=== PATIENT | female | born 1950 | race Caucasian/White ===

== ENCOUNTER 2024-02-20 16:33 | Emergency (ER) | payer MEDICARE, SELFPAY ==
[2024-02-20 16:36] VITALS: BP 164/84; PULSE 98; RESP 18; TEMP 36.6; O2SAT 97; BMI 23.4
--- NOTE | 2024-02-20 16:38 | ED_ITS ---
<Statement entered by Velma Rutledge DO - 02/20/24 17:11> I was consulted by the RORY, and we discussed the complexity of the problems being addressed. I approved the treatment and management plan for this patient's care in the emergency department, thus performing a substantive portion of the medical decision making. I independently interpreted x-ray prior to radiology read and noted no foreign body retained at the site of marker that was placed. Velma Rutledge DO Discharge Plan Disposition Patient Disposition: Home, Self-Care Condition: Good Prescriptions Prescriptions: New amoxicillin-pot clavulanate 875-125 mg tablet 1 tab PO BID Qty: 20 0RF Referrals Follow up/Referrals: Jenny Lomeli PA [Primary Care Provider] - See instructions Activity Restrictions/Add. Instructions Additional Instructions/Restrictions: You will need to return to the infusion center for your series of rabies shots. Follow the order sheet given to you on discharge. I have sent a prescription into your pharmacy. Please take till it is gone. Follow-up with your PCP for no improvement or worsening signs or symptoms including fever pain drainage etc. Clinical Impressions Clinical Impression: Cat bite Qualifiers: Encounter type: initial encounter Qualified Code(s): W55.01XA - Bitten by cat, initial encounter Instructions Patient Instructions: DI for Cat Bite Print Language Print Language: Mauritanian Discharge ED Provider: Velma Rutledge General Adult HPI General Chief complaint: Skin/Abscess/Foreign Body Stated complaint: cat bite Rt leg Time Seen by Provider: 02/20/24 16:38 History of Present Illness HPI narrative: Patient presents for evaluation of a cat bite. Patient was bitten by an outdoor cat of her neighbors in the right lower extremity. She does not know if the cat is vaccinated or not. She denies any numbness tingling pain or drainage currently. Related Data Previous Rx's ?Medication ?Instructions ?Recorded amoxicillin 875 mg-potassium 1 tab PO BID #20 tabs 02/20/24 clavulanate 125 mg tablet Allergies Allergy/AdvReac Type Severity Reaction Status Date / Time No Known Allergies Allergy Verified 02/20/24 16:46 [facility] Disclaimer: The information contained in this section may have been updated after the patient was seen, as this information can be updated by other users. Social History (Updated 02/20/24 @ 16:55 by BOOM Read) Smoking Status: Never smoker alcohol intake: never current occupational status: retired Travel in the last 8 weeks: None ROS Obtained: Yes Systems reviewed as appropriate & no additional complaints except as documented Physical Exam General General appearance: alert and in no apparent distress Respiratory Respiratory exam: Present normal lung sounds bilaterally Cardiovascular Cardiovascular exam: Present regular rate Neurological Exam Neurological exam: Present alert and oriented X3 Medical Decision Making Medical Records Screening: Per USPSTF and CDC recommendations, given the prevalence of disease in our region, it is our hospital?s policy to screen for HIV and viral Hepatitis for all patients aged 18 and over and those with ongoing risk factors. Cruz Inquiry Pt receiving controlled substance: No Vital Signs: 02/20/24 16:36 Temperature 97.8 F Temperature Source Oral Pulse Rate [Right] 98 H Respiratory Rate 18 Blood Pressure [Right Arm] 164/84 H Blood Pressure Mean [Right Arm] 110 02 Sat by Pulse Oximetry 97 Orders (Tests/Meds): ED MEDICATIONS Discontinued Medications Generic Name Dose Route Start Last Admin Trade Name Freq PRN Reason Stop Dose Admin Amoxicillin/Clavulanate Potassium 1 each 02/20/24 16:43 02/20/24 17:06 Amoxicillin/Clavulanate Potassium 875/125mg Tablet PO 02/20/24 16:44 1 each ONCE ONE Administration Rabies Immune Globulin 1,088.62 unit 02/20/24 16:48 02/20/24 17:00 Rabies Immune Globulin/Pf 300 Unit/Ml Vial IM 02/20/24 16:49 1,088.62 unit ONCE ONE Administration Rabies Vaccine 2.5 unit 02/20/24 16:44 02/20/24 17:02 Rabies Vaccine (Pcec)/Pf 2.5 Unit Vial IM 02/20/24 16:45 2.5 unit .ONCE ONE Administration ORDERS Category Date Time Status Tibia/fibula XR right 2 views [XR tibia fibula RT 2V] Exams 02/20/24 16:49 Taken Stat XR tibia fibula RT 2V Stat Exams 02/20/24 16:59 Taken HIV (1&2) Antibody Rapid Stat Lab 02/20/24 16:47 Ordered Hep C Ab with Reflex to RNA Stat Lab 02/20/24 16:47 Ordered Medical Decision Narrative: In summary patient is a 73-year-old female who presents to the emergency department for evaluation of cat bite. Patient is hemodynamically stable upon arrival, afebrile. Physical exam is remarkable for 2 puncture wounds in the anterior right gordillo lateral to the tibia. There is no induration streaking abscess currently. She is neurovascular intact distally. Differential diagnosis includes simple cat bite versus possible retained foreign body (i.e. cat tooth) etc. Initial workup will be conducted with plain film x-ray. Initial interventions include Augmentin rabies Ig infiltrated at the cat bite by myself and rabies vaccine intramuscularly. Initial workup reviewed by me and my informal interpretation shows no bony foreign body noted at the site of the bite. Given this patient is appropriate for discharge with both the rabies Ig first dose given as well as the rabies vaccine given in the emergency department with follow-up sheet for the serial doses given to the patient on discharge. Critical Care Critical Care Time Critical Care Time: No
--- NOTE | 2024-02-20 16:49 | XR_ITS ---
PROCEDURE INFORMATION: Exam: XR Right Tibia and Fibula Exam date and time: 02/20/2024 4:47 PM Age: 73 years old Clinical indication: Injury or trauma; Other: Cat bite; Puncture; Lower leg; Right; Foreign body involvement not specified; Additional info: Cat bite lateral leg, eval for foreign body TECHNIQUE: Imaging protocol: Radiologic exam of the right tibia and fibula. Views: 2 views. COMPARISON: No relevant prior studies available. FINDINGS: Bones/joints: Normal. No acute fracture identified. Soft tissues: Normal. IMPRESSION: No acute findings.
--- NOTE | 2024-02-20 16:59 | XR_ITS ---
PROCEDURE INFORMATION: Exam: XR Right Tibia and Fibula Exam date and time: 02/20/2024 4:59 PM Age: 73 years old Clinical indication: Injury or trauma; Other: Cat bite; Puncture; Lower leg; Right; Foreign body involvement not specified; Injury details: Marker placed next to wound to check for foreign body; Additional info: Cat bite 02/18 TECHNIQUE: Imaging protocol: Radiologic exam of the right tibia and fibula. Views: 2 views. COMPARISON: CR XR TIBIA FIBULA RT 2V 02/20/2024 4:47 PM FINDINGS: Bones/joints: Normal. No acute fracture identified. No radiopaque foreign body visible in the area of the cat bite as marked by skin marker located adjacent to the anterior aspect of the proximal to mid tibia.. Soft tissues: Normal. IMPRESSION: No acute findings.
[2024-02-20] MEDS: RABIES IMMUNE GLOBULIN/PF 300 UNIT/ML VIAL 1088.62 UNIT IM (17:00)
[2024-02-20] MEDS: RABIES VACCINE (PCEC)/PF 2.5 UNIT VIAL IM (17:02)
[2024-02-20] MEDS: AMOXICILLIN/CLAVULANATE POTASSIUM 875/125MG TABLET 1 EACH PO (17:06)
[2024-02-20 17:19] VITALS: BP 124/83; PULSE 99; RESP 18; TEMP 36.7; O2SAT 97
== END 2024-02-20 17:40 | disposition home or self-care (01) ==
LOC: ER 17:07
PROVIDERS: Emergency Provider Emergency Medicine; PCP Physician Assistant
DX: S81.831A Puncture wound without foreign body, right lower leg, initial encounter (principal); M79.661 Pain in right lower leg; Z23 Encounter for immunization; W55.01XA Bitten by cat, initial encounter; Y93.89 Activity, other specified; Y92.007 Garden or yard of unspecified non-institutional (private) residence as the place of occurrence of the external cause; Z20.3 Contact with and (suspected) exposure to rabies
CPT/HCPCS: 73590; 90375; 90471; 90675; 96372; 99283

== ENCOUNTER 2024-02-23 17:27 | Outpatient (CLI) | payer MEDICARE, SELFPAY ==
--- OUTSIDE RECORDS SUMMARY | 2024-02-23 17:32 | XMS_ITS | Encounter Summary ---
[facility] Address [address] [place] [address] Care Team Providers Care Assistance Specialist Name Role Phone Kortney Woods MD Primary Care Provi kenny Reason for Visit * Reason Onset Date Comments CS-Meds Re-Fill 04/10/2019 Encounter Details Date Type Department Care Team (Late st Contact Info) Description 04/10/2019 Telephone [facility] [address] [place] [address] Kortney Woods MD [address] [place] [address] CS-Meds Re-Fill Social History Tobacco Use Types Packs/Day Years Used Date Smoking Tobacco: Never Smokeless Tobacco: Never Alcohol Use Standard Drinks/Week Comments No 0 (1 standard drink = 0.6 oz pur e alcohol) PHQ-2 Answer Date Recorded PHQ-2 Score 7 02/08/2018 Comments No Sex and Gender Information Value Date Recorded Sex Assigned at Not on file Legal Sex Female 12:26 PM EDT Gender Identity Not on file Sexual Orientation Not on file documented as of this encounter Miscellaneous Notes * Telephone Encounter - Sebastian Dela Cruz RegSched Rep - 04/10/2019 4:10 PM EST Patient would like a re-fill for the zolpidem (AMBIEN) 10 MG tablet [employer] Mail Delivery, confirmed Patient Call Back [phone] documented in this encounter Plan of Treatment Upcoming Encounters Date Type Department Care Team (Late st Contact Info) Description 01/19/2025 3:00 PM EDT Office Visit [facility] [address] [place] [phone] Jenny Lomeli PA [address] [place] [address] documented as of this encounter Visit Diagnoses Diagnosis 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
--- OUTSIDE RECORDS SUMMARY | 2024-02-23 17:32 | XMS_ITS | Encounter Summary ---
[facility] [address] [place] [address] Care Team Providers Care Flight Dynamicist Name Role Phone Jenny Lomeli Primary Care Provider [phone] Encounter Details Date Type Department Care Team (Latest Contact Info) Description 01/15/2024 Travel Social History Tobacco Use Types Packs/Day Years Used Date Smoking Tobacco: Never Smokeless Tobacco: Never Alcohol Use Standard Drinks/Week Comments No 0 (1 standard drink = 0.6 oz pur e alcohol) PHQ-2 Answer Date Recorded Retired PHQ-9: Brief Depression Severity Measure Score 11 10/16/2022 Abuse Screen Answer Date Recorded Unsafe at Home or Work/School Not on file Feels Threatened by Someone? Not on file 01/2023 Does Anyone Keep You from Co ntacting Others or Doint Things Outside the Home? Not on file 01/09/2023 Physical Sign of Abuse Present Not on file 1 Housing Stability Answer Date Recorded Current Living Arrangements Not on file 12/30 Potentially Unsafe Housing Conditions Not on iva e 01/09/2023 Family and Community Support Answer Franco e Recorded Help with Day-to-Day Activities Not on file 01/09/2023 Lonely or Isolated Not on file 01/09/2023 Employment Answer Date Recorded Do you want help finding or keeping work or a luis armando b? Not on file 01/09/2023 Disabilities Answer Date Recorded Concentrating, Remembering, or Making Decisions Difficulty Not on file 01/09/2023 Doing Errands Independently Difficulty Not on fi le 01/09/2023 Education Answer Date Recorded Help with school or training? Not on file Preferred Language Not on file 01/09/2023 PHQ-2 Answer Date Recorded Patient Health Questionnaire-2 Score 1 01/15/2024 Comments No Sex and Gender Information Value Date Recorded Sex Assigned at Not on file Legal Sex Female 12:26 PM EDT Gender Identity Not on file Sexual Orientation Not on file documented as of this encounter Plan of Treatment Upcoming Encounters Date Type Department Care Team (Late st Contact Info) Description 01/19/2025 3:00 PM EDT Office Visit [facility] [address] [place] [phone] Jenny Lomeli PA [address] [place] [address] documented as of this encounter Visit Diagnoses Not on filedocumented in this encounter Additional Health Concerns Infection Onset Date Last Indicated Resolved Time Norovirus 10/23/2022 10/23/2022 Assessment Noted Time PHQ-2 Depression Total Score: 1 10/14/19 24 3:41 PM EDT documented as of this encounter Care Teams Flight Dynamicist Relationship Specialty Start Date End Date Jenny Lomeli PA [address] [place] [address] PCP - General Physician Residential Coordinator 10/11/23 documented as of this encounter
--- OUTSIDE RECORDS SUMMARY | 2024-02-23 17:32 | XMS_ITS | Encounter Summary ---
[facility] Address [address] [place] [address] Care Team Providers Care Rubber Goods Inspector Name Role Phone Kortney Woods MD Primary Care Provi kenny Reason for Visit * Reason Onset Date Comments ORDER FOR BLOOD WORK 12/23/2019 Encounter Details Date Type Department Care Team (Late st Contact Info) Description 12/23/2019 Telephone [facility] [address] [place] [phone] Kortney Woods MD [address] [place] [address] ORDER FOR BLOOD WORK Social History Tobacco Use Types Packs/Day Years [...] encounter Miscellaneous Notes * Telephone Encounter - Kortney Woods MD - 12/24/2019 7:49 AM EDT She's not coming for a physical. It was leg shaking. So I need to see her and then order labs andshe can get them while she is here. * Telephone Encounter - Deanna Beavers RegSched Rep - 12/23/2019 4:12 PM EDT Caller: WilfredDorita Relationship: Self Best call back number: [phone] What orders are you requesting (i.e. lab or imaging): BLOOD WORK In what timeframe would the patient need to come in: BEFORE HER APPOINTMENT ON 12/29/2019 Where will you receive your lab/imaging services: [facility] Additional notes: NA documented in this encounter Plan of Treatment Upcoming Encounters Date Type Department Care Team (Late st Contact Info) Description 01/19/2025 3:00 PM EDT Office Visit [facility] [address] [place] [address] Jenny Lomeli PA [address] [place] [address] documented as of this encounter Visit Diagnoses Not on filedocumented in this encounter Care Teams Rubber Goods Inspector Relationship Specialty Start Date End Date Kortney Woods MD [address] [place] [address] PCP - General Internal Medicine 09/04/18 10/15/22 documented as of this encounter
--- OUTSIDE RECORDS SUMMARY | 2024-02-23 17:32 | XMS_ITS | Encounter Summary ---
[facility] Address [address] [place] [address] Care Team Providers Care Cigarette Roller Name Role Phone Jenny Lomeli Primary Care Provider [phone] Reason for Referral * Consultation (Routine) - Authorized Specialty Diagnoses / Procedures Referred By Contac t Referred To Contact Orthopedic Surgery Diagnoses Chronic left shoulder pain Jenny Lomeli PA [address] [place] [address] Phone: tel: fax: [place] [address] [place] [address] Phone: tel: fax: Referral ID Status Reason Start Date Expiration Date Visits Requested Visits Authorized [id number] Authorized Specialty Services Required 01/14/2025 1 1 Scheduling Instructions Wants to see a different ortho office. Not [place]. Wants to stay in [place] Reason for Visit * Reason Comments Medicare Wellness-subsequent Med refills .Wants another ortho/? Does not care for Dr. Duke. Encounter Details Date Type Department Care Team (Latest Contact Info) Description 01/15/2024 3:00 PM EDT Office Visit [facility] [address] [facility] [place] [phone] Jenny Lomeli PA [address] [place] [address] Medicare annual wellness visit, subsequent (Primary Dx); Hyperlipidemia, unspecified hyperlipidemia type; Arthritis; Chronic left shoulder pain; Vitamin D insufficiency; Elevated glucose; Low serum vitamin B12; Need for influenza vaccination Social History Tobacco Use Types Packs/Day Years [...] on file documented as of this encounter Last Filed Vital Signs Vital Sign Reading Time Taken Comments Blood Pressure 120/78 01/15/2024 3:08 PM EDT Pulse 105 01/15/2024 3:08 PM EDT Temperature 37 ??C (98.6 ??F) 01/15/2024 3:08 PM EDT Respiratory Rate - - Oxygen Saturation 98% 01/15/2024 3:08 PM EDT Inhaled Oxygen Concentration - - Weight 54.9 kg (121 lb) 01/15/2024 3:08 PM EDT Height 154.9 cm (5' 1 ) 01/15/2024 3:08 PM EDT Body Mass Index 22.86 01/15/2024 3:08 PM EDT documented in this encounter Progress Notes * Jenny Lomeli PA - 01/15/2024 3:00 PM EDT Images from the original note were not included. Subjective The ABCs of the Annual Wellness Visit Medicare Wellness Visit Dorita Hardin is a 73 y.o. patient who presents for a Medicare Wellness Visit. The following portions of the patient's history were reviewed and updated as appropriate: allergies, current medications, past family history, past medical history, past social history, past surgical history, and problem list. Compared to one year ago, the patient's physical health is better. Compared to one year ago, the patient's mental health is better. Recent Hospitalizations: She was not admitted to the hospital during the last year. Current Medical Providers: Patient Care Team: Jenny Lomeli PA as PCP - General (Physician Senior Project Engineer) Outpatient Medications Prior to Visit Medication Sig Dispense Refill atorvastatin (LIPITOR) 20 MG tablet Take 1 tablet by mouth Every Night. 90 tablet 3 coiuwggf-xiohudfnr-sodmtvvpaljvu (MAXITROL) 3.5-22569-5.1 ophthalmic suspension INSTILL 1 DROP INTOBOTH EYES 3 TIMES A DAY diclofenac (VOLTAREN) 50 MG EC tablet Take 1 tablet by mouth Daily As Needed (arthritis pain). 90 tablet 0 amoxicillin-clavulanate (AUGMENTIN) 875-125 MG per tablet Take 1 tablet by mouth 2 (Two) Times a Day. 14 tablet 0 No facility-administered medications prior to visit. No opioid medication identified on active medication list. I have reviewed chart for other potential high risk medication/s and harmful drug interactions in the elderly. Aspirin is not on active medication list. Aspirin use is not indicated based on review of current medical condition/s. Risk of harm outweighs potential benefits. . Patient Active Problem List Diagnosis Primary insomnia Arthritis Anxiety PTSD (post-traumatic stress disorder) Advance Care Planning Advance Directive is on file. ACP discussion was held with the patient duringthis visit. Patient has an advance directive in EMR which is still valid. Objective Vitals: 01/15/24 1508 BP: 120/78 Pulse: 105 Temp: 98.6 ??F (37 ??C) SpO2: 98% Weight: 54.9 kg (121 lb) Height: 154.9 cm (61 ) PainSc: 5 PainLoc: Shoulder Estimated body mass index is 22.86 kg/m?? as calculated from the following: Height as of this encounter: 154.9 cm (61 ). Weight as of this encounter: 54.9 kg (121 lb). BMI is within normal parameters. No other follow-up for BMI required. Does the patient have evidence of cognitive impairment? No Health Risk Assessment Smoking Status: Social History Tobacco Use Smoking Status Never Smokeless Tobacco Never Alcohol Consumption: Social History Substance and Sexual Activity Alcohol Use No Fall Risk Screen STEADI Fall Risk Assessment was completed, and patient is at LOW risk for falls.Assessment completed on:01/15/2024 Depression Screenin01/15/2024 3:14 PM PHQ-2/PHQ-9 Depression Screening Little interest or pleasure in doing things Not at all Feeling down, depressed, or hopeless Several days How difficult have these problems made it for you to do your work, take care of things at home, or get along with other people? Somewhat difficult Health Habits and Functional and Cognitive Screenin01/15/2024 3:11 PM Functional & Cognitive Status Do you have difficulty preparing food and eating? No Do you have difficulty bathing yourself, getting dressed or grooming yourself? No Do you have difficulty using the toilet? No Do you have difficulty moving around from place to place? No Do you have trouble with steps or getting out of a bed or a chair? No Current Diet Well Balanced Diet Dental Exam Not up to date Eye Exam Up to date Exercise (times per week) 7 times per week Current Exercises Include Walking;Yard Work Exercise Comment still working Do you need help using the phone? No Are you deaf or do you have serious difficulty hearing? No Do you need help to go to places out of walking distance? No Do you need help shopping? No Do you need help preparing meals? No Do you need help with housework? No Do you need help with laundry? No Do you need help taking your medications? No Do you need help managing money? No Do you ever drive or ride in a car without wearing a seat belt? No Have you felt unusual stress, anger or loneliness in the last month? Yes Who do you live with? Child If you need help, do you have trouble finding someone available to you? No Have you been bothered in the last four weeks by sexual problems? No Do you have difficulty concentrating, remembering or making decisions? Yes Age-appropriate Screening Schedule: Refer to the list below for future screening recommendations based on patient's age, sex and/or medical conditions. Orders for these recommended tests are listed in the plan section. The patient has been provided with a written plan. Health Maintenance List Health Maintenance Topic Date Due ZOSTER VACCINE (1 of 2) Never done DXA SCAN 07/13/2022 INFLUENZA VACCINE 10/31/2023 COVID-19 Vaccine (2022-24 season) 2024 (Originally 12/01/2023) LIPID PANEL 03/15/2024 ANNUAL WELLNESS VISIT 01/14/2025 MAMMOGRAM 03/21/2025 COLORECTAL CANCER SCREENING 11/26/2028 TDAP/TD VACCINES (2 - Td or Tdap) 03/15/2033 HEPATITIS C SCREENING Completed Pneumococcal Vaccine 65+ Completed [facility] Preventative Services Quick Reference Risk Factors Identified During Encounter Depression/Dysphoria: resistant to medication or therapy at this time The above risks/problems have been discussed with the patient. Pertinent information has been shared with the patient in the After Visit Summary. An After Visit Summary and PPPS were made available to the patient. Follow Up: Next Medicare Wellness visit to be scheduled in 1 year. Assessment & Plan Medicare annual wellness visit, subsequent Hyperlipidemia, unspecified hyperlipidemia type Lipid abnormalities are stable Plan: Continue same medication/s without change. Discussed medication dosage, use, side effects, and goals of treatment in detail. Counseled patient on lifestyle modifications to help control hyperlipidemia. Patient Treatment Goals: LDL goal is less than 70 Followup in 6 months. Arthritis Chronic left shoulder pain Vitamin D insufficiency Elevated glucose Low serum vitamin B12 Orders Placed This Encounter Procedures Ambulatory Referral to Orthopedic Surgery New Medications Ordered This Visit Medications diclofenac (VOLTAREN) 50 MG EC tablet Sig: Take 1 tablet by mouth Daily As Needed (arthritis pain). Dispense: 90 tablet Refill: 3 Place on file Diagnoses and all orders for this visit: 1. Medicare annual wellness visit, subsequent (Primary) - CBC w AUTO Differential - Comprehensive metabolic panel - Lipid Panel - Vitamin D 25 hydroxy - Hemoglobin A1c - Vitamin B12 - Folate 2. Hyperlipidemia, unspecified hyperlipidemia type - CBC w AUTO Differential - Comprehensive metabolic panel - Lipid Panel 3. Arthritis - diclofenac (VOLTAREN) 50 MG EC tablet; Take 1 tablet by mouth Daily As Needed (arthritis pain). Dispense: 90 tablet; Refill: 3 4. Chronic left shoulder pain - diclofenac (VOLTAREN) 50 MG EC tablet; Take 1 tablet by mouth Daily As Needed (arthritis pain). Dispense: 90 tablet; Refill: 3 - Ambulatory Referral to Orthopedic Surgery 5. Vitamin D insufficiency - Vitamin D 25 hydroxy 6. Elevated glucose - Hemoglobin A1c 7. Low serum vitamin B12 - Vitamin B12 - Folate 8. Need for influenza vaccination - Fluzone High-Dose 65+yrs Follow Up: No follow-ups on file. documented in this encounter Plan of Treatment Upcoming Encounters Date Type Department Care Team (Late st Contact Info) Description 01/19/2025 3:00 PM EDT Office Visit [facility] [address] [facility] [place] [address] Jenny Lomeli PA [address] [place] [address] Scheduled Referrals Name Type Priority Associated Diagnoses Order Schedule Ambulatory Referral to Orthopedic Surgery Outpatient Referral Routine Chronic left shoulder pain Ordered: 01/15/2024 documented as of this encounter Procedures Procedure Name Priority Date/Time Associated Diagnosis Comments VITAMIN D,25-HYDROXY Routine 01/15/2024 4:17 PM EDT Medicare annual wellness visit, subsequent Vitamin D insufficiency CBC AND DIFFERENTIAL Routine 01/15/2024 4:17 PM EDT Medicare annual wellness visit, subsequent Hyperlipidemia, unspecified hyperlipidemia type HEMOGLOBIN A1C Routine 01/15/2024 4:17 PM EDT Medicare annual wellness visit, subsequent Elevated glucose FOLATE Routine 01/15/2024 4:17 PM EDT Medicare annual wellness visit, subsequent Low serum vitamin B12 VITAMIN B12 Routine 01/15/2024 4:17 PM EDT Medicare annual wellness visit, subsequent Low serum vitamin B12 LIPID PANEL Routine 01/15/2024 4:17 PM EDT Medicare annual wellness visit, subsequent Hyperlipidemia, unspecified hyperlipidemia type COMPREHENSIVE METABOLIC PANEL Routine 01/15/2024 4:17 PM EDT Medicare annual wellness visit, subsequent Hyperlipidemia, unspecified hyperlipidemia type documented in this encounter Results * Folate (01/15/2024 4:17 PM EDT) Folate 9.4 >3.0 ng/mL [facility] Comment: A serum folate concentration of less than 3.1 ng/mL is considered to represent clinical deficiency. Blood 01/15/2024 4:17 PM EDT 01/15/2024 Narrative [facility] (AMBULATORY) - 01/16/2024 8:21 AM EDT Performed at: ??01 - [facility] [address] ??[id number] Stock Taker: Hawk Mireles PhD, Phone: ??[phone] Patient Fasting: ??Y Jenny NUR LAB BLOOD ORDERABLES Final Res ult [facility] (AMBULATORY) [address] [place] [address], [facility] [address] [place] [address], [place] [phone] * Vitamin B12 (01/15/2024 4:17 PM EDT) Vitamin B-12 407 232 - 1,245 pg/mL [facility] Blood 01/15/2024 4:17 PM EDT 01/15/2024 Narrative [facility] (AMBULATORY) - 01/16/2024 8:21 AM EDT Performed at: ??01 - [facility] ??[id number] Stock Taker: Hawk Mireles PhD, Phone: ??[phone] Patient Fasting: ??Y Jenny NUR LAB BLOOD ORDERABLES Final Res ult Performing Organization Address City/[facility]/ZIP Co de Phone Number [facility] [address] [place] [address], [place] [phone] [facility] [address] [place] [address], [place] [phone] * (ABNORMAL) Hemoglobin A1c (01/15/2024 4:17 PM EDT) Pathologist [facility] Hemoglobin A1C 5.8(H) 4.8 - 5.6 % [facility] Comment: ? Prediabetes: 5.7 - 6.4 ? Diabetes: >6.4 ? Glycemic control for adults with diabetes: <7.0 Blood 01/15/2024 4:17 PM EDT 01/15/2024 [facility] (AMBUL[facility]) - 01/16/2024 8:21 AM EDT Performed at: ??01 - [facility] ??[id number] Stock Taker: Hawk Mireles PhD, Phone: ??[phone] Patient Fasting: ??Y Jenny NUR LAB BLOOD ORDERABLES Final Res ult Performing Organization Address [facility] Co de Phone Number [facility] [address] [place] [address], [place] [phone] [facility] [address] [place] [address], [place] [phone] * (ABNORMAL) Vitamin D 25 hydroxy (01/15/2024 4:17 PM EDT) 25 Hydroxy, Vitamin D 28.5(L) 30.0 - 100.0 ng/mL [facility] Comment: Vitamin D deficiency has been defined by the [place] [employer] and an Endocrine Society practice guideline as a level of serum 25-OH vitamin D less than 20 ng/mL (1,2). The Endocrine Society went on to further define vitamin D insufficiency as a level between 21 and 29 ng/mL (2). 1. IOM ([place] of [employer]). 2010. Dietary reference ?? intakes for calcium and D. [place]: The ?? National Cardiac Guard Press. 2. Raghu MF, Jamin [place], Drew COLEMAN, et al. ?? Evaluation, treatment, and prevention of vitamin D ?? deficiency: an Endocrine Society clinical practice ?? guideline. JCEM. 2010; 96(7):1911-30. Blood 01/15/2024 4:17 PM EDT 01/15/2024 Narrative [facility] - 01/16/2024 8:21 AM EDT Performed at: ??01 - [address] ??[id number] Stock Taker: Hawk Mireles PhD, Phone: ??[phone] Patient Fasting: ??Y Jenny NUR LAB BLOOD ORDERABLES Final Res ult [facility] [address] [place] [address], [facility] [address] [place] [address], * (ABNORMAL) Lipid Panel (01/15/2024 4:17 PM EDT) Total Cholesterol 172 100 - 199 mg/dL [facility] Triglycerides 89 0 - 149 mg/dL [facility] HDL Cholesterol 53 >39 mg/dL [facility] VLDL Cholesterol Naga 16 5 - 40 mg/dL [facility] LDL Chol Calc ([facility]) 103(H) 0 - 99 mg/dL [facility] Blood 01/15/2024 4:17 PM EDT 01/15/2024 Narrative [facility] (AM[facility]) - 01/16/2024 8:21 AM EDT Performed at: ??01 - [facility] [address] [place], [place] ??[id number] Stock Taker: Hawk Mireles PhD, Phone: ??[phone] Patient Fasting: ??Y us Jenny NUR LAB BLOOD ORDERABLES Final Res ult [facility] (AMBULATORY) [address] [place] [address], [facility] [address] [place] [address], * (ABNORMAL) Comprehensive metabolic panel (01/15/2024 4:17 PM EDT) Glucose 104(H) 70 - 99 mg/dL [facility] BUN 21 8 - 27 mg/dL [facility] Creatinine 1.03(H) 0.57 - 1.00 mg/dL [facility] EGFR Result 57(L) >59 mL/min/1.7 3 [facility] BUN/Creatinine Ratio 20 12 - 28 [facility] Sodium 141 134 - 144 mmol/L [facility] Potassium 4.1 3.5 - 5.2 mmol/L [facility] Chloride 105 96 - 106 mmol/L [facility] Total CO2 23 20 - 29 mmol/L [facility] Calcium 9.7 8.7 - 10.3 mg/dL [facility] Total Protein 7.0 6.0 - 8.5 g/dL [facility] Albumin 4.4 3.8 - 4.8 g/dL [facility] Globulin 2.6 1.5 - 4.5 g/dL [facility] Total Bilirubin 0.3 0.0 - 1.2 mg/dL [facility] Alkaline Phosphatase 69 44 - 121 IU/L [facility] AST (SGOT) 23 0 - 40 IU/L [facility] ALT (SGPT) 17 0 - 32 IU/L [facility] Blood 01/15/2024 4:17 PM EDT 01/15/2024 Narrative [facility] (AMB[facility]) - 01/16/2024 8:21 AM EDT Performed at: ??01 - [facility] [address] [place], [place] ??[id number] Stock Taker: Hawk Mireles PhD, Phone: ??[phone] Patient Fasting: ??Y Jenny NUR LAB BLOOD ORDERABLES Final Res ult [facility] (AMBULATORY) [address] [place] [address], [facility] [address] [place] [address], * CBC w AUTO Differential (01/15/2024 4:17 PM EDT) WBC 5.4 3.4 - 10.8 x10E3/uL [facility] RBC 4.41 3.77 - 5.28 x10E6/uL [facility] Hemoglobin 14.0 11.1 - 15.9 g/dL [facility] Hematocrit 42.9 34.0 - 46.6 % [facility] MCV 97 79 - 97 fL [facility] MCH 31.7 26.6 - 33.0 pg [facility] MCHC 32.6 31.5 - 35.7 g/dL [facility] RDW 12.5 11.7 - 15.4 % [facility] Platelets 211 150 - 450 x10E3/uL [facility] Neutrophil Rel % 43 Not Estab. % [facility] Lymphocyte Rel % 48 Not Estab. % [facility] Monocyte Rel % 6 Not Estab. % [facility] Eosinophil Rel % 2 Not Estab. % [facility] Basophil Rel % 1 Not Estab. % [facility] Neutrophils Absolute 2.3 1.4 - 7.0 x10E3/uL [facility] Lymphocytes Absolute 2.7 0.7 - 3.1 x10E3/uL [facility] Monocytes Absolute 0.3 0.1 - 0.9 x10E3/uL [facility] Eosinophils Absolute 0.1 0.0 - 0.4 x10E3/uL [facility] Basophils Absolute 0.0 0.0 - 0.2 x10E3/uL [facility] Immature Granulocyte Rel % 0 Not Estab. % [facility] Immature Grans Absolute 0.0 0.0 - 0.1 x10E3/uL [facility] Blood 01/15/2024 4:17 PM EDT 01/15/2024 Narrative [facility] (AMBULATORY) - 01/16/2024 8:21 AM EDT Performed at: ??01 - [facility] [address] [place], [place] ??[id number] Stock Taker: Hawk Mireles PhD, Phone: ??[phone] Patient Fasting: ??Y Jenny NUR LAB BLOOD ORDERABLES Final Res ult [facility] (AMBUL[facility]) [address] [place] [address], [facility] [address] [place] [address], documented in this encounter Visit Diagnoses Diagnosis Medicare annual wellness visit, subsequent- Primary Hyperlipidemia, unspecified hyperlipidemia type Arthritis Unspecified arthropathy, site unspecified Chronic left shoulder pain Pain in joint, shoulder region Vitamin D insufficiency Elevated glucose Other abnormal glucose Low serum vitamin B12 Need for influenza vaccination Need for prophylactic vaccination and inoculation against influenza documented in this encounter Additional Health Concerns Infection Onset Date Last Indicated Resolved Time Norovirus 10/23/2022 10/23/2022 Assessment Noted Time PHQ-2 Depression Total Score: 1 10/14/19 24 3:41 PM EDT documented as of this encounter Care Teams Cigarette Roller Relationship Specialty Start Date End Date Jenny L[place] [address] PCP - General Physician Senior Project Engineer 10/11/23 documented as of this encounter
--- OUTSIDE RECORDS SUMMARY | 2024-02-23 17:32 | XMS_ITS | Encounter Summary ---
[facility] Address [address] [place] [id number] Care Team Providers Care Buckshot Swage Operator Name Role Phone Velma Phillips APRN Primary Care Provider [phone] Reason for Visit * Reason Onset Date Comments Stool order 10/16/2022 Encounter Details Date Type Department Care Team (Late st Contact Info) Description 10/16/2022 Telephone [facility] [address] [place] [address] Velam Phillips APRN [address] [place] [phone] Stool order Social History Tobacco Use Types Packs/Day Years Used Date Smoking Tobacco: Never Smokeless Tobacco: Never Alcohol Use Standard Drinks/Week Comments No 0 (1 standard drink = 0.6 oz pur e alcohol) PHQ-2 Answer Date Recorded Retired PHQ-9: Brief Depression Severity Measure Score 11 10/16/2022 PHQ-2 Answer Date Recorded Retired PHQ-9: Brief Depression Severity Measure Score 11 10/16/2022 Comments No Sex and Gender Information Value Date Recorded Sex Assigned at Not on file Legal Sex Female 12:26 PM EDT Gender Identity Not on file Sexual Orientation Not on file documented as of this encounter Miscellaneous Notes * Telephone Encounter - Marlene Mast MA - 10/19/2022 12:28 PM EDT Placed order however, it's flagging that an ABN MUST BE SIGNED BEFORE LAB WILL PROCESS. ABN placed up front. Left detailed vm informing pt. * Telephone Encounter - Keily Jimenez MA - 10/18/2022 5:27 PM EDT LVM 10/18 * Telephone Encounter - Velma Phillips APRN - 10/16/2022 4:59 PM EDT LVM for patient to call back. If she decides to proceed with the stool culture, I would like a gastrointestinal panel, PCR. I did not order yet as patient has not agreed to the cost of the test. * Telephone Encounter - Velma Phillips APRN - 10/16/2022 3:28 PM EDT Please call patient and let her know that the stool sample test is over $300 and it is not allowingme to order it for her diagnosis. If she would like, we can start with blood work and then make a plan from there. We can consider referring her to a specialist to see if they are able to get the test. She also has the option to sign a waiver stating that she understands the test will not be covered on her insurance. documented in this encounter Plan of Treatment Upcoming Encounters Date Type Department Care Team (Late st Contact Info) Description 01/19/2025 3:00 PM EDT Office Visit [facility] [address] [address] Jenny Lomeli PA [address] [address] documented as of this encounter Visit Diagnoses Not on filedocumented in this encounter Additional Health Concerns Assessment Noted Time PHQ-2 Depression Total Score: 3 10/17/19 23 1:57 PM EDT documented as of this encounter Care Teams Buckshot Swage Operator Relationship Specialty Start Date End Date Velma Phillips APRN PCP - General Family Medicine 10/16/22 10/10/23 documented as of this encounter
--- OUTSIDE RECORDS SUMMARY | 2024-02-23 17:32 | XMS_ITS | Encounter Summary ---
Author Organization [facility] Address [address] [place] [address] Care Team Providers Care Joint Cleaning Machine Operator Name Role Phone Kortney Woods MD Primary Care Provi kenny Reason for Visit * Reason Onset Date Comments Med Refill 07/31/2019 Encounter Details Date Type Department Care Team (Late st Contact Info) Description 07/31/2019 Refill [facility] [address] [place] [phone] Kortney Woods MD [address] [place] [address] Diarrhea, unspecified type Social History Tobacco Use Types Packs/Day Years [...] encounter Miscellaneous Notes * Telephone Encounter - Chapis Luna RegSched Rep - 07/31/2019 1:30 PM EDT Requesting a refill on loperamide (IMODIUM) 2 MG capsule Pharmacy confirmed- [facility] [address] [facility] documented in this encounter Plan of Treatment Upcoming Encounters Date Type Department Care Team (Late st Contact Info) Description 01/19/2025 3:00 PM EDT Office Visit [facility] [address] [place] [address] Jenny Lomeli PA [address] [place], [place] [phone] documented as of this encounter Visit Diagnoses Diagnosis Diarrhea, unspecified type documented in this encounter Care Teams Joint Cleaning Machine Operator Relationship Specialty Start Date End Date Kortney Woods MD [address] [address] PCP - General Internal Medicine 09/04/18 10/15/22 documented as of this encounter
--- OUTSIDE RECORDS SUMMARY | 2024-02-23 17:32 | XMS_ITS | Encounter Summary ---
[facility] [address] [place] [id number] Care Team Providers Care Engine Lathe Tender Name Role Phone Jenny Lomeli Primary Care Provider [phone] Reason for Referral * Diagnostic Imaging (Routine) - Closed Specialty Diagnoses / Procedures Referred By Contac t Referred To Contact Radiology Diagnoses Mass of skin of left shoulder Procedures US Nonvascular Extremity Limited Jenny Lomeli PA [address] [place] [address] Phone: tel: fax: [facility] [place] [address] [place] [address] Phone: tel: Referral ID Status Reason Start Date Expiration Date Visits Re quested Visits Authorized [id number] Closed 10/14/2023 10/13/2024 1 1 Reason for Visit * Diagnostic Imaging (Routine) - Closed Specialty Diagnoses / Procedures Referred By Contac t Referred To Contact Radiology Diagnoses Mass of skin of left shoulder Procedures US Nonvascular Extremity Limited Jenny Lomeli PA [address] [place] [address] Phone: tel: fax: [facility] [address] [place] [address] Phone: tel: Referral ID Status Reason Start Date Expiration Date Visits Re quested Visits Authorized [id number] Closed 10/14/2023 10/13/2024 1 1 Encounter Details Date Type Department Care Team (Latest Contact Info) Description 10/24/2023 3:50 PM EDT - 10/24/2023 11:59 PM EDT Hospital Encounter [facility] [address] [place] [address] Jenny Lomeli PA [address] [place] [address] Mass of skin of left shoulder Discharge Disposition: Home or Self Care Social History Tobacco Use Types Packs/Day Years [...] on file 01/09/2023 PHQ-2 Answer Date Recorded Retired PHQ-9: Brief Depression Severity Measure Score 1 10/14/2023 Comments No Sex and Gender Information Value Date Recorded Sex Assigned at Not on file Legal Sex Female 12:26 PM EDT Gender Identity Not on file Sexual Orientation Not on file documented as of this encounter Medications at Time of Discharge atorvastatin (LIPITOR) 20 MG tabletIndications:Hy perlipidemia, unspecified hyperlipidemia type Take 1 tablet by mouth Every Night. 90 tablet 3 10/14/2023 pxfeyjbu-uucpqyqpo-m examethasone (MAXITROL) 3.5-32586-9.1 ophthalmic suspension INSTILL 1 DROP INTO BOTH EYES 3 TIMES A DAY 07/11/2023 amoxicillin-clavulan ate (AUGMENTIN) 875-125 MG per tabletIndications:Ca t bite, initial encounter Take 1 tablet by mouth 2 (Two) Times a Day. 14 tablet 10/14/2023 diclofenac (VOLTAREN) 50 MG EC tabletIndications:Ar thritis Take 1 tablet by mouth Daily As Needed (arthritis pain). 90 tablet 10/14/2023 4 documented as of this encounter Plan of Treatment Upcoming Encounters Date Type Department Care Team (Late st Contact Info) Description 01/19/2025 3:00 PM EDT Office Visit [facility] [address] [place] [address] Jenny Lomeli PA [address] [place] [address] documented as of this encounter Procedures Procedure Name Priority Date/Time Associated Diagnosis Comments US NONVASCULAR EXTREMITY LIMITED Routine 10/24/2023 4:06 PM EDT Mass of skin of left shoulder documented in this encounter Results * US Nonvascular Extremity Limited (10/24/2023 4:06 PM EDT) Anatomical Region Laterality Modality Upper Extremities, Lower Extremities Ultrasound 10/28/2023 11:0 0 AM EDT Impressions 10/28/2023 11:09 AM EDT Impression: Area indicated by the patient in the left upper arm corresponds to a 1.0 x 0.6 x 1.1 cm lesion with appearance favoring epidermal inclusion cyst. No aggressive features. Depending on patient's symptoms, however, and particularly if there is clinical evidence of progression, development of redness/inflammation, etc., consider further evaluation and possible excision. Electronically Signed: Shiva Alvarez MD 10/28/2023 11:09 AM EDT Workstation ID: [id number] Narrative 10/28/2023 11:09 AM EDT US NONVASCULAR EXTREMITY LIMITED Date of Exam: 10/24/2023 3:54 PM EDT Indication: left shoulder mass. Comparison: No comparisons available. Technique: Grayscale and color Doppler ultrasound evaluation of the left upper arm was performed. ??Real time scanning was performed with image documentation of the area of interest. Findings: Patient history indicates left upper arm mass for couple of years, nonpainful. The area indicated patient in the left upper arm corresponds to a sharply- defined, 1.0 x 0.6 x 1.1 cm predominantly hypoechoic lesion with no visible cyst wall. Lesion appears to consist of a rim of anechoic fluid, with extensive internal debris, and focal denser debris with acoustic shadowing that may represent a calcification. There is slight bulging of the overlying fascia but no invasive features. No definite internal color Doppler flow or significant marginal color Doppler flow is visible and the lesion is not significantly compressible. Soft tissues elsewhere around this area appear unremarkable with no other evidence of cyst mass or edema. Procedure Note Shiva Avlarez MD - 10/28/2023 US NONVASCULAR EXTREMITY LIMITED Date of Exam: 10/24/2023 3:54 PM EDT Indication: left shoulder mass. Comparison: No comparisons available. Technique: Grayscale and color Doppler ultrasound evaluation of the leftupper arm was performed. Real time scanning was performed with imagedocumentation of the area of interest. Findings: Patient history indicates left upper arm mass for couple of years,nonpainful. The area indicated patient in the left upper arm corresponds to asharply- defined, 1.0 x 0.6 x 1.1 cm predominantly hypoechoic lesion withno visible cyst wall. Lesion appears to consist of a rim of anechoicfluid, with extensive internal debris, and focal denser debris with acoustic shadowing that may represent acalcification. There is slight bulging of the overlying fascia but noinvasive features. No definite internal color Doppler flow or significantmarginal color Doppler flow is visible and the lesion is not significantly compressible. Soft tissues elsewhere around this area appear unremarkable with no otherevidence of cyst mass or edema. IMPRESSION: Impression: Area indicated by the patient in the left upper arm corresponds to a 1.0 x0.6 x 1.1 cm lesion with appearance favoring epidermal inclusion cyst. Noaggressive features. Depending on patient's symptoms, however, andparticularly if there is clinical evidence of progression, development of redness/inflammation, etc.,consider further evaluation and possible excision. Electronically Signed: Shvia Alvarez MD 10/28/2023 11:09 AM EDT Workstation ID: [id number] us Jenny NUR [facility] [place] ORDERABLES Final Result documented in this encounter Visit Diagnoses Diagnosis Mass of skin of left shoulder documented in this encounter Additional Health Concerns Infection Onset Date Last Indicated Resolved Time Norovirus 10/23/2022 10/23/2022 Assessment Noted Time PHQ-2 Depression Total Score: 1 10/14/19 24 3:41 PM EDT documented as of this encounter Care Teams Engine Lathe Tender Relationship Specialty Start Date End Date [facility] [place] [address] PCP - General Physician Coach Builder 10/11/23 documented as of this encounter
--- OUTSIDE RECORDS SUMMARY | 2024-02-23 17:32 | XMS_ITS | Encounter Summary ---
Author Organization [facility] Address [address] [place] [address] Care Team Providers Care Lab Intern Name Role Phone Kortney Woods MD Primary Care Provi kenny Encounter Details Date Type Department Care Team (Late st Contact Info) Description 11/13/2019 Telephone [facility] [address] [place] [address] Washington Helms LPN Social History Tobacco Use Types Packs/Day Years [...] encounter Miscellaneous Notes * Telephone Encounter - Washington Helms LPN - 11/13/2019 2:18 PM EDT Erroneous encounter documented in this encounter Plan of Treatment Upcoming Encounters Date Type Department Care Team (Late st Contact Info) Description 01/19/2025 3:00 PM EDT Office Visit [facility] [address] [place] [address] Jenny Lomeli PA [address] [place] [address] documented as of this encounter Visit Diagnoses Not on filedocumented in this encounter Care Teams Lab Intern Relationship Specialty Start Date End Date Kortney Woods MD [address] [place] [address] PCP - General Internal Medicine 09/04/18 10/15/22 documented as of this encounter
--- OUTSIDE RECORDS SUMMARY | 2024-02-23 17:32 | XMS_ITS | Clinical Summary ---
[facility] Address [address] [place] [address] Care Team Providers Care Account Service Associate Name Role Phone Jenny Lomeli Primary Care Provider [phone] Allergies Active Allergy Reactions Criticality Noted Date Comments Ranitidine 05/04/2014 Medications neomycin-polymyxin- dexamethasone (MAXITROL) [id number] ophthalmic suspension INSTILL 1 DROP INTO BOTH EYES 3 TIMES A DAY 4 Active atorvastatin (LIPITOR) 20 MG tabletIndications:H yperlipidemia, unspecified hyperlipidemia type Take 1 tablet by mouth Every Night. 90 tablet 3 4 Active diclofenac (VOLTAREN) 50 MG EC tabletIndications:A rthritis,Chronic left shoulder pain Take 1 tablet by mouth Daily As Needed (arthritis pain). 90 tablet 3 4 Active Active Problems Problem Noted Date Diagnosed Date Anxiety 10/24/2022 PTSD (post-traumatic stress disorder) 10/24/2022 Primary insomnia 05/01/2017 Arthritis 05/01/2017 Encounters Date Type Department Care Team Description 01/15/2024 3:00 PM EDT Office Visit [facility] [address] [facility] [place] [address] Jenny Lomeli PA Medicare annual wellness visit, subsequent (Primary Dx); Hyperlipidemia, unspecified hyperlipidemia type; Arthritis; Chronic left shoulder pain; Vitamin D insufficiency; Elevated glucose; Low serum vitamin B12; Need for influenza vaccination 01/15/2024 Travel from Last 3 Months Immunizations Name Administration Dates Next Due FLUAD TRI 65YR+ 01/12/2019 Fluad Quad 65+ 01/22/2021,12/29/2019 Fluzone High-Dose 65+YRS 01/15/2024,01/12/2019 Fluzone High-Dose 65+yrs 01/31/2023 Pneumococcal Conjugate 20-Valent (PCV20) 023 Pneumococcal Polysaccharide (PPSV23) 01/22/2021, 02/06/2018 Pneumococcal, Unspecified 01/31/2022 Tdap 03/15/2023 Family History Medical History Relation Name Comments Arthritis Mother Stroke Mother Breast cancer Neg Hx Ovarian cancer Neg Hx Relation Name Status Comments Mother Social History Tobacco Use Types Packs/Day Years Used Date Smoking Tobacco: Never Smokeless Tobacco: Never Tobacco Cessation:Counseling Given: Not Answered Alcohol Use Standard Drinks/Week Comments No 0 [...] on file Sexual Orientation Not on file Last Filed Vital Signs Vital Sign Reading Time Taken Comments Blood Pressure 120/78 01/15/2024 3:08 PM EDT Pulse 105 01/15/2024 3:08 PM EDT Temperature 37 ??C (98.6 ??F) 01/15/2024 3:08 PM EDT Respiratory Rate 18 03/15/2023 2:25 PM EST Oxygen Saturation 98% 01/15/2024 3:08 PM EDT Inhaled Oxygen Concentration - - Weight 54.9 kg (121 lb) 01/15/2024 3:08 PM EDT Height 154.9 cm (5' 1 ) 01/15/2024 3:08 PM EDT Body Mass Index 22.86 01/15/2024 3:08 PM EDT Plan of Treatment Upcoming Encounters Date Type Department Care Team (Late st Contact Info) Description 01/19/2025 3:00 PM EDT Office Visit [facility] [address] [place] [address] Jenny Lomeli PA [address] [place] [address] Health Maintenance Due Date Last Done Comments COLOGUARD 1950 COLON CANCER SCREENING [address] COLONOGRAPHY 1950 FECAL OCCULT BLOOD TEST 1950 FIT Testing (1 year) 1950 ZOSTER VACCINE (1 of 2) 2000 DXA SCAN 07/13/2022 07/13/2020, 03/13/2018 COVID-19 Vaccine ( season) 2024 Postponed from 12/01/2023 (Product Unavailable) ANNUAL WELLNESS VISIT 01/14/2025 01/15/2024 , 01/15/2024, 05/16/2022, Additional history exists LIPID PANEL 01/14/2025 01/15/2024, 03/01, 01/31/2023, Additional history exists MAMMOGRAM 03/21/2025 03/21/2023, 02/0 10/2020, 04/20/2019, Additional history exists COLONOSCOPY 11/26/2028 11/26/2018 COLORECTAL CANCER SCREENING 11/26/2028 TDAP/TD VACCINES (2 - Td or Tdap) 03/15/2033 03/15/2023 HEPATITIS C SCREENING Completed 02/06/2018 Pneumococcal Vaccine 65+ Completed 023, 01/31/2022, 01/22/2021, Additional history exists INFLUENZA VACCINE Completed 01/15/2024, , 01/22/2021, Additional history exists Procedures Procedure Name Priority Date/Time Associated Diagnosis Comments SCANNED - IMAGING 02/20/2024 CBC AND DIFFERENTIAL Routine 01/15/2024 4:17 PM EDT Medicare annual wellness visit, subsequent Hyperlipidemia, unspecified hyperlipidemia type FOLATE Routine 01/15/2024 4:17 PM EDT Medicare annual wellness visit, subsequent Low serum vitamin B12 VITAMIN B12 Routine 01/15/2024 4:17 PM EDT Medicare annual wellness visit, subsequent Low serum vitamin B12 HEMOGLOBIN A1C Routine 01/15/2024 4:17 PM EDT Medicare annual wellness visit, subsequent Elevated glucose VITAMIN D,25-HYDROXY Routine 01/15/2024 4:17 PM EDT Medicare annual wellness visit, subsequent Vitamin D insufficiency LIPID PANEL Routine 01/15/2024 4:17 PM EDT Medicare annual wellness visit, subsequent Hyperlipidemia, unspecified hyperlipidemia type COMPREHENSIVE METABOLIC PANEL Routine 01/15/2024 4:17 PM EDT Medicare annual wellness visit, subsequent Hyperlipidemia, unspecified hyperlipidemia type MAMMO SCREENING DIGITAL TOMOSYNTHESIS BILATERAL W CAD Routine 03/21/2023 2:29 PM EST Screening mammogram for breast cancer DEXA BONE DENSITY AXIAL Routine 03/13/2018 1:36 PM EST Menopause HEPATITIS C ANTIBODY Routine 02/06/2018 12:00 AM EST Annual physical exam from Last 3 Months or Most Recently Relevant to Health Maintenance Results * IMAGING SCANNED (02/20/2024) Anatomical Region Laterality Modality Radiographic Melody ging us Jenny NUR IMG DIAGNOSTIC IMAGING ORDERAB LES Final Result * (ABNORMAL) Vitamin D 25 hydroxy (01/15/2024 4:17 PM EDT) 25 Hydroxy, Vitamin D 28.5(L) 30.0 - 100.0 ng/mL [facility] Comment: Vitamin D deficiency has been defined by the [place] of Medicine and an Endocrine Society practice guideline as a level of serum 25-OH vitamin D less than 20 ng/mL (1,2). The Endocrine Society went on to further define vitamin D insufficiency as a level between 21 and 29 ng/mL (2). 1. IOM ([place] of Medicine). 2010. Dietary reference ?? intakes for calcium and D. [place]: The ?? National AcademSprayCool Press. 2. Raghu MF, Jamin NC, Drew COLEMAN, et al. ?? Evaluation, treatment, and prevention of vitamin D ?? deficiency: an Endocrine Society clinical practice ?? guideline. JCEM. 2011 Sep; 96(7):1911-30. Blood 01/15/2024 4:17 PM EDT 01/15/[address] [facility] (AMBULATORY) - 01/16/2024 8:21 AM EDT Performed at: ??01 - [facility] [address] ??[id number] [place] Skinner: Hawk Mireles PhD, Phone: ??[phone] Patient Fasting: ??Y us Jenny NUR LAB BLOOD ORDERABLES Final Res ult [facility] (AMBULATORY) [address] [place] [address], [place] [phone] [facility] [address] [place] [address], * CBC w AUTO Differential (01/15/2024 4:17 [...] 01/15/2024 4:17 PM EDT 01/15/2024 Narrative [facility] ([facility]) - 01/16/2024 8:21 AM EDT Performed at: ??01 - [facility] [address] ??[id number] [place]inner: Hawk Mireles PhD, Phone: ??[phone] Patient Fasting: ??Y Jenny NUR LAB BLOOD ORDERABLES Final Res ult Performing Organization Address City/[facility]/ZIP Co de Phone Number [facility] (AMBULATORY) [address] [place] [address], [facility] [address] [place] [address], * (ABNORMAL) Hemoglobin A1c (01/15/2024 4:17 PM EDT) Hemoglobin A1C 5.8(H) 4.8 - 5.6 % [facility] Comment: ? Prediabetes: 5.7 - 6.4 ? Diabetes: >6.4 ? Glycemic control for adults with diabetes: <7.0 Blood 01/15/2024 4:17 PM EDT 01/15/[address] [facility] (AMBULATORY) - 01/16/2024 8:21 AM EDT Performed at: ??01 - [facility] [address] ??[id number] [place]inner: Hawk Mireles PhD, Phone: ??[phone] Patient Fasting: ??Y Jenny NUR LAB BLOOD ORDERABLES Final Res ult Performing Organization Address [facility] Co de Phone Number [facility] [address] [place] [address], [facility] [address] [place] [address], * Folate (01/15/2024 4:17 PM EDT) Folate 9.4 >3.0 ng/mL [facility] Comment: A serum folate concentration of less than 3.1 ng/mL is considered to represent clinical deficiency. Blood 01/15/2024 4:17 PM EDT 01/15/[address] [facility] (AMBULATORY) - 01/16/2024 8:21 AM EDT Performed at: ??01 - [facility] [place] [address] [place], [place] ??[id number] [place]inner: Hawk Mireles PhD, Phone: ??[phone] Patient Fasting: ??Y Jenny NUR LAB BLOOD ORDERABLES Final Res ult Performing Organization Address [facility]/ZIP Co de Phone Number [facility] [address] [place] [address], [facility] [address] [place] [address], * Vitamin B12 (01/15/2024 4:17 PM EDT) Pathologist [facility] Vitamin B-12 407 232 - 1,245 pg/mL [facility] Blood 01/15/2024 4:17 PM EDT 01/15/2024 Narrative [facility] - 01/16/2024 8:21 AM EDT Performed at: ??01 - [facility] [place] [address] [place] [address] ??[id number] Sl[place] Skinner: Hawk Mireles PhD, Phone: ??[phone] Patient Fasting: ??Y Jenny NUR LAB BLOOD ORDERABLES Final Res ult Performing Organization Address [facility] Co de Phone Number [facility] (AMBULATORY) [address] [place] [address], [place] [phone] [facility] [address] [place] [address], [place] [phone] * (ABNORMAL) Lipid Panel (01/15/2024 4:17 PM EDT) Total Cholesterol 172 100 - 199 mg/dL [facility] Triglycerides 89 0 - 149 mg/dL [facility] HDL Cholesterol 53 >39 mg/dL [facility] VLDL Cholesterol Naga 16 5 - 40 mg/dL [facility] LDL Chol Calc (NIH) 103(H) 0 - 99 mg/dL [facility] Blood 01/15/2024 4:17 PM EDT 01/15/[address] [facility] (AMBULATORY) - 01/16/2024 8:21 AM EDT Performed at: ??01 - [facility] [address] [place], [place] ??[id number] [place]inner: Hawk Mireles PhD, Phone: ??[phone] Patient Fasting: ??Y us Jenny NUR LAB BLOOD ORDERABLES Final Res ult [facility] ([facility]) [address] [place] [address], [facility] [address] [place] [address], * (ABNORMAL) Comprehensive metabolic panel (01/15/2024 4:17 [...] Blood 01/15/2024 4:17 PM EDT 01/15/2024 Narrative [facility] - 01/16/2024 8:21 AM EDT Performed at: ??01 - [facility] [address] [place], [place] ??[id number] Slunk Skinner: Hawk Mireles PhD, Phone: ??[phone] Patient Fasting: ??Y Jenny NUR LAB BLOOD ORDERABLES Final Res ult [facility] (AMBULATORY) [address] [place] [address], [facility] [address] [place] [address], * Mammo Screening Digital Tomosynthesis Bilateral With CAD (03/21/2023 2:29 PM EST) Anatomical Region Laterality Modality Breast N/A Mammography 04/02/2023 12:0 7 PM EST Impressions 04/02/2023 12:09 PM EST No suspicious abnormality identified. OVERALL ASSESSMENT: ACR BI-RADS CATEGORY: 1, NEGATIVE: ??Recommend continued routine annual screening mammogram. The standard false-negative rate of mammography is between 10% and 25%. Complex patterns or increased breast density will markedly elevate the false-negative rate of mammography. ?? A letter, in lay terminology, with the results of this exam will be mailed to the patient. ?? This report was finalized on 04/02/2023 12:09 PM by Pat Rangel MD. Narrative 04/02/2023 12:09 PM EST BILATERAL DIGITAL SCREENING MAMMOGRAM WITH TOMOSYNTHESIS CLINICAL INDICATION: Screening mammogram. TECHNIQUE: Bilateral low dose full field digital breast tomosynthesis imaging was performed. CAD was utilized. COMPARISON: Prior studies dating back to 09/29/2014 FINDINGS: There are scattered fibroglandular densities. RIGHT BREAST: No suspicious masses, calcifications, or areas of distortion are seen. LEFT BREAST: No suspicious masses, calcifications, or areas of distortion are seen. Velma Phillips GRANULATOR TENDER IMG MAMMOGRAPHY ORDERABLES F inal Result * DEXA Bone Density Axial (03/13/2018 1:36 PM EST) Anatomical Region Laterality Modality Wrist, Hip, L-spine N/A Other 03/13/2018 2:59 PM EST Impressions 03/13/2018 4:11 PM EST Osteopenia of the left femoral neck. The ten year fracture risk assessment is calculated at 8.3% for major systemic osteoporotic fracture and 0.9% for a hip fracture. Less than 3% risk in the [place] for hip fracture and less than 20% risk of any systemic osteoporotic fracture is considered less than the threshold for where pharmacological therapy is recommended by the National Osteoporosis Foundation. All the treatment decisions require clinical judgment and consideration of individual patient factors, including patient preferences, co-morbidities, previous drug use, risk factors not captured in the FRAX model (frailty, falls, vitamin D deficiency, increased bone turnover, interval significant decline in bone density) and possible under or over estimation of fracture risk by FRAX. Approaches to reduce osteoporosis related fracture risk include optimizing calcium and vitamin D status, appropriate weight bearing exercises and fall-prevention measurements. The National Osteoporosis Foundation recommends (http://www.nof.org/hcp/practice/jshqvnqv-fso-ysxbpnue-guidelines/clinic ans-guide) that FDA-approved medical therapies be considered in postmenopausal women and men aged equal or greater than 50 years with : a) hip or vertebral (clinical or morphometric) fracture; b) T-score of -2.5 or less at the spine or hip; c) Ten-year fracture probability by FRAX of greater than 3% for hip fracture of greater than 20% for major osteoporotic fracture. ?? Secondary causes of bone loss should be evaluated if clinically indicated since the etiology of low BMD cannot be determined by BMD measurement alone. FOLLOWUP: Consider repeating the study in 2-3 years to reassess the patient's status or sooner if there is some new clinical indication. INTERVAL CHANGE: ?? There were no previous studies for comparison. ?? At this facility, the least significant change in the BMD at the left hip with 95% confidence is 0.818770 gm/cm2 at the hip and 0.065905 g/cm2 at the lumbar spine. This report was finalized on 03/13/2018 4:[address] Leida Wilkinson MD. Narrative 03/13/2018 4:11 PM EST DUAL-ENERGY X-RAY ABSORPTIOMETRY (DXA) INDICATION: ??Postmenopausal, screening for osteoporosis, hysterectomy COMPARISON: There are no previous studies for comparison PROCEDURE: A DXA scan was performed using a Hologic densitometer. The lumbar spine L1-L4 was evaluated as well as bilateral total hip. The T-score compares the patient's bone mineral density with the peak bone mass of young normal patients. ??According to criteria established by the World Health Organization, patients with T-scores ??between 1.0 and 2.5 standard deviations BELOW the mean are osteopenic (low bone mass). ??Patients with T-scores EQUAL TO OR GREATER than 2.5 standard deviations below the mean are osteoporotic. The Z-score compares the patient bone mineral density with age and sex matched peers. ??According to the International Society for Clinical Densitometry's 2007 consensus conference: ??In women prior to menopause and men less than age 50, Z-scores, not T-scores are preferred. ??A Z-score of -2.0 or lower is defined as below the expected range for age and a Z-score above -2.0 is within the expected range for age. The WHO diagnostic criteria may be applied in women in the menopausal transition. ??Osteoporosis cannot be diagnosed in men under age 50 on the basis of BMD alone. TECHNICAL QUALITY: ??The study is of good technical quality. RESULTS: Lumbar Spine: ??The BMD measured in the L1-L4 region is 0.972 g/cm2. ??The average T-score is -0.7. ??The Z-score is 1.3. Total Hip: ??The BMD measured at the left total proximal femur is 0.952 g/cm2. ??The T-score is 0.1. ??The Z-score is 1.5. Femoral Neck: ??The BMD measured at the left femoral neck is 0.696 g/cm2. The T-score is -1.4. ??The Z-score is 0.3. Total Hip: ??The BMD measured at the right total proximal femur is 1.002 g/cm2. ??The T-score is 0.5. ??The Z-score is 1.9. Femoral neck: The BMD measured at the right femoral neck is 0.763 g/cm2. The T score is -0.8. The Z score is -0.9. Procedure Note Deb Richard PA - 03/13/2018 DUAL-ENERGY X-RAY ABSORPTIOMETRY (DXA) INDICATION: Postmenopausal, screening for osteoporosis, hysterectomy COMPARISON: There are no previous studies for comparison PROCEDURE: A DXA scan was performed using a Hologic densitometer. The lumbar spine L1-L4 was evaluated as well as bilateral total hip. The T-score compares the patient's bone mineral density with the peak bone mass of young normal patients. According to criteria established by the World Health Organization, patients with T-scores between 1.0 and 2.5 standard deviations BELOW the mean are osteopenic (low bone mass). Patients with T-scores EQUAL TO OR GREATER than 2.5 standard deviations below the mean are osteoporotic. The Z-score compares the patient bone mineral density with age and sex matched peers. According to the International Society for Clinical Densitometry's 2007 consensus conference: In women prior to menopause and men less than age 50, Z-scores, not T-scores are preferred. A Z-score of -2.0 or lower is defined as below the expected range for age and a Z-score above -2.0 is within the expected range for age. The WHO diagnostic criteria may be applied in women in the menopausal transition. Osteoporosis cannot be diagnosed in men under age 50 on the basis of BMD alone. TECHNICAL QUALITY: The study is of good technical quality. RESULTS: Lumbar Spine: The BMD measured in the L1-L4 region is 0.972 g/cm2. The average T-score is -0.7. The Z-score is 1.3. Total Hip: The BMD measured at the left total proximal femur is 0.952 g/cm2. The T-score is 0.1. The Z-score is 1.5. Femoral Neck: The BMD measured at the left femoral neck is 0.696 g/cm2. The T-score is -1.4. The Z-score is 0.3. Total Hip: The BMD measured at the right total proximal femur is 1.002 g/cm2. The T-score is 0.5. The Z-score is 1.9. Femoral neck: The BMD measured at the right femoral neck is 0.763 g/cm2. The T score is -0.8. The Z score is -0.9. IMPRESSION: Osteopenia of the left femoral neck. The ten year fracture risk assessment is calculated at 8.3% for major systemic osteoporotic fracture and 0.9% for a hip fracture. Less than 3% risk in the [place] for hip fracture and less than 20% risk of any systemic osteoporotic fracture is considered less than the threshold for where pharmacological therapy is recommended by the National Osteoporosis Foundation. All the treatment decisions require clinical judgment and consideration of individual patient factors, including patient preferences, co-morbidities, previous drug use, risk factors not captured in the FRAX model (frailty, falls, vitamin D deficiency, increased bone turnover, interval significant decline in bone density) and possible under or over estimation of fracture risk by FRAX. Approaches to reduce osteoporosis related fracture risk include optimizing calcium and vitamin D status, appropriate weight bearing exercises and fall-prevention measurements. The National Osteoporosis Foundation recommends (http://www.nof.org/hcp/practice/vlwijujv-ypq-kzwswtwk-guidelines/clinic ans-guide) that FDA-approved medical therapies be considered in postmenopausal women and men aged equal or greater than 50 years with : a) hip or vertebral (clinical or morphometric) fracture; b) T-score of -2.5 or less at the spine or hip; c) Ten-year fracture probability by FRAX of greater than 3% for hip fracture of greater than 20% for major osteoporotic fracture. Secondary causes of bone loss should be evaluated if clinically indicated since the etiology of low BMD cannot be determined by BMD measurement alone. FOLLOWUP: Consider repeating the study in 2-3 years to reassess the patient's status or sooner if there is some new clinical indication. INTERVAL CHANGE: There were no previous studies for comparison. At this facility, the least significant change in the BMD at the left hip with 95% confidence is 0.663150 gm/cm2 at the hip and 0.215489 g/cm2 at the lumbar spine. This report was finalized on 03/13/2018 4:[address] Leida Wilkinson MD. us Sariah Benson MD IMG DXA ORDERABLES Final R esult * Hepatitis C Antibody (02/06/2018 12:00 AM EST) Hep C Virus Ab <0.1 0.0 - 0.9 s/co ratio [facility] Comment: ?Negative: ? < 0.8 ? Indeterminate: 0.8 - 0.9 ?Positive: ? > 0.9 The CDC recommends that a positive HCV antibody result be followed up with a HCV Nucleic Acid Amplification test ([id number]). Blood 02/06/2018 02/07/2018 Comment:BLOOD Narrative [facility] (AMBULATORY) - 02/07/2018 10:16 AM EST Performed at: ??01 - [facility] ??[id number] [place]inner: Hawk Mireles PhD, Phone: ??[phone] us Sariah Benson MD LAB BLOOD ORDERABLES Final Result [facility] (AMBULATORY) [address] [place] [address], [facility] [address] [place] [address], from Last 3 Months or Most Recently Relevant to Health Maintenance Additional Health Concerns Infection Onset Date Last Indicated Norovirus 10/23/2022 10/23/2022 [place] [address] [employer] MED[employer]ARE [employer]AGE Advance Directives Documents on File Type Date Recorded Patient Cad Application Support Specialist Expl anation LIVING WILL - SCAN 03/18/2018 1:35 PM MAUREEN ING WILL 03/13/2018 Care Teams Account Service Associate Relationship Specialty Start Date End Date Jenny Lomeli PA [address] [place] [address] PCP - General Physician [place] Guide 10/11/23
--- OUTSIDE RECORDS SUMMARY | 2024-02-23 17:32 | XMS_ITS | Encounter Summary ---
Author Organization [facility] Address [address] [place] [address] Care Team Providers Care Child Psychometrist Name Role Phone Kortney Woods MD Primary Care Provi kenny Reason for Visit * Reason Comments Diarrhea Encounter Details Date Type Department Care Team (Late st Contact Info) Description 07/24/2019 2:00 PM EDT Office Visit [facility] [address] [place] [address] Kortney Woods MD [address] [place] [address] Diarrhea, unspecified type (Primary Dx) Social History Tobacco Use Types Packs/Day Years [...] on file documented as of this encounter Progress Notes * Kortney Woods MD - 07/24/2019 2:00 PM EDT Subjective Dorita Hardin is a 68 y.o. female seen via telephone visit for diarrhea. She says she hashad it off and on for a week. She denies any nausea, vomiting. She is just having diarrhea. Stool is watery, brown, easy to pass. She has not been around anybody ill as she lives alone. She has not had any recent antibiotic use. She went to the [facility] yesterday and was given Imodium 2 mg but she has not really seen much improvement with diet. She denies any constitutional symptoms. I have reviewed the following portions of the patient's history and confirmed they are accurate: current medications, past medical history, past social history and problem list I have personally completed the patient's review of systems. Review of Systems: General: negative HEENT: Negative GI: See HPI Objective There were no vitals taken for this visit. Physical Exam Assessment/Plan Dorita was seen today for diarrhea. Diagnoses and all orders for this visit: Diarrhea, unspecified type - loperamide (IMODIUM) 2 MG capsule; Take 2 capsules by mouth 4 (Four) Times a Day As Needed for Diarrhea for up to 7 days. You have chosen to receive care through a telephone visit. Do you consent to use a telephone visit for your medical care today? Yes This visit has been rescheduled as a phone visit to comply with patient safety concerns in accordance with CDC recommendations. Total time of discussion was 8 minutes. Sophai Noriega MA Please note that portions of this note were completed with a voice recognition program. Efforts were made to edit the dictations, but occasionally words are mistranscribed. documented in this encounter Plan of Treatment Upcoming Encounters Date Type Department Care Team (Late st Contact Info) Description 01/19/2025 3:00 PM EDT Office Visit [facility] [address] [place] [address] Jenny Lomeli PA [address] [place] [address] documented as of this encounter Visit Diagnoses Diagnosis Diarrhea, unspecified type- Primary documented in this encounter Care Teams Child Psychometrist Relationship Specialty Start Date End Date Kortney Woods MD [address] [place] [address] PCP - General Internal Medicine 09/04/18 10/15/22 documented as of this encounter
--- OUTSIDE RECORDS SUMMARY | 2024-02-23 17:32 | XMS_ITS | Encounter Summary ---
[facility] Organization [facility] Address [address] [place] [address] Care Team Providers Care Wash Oil Pump Operator Helper Name Role Phone Jenny Lomeli Primary Care Provider [phone] Reason for Referral * Diagnostic Imaging (Routine) - Closed Specialty Diagnoses / Procedures Referred By Contac t Referred To Contact Radiology Diagnoses Mass of skin of left shoulder Procedures US Nonvascular Extremity Limited Jenny Lomeli PA [address] [facility] [place] [address] Phone: tel: fax: [facility] [address] [place] [address] Phone: tel: Referral ID Status Reason Start Date Expiration Date Visits Re quested Visits Authorized [id number] Closed 10/14/2023 10/13/2024 1 1 Reason for Visit * Reason Comments Establish Care Re -establish care , off boarding from [place]/ recent animal bite, a few times from stray cat. Last bite was last week and then about 2 weeks ago. Will she need rabies shot? Right wrist, right leg. Left breast pain, over 1 month. Ankle pain, from arthritis and joint pain worse in the morning.Cyct on left shoulder getting bigger Encounter Details Date Type Department Care Team (Latest Contact Info) Description 10/14/2023 3:45 PM EDT Office Visit [facility] [address] [place] [address] Jenny Lomeli PA [address] [place] [address] Cat bite, initial encounter (Primary Dx); Hyperlipidemia, unspecified hyperlipidemia type; Arthritis; Mass of skin of left shoulder Social History Tobacco Use Types Packs/Day Years [...] Sign Reading Time Taken Comments Blood Pressure 124/80 10/14/2023 3:42 PM EDT Pulse 78 10/14/2023 3:42 PM EDT Temperature 37 ??C (98.6 ??F) 10/14/2023 3:42 PM EDT Respiratory Rate - - Oxygen Saturation 96% 10/14/2023 3:42 PM EDT Inhaled Oxygen Concentration - - Weight 54.9 kg (121 lb) 10/14/2023 3:42 PM EDT Height 154.9 cm (5' 1 ) 10/14/2023 3:42 PM EDT Body Mass Index 22.86 10/14/2023 3:42 PM EDT documented in this encounter Progress Notes * Jenny Lomeli PA - 10/14/2023 3:45 PM EDT Subjective Dorita Hardin is a 73 y.o. female. History of Present Illness Feeds stray cat in neighborhood Bite on right arm about 2 weeks ago and bite on R leg about one week ago Cat usually acts normally but had a couple episodes of being aggressive when cat bit her Cleaned wounds immediately after bites. Healing okay Normal mammogram in March 2023 Left breast pain about 2-4 weeks ago Occurs randomly No masses palpated. No skin changes, inflammation, or swelling Does not drink much caffeine Has hypercholesterolemia Has not taken atorvastatin in several months Bilateral ankle pain from arthritis Notes she used to use punching bag a lot when younger No hx of ankle surgery Area of swelling of left shoulder, purple in color. Has noticed for years Massaging would get mass down in the past. No longer working Referred to vascular but did not keep due to it going sown No redness The following portions of the patient's history were reviewed and updated as appropriate: allergies, current medications, past family history, past medical history, past social history, past surgicalhistory, and problem list. Review of Systems As noted per HPI Objective Blood pressure 124/80, pulse 78, temperature 98.6 ??F (37 ??C), height 154.9 cm (61 ), weight 54.9 kg (121 lb), SpO2 96%. Physical Exam Vitals reviewed. Constitutional: Appearance: Normal appearance. Cardiovascular: Rate and Rhythm: Normal rate and regular rhythm. Pulmonary: Effort: Pulmonary effort is normal. Breath sounds: Normal breath sounds. Chest: Breasts: Right: Normal. Left: Normal. Skin: General: Skin is warm and dry. Comments: Small area or swelling along left anterior shoulder. Purple in color Neurological: Mental Status: She is alert and oriented to person, place, and time. Assessment & Plan Diagnoses and all orders for this visit: 1. Cat bite, initial encounter (Primary) - amoxicillin-clavulanate (AUGMENTIN) 875-125 MG per tablet; Take 1 tablet by mouth 2 (Two) Times aDay. Dispense: 14 tablet; Refill: 0 2. Hyperlipidemia, unspecified hyperlipidemia type - atorvastatin (LIPITOR) 20 MG tablet; Take 1 tablet by mouth Every Night. Dispense: 90 tablet; Refill: 3 3. Arthritis - diclofenac (VOLTAREN) 50 MG EC tablet; Take 1 tablet by mouth Daily As Needed (arthritis pain). Dispense: 90 tablet; Refill: 0 4. Mass of skin of left shoulder - US Nonvascular Extremity Limited; Future Cover with augmentin for cat bite. Patient asks about rabies vaccination. [facility] offers Diclofenac for arthritic pain. Has worked well for her in the past US of left upper shoulder for additional evaluation of swelling Refill on cholesterol medication Patient will monitor breast pain and call back if not improving to proceed with diagnostic mammogram documented in this encounter Plan of Treatment Upcoming Encounters Date Type Department Care Team (Late st Contact Info) Description 01/19/2025 3:00 PM EDT Office Visit [facility] [address] [place] [address] Jenny Lomeli PA [address] [place] [address] documented as of this encounter Results * US Nonvascular Extremity [...] MD 10/28/2023 11:09 AM EDT Workstation ID: [id number] [facility] 10/28/2023 11:09 AM EDT US NONVASCULAR EXTREMITY [...] cyst mass or edema. Procedure Note Shiva Alvarez MD - 10/28/2023 US NONVASCULAR EXTREMITY LIMITED [...] MD 10/28/2023 11:09 AM EDT Workstation ID: [id number] us Jenny [facility] [place] ORDERABLES Final Result documented in this encounter Visit Diagnoses Diagnosis Cat bite, initial encounter- Primary Hyperlipidemia, unspecified hyperlipidemia type Arthritis Unspecified arthropathy, site unspecified Mass of skin of left shoulder Mass of skin of left shoulder documented in this encounter Additional Health Concerns Infection Onset Date Last Indicated Resolved Time Norovirus 10/23/2022 10/23/2022 Assessment Noted Time PHQ-2 Depression Total Score: 1 10/14/19 24 3:41 PM EDT documented as of this encounter Care Teams Wash Oil Pump Operator Helper Relationship Specialty Start Date End Date Jenny Lomeli PA [address] [place] [address] [place] [address] PCP - General Physician Automotive Center Manager 10/11/23 documented as of this encounter
--- OUTSIDE RECORDS SUMMARY | 2024-02-23 17:32 | XMS_ITS | Encounter Summary ---
[facility] Address [address] [id number] Care Team Providers Care Trace Clerk Name Role Phone Velma Phillips APRN Primary Care Provider [phone] Reason for Visit * Reason Onset Date Comments RETURNING A CALL TO OFFICE 10/25/2022 Encounter Details Date Type Department Care Team (Late st Contact Info) Description 10/25/2022 Telephone [facility] [address] [place] [address] Velma Phillips APRN [facility] [place], [place] [id number] RETURNING A CALL TO OFFICE Social History Tobacco Use Types Packs/Day Years [...] encounter Miscellaneous Notes * Telephone Encounter - Suyapa Castillo MA - 10/25/2022 4:56 PM EDT Pt informed of lab results * Telephone Encounter - Waylon Funk RegSched Rep - 10/25/2022 10:56 AM EDT Hub staff attempted to follow warm transfer process and was unsuccessful Caller: Dorita Hardin Relationship to patient: Self Best call back number: [phone] Patient is needing: RETURNING A CALL TO THE OFFICE documented in this encounter Plan of Treatment Upcoming Encounters Date Type Department Care Team (Late st Contact Info) Description 01/19/2025 3:00 PM EDT Office Visit [facility] [address] [place] [phone] Jenny Lomeli PA [address] [place] [address] documented as of this encounter Visit Diagnoses Not on filedocumented in this encounter Additional Health Concerns Infection Onset Date Last Indicated Resolved Time Norovirus 10/23/2022 10/23/2022 Assessment Noted Time PHQ-2 Depression Total Score: 3 10/17/19 23 1:57 PM EDT documented as of this encounter Care Teams Trace Clerk Relationship Specialty Start Date End Date Velma Phillips APRN PCP - General Family Medicine 10/16/22 10/10/23 documented as of this encounter
--- OUTSIDE RECORDS SUMMARY | 2024-02-23 17:32 | XMS_ITS | Encounter Summary ---
[facility] Address [address] [place] [address] Care Team Providers Care Client Services Specialist Name Role Phone Velma Phillips APRN Primary Care Provider [phone] Reason for Referral * Diagnostic Imaging (Routine) - Closed Specialty Diagnoses / Procedures Referred By Camila kirkland Referred To Contact Radiology Diagnoses Screening mammogram for breast cancer Procedures Mammo Screening Digital Tomosynthesis Bilateral With CAD Velma Phillips APRN Phone: tel: fax: [facility] [address] [place] [address] Phone: tel: Referral ID Status Reason Start Date Expiration Date Visits Re quested Visits Authorized [id number] Closed 01/31/2023 01/31/2024 1 1 * Consultation (Routine) - Closed Specialty Diagnoses / Procedures Referred By Contkarlee t Referred To Contact Orthopedic Surgery Diagnoses Chronic left shoulder pain Velma Phillips APRN Phone: tel: fax: Chuck Thakur MD [facility] [address] [place] [address] Phone: tel: fax: Referral ID Status Reason Start Date Expiration Date V isits Requested Visits Authorized [id number] Closed Specialty Services Required 01/31/2023 01/31/2024 1 1 Reason for Visit * Reason Comments Follow-up 4 month f/u, Labs fo r cholesterol, pt is not fasting. May need Mri of lt shoulder pain x 1 year. Encounter Details Date Type Department Care Team (Late st Contact Info) Description 01/31/2023 10:45 AM EDT Office Visit [facility] [address] [place] [address] Velma Phillips APRN [address] [place] [address] Hyperlipidemia, unspecified hyperlipidemia type (Primary Dx); Encounter for monitoring statin therapy; Chronic left shoulder pain; Screening mammogram for breast cancer; Need for influenza vaccination; Anxiety Social History Tobacco Use Types Packs/Day Years [...] Sign Reading Time Taken Comments Blood Pressure 116/72 01/31/2023 10:51 AM EDT Pulse 99 01/31/2023 10:51 AM EDT Temperature 36.9 ??C (98.4 ??F) 01/31/2023 10:51 AM E DT Respiratory Rate 18 01/31/2023 10:51 AM EDT Oxygen Saturation 97% 01/31/2023 10:51 AM EDT Inhaled Oxygen Concentration - - Weight 53.5 kg (118 lb) 01/31/2023 10:51 AM EDT Height 154.9 cm (5' 1 ) 01/31/2023 10:51 AM EDT Body Mass Index 22.3 01/31/2023 10:51 AM EDT documented in this encounter Progress Notes * Velma Phillips, ABRAHAM - 01/31/2023 10:45 AM EDT Chief Complaint Patient presents with Follow-up 4 month f/u, Labs for cholesterol, pt is not fasting. May need Mri of lt shoulder pain x 1 year. Subjective Dorita Hardin is a 72 y.o. who presents for follow up on hyperlipidemia. Taking statin asprescribed. No side effects. Patient would also like to discuss left shoulder pain for the last year. Shoulder has been hurting for over a year at this point. No known injury. Pain affects joint and radiates down left arm at times. Sometimes has neck pain as well. States she cannot go to physical therapy. She would also like to start psychotherapy, but she wants to go to [facility] in [place] like we previously discussed. She does not want to go to [facility]. She cannot travel to [place]. The following portions of the patient's history were reviewed and updated as appropriate: allergies, current medications, past family history, past medical history, past social history, past surgicalhistory, and problem list. Review of Systems Constitutional: Negative for chills, fatigue and fever. Eyes: Positive for blurred vision (states for years has had some blurry vision). Respiratory: Negative for chest tightness and shortness of breath. Cardiovascular: Negative for chest pain. Musculoskeletal: Positive for arthralgias (left shoulder). Objective Vital Signs: BP 116/72 Pulse 99 Temp 98.4 ??F (36.9 ??C) Resp 18 Ht 154.9 cm (61 ) Wt 53.5 kg (118 lb) SpO2 97% BMI 22.30 kg/m?? BMI is within normal parameters. No other follow-up for BMI required. Physical Exam Vitals and nursing note reviewed. Constitutional: Appearance: Normal appearance. Cardiovascular: Rate and Rhythm: Normal rate and regular rhythm. Heart sounds: Normal heart sounds. Pulmonary: Breath sounds: Normal breath sounds. Neurological: General: No focal deficit present. Mental Status: She is alert. Mental status is at baseline. Psychiatric: Mood and Affect: Mood normal. Behavior: Behavior normal. Result Review Assessment and Plan Diagnoses and all orders for this visit: 1. Hyperlipidemia, unspecified hyperlipidemia type (Primary) - Comprehensive Metabolic Panel - Lipid Panel 2. Encounter for monitoring statin therapy - Comprehensive Metabolic Panel - Lipid Panel 3. Chronic left shoulder pain - Ambulatory Referral to Orthopedic Surgery 4. Screening mammogram for breast cancer - Mammo Screening Digital Tomosynthesis Bilateral With CAD; Future 5. Need for influenza vaccination - Fluzone High-Dose 65+yrs ([id number]) Patient opts to wait for psychotherapy to be available at [facility] here in [place], we will revisit referral at follow up. She declines [facility] or [facility] Referral. Hyperlipidemia - check labs as ordered. Will call patient with results. Left shoulder pain - patient declines PT. No trauma. Referral to ortho. Patient agreeable to screening mammogram order Influenza immunization today. Patient was counseled regarding risks/benefits and chooses to proceedwith immunization. Discussed medications prescribed and OTC medications recommended. Discussed medication safety, possible side effects and how to take or administer medications. Instructed patient to report any adverse reactions, side effects or concerns. Reviewed physical exam findings and plan with patient who verbalized understanding and agrees with plan of care. Patient was given opportunity to ask questions and all concerns were addressed prior to the conclusion of today's visit. Follow Up No follow-ups on file. Patient was given instructions and counseling regarding her condition or for health maintenance advice. Please see specific information pulled into the AVS if appropriate. Note to patient: The Cures Act makes medical notes like these available to patients inthe interest of transparency. However, be advised this is a medical document. It is intended as peer to peer communication. It is written in medical language and may contain abbreviations or verbiagethat are unfamiliar. It may appear blunt or direct. Medical documents are intended to carry relevant information, facts as evident, and the clinical opinion of the provider. documented in this encounter Plan of Treatment Upcoming Encounters Date Type Department Care Team (Late st Contact Info) Description 01/19/2025 3:00 PM EDT Office Visit [facility] [address] [place] [phone] eJnny Lomeli PA [address] [place] [address] documented as of this encounter Procedures Procedure Name Priority Date/Time Associated Diagnosis Comments LIPID PANEL Routine 01/31/2023 11:27 AM EDT Hyperlipidemia, unspecified hyperlipidemia type Encounter for monitoring statin therapy COMPREHENSIVE METABOLIC PANEL Routine 01/31/2023 11:27 AM EDT Hyperlipidemia, unspecified hyperlipidemia type Encounter for monitoring statin therapy documented in this encounter Results * Mammo Screening Digital Tomosynthesis Bilateral With [...] areas of distortion are seen. Velma Phillips APRN IM MAMMOGRAPHY ORDERABLES F inal Result * (ABNORMAL) Lipid Panel (01/31/2023 11:27 AM EDT) Total Cholesterol 233(H) 0 - 200 mg/dL [facility] Comment: Cholesterol Reference Ranges (U.S. Department of Health and Human Services ATP III Classifications) Desirable ?<200 mg/dL Borderline High ?200-239 mg/dL High Risk ?>240 mg/dL Triglyceride Reference Ranges (U.S. Department of Health and Human Services ATP III Classifications) Normal ? <150 mg/dL Borderline High ??150-199 mg/dL High ? 200-499 mg/dL Very High ?>500 mg/dL HDL Reference Ranges (U.S. Department of Health and Human Services ATP III Classifications) Low ? <40 mg/dl (major risk factor for CHD) High ?>60 mg/dl ('negative' risk factor for CHD) LDL Reference Ranges (U.S. Department of Health and Human Services ATP III Classifications) Optimal ?<100 mg/dL Near Optimal ? 100-129 mg/dL Borderline High ??130-159 mg/dL High ? 160-189 mg/dL Very High ?>189 mg/dL Triglycerides 266(H) 0 - 150 mg/dL [facility] HDL Cholesterol 50 40 - 60 mg/dL [facility] VLDL Cholesterol Naga 48(H) 5 - 40 mg/dL [facility] LDL Chol Calc (NIH) 135(H) 0 - 100 mg/dL [facility] Blood 01/31/2023 11:2 7 AM EDT 01/31/2023 Narrative [facility] - 01/31/2023 8:08 PM EDT Performed at: [address] ??[id number] Recyclable Materials Distributor: David Farnsworth MD, Phone: ??[phone] Patient Fasting: ??Y Velma Phillips APRN LAB BLOOD ORDERABLES Final R esult [facility] [email or web address] [facility] ([facility]) [address] [place] [address], [facility] [address] [place] [address], * (ABNORMAL) Comprehensive Metabolic Panel (01/31/2023 11:27 AM EDT) Glucose 100(H) 65 - 99 mg/dL [facility] BUN 19 8 - 23 mg/dL [facility] Creatinine 1.01(H) 0.57 - 1.00 mg/dL [facility] EGFR Result 59.3(L) >60.0 mL/min/1.7 3 [facility] Comment: GFR Normal >60 Chronic Kidney Disease <60 Kidney Failure <15 The GFR formula is only valid for adults with stable renal function between ages 18 and 70. BUN/Creatinine Ratio 18.8 7.0 - 25.0 [facility] Sodium 142 136 - 145 mmol/L [facility] Potassium 4.1 3.5 - 5.2 mmol/L [facility] Chloride 106 98 - 107 mmol/L [facility] Total CO2 27.4 22.0 - 29.0 mmol/L [facility] Calcium 9.6 8.6 - 10.5 mg/dL [facility] Total Protein 7.0 6.0 - 8.5 g/dL [facility] Albumin 4.5 3.5 - 5.2 g/dL [facility] Globulin 2.5 gm/dL [facility] A/G Ratio 1.8 g/dL [facility] Total Bilirubin 0.3 0.0 - 1.2 mg/dL [facility] Alkaline Phosphatase 70 39 - 117 U/L [facility] AST (SGOT) 21 1 - 32 U/L [facility] ALT (SGPT) 19 1 - 33 U/L [facility] Blood 01/31/2023 11:2 7 AM EDT 01/31/2023 Narrative [facility] - 01/31/2023 8:08 PM EDT Performed at: ??[address] ??[id number] [employer] Distributor: David Farnsworth MD, Phone: ??[phone] Patient Fasting: ??Y Velma Phillips APRN LAB BLOOD ORDERABLES Final R esult [facility] (AMBUL[facility]) [address] [id number], [place] [phone] [facility] [address] [place] [address], [place] [phone] documented in this encounter Visit Diagnoses Diagnosis Hyperlipidemia, unspecified hyperlipidemia type- Primary Encounter for monitoring statin therapy Chronic left shoulder pain Pain in joint, shoulder region Screening mammogram for breast cancer Need for influenza vaccination Need for prophylactic vaccination and inoculation against influenza Anxiety Anxiety state, unspecified Screening mammogram for breast cancer documented in this encounter Additional Health Concerns Infection Onset Date Last Indicated Resolved Time Norovirus 10/23/2022 10/23/2022 Assessment Noted Time PHQ-2 Depression Total Score: 3 10/17/19 23 1:57 PM EDT documented as of this encounter Care Teams Client Services Specialist Relationship Specialty Start Date End Date Velma Phillips APRN PCP - General Family Medicine 10/16/22 10/10/23 documented as of this encounter
--- OUTSIDE RECORDS SUMMARY | 2024-02-23 17:32 | XMS_ITS | Encounter Summary ---
[facility] Organization [facility] Address [address] [place] [address] Care Team Providers Care Protective Service Specialist Name Role Phone Jenny Lomeli Primary Care Provider [phone] Encounter Details Date Type Department Care Team (Late st Contact Info) Description 10/18/2023 Telephone [facility] [address] [place] [address] Jenny Lomeli PA [address] [place] [address] Social History Tobacco Use Types Packs/Day Years [...] encounter Miscellaneous Notes * Telephone Encounter - Holly Conway RegSched Rep - 10/23/2023 2:30 PM EDT INFORMED PATIENT TO GO TO [facility] IN THE ER TO COMPLETE THE RABIES SHOT * Telephone Encounter - Keily Jimenez MA - 10/23/2023 1:07 PM EDT Pt states she needs a referral to Psychiatric in order for her to get rabies shots * Telephone Encounter - Keily Jimenez MA - 10/21/2023 2:14 PM EDT LVM * Telephone Encounter - Jenny Lomeli PA - 10/21/2023 7:58 AM EDT Patient was not referred to [facility] or hospital as we knew they would not be able to help, she was provided contact information for [facility] who we called ahead and they noted they could help facilitate rabies vaccinations. Did she reach out to them? * Telephone Encounter - Pat Brice RegSched Rep - 10/18/2023 4:38 PM EDT PATIENT WAS SEEN FOR AN ANIMAL BITE, SHE STATED THAT SHE WAS TOLD TO GO TO [facility] AND THEY COULD HELP WITH HER GETTING A RABIES SHOT. SHE SAID THEY SENT HER TO [facility] BUT THERE OFFICE TOLD HER SHE WOULD NEED A REFERRAL FROM HER PCP BEFORE HER INSURANCE WOULD COVER THE SHOT PLEASE ADVISE documented in this encounter Plan of Treatment Upcoming Encounters Date Type Department Care Team (Late st Contact Info) Description 01/19/2025 3:00 PM EDT Office Visit [facility] [address] [place] [address] Jenny Lomeli PA [address] [place] [address] documented as of this encounter Visit Diagnoses Not on filedocumented in this encounter Additional Health Concerns Infection Onset Date Last Indicated Resolved Time Norovirus 10/23/2022 10/23/2022 Assessment Noted Time PHQ-2 Depression Total Score: 1 10/14/19 24 3:41 PM EDT documented as of this encounter Care Teams Protective Service Specialist Relationship Specialty Start Date End Date Jenny Lomeli PA [address] [place] [address] PCP - General Physician Shake Packer 10/11/23 documented as of this encounter
--- OUTSIDE RECORDS SUMMARY | 2024-02-23 17:32 | XMS_ITS | Encounter Summary ---
[facility] Address [address] [place] [address] Care Team Providers Care Deck Steward Name Role Phone Kortney Woods MD Primary Care Provi kenny Reason for Visit * Reason Onset Date Comments MED REFILLS 01/11/2020 Encounter Details Date Type Department Care Team (Late st Contact Info) Description 01/11/2020 Telephone [facility] [address] [place] [address] Kortney Woods MD [address] [place] [address] MED REFILLS Social History Tobacco Use Types Packs/Day Years [...] encounter Miscellaneous Notes * Telephone Encounter - Sophia Noriega MA - 01/11/2020 1:12 PM EDT Yes the are attached to this encounter * Telephone Encounter - Kortney Woods MD - 01/11/2020 11:38 AM EDT Did you send them to me? If so I will refill. * Telephone Encounter - Joy Aquino RegSched Rep - 01/11/2020 9:36 AM EDT PATIENT CALLED AND NEEDING REFILLS ON ZOLPIDEM 10 MG 1 NIGHTLY, OMEPRAZOLE 20 MG NEEDED, VOLTAREN NEEDED' [facility]: [phone] documented in this encounter Plan of Treatment Upcoming Encounters Date Type Department Care Team (Late st Contact Info) Description 01/19/2025 3:00 PM EDT Office Visit [facility] [address] [place] [phone] Jenny Lomeli PA [address] [place] [address] documented as of this encounter Visit Diagnoses Diagnosis Primary insomnia Persistent disorder of initiating or maintaining sleep Gastroesophageal reflux disease Esophageal reflux documented in this encounter Care Teams Deck Steward Relationship Specialty Start Date End Date Kortney Woods MD [address] [place] [address] PCP - General Internal Medicine 09/04/18 10/15/22 documented as of this encounter
--- OUTSIDE RECORDS SUMMARY | 2024-02-23 17:32 | XMS_ITS | Encounter Summary ---
[facility] Address [address] [place] [address] Care Team Providers Care Defense Analyst Name Role Phone Jenny Lomeli Primary Care Provider [phone] Encounter Details Date Type Department Care Team (Late st Contact Info) Description 10/16/2023 Telephone [facility] [address] [place] [address] Jenny Lomeli PA [address] [place] [address] Social History Tobacco Use Types [...] encounter Miscellaneous Notes * Telephone Encounter - Ansley Mas LPN - 10/22/2023 3:14 PM EDT See other message * Telephone Encounter - Indigo Tapia RegSched Rep - 10/16/2023 3:58 PM EDT Caller: Dorita Hardin Relationship: Self Best call back number: [phone] What was the call regarding: RABIES SHOT. INSURANCE IS REQUESTING PATIENT GET A RABIES SHOT AT [facility]. PATIENT WAS TOLD THAT IN ORDER FOR HER TO KEEP PCP, PCP'S INFORMATION NEEDS TO BE UPDATED WITH NELLY, STATES THAT THEY NEEDS A CALL BACK TO DO SO. PLEASE ADVISE. Is it okay if the provider responds through MyChart: NO documented in this encounter Plan of Treatment Upcoming Encounters Date Type Department Care Team (Late st Contact Info) Description 01/19/2025 3:00 PM EDT Office Visit [facility] [address] [place] [address] Jenny Lomeli PA [address] [place] [address] documented as of this encounter Visit Diagnoses Not on filedocumented in this encounter Additional Health Concerns Infection Onset Date Last Indicated Resolved Time Norovirus 10/23/2022 10/23/2022 Assessment Noted Time PHQ-2 Depression Total Score: 1 10/14/19 24 3:41 PM EDT documented as of this encounter Care Teams Defense Analyst Relationship Specialty Start Date End Date Jenny Lomeli PA [address] [place] [address] PCP - General Physician Crude Oil Treater 10/11/23 documented as of this encounter
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
--- OUTSIDE RECORDS SUMMARY | 2024-02-23 17:32 | XMS_ITS | Encounter Summary ---
[facility] Address [address] [place] [address] Care Team Providers Care Bottle Carrier Name Role Phone Kortney Woods MD Primary Care Provi kenny Reason for Visit * Reason Onset Date Comments Medicare Wellness-subsequent 11/20/2019 Encounter Details Date Type Department Care Team (Late st Contact Info) Description 11/20/[address] [facility] [address] [phone] Washington Helms LPN Medicare Wellness-subsequent Social History Tobacco Use Types Packs/Day Years [...] Telephone Encounter - Washington Helms LPN - 12/02/2019 12:51 PM EDT Three attempts have been made to reach patient by phone to schedule wellness without success. No further attempts will be made at this time per protocol. * Telephone Encounter - Washington Helms LPN - 12/01/2019 12:56 PM EDT Lm on vm for patient to call back to schedule wellness. * Telephone Encounter - Washington Helms LPN - 11/20/2019 3:44 PM EDT Lm on vm for patient to call me back to schedule wellness. documented in this encounter Plan of Treatment Upcoming Encounters Date Type Department Care Team (Late st Contact Info) Description 01/19/2025 3:00 PM EDT Office Visit [facility] [address] [facility] [place] [phone] Jenny Lomeli PA [address] [facility] [address] [place], [place] [id number] documented as of this encounter Visit Diagnoses Not on filedocumented in this encounter Care Teams Bottle Carrier Relationship Specialty Start Date End Date Kortney Woods MD [address] [facility] [address] [place] [address] PCP - General Internal Medicine 09/04/18 10/15/22 documented as of this encounter
--- OUTSIDE RECORDS SUMMARY | 2024-02-23 17:32 | XMS_ITS | Encounter Summary ---
[facility] Address [address] [place] [id number] Care Team Providers Care Cutter Grinder Name Role Phone Kortney Woods MD Primary Care Provi kenny Encounter Details Date Type Department Care Team (Late st Contact Info) Description 02/17/2019 Telephone [facility] [address] [place] [address] Kortney Woods MD [address] [place] [address] Social History Tobacco Use Types Packs/Day Years [...] encounter Miscellaneous Notes * Telephone Encounter - Ann Schafer - 02/17/2019 12:12 PM EST CALLING BACK ABOUT HER MAMMOGRAM RESULTS [phone] documented in this encounter Plan of Treatment Upcoming Encounters Date Type Department Care Team (Late st Contact Info) Description 01/19/2025 3:00 PM EDT Office Visit [facility] [address] [place] [phone] Jenny Lomeli PA [address] [place] [address] documented as of this encounter Visit Diagnoses Not on filedocumented in this encounter Care Teams Cutter Grinder Relationship Specialty Start Date End Date Kortney Woods MD [address] [facility] [address] [place] [address] PCP - General Internal Medicine 09/04/18 10/15/22 documented as of this encounter
--- OUTSIDE RECORDS SUMMARY | 2024-02-23 17:32 | XMS_ITS | Encounter Summary ---
[facility] Address [address] [place] [id number] Care Team Providers Care Monogram Technician Name Role Phone Velma Phillips APRN Primary Care Provider [phone] Reason for Visit * Reason Onset Date Comments REFERRAL 02/25/2023 Encounter Details Date Type Department Care Team (Late st Contact Info) Description 02/25/2023 Telephone [facility] [address] [place] [address] Velma Phillips APRN [address] [place] [id number] REFERRAL Social History Tobacco Use Types Packs/Day Years [...] Encounter - Holly Conway RegSched Rep - 02/27/2023 4:04 PM EST SPOKE WITH WAYLON - HE STATED THEY ARE JUST WANTING PATIENTS MRI CHANGED TO [facility]. I TOLD HIM SINCE WE DIDN'T ORDER THE MRI (ORTHO OFFICE DID) THEY WOULD NEED TO CONTACT ORTHO PROVIDER. * Telephone Encounter - Aleshia Abrams - 02/25/2023 3:21 PM EST Caller: WAYLON HARDIN Relationship: Child Best call back number: [phone] What is the best time to reach you: ANY Who are you requesting to speak with (clinical staff, provider, specific staff member): NURSE Do you know the name of the person who called: SON What was the call regarding: SON WOULD LIKE ORTHOPEDIC REFERRAL TO [facility]. DR RICHY CRAWFORD, DR SUSSY TERRELL OR DR AURELIA COYNE. POSSIBLE PHONE # [phone] Is it okay if the provider responds through MyChart: PHONE CALL PLEASE documented in this encounter Plan of Treatment Upcoming Encounters Date Type Department Care Team (Late st Contact Info) Description 01/19/2025 3:00 PM EDT Office Visit [facility] [address] [place], [place] [address] Jenny Lomeli PA [address] [place], [place] [address] documented as of this encounter Visit Diagnoses Not on filedocumented in this encounter Additional Health Concerns Infection Onset Date Last Indicated Resolved Time Norovirus 10/23/2022 10/23/2022 Assessment Noted Time PHQ-2 Depression Total Score: 3 10/17/19 23 1:57 PM EDT documented as of this encounter Care Teams Monogram Technician Relationship Specialty Start Date End Date Velma Phillips APRN PCP - General Family Medicine 10/16/22 10/10/23 documented as of this encounter
--- OUTSIDE RECORDS SUMMARY | 2024-02-23 17:32 | XMS_ITS | Encounter Summary ---
[facility] [address] [id number] Care Team Providers Care Cone Cleaner Name Role Phone Kortney Woods MD Primary Care Provi kenny Reason for Referral * Diagnostic Imaging (Routine) - Closed Specialty Diagnoses / Procedures Referred By Contac t Referred To Contact Radiology Diagnoses Breast pain Procedures Mammo diagnostic digital tomosynthesis bilateral w Kortney Hardy MD [address] [place] [address] Phone: tel: fax: [place] [address] Phone: tel: Referral ID Status Reason Start Date Expiration Date Visits Re quested Visits Authorized [id number] Closed 02/17/2019 02/17/2020 1 1 Reason for Visit * Diagnostic Imaging (Routine) - Closed Specialty Diagnoses / Procedures Referred By Contac t Referred To Contact Radiology Diagnoses Breast pain Procedures Mammo diagnostic digital tomosynthesis bilateral w Kortney Hardy MD [address] [place] [address] Phone: tel: fax: [address] [address] Phone: tel: Referral ID Status Reason Start Date Expiration Date Visits Re quested Visits Authorized [id number] Closed 02/17/2019 02/17/2020 1 1 Encounter Details Date Type Department Care Team (Latest Contact Info) Description 04/20/2019 12:45 PM EST - 04/20/2019 11:59 PM EST Hospital Encounter [facility] [address] [place], [place] [id number] Kortney Woods MD [address] [place], [place] [id number] Breast pain Discharge Disposition: Home or Self Care Social [...] this encounter Medications at Time of Discharge diclofenac (VOLTAREN) 50 MG EC tablet Take 1 tablet by mouth Daily As Needed (for pain and inflammation) . 90 tablet 1 12/04/2018 01/11/2020 omeprazole (PRILOSEC) 20 MG capsuleIndication s:Gastroesophagea l reflux disease, esophagitis presence not specified Take 1 capsule by mouth Daily As Needed (stomach acid). 90 capsule 1 10/13/2018 01/11/2020 zolpidem (AMBIEN) 10 MG tabletIndications :Primary insomnia Take 1 tablet by mouth At Night As Needed for Sleep. 90 tablet 1 04/13/2019 01/11/2020 documented as of this encounter Plan of Treatment Upcoming Encounters Date Type Department Care Team (Late st Contact Info) Description 01/19/2025 3:00 PM EDT Office Visit [facility] [address] [address] Jenny Lomeli PA [address] [address] documented as of this encounter Procedures Procedure Name Priority Date/Time Associated Diagnosis Comments MAMMO DIAGNOSTIC DIGITAL TOMOSYNTHESIS BILATERAL W CAD Routine 04/20/2019 1:17 PM EST Breast pain documented in this encounter Results * Mammo Diagnostic Digital Tomosynthesis Bilateral With CAD (04/20/2019 1:17 PM EST) Anatomical Region Laterality Modality Breast Bilateral Mammography 04/20/2019 1:23 PM EST Impressions 04/20/2019 1:25 PM EST Stable bilateral mammogram BI-RADS CATEGORY: ??2, BENIGN RECOMMENDATION: ??Continued screening mammography. CAD was utilized. The standard false-negative rate of mammography is between 10% and 25%. Complex patterns or increased breast density will markedly elevate the false-negative rate of mammography. ?? A letter, in lay terminology, with the results of this exam was given to the patient at the time of the visit. This report was finalized on 04/20/2019 1:[address] Jaylin Calhoun MD. Narrative 04/20/2019 1:25 PM EST BILATERAL DIAGNOSTIC MAMMOGRAM WITH TOMOSYNTHESIS CLINICAL INDICATION: ??Nonfocal left breast pain for 6 years TECHNIQUE: 2-D 3-D tomographic MLO and CC views bilaterally COMPARISON: Prior exams dating back to 2012 FINDINGS: There are scattered areas of fibroglandular density. Asymmetries are stable. There is no new mass, group of calcifications, or distortion to suggest malignancy. Kortney Woods MD IMG MAMMOGRAPHY ORD ERABLES Final Result documented in this encounter Visit Diagnoses Diagnosis Breast pain Mastodynia documented in this encounter Care Teams Cone Cleaner Relationship Specialty Start Date End Date Kortney Woods MD [address] [place] [address] PCP - General Internal Medicine 09/04/18 10/15/22 documented as of this encounter
--- OUTSIDE RECORDS SUMMARY | 2024-02-23 17:32 | XMS_ITS | Encounter Summary ---
Author Organization [facility] Address [address] [place] [address] Care Team Providers Care Manager Assisted Living Name Role Phone Kortney Woods MD Primary Care Provi kenny Reason for Visit * Reason Comments Follow-up GERD, Insomnia Encounter Details Date Type Department Care Team (Late st Contact Info) Description 08/07/2019 9:00 AM EDT Office Visit [facility] [address] [place] [address] Kortney Woods MD [address] [place] [address] Drug-induced constipation (Primary Dx); Abdominal cramping Social History Tobacco Use Types Packs/Day Years [...] Progress Notes * Kortney Woods MD - 08/07/2019 9:00 AM EDT Subjective Dorita Hardin is a 68 y.o. female seen via telephone visit for constipation and abdominalcramping. Last week, she had severe abdominal cramping with profuse diarrhea. She was prescribed loperamide and she has continued to take that despite resolution of diarrhea. She has now actually developed constipation. She had severe cramping in her abdomen so [facility] They did an x-ray which showed a moderate stool burden but no blockage. She was given docusate and she took that and had a few bowel movements over the last few days. She was a bit concerned that the abdominal cramping had continued and several days ago it was severe. She has no nausea or vomiting. She has not lost any weight. She still eating regular diet. She says last 2 days symptoms have completely resolved. She has no abdominal cramping and normal bowel movements. She denies feelingill. I have reviewed the following portions of the patient's history and confirmed they are accurate: current medications, past medical history, past social history, past surgical history and problem list I have personally completed the patient's review of systems. Review of Systems: General: negative CV: negative Respiratory: negative GI: See HPI Objective There were no vitals taken for this visit. Physical Exam Assessment/Plan Dorita was seen today for follow-up. Diagnoses and all orders for this visit: Drug-induced constipation -Advised this was likely due to the loperamide. Told patient to try to avoid bowel medications at this time so that her bowels can get back to normal. Eat a regular diet Abdominal cramping -Due to constipation and diarrhea. Has been resolved last 2 days, has PRN meds should diarrhea or constipation return. However, told patient to really try to hold off on taking any of those as she ishaving negative side effect to them You have chosen to receive care through a telephone visit. Do you consent to use a telephone visit for your medical care today? Yes This visit has been rescheduled as a phone visit to comply with patient safety concerns in accordance with CDC recommendations. Total time of discussion was 10 minutes. Sophia Noriega MA Please note that portions of this note were completed with a voice recognition program. Efforts were made to edit the dictations, but occasionally words are mistranscribed. documented in this encounter Plan of Treatment Upcoming Encounters Date Type Department Care Team (Late st Contact Info) Description 01/19/2025 3:00 PM EDT Office Visit [facility] [address] [phone] Jenny Lomeli PA [address] [place] [address] documented as of this encounter Visit Diagnoses Diagnosis Drug-induced constipation- Primary Other constipation Abdominal cramping Abdominal pain, unspecified site documented in this encounter Care Teams Manager Assisted Living Relationship Specialty Start Date End Date Kortney Woods MD [address] [address] PCP - General Internal Medicine 09/04/18 10/15/22 documented as of this encounter
--- OUTSIDE RECORDS SUMMARY | 2024-02-23 17:32 | XMS_ITS | Encounter Summary ---
[facility] Address [address] [place] [address] Care Team Providers Care Law Enforcement Officer Name Role Phone Velma Phillips APRN Primary Care Provider [phone] Reason for Referral * Diagnostic Imaging (Routine) - Closed Specialty Diagnoses / Procedures Referred By Camila kirkland Referred To Contact Radiology Diagnoses Screening mammogram for breast cancer Procedures Mammo Screening Digital Tomosynthesis Bilateral With CAD Velma Phillips APRN Phone: tel: fax: [facility] [address] [place] [address] Phone: tel: Referral ID Status Reason Start Date Expiration Date Visits Re quested Visits Authorized [id number] Closed 01/31/2023 01/31/2024 1 1 Reason for Visit * Diagnostic Imaging (Routine) - Closed Specialty Diagnoses / Procedures Referred By Contac t Referred To Contact Radiology Diagnoses Screening mammogram for breast cancer Procedures Mammo Screening Digital Tomosynthesis Bilateral With Velma Murdock APRN Phone: tel: fax: [facility] [address] [place] [address] Phone: tel: Referral ID Status Reason Start Date Expiration Date Visits Re quested Visits Authorized [id number] Closed 01/31/2023 01/31/2024 1 1 Encounter Details Date Type Department Care Team (Latest Contact Info) Description 03/21/2023 1:44 PM EST - 03/21/2023 11:59 PM [facility] Hospital Encounter [facility] [address] [place] [address] Screening mammogram for breast cancer Discharge Disposition: Home or Self Care Social [...] tablet by mouth Every Night. 90 tablet 02/01/2023 documented as of this encounter Plan of Treatment Upcoming Encounters Date Type Department Care Team (Late st Contact Info) Description 01/19/2025 3:00 PM EDT Office Visit [facility] [address] [place], [place] [address] Jenny Lomeli PA [address] [place], [place] [address] documented as of this encounter Procedures Procedure Name Priority Date/Time Associated Diagnosis Comments MAMMO SCREENING DIGITAL TOMOSYNTHESIS BILATERAL W CAD Routine 03/21/2023 2:29 PM EST Screening mammogram for breast cancer documented in this encounter Results * Mammo [...] calcifications, or areas of distortion are seen. us Velma Phillips APRN IMG MAMMOGRAPHY ORDERABLES F inal Result documented in this encounter Visit Diagnoses Diagnosis Screening mammogram for breast cancer documented in this encounter Additional Health Concerns Infection Onset Date Last Indicated Resolved Time Norovirus 10/23/2022 10/23/2022 Assessment Noted Time PHQ-2 Depression Total Score: 3 10/17/19 23 1:57 PM EDT documented as of this encounter Care Teams Law Enforcement Officer Relationship Specialty Start Date End Date Velma Phillips APRN PCP - General Family Medicine 10/16/22 10/10/23 documented as of this encounter
--- OUTSIDE RECORDS SUMMARY | 2024-02-23 17:32 | XMS_ITS | Encounter Summary ---
Author Organization [facility] Address [address] [place] [address] Care Team Providers Care Concrete Wall Grinder Operator Name Role Phone Kortney Woods MD Primary Care Provi kenny Reason for Visit * Reason Onset Date Comments Med Refill 04/13/2019 Encounter Details Date Type Department Care Team (Late st Contact Info) Description 04/13/2019 Refill [facility] [address] [place] [address] Kortney Woods MD [address] [place] [address] Primary insomnia Social History Tobacco Use Types Packs/Day Years [...] 3:00 PM EDT Office Visit [facility] [address] [place] [address] Jenny Lomeli PA [address] [place] [address] documented as of this encounter Visit Diagnoses Diagnosis Primary insomnia Persistent disorder of initiating or maintaining sleep documented in this encounter Care Teams Concrete Wall Grinder Operator Relationship Specialty Start Date End Date Kortney Woods MD [address] [address] PCP - General Internal Medicine 09/04/18 10/15/22 documented as of this encounter
--- OUTSIDE RECORDS SUMMARY | 2024-02-23 17:32 | XMS_ITS | Encounter Summary ---
Author Organization [facility] Address [address] [place] [id number] Care Team Providers Care Sustainability Executive Director Name Role Phone Velma Phillips APRN Primary Care Provider [phone] Reason for Visit * Reason Comments Follow-up [employer] gave her 2 mo nth extension. Has not went to get her MRI yet. Concerns with getting results back soon enough to go over before line. And Mammogram. May need refills Encounter Details Date Type Department Care Team (Late st Contact Info) Description 03/15/2023 2:45 PM EST Office Visit [facility] [address] [place] [address] Velma Phillips APRN [address] [id number] Hyperlipidemia, unspecified hyperlipidemia type (Primary Dx); Need for pneumococcal vaccination; Need for Tdap vaccination; Chronic left shoulder pain Social History Tobacco [...] Sign Reading Time Taken Comments Blood Pressure 118/80 03/15/2023 2:25 PM EST Pulse 90 03/15/2023 2:25 PM EST Temperature 36.8 ??C (98.2 ??F) 03/15/2023 2:25 PM ES T Respiratory Rate 18 03/15/2023 2:25 PM EST Oxygen Saturation 97% 03/15/2023 2:25 PM EST Inhaled Oxygen Concentration - - Weight 54.9 kg (121 lb) 03/15/2023 2:25 PM EST Height 154.9 cm (5' 1 ) 03/15/2023 2:25 PM EST Body Mass Index 22.86 03/15/2023 2:25 PM EST documented in this encounter Progress Notes * Velma Phillips, ABRAHAM - 03/15/2023 2:45 PM EST Chief Complaint Patient presents with Follow-up [employer] gave her 2 month extension. Has not went to get her MRI yet. Concerns with getting results back soon enough to go over before line. And Mammogram. May need refills Subjective Dorita Hardin is a 72 y.o. who presents for follow up on shoulder pain. States that she is concerned that her insurance will not be accepted so she wanted to get an MRI of her shoulder and touch base with provider. She is scheduled for a mammogram. She is treating with specialist for shoulder pain / MRI is pending through specialist. She has no complaints today other than shoulder pain. She is taking her cholesterol medication as prescribed. Need for vaccinations The following portions of the patient's history were reviewed and updated as appropriate: allergies, current medications, past family history, past medical history, past social history, past surgicalhistory, and problem list. Review of Systems Constitutional: Negative for chills and fever. Respiratory: Negative for chest tightness and shortness of breath. Cardiovascular: Negative for chest pain, palpitations and leg swelling. Musculoskeletal: Positive for arthralgias (left shoulder). Psychiatric/Behavioral: Positive for depressed mood and stress. The patient is nervous/anxious. Objective Vital Signs: BP 118/80 Pulse 90 Temp 98.2 ??F (36.8 ??C) Resp 18 Ht 154.9 cm (61 ) Wt 54.9 kg (121 lb) SpO2 97% BMI 22.86 kg/m?? BMI is within normal parameters. No other follow-up for BMI required. Physical Exam Vitals and nursing note reviewed. Constitutional: Appearance: Normal appearance. Cardiovascular: Rate and Rhythm: Normal rate and regular rhythm. Heart sounds: Normal heart sounds. Pulmonary: Breath sounds: Normal breath sounds. Neurological: General: No focal deficit present. Mental Status: She is alert. Psychiatric: Mood and Affect: Mood is anxious. Speech: Speech is rapid and pressured. Behavior: Behavior normal. Result Review Assessment and Plan Diagnoses and all orders for this visit: 1. Hyperlipidemia, unspecified hyperlipidemia type (Primary) - Lipid Panel - Comprehensive metabolic panel 2. Need for pneumococcal vaccination - Pneumococcal Conjugate Vaccine 20-Valent (PCV20) 3. Need for Tdap vaccination - Tdap Vaccine Greater Than or Equal To 7yo IM 4. Chronic left shoulder pain Patient has now been taking her statin regularly - repeat labs today .Tdap and pneumococcal immunizations today. Patient was counseled regarding risks/benefits and chooses to proceed with immunizations. Chronic shoulder pain - continue care per specialist. Follow up in 6 months, sooner if needed Discussed medications prescribed and OTC medications recommended. [...] Description 01/19/2025 3:00 PM EDT Office Visit [facility] [address] [place] [address] Jenny Lomeli PA [address] [place] [address] documented as of this encounter Procedures Procedure Name Priority Date/Time Associated Diagnosis Comments LIPID PANEL Routine 03/15/2023 3:06 PM EST Hyperlipidemia, unspecified hyperlipidemia type COMPREHENSIVE METABOLIC PANEL Routine 03/15/2023 3:06 PM EST Hyperlipidemia, unspecified hyperlipidemia type documented in this encounter Results * Comprehensive metabolic panel (03/15/2023 3:06 PM EST) Glucose 92 70 - 99 mg/dL [facility] BUN 15 8 - 27 mg/dL [facility] Creatinine 0.96 0.57 - 1.00 mg/dL [facility] EGFR Result 63 >59 mL/min/1.7 3 [facility] BUN/Creatinine Ratio 16 12 - 28 [facility] Sodium 144 134 - 144 mmol/L [facility] Potassium 4.2 3.5 - 5.2 mmol/L [facility] Chloride 106 96 - 106 mmol/L [facility] Total CO2 24 20 - 29 mmol/L [facility] Calcium 9.6 8.7 - 10.3 mg/dL [facility] Total Protein 7.0 6.0 - 8.5 g/dL [facility] Albumin 4.4 3.8 - 4.8 g/dL [facility] Globulin 2.6 1.5 - 4.5 g/dL [facility] A/G Ratio 1.7 1.2 - 2.2 [facility] Total Bilirubin 0.3 0.0 - 1.2 mg/dL [facility] Alkaline Phosphatase 72 44 - 121 IU/L [facility] AST (SGOT) 18 0 - 40 IU/L [facility] ALT (SGPT) 14 0 - 32 IU/L [facility] Blood 03/15/2023 3:06 PM EST 03/15/2023 Narrative [facility] (AMBULATORY) - 03/16/2023 9:10 AM EST Performed at: ??01 - [address] ??[id number] Bulb Planter: Hawk Mireles PhD, Phone: ??[phone] Patient Fasting: ??Y Velma Phillips APRN LAB BLOOD ORDERABLES Final [facility] [address] [place] [address], [facility] [address] [place] [address], * Lipid Panel (03/15/2023 3:06 PM EST) Total Cholesterol 161 100 - 199 mg/dL [facility] Triglycerides 83 0 - 149 mg/dL [facility] HDL Cholesterol 52 >39 mg/dL [facility] VLDL Cholesterol Naga 16 5 - 40 mg/dL [facility] LDL Chol Calc ([facility]) 93 0 - 99 mg/dL [facility] Blood 03/15/2023 3:06 PM EST 03/15/2023 Narrative [facility] (AMBULATORY) - 03/16/2023 9:10 AM EST Performed at: ??01 - [facility] [address] [facility], [place], [place] ??[id number] Bulb Planter: Hawk Mireles PhD, Phone: ??[phone] Patient Fasting: ??Y Velma Phillips APRN LAB BLOOD ORDERABLES Final R esult [facility] (AMBULATORY) [address] [place] [address], [place] [phone] [facility] [address] [place] [address], [place] [phone] documented in this encounter Visit Diagnoses Diagnosis Hyperlipidemia, unspecified hyperlipidemia type- Primary Need for pneumococcal vaccination Need for prophylactic vaccination against streptococcus pneumoniae (pneumococcus) Need for Tdap vaccination Need for prophylactic vaccination with combined fskucgevel-kjsnjhx-jxbhrcisc (DTP) vaccine Chronic left shoulder pain Pain in joint, shoulder region documented in this encounter Additional Health Concerns Infection Onset Date Last Indicated Resolved Time Norovirus 10/23/2022 10/23/2022 Assessment Noted Time PHQ-2 Depression Total Score: 3 10/17/19 23 1:57 PM EDT documented as of this encounter Care Teams Sustainability Executive Director Relationship Specialty Start Date End Date Velma Phillips APRN PCP - General Family Medicine 10/16/22 10/10/23 documented as of this encounter
--- OUTSIDE RECORDS SUMMARY | 2024-02-23 17:32 | XMS_ITS | Encounter Summary ---
Author Organization [facility] Address [address] [place] [address] Care Team Providers Care Mechanical Design Engineer Name Role Phone Velma Phillips APRN Primary Care Provider [phone] Reason for Visit * Reason Comments Med Refill Encounter Details Date Type Department Care Team (Late st Contact Info) Description 04/17/[address] [facility] [address] [place] [address] Velma Phillips APRN [address] [place], [place] [phone] Hyperlipidemia, unspecified hyperlipidemia type Social History Tobacco Use Types Packs/Day [...] PM EDT Office Visit [facility] [address] [facility] [place] [phone] Jenny Lomeli PA [address] [place] [address] documented as of this encounter Visit Diagnoses Diagnosis Hyperlipidemia, unspecified hyperlipidemia type documented in this encounter Additional Health Concerns Infection Onset Date Last Indicated Resolved Time Norovirus 10/23/2022 10/23/2022 Assessment Noted Time PHQ-2 Depression Total Score: 3 10/17/19 23 1:57 PM EDT documented as of this encounter Care Teams Mechanical Design Engineer Relationship Specialty Start Date End Date Velma Phillips APRN PCP - General Family Medicine 10/16/22 10/10/23 documented as of this encounter
--- OUTSIDE RECORDS SUMMARY | 2024-02-23 17:32 | XMS_ITS | Encounter Summary ---
[facility] Address [address] [place] [address] Care Team Providers Care Clinical Nursing Instructor Name Role Phone Velma Phillips APRN Primary Care Provider [phone] Reason for Visit * Reason Onset Date Comments LAB RESULTS 02/04/2023 Encounter Details Date Type Department Care Team (Late st Contact Info) Description 02/04/2023 Telephone [facility] [address] [place] [address] Velma Phillips APRN [address] [phone] LAB RESULTS Social History Tobacco Use Types Packs/Day Years [...] encounter Miscellaneous Notes * Telephone Encounter - Katelyn Barrett RegSched Rep - 02/04/2023 9:37 AM EST Pt is returning phone call about lab results, unable to reach nurse at time of call. Good call back number [phone] documented in this encounter Plan of Treatment Upcoming Encounters Date Type Department Care Team (Late st Contact Info) Description 01/19/2025 3:00 PM EDT Office Visit [facility] [address] [place] [address] Jenny Lomeli PA [address] [place] [address] documented as of this encounter Visit Diagnoses Not on filedocumented in this encounter Additional Health Concerns Infection Onset Date Last Indicated Resolved Time Norovirus 10/23/2022 10/23/2022 Assessment Noted Time PHQ-2 Depression Total Score: 3 10/17/19 23 1:57 PM EDT documented as of this encounter Care Teams Clinical Nursing Instructor Relationship Specialty Start Date End Date Velma Phillips APRN PCP - General Family Medicine 10/16/22 10/10/23 documented as of this encounter
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
--- OUTSIDE RECORDS SUMMARY | 2024-02-23 17:33 | XMS_ITS | Encounter Summary ---
[facility] Address [address] [place] [address] Care Team Providers Care Refuse And Recycling Worker Name Role Phone Sariah Benson MD Primary Care Provider Ninfa vailable Reason for Visit * Reason Onset Date Comments Mammo Order 10/07/2017 Encounter Details Date Type Department Care Team (Late st Contact Info) Description 10/07/2017 Telephone [facility] [address] [place] [address] [facility] [address] [place] [address] Sariah Benson MD Mammo Order Social History Tobacco Use Types Packs/Day Years Used Date Smoking Tobacco: Never Smokeless Tobacco: Never Alcohol Use Standard Drinks/Week Comments No 0 (1 standard drink = 0.6 oz pur e alcohol) Comments Unknown Sex and Gender Information Value Date Recorded Sex Assigned at Not on file Legal Sex Female 12:26 PM EDT Gender Identity Not on file Sexual Orientation Not on file documented as of this encounter Miscellaneous Notes * Telephone Encounter - Payton Alcantar MA - 10/08/2017 4:35 PM EDT Per pt chart she sees [employer] ADMINISTR[employer] and will need to get order from them. Thanks! * Telephone Encounter - Madina Storey - 10/07/2017 12:36 PM EDT PATIENT WANTED TO KNOW IF SHE COULD A REFERRAL TO GET A MAMMOGRAM AT [address] [place] [address]. documented in this encounter Plan of Treatment Upcoming Encounters Date Type Department Care Team (Late st Contact Info) Description 01/19/2025 3:00 PM EDT Office Visit [facility] [address] [phone] Jenny Lomeli PA [address] [place] [id number] documented as of this encounter Visit Diagnoses Not on filedocumented in this encounter Care Teams Refuse And Recycling Worker Relationship Specialty Start Date End Date Sariah Benson MD PCP - General 12/10/14 09/03/18 documented as of this encounter
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
--- OUTSIDE RECORDS SUMMARY | 2024-02-23 17:33 | XMS_ITS | Encounter Summary ---
[facility] [address] [place] [address] Care Team Providers Care Guest Services Agent Name Role Phone Kortney Woods MD Primary Care Provi kenny Encounter Details Date Type Department Care Team (Late st Contact Info) Description 12/19/2018 Telephone [facility] [address] [employer] [facility] [address] [place] [address] Christine Huertas, VOICE OVER ANNOUNCER [address] [facility] [address] [place] [address] Social History Tobacco Use Types Packs/Day Years [...] encounter Miscellaneous Notes * Telephone Encounter - Angelina Fofana CMA - 12/19/2018 3:47 PM EDT Pt is aware of the results * Telephone Encounter - Angelina Fofana CMA - 12/19/2018 3:47 PM EDT ----- Message from Christine Huertas APRN sent at 12/19/2018 2:41 PM EDT ----- All labs are normal. We will f/u as scheduled in office. Erik, Lei Huertas APRN documented in this encounter Plan of Treatment Upcoming Encounters Date Type Department Care Team (Late st Contact Info) Description 01/19/2025 3:00 PM EDT Office Visit [facility] [address] [place] [phone] Jenny Lomeli PA [address] [place], [place] [phone] documented as of this encounter Visit Diagnoses Not on filedocumented in this encounter Care Teams Guest Services Agent Relationship Specialty Start Date End Date Kortney Woods MD [address] [facility] [address] [place] [address] PCP - General Internal Medicine 09/04/18 10/15/22 documented as of this encounter
--- OUTSIDE RECORDS SUMMARY | 2024-02-23 17:33 | XMS_ITS | Encounter Summary ---
[facility] Address [address] [id number] Care Team Providers Care Manager Export Name Role Phone Sariah Benson MD Primary Care Provider Ninfa vailable Reason for Visit * Diagnostic Imaging (Routine) - Closed Specialty Diagnoses / Procedures Referred By Contac t Referred To Contact Radiology Diagnoses Menopause Procedures DEXA Bone Density Axial Sariah Benson MD [address] [address] Phone: tel: Referral ID Status Reason Start Date Expiration Date Visits Re quested Visits Authorized [id number] Closed 02/06/2018 02/06/2019 1 1 Encounter Details Date Type Department Care Team (Latest Contact Info) Description 03/13/2018 1:11 PM EST - 03/13/2018 11:59 PM [facility] Encounter [facility] [place] [address] Sariah Benson MD Discharge Disposition: Home or Self Care Social History Tobacco Use Types Packs/Day Years Used Date Smoking Tobacco: Never Smokeless Tobacco: Never Alcohol Use Standard Drinks/Week Comments No 0 (1 standard drink = 0.6 oz pur e alcohol) PHQ-2 Answer Date Recorded PHQ-2 Score 7 02/08/2018 Comments Unknown Sex and Gender Information Value Date Recorded Sex Assigned at Not on file Legal Sex Female 12:26 PM EDT Gender Identity Not on file Sexual Orientation Not on file documented as of this encounter Medications at Time of Discharge diclofenac (VOLTAREN) 50 MG EC tablet Take 1 tablet by mouth Daily As Needed (for pain and inflammation) . 90 tablet 1 10/18/2017 07/09/2018 omeprazole (PRILOSEC) 20 MG capsule Take 1 capsule by mouth Daily As Needed (stomach acid). 90 capsule 1 10/18/2017 10/13/2018 zolpidem (AMBIEN) 10 MG tabletIndications :Primary insomnia Take 1 tablet by mouth At Night As Needed for Sleep. 30 tablet 1 05/01/2017 07/09/2018 documented as of this encounter Plan of Treatment Upcoming Encounters Date Type Department Care Team (Late st Contact Info) Description 01/19/2025 3:00 PM EDT Office Visit [facility] [address] [place], [place] [address] Jenny Lomeli PA [address] [place] [address] documented as of this encounter Procedures Procedure Name Priority Date/Time Associated Diagnosis Comments DEXA BONE DENSITY AXIAL Routine 03/13/2018 1:36 PM EST Menopause documented in this encounter Results * DEXA Bone Density Axial (03/13/2018 1:36 [...] fall-prevention measurements. The National Osteoporosis Foundation recommends (http://www.nof.org/hcp/practice/agtpkpzt-wbz-lwfwbbdo-guidelines/clinic ans-guide) that FDA-approved medical therapies be considered [...] the left hip with 95% confidence is 0.431004 gm/cm2 at the hip and 0.080917 g/cm2 at the lumbar spine. This report [...] fall-prevention measurements. The National Osteoporosis Foundation recommends (http://www.nof.org/hcp/practice/urvhaapa-mes-wtznqvhf-guidelines/clinic ans-guide) that FDA-approved medical therapies be considered [...] the left hip with 95% confidence is 0.373009 gm/cm2 at the hip and 0.079640 g/cm2 at the lumbar spine. This report was finalized on 03/13/2018 4:[address] Leida Wilkinson MD. Sariah Benson MD IMG DXA ORDERABLES Final R esult documented in this encounter Visit Diagnoses Not on filedocumented in this encounter Care Teams Manager Export Relationship Specialty Start Date End Date Sariah Benson MD PCP - General 12/10/14 09/03/18 documented as of this encounter
--- OUTSIDE RECORDS SUMMARY | 2024-02-23 17:33 | XMS_ITS | Encounter Summary ---
[facility] [address] [place] [address] Care Team Providers Care Knitter Machine Name Role Phone Kortney Woods MD Primary Care Provi kenny Reason for Visit * Reason Onset Date Comments Med Refill 12/04/2018 Encounter Details Date Type Department Care Team (Late st Contact Info) Description 12/04/2018 Refill [facility]ARE [address] [place] [address] Kortney Woods MD [address] [place] [address] Social History Tobacco Use Types [...] Encounters Date Type Department Care Team (Late Contact Info) Description 01/19/2025 3:00 PM EDT Office Visit [facility] [address] [place] [phone] Jenny Lomeli PA [address] [place] [address] documented as of this encounter Visit Diagnoses Not on filedocumented in this encounter Care Teams Knitter Machine Relationship Specialty Start Date End Date Kortney Woods MD [address] [address] PCP - General Internal Medicine 09/04/18 10/15/22 documented as of this encounter
--- OUTSIDE RECORDS SUMMARY | 2024-02-23 17:33 | XMS_ITS | Encounter Summary ---
[facility] [address] [place] [address] Care Team Providers Care Welder Fitter Gas Name Role Phone Sariah Benson MD Primary Care Provider Ninfa vailable Encounter Details Date Type Department Care Team (Late st Contact Info) Description 12/13/2014 Office Visit [facility] [address] [facility] [address] [place] [address] Sariah Benson MD Social History Tobacco Use Types Packs/Day Years Used Date Smoking Tobacco: Never Assessed Comments Unknown Sex and Gender Information Value Date Recorded Sex Assigned at Not on file Legal Sex Female 12:26 PM EDT Gender Identity Not on file Sexual Orientation Not on file documented as of this encounter Last Filed Vital Signs Vital Sign Reading Time Taken Comments Blood Pressure 125/78 12/13/2014 12:50 PM EDT Pulse - - Temperature 36.6 ??C (97.8 ??F) 12/13/2014 12:50 PM E DT Respiratory Rate - - Oxygen Saturation - - Inhaled Oxygen Concentration - - Weight 52.7 kg (116 lb 3.3 oz) 12/13/2014 12:50 PM EDT Height - - Body Mass Index 21.96 06/10/2014 1:21 PM EDT documented in this encounter Progress Notes * Sariah Benson MD - 12/13/2014 1:00 PM EDT Chief Complaint 6mo routine History of Present Illness HPI: Here for routine 6mo recheck. Pt seen as a new patient 05/07/14 with a recheck 06/10/14. Sees Dr Mahoney for CPE. GI- at her initial visit pt reported GERD with pain that would radiate to her back. Was having somedysphagia. Had had a colonoscopy and EGD in past as screening, ordered by Conical Mixer. No issues. Has had GERD in the past and done well with zantac. Current started after she took some aleve. Was started onomeprazole and this did well. Was advised to continue this as long as she was on NSAID, sim as she is now on diclofenac for back pain. Was encouarged to keep her screening colonoscopy as ordered by Conical Mixer as part of her CPE. Today pt reports that she responds well to the omeprazole. She is only takingit prn. Has found that she does best if she is careful with her diet, sim if she avoid acidic foods. Has lost 6 lb trying to restrict her diet. ORTHO- chronic, mild upper back pain. Pt sleeps on her stomach. Was instructed stretches and given diclofenac which she responded to well. Today she reports her back is doing better so has not neededmuch diclofenac. PSYCH- insomnia. Today pt reports she has taken ambien longterm, 0-2x/wk. Usually needs it when she will be out the next day as she cannot sleep well the night before. Has been using her 's. Does not use it more than 2 nights in a row as it does not work after that. No sleep walking. Active Problems 1. Acid reflux (530.81) (K21.9) 2. Arthritis (716.90) (M19.90) 3. Asthma (493.90) (J45.909) 4. Back pain (724.5) (M54.9) 5. Depression (311) (F32.9) 6. Female bladder prolapse (618.01) (N81.10) 7. GERD (gastroesophageal reflux disease) (530.81) (K21.9) 8. LBP (low back pain) (724.2) (M54.5) 9. Migraine headache (346.90) (G43.909) 10. Seasonal allergies (477.9) (J30.2) Past Medical History ?? 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 History of Hysterectomy Family History ?? Family history of Arthritis ?? Family history of tuberculosis (V18.8) (Z83.1) Social History ? Never smoker ?? No alcohol use Current Meds Medication Name Instruction Alaway 0.025 % Ophthalmic Solution INSTILL 1 DROP IN THE AFFECTED EYE(S) EVERY 12 HOURS NEEDED. Diclofenac Sodium 75 MG Oral Tablet Delayed Release 1 tab po qd prn back pain Omeprazole 20 MG Oral Capsule Delayed Release Take 1 tab qd prn stomach acid ZyrTEC Allergy 10 MG Oral Tablet TAKE 1 TABLET DAILY. Allergies 1. Ranitidine HCl TABS Vitals Signs [Data Includes: Current Encounter] Temperature: 97.8 F, Temporal Systolic: 125 Diastolic: 78 Weight: 116 lb 3.2 oz BMI Calculated: 21.96 BSA Calculated: 1.5 Physical Exam BH Complete Multi-System Exam (Brief): Constitutional General appearance: No acute distress, well appearing and well nourished. Eyes Conjunctiva and lids: No swelling, erythema or discharge. Ears, Nose, Mouth, and Throat External inspection of ears and nose: Normal. Oropharynx: Normal with no erythema, edema, exudate or lesions. Pulmonary Respiratory effort: No increased work of breathing or signs of respiratory distress. Auscultation of lungs: Clear to auscultation. Neck Neck: Supple, symmetric, trachea midline, no masses. Cardiovascular Auscultation of heart: Normal rate and rhythm, normal S1 and S2, without murmurs. Musculoskeletal Gait and station: Normal. Psychiatric Orientation to person, place, and time: Normal. Mood and affect: Normal. Assessment 1. GERD (gastroesophageal reflux disease) (530.81) (K21.9) 2. Arthritis (716.90) (M19.90) 3. Insomnia (780.52) (G47.00) Plan Arthritis ?? Sodium 75 MG Oral Tablet Delayed Release; 1 tab po qd prn back pain GERD (gastroesophageal reflux disease) ?? 20 MG Oral Capsule Delayed Release; Take 1 tab qd prn stomach acid Insomnia ?? Tartrate 10 MG Oral Tablet (Ambien); TAKE 1 TABLET AT BEDTIME NEEDED FOR INSOMNIA 1. GI- GERD- edu on using the omeprazole pre meal when she is likely to get reflux, ie- acidic meals. 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 2. ORTHO- arthritis- improved. discussed hand stretches. will RF diclofenac for prn use 3. PSYCH- insomnia- will Rx ambien. janel clear. contract today 4. RECHECK- 6mo End of Encounter Meds Medication Name Instruction Alaway 0.025 % Ophthalmic Solution INSTILL 1 DROP IN THE AFFECTED EYE(S) EVERY 12 HOURS NEEDED. Diclofenac Sodium 75 MG Oral Tablet Delayed Release 1 tab po qd prn back pain Omeprazole 20 MG Oral Capsule Delayed Release Take 1 tab qd prn stomach acid Zolpidem Tartrate 10 MG Oral Tablet (Ambien) TAKE 1 TABLET AT BEDTIME NEEDED FOR INSOMNIA. ZyrTEC Allergy 10 MG Oral Tablet TAKE 1 TABLET DAILY. Signatures Electronically signed by : Sariah Benson, ; Dec 13 2014 1:26PM EST (Author) documented in this encounter Plan of Treatment Upcoming Encounters Date Type Department Care Team (Late st Contact Info) Description 01/19/2025 3:00 PM EDT Office Visit [facility] [address] [facility] [address] Jenny Lomeli PA [address] [place] [address] documented as of this encounter Visit Diagnoses Not on filedocumented in this encounter Care Teams Welder Fitter Gas Relationship Specialty Start Date End Date Sariah Benson MD PCP - General 12/10/14 09/03/18 documented as of this encounter
--- OUTSIDE RECORDS SUMMARY | 2024-02-23 17:33 | XMS_ITS | Encounter Summary ---
[facility] [address] [place] [address] Care Team Providers Care Dinkey Operator Name Role Phone Sariah Benson MD Primary Care Provider Ninfa vailable Reason for Visit * Diagnostic Imaging (Routine) - Closed Specialty Diagnoses / Procedures Referred By Contac t Referred To Contact Radiology Diagnoses Screening for breast cancer Procedures Mammo Screening Digital Tomosynthesis Bilateral With CAD Sariah Benson MD [address] [address] Phone: tel: Referral ID Status Reason Start Date Expiration Date Visits Re quested Visits Authorized [id number] Closed 02/06/2018 02/06/2019 1 1 Encounter Details Date Type Department Care Team (Latest Contact Info) Description 03/28/2018 1:07 PM EST - 03/28/2018 11:59 PM EST Hospital Encounter [facility] [address] [place] [address] Sariah Benson MD Discharge Disposition: Home or [...] [facility] [address] [place], [place] [address] Jenny Lomeli PA [address] [place] [address] documented as of this encounter Procedures Procedure Name Priority Date/Time Associated Diagnosis Comments MAMMO SCREENING DIGITAL TOMOSYNTHESIS BILATERAL W CAD Routine 03/28/2018 1:35 PM EST Screening for breast cancer documented in this encounter Results * Mammo Screening Digital Tomosynthesis Bilateral With CAD (03/28/2018 1:35 PM EST) Anatomical Region Laterality Modality Breast N/A Mammography 04/02/2018 3:14 PM EST Impressions 04/02/2018 3:17 PM EST No findings suspicious for malignancy. BI-RADS CATEGORY: ??1, NEGATIVE RECOMMENDATION: Yearly mammogram, yearly clinical breast exam, and encourage self breast awareness. CAD was used. The standard false negative rate of mammography is between 10% and 25%. Complex patterns or increased breast density will markedly elevate the false negative rate of mammography. A letter, in lay terminology, with the results of this exam will be mailed to the patient. This report was finalized on 04/02/2018 3:[address] Jaylin Calhoun MD. Narrative 04/02/2018 3:17 PM EST ROUTINE SCREENING MAMMOGRAM HISTORY: 67-year-old female for routine screening IMAGE COMPARISON: ??Prior exams, most recently dated 09/29/2014 TECHNIQUE: Low dose full field digital breast tomosynthesis imaging was performed with 2D and 3D acquisitions consisting of bilateral CC and MLO views. ? FINDINGS: There are scattered areas of fibroglandular density. There is no worrisome mass, group of calcifications, or architectural distortion to suggest malignancy. Sariah Benson MD IMG MAMMOGRAPHY ORDERABLES Final Result documented in this encounter Visit Diagnoses Not on filedocumented in this encounter Care Teams Dinkey Operator Relationship Specialty Start Date End Date Sariah Benson MD PCP - General 12/10/14 09/03/18 documented as of this encounter
--- OUTSIDE RECORDS SUMMARY | 2024-02-23 17:33 | XMS_ITS | Encounter Summary ---
[facility] Address [address] [place] [address] Care Team Providers Care Locomotive Engineer Electric Name Role Phone Sariah Benson MD Primary Care Provider Ninfa vailable Reason for Visit * Reason Comments Leg Pain Encounter Details Date Type Department Care Team (Late st Contact Info) Description 05/01/2017 10:00 AM EST Office Visit [facility] [address] [place] [address] Sariah Benson MD Primary insomnia (Primary Dx); Arthritis Social History Tobacco Use Types Packs/Day Years [...] Sign Reading Time Taken Comments Blood Pressure 114/76 05/01/2017 10:53 AM EST Pulse - - Temperature 37 ??C (98.6 ??F) 05/01/2017 10:53 AM EST Respiratory Rate - - Oxygen Saturation - - Inhaled Oxygen Concentration - - Weight 54.7 kg (120 lb 9.6 oz) 05/01/2017 10:53 AM EST Height 152.4 cm (5') 05/01/2017 10:53 AM EST Body Mass Index 23.55 05/01/2017 10:53 AM EST documented in this encounter Patient Instructions * Patient Instructions* aSriah Benson MD - 05/01/2017 10:00 AM EST 1. PSYCH- insomnia- stable on occasional ambien. Will check janel and RF today for #30 x2. 2. ORTHO- arthritis with sciatica. Discussed that she has arthritis in her back and this is causingsome nerve irritation. Advised routine stretches with handout provided. Also advised to use the diclofenac. Advised to take omeprazole with the diclofenac. 3. RECHECK- 1yr routine. documented in this encounter Progress Notes * Sariah Benson MD - 05/01/2017 10:00 AM EST Zi Hardin is a 66 y.o. female. History of Present Illness Here for BLE pain. Last seen 06/13/15 for routine. Pt seen as a new patient 05/07/14. Sees Dr Mahoneyfor CPE. 1. ORTHO- chronic, mild upper back pain. Pt has been treated with stretches and prn diclofenac. Today she reports that in March 2017 she started getting sudden right calf pain. Pain radiated from her hip down to her calf. Has had minor calf pain on the left. Is worse if she jogs. Massage of the leg helps. Is gradually getting better. Still has diclofenac but has not taken it. 2. GI- GERD. Treated with omeprazole. Had colonoscopy and EGD in past as screening by [employer]. 3. PSYCH- insomnia. Pt has taken ambien half-way, 0-2x/wk. Will take it if stressed, especially ifshe has to leave the house the next day. Today pt reports she just ran out of ambien and has not had sleep for 3 days. She still needs it when she gets very nervous when she has to leave the house; cannot sleep the night before. Feels she is being persecuted by [employer], that they looked at her health record from 50 yr ago and are treating her oddly . Has been using exercise for sleep and mental health otherwise. The following portions of the patient's history were reviewed and updated as appropriate: current medications, past family history, past medical history, past social history, past surgical history and problem list. Review of Systems Cardiovascular: Negative for chest pain. Gastrointestinal: Negative for abdominal distention and abdominal pain. Musculoskeletal: Pain both legs; right is worse; pain radiates from low back all the way down leg Skin: Negative for color change. Neurological: Negative for tremors, speech difficulty and headaches. Psychiatric/Behavioral: Negative for agitation and confusion. All other systems reviewed and are negative. Current Outpatient Prescriptions: ??? zolpidem (AMBIEN) 10 MG tablet, Take 1 tablet by mouth At Night As Needed for Sleep., Disp: 30 tablet, Rfl: 1 Objective BP 114/76 Temp 98.6 ??F (37 ??C) Ht 152.4 cm (60 ) Wt 54.7 kg (120 lb 9.6 oz) BMI 23.55 kg/m2 Physical Exam Constitutional: She is oriented to person, place, and time. She appears well- developed and well-nourished. HENT: Right Ear: Tympanic membrane and ear canal normal. Left Ear: Tympanic membrane and ear canal normal. Mouth/Throat: Oropharynx is clear and moist. Eyes: Conjunctivae and EOM are normal. Pupils are equal, round, and reactive to light. Neck: No thyromegaly present. Cardiovascular: Normal rate and regular rhythm. Pulmonary/Chest: Effort normal and breath sounds normal. Neurological: She is alert and oriented to person, place, and time. Skin: Skin is warm and dry. Psychiatric: She has a normal mood and affect. Vitals reviewed. Assessment/Plan Dorita was seen today for leg pain. Diagnoses and all orders for this visit: Primary insomnia - zolpidem (AMBIEN) 10 MG tablet; Take 1 tablet by mouth At Night As Needed for Sleep. 1. PSYCH- insomnia- stable on occasional ambien. Will check janel and RF today for #30 x2. 2. ORTHO- arthritis with sciatica. Discussed that she has arthritis in her back and this is causingsome nerve irritation. Advised routine stretches with handout provided. Also advised to use the diclofenac. Advised to take omeprazole with the diclofenac. 3. RECHECK- 1yr routine. documented in this encounter Plan of Treatment Upcoming Encounters Date Type Department Care Team (Late st Contact Info) Description 01/19/2025 3:00 PM EDT Office Visit [facility] [address] [place] [phone] Jenny Lomeli PA [address] [place] [place] [address] documented as of this encounter Visit Diagnoses Diagnosis Primary insomnia- Primary Persistent disorder of initiating or maintaining sleep Arthritis Unspecified arthropathy, site unspecified documented in this encounter Care Teams Locomotive Engineer Electric Relationship Specialty Start Date End Date Sariah Benson MD PCP - General 12/10/14 09/03/18 documented as of this encounter
--- OUTSIDE RECORDS SUMMARY | 2024-02-23 17:33 | XMS_ITS | Encounter Summary ---
[facility] Address [address] [place] [address] Care Team Providers Care Run Boat Operator Name Role Phone Kortney Woods MD Primary Care Provi kenny Reason for Visit * Reason Onset Date Comments kaylyn 02/16/2019 order Encounter Details Date Type Department Care Team (Late st Contact Info) Description 02/16/2019 Telephone [facility] [address] [place] [phone] Kortney Woods MD [address] [place] [phone] kaylyn (order ) Social History Tobacco Use Types Packs/Day Years [...] Telephone Encounter - Kortney Woods MD - 02/17/2019 2:17 PM EST ordered * Telephone Encounter - Sophia Noriega MA - 02/17/2019 1:59 PM EST Patient sts she is having pain in her L breast that's jacob there all the time, her R breast has pain sometimes. * Telephone Encounter - Sophia Noriega MA - 02/17/2019 11:42 AM EST Lm for patient to call the office 02/17/19 nh * Telephone Encounter - Kortney Woods MD - 02/17/2019 7:36 AM EST I at least need to know what it's for. If it's a mass she has to be seen. * Telephone Encounter - Sophia Noriega MA - 02/16/2019 1:14 PM EST Do you want to see her first? * Telephone Encounter - Yecenia Ortiz - 02/16/2019 12:47 PM EST Pt needs an order for diagnostic because she is having issues with her breast. They want it sent over today of possible so that they can move her date up for her mammogram. Please call [place] back documented in this encounter Plan of Treatment Upcoming Encounters Date Type Department Care Team (Late st Contact Info) Description 01/19/2025 3:00 PM EDT Office Visit [facility] [address] [place] [phone] Jenny Lomeli PA [address] [phone] documented as of this encounter Visit Diagnoses Not on filedocumented in this encounter Care Teams Run Boat Operator Relationship Specialty Start Date End Date Kortney Woods MD [address] [address] PCP - General Internal Medicine 09/04/18 10/15/22 documented as of this encounter
--- OUTSIDE RECORDS SUMMARY | 2024-02-23 17:33 | XMS_ITS | Encounter Summary ---
[facility] Address [address] [place] [address] Care Team Providers Care Professor Of Journalism Name Role Phone Sariah Benson MD Primary Care Provider Ninfa vailable Encounter Details Date Type Department Care Team (Late st Contact Info) Description 08/05/2014 Telephone Converted [facility] [address] [place] [address] ProviderPamela MD [address] [place] [id number] Social History Tobacco Use Types Packs/Day Years Used Date Smoking Tobacco: Never Assessed Comments Unknown Sex and Gender Information Value Date Recorded Sex Assigned at Not on file Legal Sex Female 12:26 PM EDT Gender Identity Not on file Sexual Orientation Not on file documented as of this encounter Miscellaneous Notes * Telephone Encounter - Sariah Benson MD - 08/05/2014 1:09 PM EDT Message Recorded as Task Date: 08/03/2014 01:08 PM, Created By: Washington Shah Task Name: Follow Up Assigned To: Payton Alcantar Regarding Patient: DORITA HARDIN, Status: Active Comment: Washington Shah - 03 Aug 2014 1:08 PM TASK CREATED Caller: Self; General Medical Question; ; xCELL (Work) Patient called and would like to know is she could have a Mammogram done at [address] [place] [address] ([facility]- [phone]) Please advise Thank you! Patient can be reached at if needed [phone] Payton Alcantar - 03 Aug 2014 3:48 PM TASK REPLIED TO: Previously Assigned To Payton Alcantar Absolutely. That would be fine. Thank you! Washington Shha - 03 Aug 2014 9:16 PM TASK EDITED Please advise on type of mammogram patient needs and DX for mammogram. Thank you! Payton Alcantar - 04 Aug 2014 9:07 AM TASK EDITED I assumed that this had been ordered by us already and pt just wanted a new location. Pt has only been seen two times and has CPE done with [facility]. Is this okay to order through us or does she need to ask [facility] for this? Sariah Benson - 04 Aug 2014 12:15 PM TASK EDITED has to come from [facility].Pyaton Ruiz - 04 Aug 2014 12:21 PM TASK REASSIGNED: Previously Assigned To Payton Alcantar Jamie - 04 Aug 2014 3:12 PM TASK EDITED s/w patient she stated she called [facility] they stated for her to call us. Please advise patient at [phone] (Patient stated she will try and call [facility] again) documented in this encounter Plan of Treatment Upcoming Encounters Date Type Department Care Team (Late st Contact Info) Description 01/19/2025 3:00 PM EDT Office Visit [facility] [address] [place] [address] Jenny Lomeli PA [address] [place] [address] documented as of this encounter Visit Diagnoses Not on filedocumented in this encounter Care Teams Professor Of Journalism Relationship Specialty Start Date End Date Sariah Benson MD PCP - General 12/10/14 09/03/18 documented as of this encounter
--- OUTSIDE RECORDS SUMMARY | 2024-02-23 17:33 | XMS_ITS | Encounter Summary ---
[facility] Address [address] [place] [address] Care Team Providers Care Image Archivist Name Role Phone Sariah Benson MD Primary Care Provider Ninfa vailable Encounter Details Date Type Department Care Team (Late st Contact Info) Description 05/20/2017 Telephone [facility] [address] [facility] [address] [place] [address] Sariah Benson MD Social History [...] encounter Miscellaneous Notes * Telephone Encounter - Dot Forrest - 05/20/2017 12:43 PM EST Done * Telephone Encounter - Sariah Benson MD - 05/20/2017 12:34 PM EST OK to put in diclofenac 50 mg qd prn pain or inflammation #30 x1 and omeprazole 20mg qd prn stomachacid #30 x1. * Telephone Encounter - Dot Forrest - 05/20/2017 11:47 AM EST I looked in pt chart and did not see these medications. Are these ok to fill? Please Advise. CW * Telephone Encounter - Yecenia Ortiz - 05/20/2017 10:50 AM EST Pt needs Diclofenac 25 mg and omeprazole 20 [facility] to. documented in this encounter Plan of Treatment Upcoming Encounters Date Type Department Care Team (Late st Contact Info) Description 01/19/2025 3:00 PM EDT Office Visit [facility] [address] [place] [address] Jenny Lomeli PA [address] [address] documented as of this encounter Visit Diagnoses Not on filedocumented in this encounter Care Teams Image Archivist Relationship Specialty Start Date End Date Sariah Benson MD PCP - General 12/10/14 09/03/18 documented as of this encounter
--- OUTSIDE RECORDS SUMMARY | 2024-02-23 17:33 | XMS_ITS | Encounter Summary ---
[facility] Address [address] [place] [address] Care Team Providers Care Terrazzo Finisher Helper Name Role Phone Sariah Benson MD Primary Care Provider Ninfa vailable Reason for Visit * Reason Onset Date Comments Med Refill 07/28/2018 Encounter Details Date Type Department Care Team (Late st Contact Info) Description 07/28/2018 Refill [facility]IMARY CARE [address] [place] [address] [address] [place] [address] Sariah Benson MD Primary insomnia Social History Tobacco Use Types [...] Telephone Encounter - Payton Alcantar MA - 07/30/2018 1:39 PM EDT Rx faxed but needs prior authorization. This has been submitted today. * Telephone Encounter - Payton Alcantar MA - 07/28/2018 10:46 AM EDT This was printed on 07/09/18 and pt was contacted to see if this needed to be picked up or called inbut never called back. Pt called today asking if we can send in a 90 day prescription to her mail order pharmacy? Please advise. Pharmacy and prescription already changed if okay. * Telephone Encounter - Ann Schafer - 07/28/2018 10:39 AM EDT NIKOLAY, PLEASE CALL IN 90 DAYS OF HER AMBIEN 10 MG TO [facility]. SHE REC. THE DICLOFENAC BUT NOTTHE AMBIEN. PLEASE CALL HER AT [phone] documented in this encounter Plan of Treatment Upcoming Encounters Date Type Department Care Team (Late st Contact Info) Description 01/19/2025 3:00 PM EDT Office Visit [facility] [address] [address] Jenny Lomeli PA [address] [place] [address] documented as of this encounter Visit Diagnoses Diagnosis Primary insomnia Persistent disorder of initiating or maintaining sleep documented in this encounter Care Teams Terrazzo Finisher Helper Relationship Specialty Start Date End Date Sariah Benson MD PCP - General 12/10/14 09/03/18 documented as of this encounter
--- OUTSIDE RECORDS SUMMARY | 2024-02-23 17:33 | XMS_ITS | Encounter Summary ---
[facility] Address [address] [place] [address] Care Team Providers Care Stock Clipper Name Role Phone Sariah Benson MD Primary Care Provider Ninfa vailable Encounter Details Date Type Department Care Team (Late st Contact Info) Description 06/10/2014 Office Visit Converted [facility] [address] [facility] [address] [place] [address] Sariah Benson MD Social History [...] Sign Reading Time Taken Comments Blood Pressure 114/78 06/10/2014 1:21 PM EDT Pulse - - Temperature 36.6 ??C (97.8 ??F) 06/10/2014 1:21 PM ED T Respiratory Rate - - Oxygen Saturation - - Inhaled Oxygen Concentration - - Weight 55.7 kg (122 lb 11.3 oz) 06/10/2014 1:21 PM EDT Height 154.9 cm (5' 1 ) 06/10/2014 1:21 PM EDT Body Mass Index 23.19 06/10/2014 1:21 PM EDT documented in this encounter Progress Notes * Sariah Benson MD - 06/10/2014 1:00 PM EDT Chief Complaint 1mo recheck GERD History of Present Illness HPI: Here for 1mo recheck GERD. Pt seen as a new patient 05/07/14. Sees Dr Mahoney for CPE. GI- at her initial visit pt reported GERD with pain that would radiate to her back. Was having somedysphagia. Had ahd a colonoscopy and EGD in past as screening, ordered by [employer]. No issues. Has had GERD in the past and done well with zantac. Current started after she took some aleve. Was given omeprazole to take x2wk then prn. Advised to avoid oral NSAID. Today she reports she still had some reflux but it was not as severe. On discussion, she was taking diclofenac that had been Rxed to her previously. SHe stayed on both and the hurtburn eventually resolved. Still gets minor globus. On discussion, pt has had some minor, intermittent rectal tingling. No bleeding or pain. Has been present for s everal years. On discussion, she has not had a recent colonoscopy. ORTHO- chronic, mild upper back pain. Pt sleeps on her stomach. Was advised re appropriate stretches with no other intervention yet. Today pt reports the diclofenac works well for her back pain. Active Problems 1. Acid reflux (530.81) 2. Arthritis (716.90) 3. Asthma (493.90) 4. Back pain (724.5) 5. Depression (311) 6. Female bladder prolapse (618.01) 7. GERD (gastroesophageal reflux disease) (530.81) 8. LBP (low back pain) (724.2) 9. Migraine headache (346.90) 10. Seasonal allergies (477.9) Past Medical History ?? 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 History of Hysterectomy Family History ?? Family history of Arthritis ?? Family history of tuberculosis (V18.8) Social History ? Never smoker ?? No alcohol use Current Meds Medication Name Instruction Alaway 0.025 % Ophthalmic Solution INSTILL 1 DROP IN THE AFFECTED EYE(S) EVERY 12 HOURS NEEDED. Omeprazole 20 MG Oral Capsule Delayed Release Take 1 tab 1d x2wks the prn gastritis ZyrTEC Allergy 10 MG Oral Tablet TAKE 1 TABLET DAILY. Allergies 1. Ranitidine HCl TABS Vitals Signs [Data Includes: Current Encounter] Temperature: 97.8 F Systolic: 114 Diastolic: 78 Height: 5 ft 1 in Weight: 122 lb 11.2 oz BMI Calculated: 23.18 BSA Calculated: 1.53 Physical Exam Complete Multi-System Exam (Brief): Constitutional General appearance: [...] Assessment 1. GERD (gastroesophageal reflux disease) (530.81) 2. Back pain (724.5) 3. Arthritis (716.90) Plan Arthritis ?? Sodium 75 MG Oral Tablet Delayed Release; 1 tab po qd prn back pain GERD (gastroesophageal reflux disease) ?? 20 MG Oral Capsule Delayed Release; Take 1 tab qd prn stomach acid 1. GI/ ORTHO- discussed that the delayed improvement is from the NSAID. discussed that as long as she is on NSAID, she needs to take the PPI. can try going to prn on the combo but may need the omeprazole even without the NSAID, to find out by trial. encouraged to get her screening colonoscopy done. 2. RECHECK- 6mo routine. at the end of the visit pt requests kalpana. is advised she needs a visit to discuss insomnia End of Encounter Meds Medication Name Instruction Alaway 0.025 % Ophthalmic Solution INSTILL 1 DROP IN THE AFFECTED EYE(S) EVERY 12 HOURS NEEDED. Diclofenac Sodium 75 MG Oral Tablet Delayed Release 1 tab po qd prn back pain Omeprazole 20 MG Oral Capsule Delayed Release Take 1 tab qd prn stomach acid ZyrTEC Allergy 10 MG Oral Tablet TAKE 1 TABLET DAILY. Future Appointments Date/Time Provider Specialty Site 12/13/2014 01:00 PM Sariah Benson Family Medicine [facility] [address] Signatures Electronically signed by : Sariah Benson, ; Jun 10 2014 2:23PM EST (Author) documented in this encounter Plan of Treatment Upcoming Encounters Date Type Department Care Team (Late st Contact Info) Description 01/19/2025 3:00 PM EDT Office Visit [facility] [address] [place] [phone] Jenny Lomeli PA [address] [place] [address] documented as of this encounter Visit Diagnoses Not on filedocumented in this encounter Care Teams Stock Clipper Relationship Specialty Start Date End Date Sariah Benson MD PCP - General 12/10/14 09/03/18 documented as of this encounter
--- OUTSIDE RECORDS SUMMARY | 2024-02-23 17:33 | XMS_ITS | Encounter Summary ---
[facility] Address [address] [place] [address] Care Team Providers Care Varying Exceptionalities Teacher Name Role Phone Sariah Benson MD Primary Care Provider Ninfa vailable Reason for Visit * Reason Onset Date Comments Med Refill 10/18/2017 Encounter Details Date Type Department Care Team (Late st Contact Info) Description 10/18/2017 Telephone [facility] [address] [place] [address] [facility] [address] [place] [address] Sariah Benson MD Med Refill Social History Tobacco Use Types Packs/Day Years [...] Telephone Encounter - Payton Alcantar MA - 10/18/2017 10:45 AM EDT Rx faxed to [facility] mail in * Telephone Encounter - Yecenia Ortiz - 10/18/2017 10:13 AM EDT Pt needs a refill on diclofenac and omeprazole[facility] documented in this encounter Plan of Treatment Upcoming Encounters Date Type Department Care Team (Late st Contact Info) Description 01/19/2025 3:00 PM EDT Office Visit [facility] [address] [place] [phone] Jenny Lomeli PA [address] [place], [place] [phone] documented as of this encounter Visit Diagnoses Not on filedocumented in this encounter Care Teams Varying Exceptionalities Teacher Relationship Specialty Start Date End Date Sariah Benson MD PCP - General 12/10/14 09/03/18 documented as of this encounter
--- OUTSIDE RECORDS SUMMARY | 2024-02-23 17:33 | XMS_ITS | Encounter Summary ---
[facility] Address [address] [place] [address] Care Team Providers Care Nutritionists Name Role Phone Sariah Benson MD Primary Care Provider Ninfa vailable Reason for Referral * Diagnostic Imaging (Routine) - Closed Specialty Diagnoses / Procedures Referred By Contac t Referred To Contact Radiology Diagnoses Screening for breast cancer Procedures Mammo Screening Digital Tomosynthesis Bilateral With CAD Sariah Benson MD [address] [address] Phone: tel: Referral ID Status Reason Start Date Expiration Date Visits Re quested Visits Authorized [id number] Closed 02/06/2018 02/06/2019 1 1 * Diagnostic Imaging (Routine) - Closed Specialty Diagnoses / Procedures Referred By Contac t Referred To Contact Radiology Diagnoses Menopause Procedures DEXA Bone Density Axial Sariah Benson MD [address] [address] Phone: tel: Referral ID Status Reason Start Date Expiration Date Visits Re quested Visits Authorized [id number] Closed 02/06/2018 02/06/2019 1 1 Reason for Visit * Reason Comments Annual Exam Encounter Details Date Type Department Care Team (Late st Contact Info) Description 02/06/2018 1:15 PM EST Office Visit [facility] [address] [place] [id number] Sariah Benson MD Annual physical exam (Primary Dx); Screening for breast cancer; Menopause; Immunization due Social History Tobacco Use Types Packs/Day Years [...] Sign Reading Time Taken Comments Blood Pressure 110/68 02/06/2018 1:39 PM EST Pulse - - Temperature 36.9 ??C (98.4 ??F) 02/06/2018 1:39 PM ES T Respiratory Rate - - Oxygen Saturation - - Inhaled Oxygen Concentration - - Weight 51.1 kg (112 lb 9.6 oz) 02/06/2018 1:39 P M EST Height 152.4 cm (5') 02/06/2018 1:39 PM EST Body Mass Index 21.99 02/06/2018 1:39 PM EST documented in this encounter Patient Instructions * Patient Instructions* Sariah Benson MD - 02/06/2018 1:15 PM EST 1. MCW- will order bone density. Advised a knee support sleeve for walking. Will request copy of colonoscopy; suspect she needs recheck 2020. Advised to cut down on wheat. Screening labs today. Discussed the purpose and value of a Living Will with forms provided at last visit. Pneumovax today. Discussed getting a tetanus shot at the pharmacy. 2. RECHECK- 1yr MCW with Dr Duque documented in this encounter Progress Notes * Sariah Benson MD - 02/06/2018 1:15 PM EST QUICK REFERENCE INFORMATION: The ABCs of the Annual Wellness Visit Initial Medicare Wellness Visit HEALTH RISK ASSESSMENT 1950 Recent Hospitalizations: No hospitalization(s) within the last year.. Current Medical Providers: Patient Care Team: Sariah Benson MD as PCP - General Smoking Status: History Smoking Status ??? Never Smoker Smokeless Tobacco ??? Never Used Alcohol Consumption: History Alcohol Use No Depression Screen: PHQ-2/PHQ-9 Depression Screening 02/06/2018 Little interest or pleasure in doing things 0 Feeling down, depressed, or hopeless 1 Trouble falling or staying asleep, or sleeping too much 2 Feeling tired or having little energy 0 Poor appetite or overeating 0 Feeling bad about yourself - or that you are a failure or have let yourself or your family down 2 Trouble concentrating on things, such as reading the newspaper or watching television 2 Moving or speaking so slowly that other people could have noticed. Or the opposite - being so fidgety or restless that you have been moving around a lot more than usual 0 Thoughts that you would be better off , or of hurting yourself in some way 0 Total Score 7 If you checked off any problems, how difficult have these problems made it for you to do your work,take care of things at home, or get along with other people? Somewhat difficult Health Habits and Functional and Cognitive Screening: Functional & Cognitive Status 02/06/2018 Do you have difficulty preparing food and eating? No Do you have difficulty bathing yourself, getting dressed or grooming yourself? No Do you have difficulty using the toilet? No Do you have difficulty moving around from place to place? No Do you have trouble with steps or getting out of a bed or a chair? No In the past year have you fallen or experienced a near fall? No Current Diet Well Balanced Diet Dental Exam Unknown Eye Exam Not up to date Exercise (times per week) 7 times per week Current Exercise Activities Include Walking Do you need help using the phone? No Are you deaf or do you have serious difficulty hearing? Yes Do you need help with transportation? No Do you need help shopping? No [...] anger or loneliness in the last month? No Who do you live with? Alone If you need help, do you have trouble finding someone available to you? No Have you been bothered in the last four weeks by sexual problems? No Do you have difficulty concentrating, remembering or making decisions? Yes Does the patient have evidence of cognitive impairment? No Asiprin use counseling: Does not need ASA (and currently is not on it) Recent Lab Results: Visual Acuity: No exam data present Age-appropriate Screening Schedule: Refer to the list below for future screening recommendations based on patient's age, sex and/or medical conditions. Orders for these recommended tests are listed in the plan section. The patient has been provided with a written plan. Health Maintenance Topic Date Due ??? TDAP/TD VACCINES (1 - Tdap) 1969 ??? ZOSTER VACCINE (1 of 2) 2000 ??? PNEUMOCOCCAL VACCINES (65+ LOW/MEDIUM RISK) (1 of 2 - PCV13) 08/10/2015 ??? MAMMOGRAM 05/01/2017 ??? COLONOSCOPY 05/01/2017 ??? INFLUENZA VACCINE 10/30/2017 Subjective History of Present Illness Dorita Hardin is a 67 y.o. female who presents for an Annual Wellness Visit. Here for MCW. Last seen 11/21/17 for shoulder pain. Here for shoulder pain. Was seen 05/01/17 for BLEpain, routine. Was seen 06/13/15 for routine. Pt seen as a new patient 05/07/14. Was seeing Dr Mahoney for CPE. 1. ORTHO- arthritis spine. Pt has been treated with stretches and prn diclofenac. Was seen 05/01/17 with 1mo of back and right calf pain that was gradually improving. Had not been taking diclofenac and was advised to do so. Pt was then seen 11/21/17 with shoulder pain. Was improving with massage. Wasadvised to take diclofenac x5 days and then prn. Xray ordered; not done. Today she reports she is doing well other than pain behind her knees when she walks. Does a lot of walking for exercise. 2. GI- GERD. Treated with omeprazole. Had colonoscopy and EGD in past as screening by [facility]. 3. PSYCH- insomnia. Pt has taken ambien watermaster, 0-2x/wk. Will take it if stressed, especially ifshe has to leave the house the next day. Rx for #30 x3 lasts 1yr. At her last visit pt was behavingoddly and reported being ???persecuted?? at [facility]. 4. W- initial SCREENING: Bone Density: 2016 Colonoscopy: past ordered by [facility] (Dr Mahoney) in 2016. No fam hx colon ca. Does have some IBS Mammogram: 2013 Pap: 2013, NA. Post hysterectomy. Glaucoma: [address] chest (smokers): never a smoker Hep C screen: due IMMUNIZATIONS: Pneumovax: none Prevnar 13: none Zostavax: none Flu: none TDaP: 2007 Hep B series: NA LIVING WILL: No. Was given the forms SPECIALTY: none The following portions of the patient's history were reviewed and updated as appropriate: current medications, past family history, past medical history, past social history, past surgical history and problem list. Outpatient Medications Prior to Visit Medication Sig Dispense Refill ??? diclofenac (VOLTAREN) 50 MG EC tablet Take 1 tablet by mouth Daily As Needed (for pain and inflammation). 90 tablet 1 ??? omeprazole (PRILOSEC) 20 MG capsule Take 1 capsule by mouth Daily As Needed (stomach acid). 90 capsule 1 ??? zolpidem (AMBIEN) 10 MG tablet Take 1 tablet by mouth At Night As Needed for Sleep. 30 tablet 1 No facility-administered medications prior to visit. Patient Active Problem List Diagnosis ??? Primary insomnia ??? Arthritis Advance Care Planning: has NO advance directive - information provided to the patient today Identification of Risk Factors: Risk factors include: N/A. Review of Systems Cardiovascular: Negative for chest pain. Gastrointestinal: Negative for abdominal distention and abdominal pain. Musculoskeletal: Right leg pain Skin: Negative for color change. Neurological: Negative for tremors, speech difficulty and headaches. Psychiatric/Behavioral: Positive for decreased concentration. Negative for agitation and confusion.The patient is nervous/anxious. Feeling depressed, feels bad about herself All other systems reviewed and are negative. Compared to one year ago, the patient feels her physical health is the same. Compared to one year ago, the patient feels her mental health is worse. Objective Physical Exam Constitutional: She is oriented to person, place, and time. She appears well- developed and well-nourished. HENT: Right Ear: Tympanic membrane and ear canal normal. Left Ear: Tympanic membrane and ear canal normal. Mouth/Throat: Oropharynx is clear and moist. Eyes: Pupils are equal, round, and reactive to light. Conjunctivae and EOM are normal. Neck: No thyromegaly present. Cardiovascular: Normal rate and regular rhythm. Pulmonary/Chest: Effort normal and breath sounds normal. Neurological: She is alert and oriented to person, place, and time. Skin: Skin is warm and dry. Psychiatric: She has a normal mood and affect. Vitals reviewed. Vitals: 02/06/18 1339 BP: 110/68 Temp: 98.4 ??F (36.9 ??C) Weight: 51.1 kg (112 lb 9.6 oz) Height: 152.4 cm (60 ) PainSc: 2 PainLoc: Leg Patient's Body mass index is 21.99 kg/m??. BMI is within normal parameters. No follow-up required. Assessment/Plan Patient Self-Management and Personalized Health Advice The patient has been provided with information about: Discussion today with patient regarding current guidelines for timing/ frequency of paps, mammograms, colonoscopy (or cologuard), bone density tests and lab tests. Immunizations discussed today with current recommendations advised for DTaP, Zostavax, Pneumovax and Prevnar 13. ?? Appropriate diet and stretching discussed with handouts provided. ?? Visit Diagnoses: ICD-10-CM ICD-9-CM 1. Annual physical exam Z00.00 V70.0 2. Screening for breast cancer Z12.31 V76.10 3. Menopause Z78.0 627.2 4. Immunization due Z23 V05.9 Orders Placed This Encounter Procedures ??? DEXA Bone Density Axial Order Specific Question: Reason for Exam: Answer: screening. z13.82 ??? Mammo Screening Digital Tomosynthesis Bilateral With CAD Order Specific Question: Reason for Exam: Answer: screening ??? Pneumococcal Polysaccharide Vaccine 23-Valent Greater Than or Equal To 2yo Subcutaneous / IM ??? Comprehensive Metabolic Panel ??? Lipid Panel ??? Vitamin B12 ??? TSH ??? Hepatitis C Antibody ? ? CBC & Differential Order Specific Question: Manual Differential Answer: No Outpatient Encounter Prescriptions as of 02/06/2018 Medication Sig Dispense Refill ??? diclofenac (VOLTAREN) 50 MG EC tablet Take 1 tablet by mouth Daily As Needed (for pain and inflammation). 90 tablet 1 ??? omeprazole (PRILOSEC) 20 MG capsule Take 1 capsule by mouth Daily As Needed (stomach acid). 90 capsule 1 ??? zolpidem (AMBIEN) 10 MG tablet Take 1 tablet by mouth At Night As Needed for Sleep. 30 tablet 1 No facility-administered encounter medications on file as of 02/06/2018. Reviewed use of high risk medication in the elderly: yes Reviewed for potential of harmful drug interactions in the elderly: yes Follow Up: Return in about 1 year (around 02/06/2019) for Medicare Wellness- Dr Duque. An After Visit Summary and PPPS with all of these plans were given to the patient. 1. MCW- will order bone density. Advised a knee support sleeve for walking. Will request copy of colonoscopy; suspect she needs recheck 2020. Advised to cut down on wheat. Screening labs today. Discussed the purpose and value of a Living Will with forms provided at last visit. Pneumovax today. Discussed getting a tetanus shot at the pharmacy. 2. RECHECK- 1yr MCW with Dr Duque * Luiza Meadows MA - 02/06/2018 1:15 PM EST Pt had exam completed 12/28/18. Report not read yet. documented in this encounter Plan of Treatment Upcoming Encounters Date Type Department Care Team (Late st Contact Info) Description 01/19/2025 3:00 PM EDT Office Visit [facility] [address] [place], [place] [address] Jenny Lomeli PA [address] [place], [place] [address] documented as of this encounter Procedures Procedure Name Priority Date/Time Associated Diagnosis Comments MAMMO SCREENING DIGITAL TOMOSYNTHESIS BILATERAL W CAD Routine 03/28/2018 1:35 PM EST Screening for breast cancer DEXA BONE DENSITY AXIAL Routine 03/13/2018 1:36 PM EST Menopause HEPATITIS C ANTIBODY Routine 02/06/2018 12:00 AM EST Annual physical exam documented in this encounter Results * Mammo [...] calcifications, or architectural distortion to suggest malignancy. us Sariah Benson MD IMG MAMMOGRAPHY ORDERABLES Final Result * DEXA Bone Density Axial (03/13/2018 [...] fall-prevention measurements. The National Osteoporosis Foundation recommends (http://www.nof.org/hcp/practice/wcrceyvs-oae-qebjzyuh-guidelines/clinic ans-guide) that FDA-approved medical therapies be considered [...] the left hip with 95% confidence is 0.225691 gm/cm2 at the hip and 0.058628 g/cm2 at the lumbar spine. This report [...] fall-prevention measurements. The National Osteoporosis Foundation recommends (http://www.nof.org/hcp/practice/yvlrkjcc-zlz-torbpcjf-guidelines/clinic ans-guide) that FDA-approved medical therapies be considered [...] the left hip with 95% confidence is 0.085381 gm/cm2 at the hip and 0.276693 g/cm2 at the lumbar spine. This report [...] with a HCV Nucleic Acid Amplification test ([id number]). Blood 02/06/2018 02/07/2018 Comment:BLOOD Narrative [facility] (AMBULATORY) - 02/07/2018 10:16 AM EST Performed at: ??01 - [facility] [address] ??[id number] Drycleaner: Hawk Mireles PhD, Phone: ??[phone] Sariah Benson MD LAB BLOOD ORDERABLES Final Result [facility] (AMBULATORY) [address] [place] [address], [facility] [address] [place] [address], [place] [phone] documented in this encounter Visit Diagnoses Diagnosis Annual physical exam- Primary Routine general medical examination at a health care facility Menopause Symptomatic menopausal or female climacteric states Immunization due documented in this encounter Care Teams Nutritionists Relationship Specialty Start Date End Date Sariah Benson MD PCP - General 12/10/14 09/03/18 documented as of this encounter
--- OUTSIDE RECORDS SUMMARY | 2024-02-23 17:33 | XMS_ITS | Encounter Summary ---
[facility] Address [address] [place] [address] Care Team Providers Care Inverted Block Operator Name Role Phone Sariah Benson MD Primary Care Provider Ninfa vailable Encounter Details Date Type Department Care Team (Late st Contact Info) Description 04/26/2015 Office Visit Converted [facility] [address] [facility] [address] [place] [address] Sariah Benson MD Social History [...] Sign Reading Time Taken Comments Blood Pressure 100/70 04/26/2015 10:53 AM EST Pulse - - Temperature 36.8 ??C (98.3 ??F) 04/26/2015 10:[address] Respiratory Rate - - Oxygen Saturation - - Inhaled Oxygen Concentration - - Weight 51 kg (112 lb 6.3 oz) 04/26/2015 10:53 AM EST Height 154.9 cm (5' 1 ) 04/26/2015 10:53 AM EST Body Mass Index 21.24 04/26/2015 10:53 AM EST documented in this encounter Progress Notes * Sariah Benson MD - 04/26/2015 10:30 AM EST Chief Complaint SHOULDER PAIN History of Present Illness HPI: Here for shoulder pain. Last seen 12/13/14. Was seen as a new pt 05/07/14. ORTHO- chronic, mild upper back pain. Was instructed stretches and given diclofenac. Did well and was not needing much diclofenac at her last routine visit. Today she reports she is having left shoulder pain. Has had intermittent issues for many years. Has had shoulder xray at a walk in about a month ago and it was normal . The pain radiates into her breast but her mammo have all been normal. Drinks 1 cup of caffeine coffee a day. Has tried stretching her shoulder and it helps briefly. OPTHO- today pt reports that a month ago she went to the [facility] due to eye allergies. Had her eyes dilated and then after that she got light flashes and floaters. She did go back there for a recheck and was advised it was related to aging and should resolve in a month. The light flashes are improving but now she has more floaters, too many to count. Is only in the left eye. Active Problems 1. Acid reflux (530.81) (K21.9) 2. Arthritis (716.90) (M19.90) 3. Asthma (493.90) (J45.909) 4. Back pain (724.5) (M54.9) 5. Depression (311) (F32.9) 6. Female bladder prolapse (618.01) (N81.10) 7. GERD (gastroesophageal reflux disease) (530.81) (K21.9) 8. Insomnia (780.52) (G47.00) 9. LBP (low back pain) (724.2) (M54.5) 10. Migraine headache (346.90) (G43.909) 11. Seasonal allergies (477.9) (J30.2) Past Medical History ?? 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 History of Hysterectomy Family History ?? No pertinent family history ?? Family history of Arthritis ?? Family [...] acid Zolpidem Tartrate 10 MG Oral Tablet TAKE 1 TABLET AT BEDTIME NEEDED FOR INSOMNIA. ZyrTEC Allergy 10 MG Oral Tablet TAKE 1 TABLET DAILY. Allergies 1. Ranitidine HCl TABS Vitals Signs [Data Includes: Current Encounter] Temperature: 98.3 F Systolic: 100 Diastolic: 70 Height: 5 ft 1 in Weight: 112 lb 6.4 oz BMI Calculated: 21.24 BSA Calculated: 1.48 Physical Exam Complete Multi-System Exam (Brief): Constitutional [...] Normal. Mood and affect: Normal. Assessment 1. Visual disturbance (368.9) (H53.9) 2. Rotator cuff arthropathy (716.81) (M12.819) Plan 1. OPTHO- left eye visual disturbance. will refer to optho. will request optometrists records- Dr Torrez 2. ORTHO- rotator cuff sprain. edu re the [facility] on injury discussed. to do home rehab with instruction today. can use the diclofenac. 3. RECHECK- prn End of Encounter Meds Medication Name Instruction [...] DAILY. Future Appointments Date/Time Provider Specialty Site 06/13/2015 01:00 PM Sariah Benson Family [facility] [place] Signatures Electronically signed by : Sariah Benson, ; Apr 26 2015 12:26PM EST (Author) documented in this encounter Plan of Treatment Upcoming Encounters Date Type Department Care Team (Late st Contact Info) Description 01/19/2025 3:00 PM EDT Office Visit [facility] [address] [place] [address] Jenny Lomeli PA [address] [place] [address] documented as of this encounter Visit Diagnoses Not on filedocumented in this encounter Care Teams Inverted Block Operator Relationship Specialty Start Date End Date Sariah Benson MD PCP - General 12/10/14 09/03/18 documented as of this encounter
--- OUTSIDE RECORDS SUMMARY | 2024-02-23 17:33 | XMS_ITS | Encounter Summary ---
[facility] Address [address] [place] [address] Care Team Providers Care It Trainee Name Role Phone Kortney Woods MD Primary Care Provi kenny Reason for Referral * Consultation (Routine) - Canceled Specialty Diagnoses / Procedures Referred By Contac t Referred To Contact Diagnoses Skin mass Kortney Woods MD [address] [place] [address] Phone: tel: fax: Chidi Coyle MD [address] [facility] ATTN: [place] [address] Phone: tel: fax: Referral ID Status Reason Start Date Expiration Date Visits Requested Visits Authorized [id number] Canceled Specialty Services Required 09/08/2018 09/08/2019 1 1 Reason for Visit * Reason Comments Depression Encounter Details Date Type Department Care Team (Late st Contact Info) Description 09/08/2018 1:30 PM EDT Office Visit [facility] [address] [place] [phone] Kortney Woods MD [address] [place] [address] Decreased GFR (Primary Dx); Skin mass Social History Tobacco Use Types Packs/Day Years [...] Sign Reading Time Taken Comments Blood Pressure 115/70 09/08/2018 1:27 PM EDT Pulse - - Temperature 36.4 ??C (97.6 ??F) 09/08/2018 1:27 PM ED T Respiratory Rate - - Oxygen Saturation - - Inhaled Oxygen Concentration - - Weight 50.6 kg (111 lb 9.6 oz) 09/08/2018 1:27 P M EDT Height 152.4 cm (5') 09/08/2018 1:27 PM EDT Body Mass Index 21.8 09/08/2018 1:27 PM EDT documented in this encounter Progress Notes * Kortney Woods MD - 09/08/2018 1:30 PM EDT Zi Hardin is a 68 y.o. female here for follow-up TONG. She denies hx of kidney dysfunction. She is on no meds that affect the kidneys. Urinating normally, diarrhea has resolved. She was recentlydenied life insurance because depression was listed in her PMH though it is not in this chart and pt denies ever being diagnosed with MDD. She endorses ups and downs in mood over the years but was not on a medication, never saw a therapist or psychiatrist. Needs a letter stating such. Wants referral to [facility] for left shoulder mass (likely lipoma). The following portions of the patient's history were reviewed and updated as appropriate: allergies, current medications, past medical history, past social history, past surgical history and problem list. Review of Systems: General: negative : negative Neuro: negative Psych: negative Skin: skin mass Objective BP 115/70 (BP Location: Left arm, Patient Position: Sitting, Cuff Size: Adult) Temp 97.6 ??F (36.4 ??C) (Temporal) Ht 152.4 cm (60 ) Wt 50.6 kg (111 lb 9.6 oz) BMI 21.80 kg/m?? Physical Exam Constitutional: She is oriented to person, place, and time. She appears well- developed and well-nourished. Pulmonary/Chest: Effort normal. Neurological: She is alert and oriented to person, place, and time. Skin: Skin is warm and dry. Psychiatric: She has a normal mood and affect. Her behavior is normal. Judgment and thought contentnormal. Vitals reviewed. Assessment/Plan Dorita was seen today for depression. Diagnoses and all orders for this visit: Decreased GFR - Basic Metabolic Panel. Unfortunately no previous BMP/CMP to compare to. Repeat today and further plan TBD Skin mass - Ambulatory Referral to Dermatology No hx MDD, wrote letter for pt today documented in this encounter Plan of Treatment Upcoming Encounters Date Type Department Care Team (Late st Contact Info) Description 01/19/2025 3:00 PM EDT Office Visit [facility] [address] [address] Jenny Lomeli PA [address] [place] [address] Scheduled Referrals Name Type Priority Associated Diagnoses Order Schedule Ambulatory Referral to Dermatology Outpatient Referral Routine Skin mass Ordered: 09/08/2018 documented as of this encounter Procedures Procedure Name Priority Date/Time Associated Diagnosis Comments BASIC METABOLIC PANEL Routine 09/08/2018 1:53 PM EDT Decreased GFR documented in this encounter Results * (ABNORMAL) Basic Metabolic Panel (09/08/2018 1:53 PM EDT) Glucose 108(H) 65 - 99 mg/dL [facility] BUN 12 8 - 23 mg/dL [facility] Creatinine 0.91 0.57 - 1.00 mg/dL [facility] eGFR Non Am 61 >60 mL/min/1.7 3 [facility] eGFR Am 75 >60 mL/min/1.7 3 [facility] BUN/Creatinine Ratio 13.2 7.0 - 25.0 [facility] Sodium 143 136 - 145 mmol/L [facility] Potassium 3.8 3.5 - 5.2 mmol/L [facility] Chloride 103 98 - 107 mmol/L [facility] Total CO2 25.9 22.0 - 29.0 mmol/L [facility] Calcium 9.3 8.6 - 10.5 mg/dL [facility] Blood 09/08/2018 1:53 PM EDT 09/08/2018 Comment:BLOOD Narrative [facility] - 09/09/2018 4:06 AM EDT Performed at: ??[address] - [address] ??[id number] Buccaro: David Farnsworth MD, Phone: ??[phone] Kortney Woods MD LAB BLOOD ORDERABLE S Final Result [facility] [employer] [facility] ([facility]) [address] [place] [address], [facility] [address] [place] [address], documented in this encounter Visit Diagnoses Diagnosis Decreased GFR- Primary Skin mass Localized superficial swelling, mass, or lump documented in this encounter Care Teams It Trainee Relationship Specialty Start Date End Date Kortney Woods MD [address] [address] PCP - General Internal Medicine 09/04/18 10/15/22 documented as of this encounter
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
--- OUTSIDE RECORDS SUMMARY | 2024-02-23 17:33 | XMS_ITS | Encounter Summary ---
[facility] Address [address] [place] [address] Care Team Providers Care Chute Builder Name Role Phone Sariah Benson MD Primary Care Provider Ninfa vailable Encounter Details Date Type Department Care Team (Late st Contact Info) Description 05/07/2014 Office Visit Converted [facility] [address] [facility] [address] [place] [address] Sariah Benson MD Social History [...] Sign Reading Time Taken Comments Blood Pressure 124/78 05/07/2014 11:23 AM EST Pulse - - Temperature 37.1 ??C (98.8 ??F) 05/07/2014 1 1:23 AM EST Respiratory Rate - - Oxygen Saturation - - Inhaled Oxygen Concentration - - Weight 55.3 kg (121 lb 14.3 oz) 015 11:23 AM EST Height 154.9 cm (5' 1 ) 05/07/2014 11:2 3 AM EST Body Mass Index 23.03 05/07/2014 11:23 AM EST documented in this encounter Progress Notes * Sariah Benson MD - 05/07/2014 10:45 AM EST Chief Complaint BACK PAIN, GET ESTAB History of Present Illness HPI: New patient, here to establ. Has back pain. Pt just seen on 05/04/[address] Waldrop for back painand pelvic pressure. Was diagnosed with OA with LBP and bladder prolapse. Has had hysterectomy. Hasseen Dr Mahoney in [facility] for her CPE. Pt did not want to persue bladder surgery. Pt was given diclofenac 75 mg for her back. ORTHO- today pt reports mid shouler and low back pain. Has this intermitently for around 10 yrs. Isgetting worse in the upper back. The low back mostly hurts when she sleeps as she sleeps on her stomach. Describes upper back pain as burning. Is not related to breathing but she does have occasionalmild dyspnea. Has a h/o TB 50yr ago but has had multiple CXR that are clear in recent years. On discussion, she does have some dysphagia. Was treated with zantac in past and did well. Has had screening colonoscopy and EGD in past thru Dr Mahoney. Takes occasional aleve. Review of Systems Complete-Female: Constitutional: fatigue. Head and Face: negative. Eyes: red eyes and itching of the eyes. ENT: hearing loss. Cardiovascular: negative. Respiratory: negative. Gastrointestinal: negative. Genitourinary: pelvic pain. Musculoskeletal: diffuse joint pain and generalized muscle aches. Integumentary and Breasts: negative. Neurological: headache. Psychiatric: insomnia and depression. Endocrine: negative. Hematologic and Lymphatic: a tendency for easy bruising. Active Problems 1. Acid reflux (530.81) 2. Arthritis (716.90) 3. Asthma (493.90) 4. Depression (311) 5. Female bladder prolapse (618.01) 6. LBP (low back pain) (724.2) 7. Migraine headache (346.90) 8. Seasonal allergies (477.9) Past Medical History ?? 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 History of Hysterectomy Family History ?? Family history of Arthritis ?? Family history of tuberculosis (V18.8) Social History ? Never smoker (V49.89) ?? No alcohol use Current Meds Medication Name Instruction Alaway 0.025 % Ophthalmic Solution INSTILL 1 DROP IN THE AFFECTED EYE(S) EVERY 12 HOURS NEEDED. Diclofenac Sodium 75 MG Oral Tablet Delayed Release TAKE 1 TABLET Twice daily PRN if back is hurting ZyrTEC Allergy 10 MG Oral Tablet TAKE 1 TABLET DAILY. Allergies 1. Ranitidine HCl TABS Vitals Signs [Data Includes: Current Encounter] Temperature: 98.8 F Systolic: 124 Diastolic: 78 Height: 5 ft 1 in Weight: 121 lb 14.4 oz BMI Calculated: 23.03 BSA Calculated: 1.53 Physical Exam Complete Multi-System [...] without murmurs. Musculoskeletal Gait and station: Normal. Focal tenderness mid T spine. Psychiatric Orientation to person, place, and time: Normal. Mood and affect: Normal. Assessment 1. GERD (gastroesophageal reflux disease) (530.81) 2. Back pain (724.5) Plan GERD (gastroesophageal reflux disease) ?? Start: 20 MG Oral Capsule Delayed Release; Take 1 tab 1d x2wks the prn gastritis LBP (low back pain) ?? Stop: Sodium 75 MG Oral Tablet Delayed Release 1. GI- edu re acid reflux. will use omeprazole x2wks then prn. advised to avoid NSAID until recheck. 2. ORTHO- edu re OA and pt given stretches which are demonstrated. pt reports release of some back pain with the stretches. End of Encounter Meds Medication Name Instruction Alaway 0.025 % Ophthalmic Solution INSTILL 1 DROP IN THE AFFECTED EYE(S) EVERY 12 HOURS NEEDED. Omeprazole 20 MG Oral Capsule Delayed Release Take 1 tab 1d x2wks the prn gastritis ZyrTEC Allergy 10 MG Oral Tablet TAKE 1 TABLET DAILY. Future Appointments Date/Time Provider Specialty Site 06/10/2014 01:00 PM Sariah Benson Family Medicine [facility] [address] The patient was counseled regarding instructions for management. Total time of encounter was 25 minutes. Total time spent counseling patient: 15 minutes. Signatures Electronically signed by : Sariah Benson, ; May 07 2014 1:43PM EST (Author) documented in this encounter Plan of Treatment Upcoming Encounters Date Type Department Care Team (Late st Contact Info) Description 01/19/2025 3:00 PM EDT Office Visit [facility] [address] [place] [phone] Jenny Lomeli PA [address] [place], [place] [phone] documented as of this encounter Visit Diagnoses Not on filedocumented in this encounter Care Teams Chute Builder Relationship Specialty Start Date End Date Sariah Benson MD PCP - General 12/10/14 09/03/18 documented as of this encounter
--- OUTSIDE RECORDS SUMMARY | 2024-02-23 17:33 | XMS_ITS | Encounter Summary ---
[facility] Address [address] [place] [address] Care Team Providers Care Regulatory Administrator Name Role Phone Sariah Benson MD Primary Care Provider Ninfa vailable Reason for Visit * Reason Onset Date Comments Med Refill 07/09/2018 Encounter Details Date Type Department Care Team (Late st Contact Info) Description 07/09/2018 Refill [facility] [address] [place] [address] [address] [place] [address] Sariah Benson MD Primary insomnia [...] Telephone Encounter - Payton Alcantar MA - 07/09/2018 3:39 PM EDT Last appt and last refill 02/06/18 They will not accept refills on prescription as they have . Pending appt with Dr. Woods 02/09/19 * Telephone Encounter - Yecenia Ortiz - 07/09/2018 3:06 PM EDT Pt needs a refill on zolpidem and diclofenac and wants it sent [facility] documented in this encounter Plan of Treatment Upcoming Encounters Date Type Department Care Team (Late st Contact Info) Description 01/19/2025 3:00 PM EDT Office Visit [facility] [address] [place], [place] [address] Jenny Lomeli PA [address] [place], [place] [address] documented as of this encounter Visit Diagnoses Diagnosis Primary insomnia Persistent disorder of initiating or maintaining sleep documented in this encounter Care Teams Regulatory Administrator Relationship Specialty Start Date End Date Sariah Benson MD PCP - General 12/10/14 09/03/18 documented as of this encounter
--- OUTSIDE RECORDS SUMMARY | 2024-02-23 17:33 | XMS_ITS | Encounter Summary ---
[facility] Address [address] [place] [address] Care Team Providers Care Manufacturing Accountant Name Role Phone Sariah Benson MD Primary Care Provider Ninfa vailable Encounter Details Date Type Department Care Team (Late st Contact Info) Description 06/13/2015 Office Visit Converted [facility] [address] [facility] [address] [place] [address] Sariah Benson MD Social History [...] Reading Time Taken Comments Blood Pressure 124/78 06/13/2015 12:53 PM EDT Pulse - - Temperature 37.1 ??C (98.7 ??F) 06/13/2015 12:53 PM E DT Respiratory Rate - - Oxygen Saturation - - Inhaled Oxygen Concentration - - Weight 53 kg (116 lb 12.8 oz) 06/13/2015 12:53 P M EDT Height 154.9 cm (5' 1 ) 06/13/2015 12:53 PM EDT Body Mass Index 22.07 06/13/2015 12:53 PM EDT documented in this encounter Progress Notes * Sariah Benson MD - 06/13/2015 1:00 PM EDT Chief Complaint 6 MONTH ROUTINE GERD, INSOMNIA ETC History of Present Illness HPI: Here for routine 6mo recheck. Last routine 12/13/14. Pt seen as a new patient 05/07/14. Sees Dr Mahoney for CPE. 1. GI- GERD. Pt reported colonoscopy and EGD in past as screening by Historical Society Director with no issues.Was startedon omeprazole prn, sim when taking NSAID. Did well with this and was only needing it with diet indiscretion. Had lost 6 lb at last visit with diet. Today she reports she did well and did not need anyfor a full month and then the symptoms returned. Is having to take it qd now. 2. ORTHO- chronic, mild upper back pain. Pt sleeps on her stomach. Was instructed stretches and given diclofenac which she responded to well and was able to stop. Was seen 04/26/15 to discuss rotator cuff arthropathy. Had had a neg xray elsewhere. Was advised stretches and to restart the diclofenac.Today she reports she does well if she stretches routinely. 3. PSYCH- insomnia. Pt has taken ambien skilled nursing, 0-2x/wk. Usually needs it when she will be out the next day as she cannot sleep well the night before. No S/E. Was given Rx with contract. Today shereports. 4. RESP- dyspnea. On discussion, pt is having some eye and sinus allergies. Is also feeling short of breath when she tries to run. Is having more reflux since this got worse. Active Problems 1. Acid reflux (530.81) (K21.9) 2. Arthritis (716.90) (M19.90) 3. Asthma (493.90) (J45.909) 4. Back pain (724.5) (M54.9) 5. Depression (311) (F32.9) 6. Female bladder prolapse (618.01) (N81.10) 7. Gastroesophageal reflux disease (530.81) (K21.9) 8. Insomnia (780.52) (G47.00) 9. LBP (low back pain) (724.2) (M54.5) 10. Migraine headache (346.90) (G43.909) 11. Rotator cuff arthropathy (716.81) (M12.819) 12. Seasonal allergies (477.9) (J30.2) 13. Visual disturbance (368.9) (H53.9) Current Meds Medication Name Instruction Alaway 0.025 [...] Vitals Signs [Data Includes: Current Encounter] Temperature: 98.7 F Systolic: 124 Diastolic: 78 Height: 5 ft 1 in Weight: 116 lb 12.8 oz BMI Calculated: 22.07 BSA Calculated: 1.5 Physical Exam BH Complete [...] Normal. Mood and affect: Normal. Assessment 1. Gastroesophageal reflux disease (530.81) (K21.9) 2. Back pain (724.5) (M54.9) 3. Insomnia (780.52) (G47.00) 4. Allergic rhinitis (477.9) (J30.9) Plan Allergic rhinitis ?? Sodium 10 MG Oral Tablet; 1 tab po qd prn cough or allergies Arthritis ?? Sodium 75 MG Oral Tablet Delayed Release; 1 tab po qd prn back pain Gastroesophageal reflux disease ?? 20 MG Oral Capsule Delayed Release; Take 1 tab qd prn stomach acid 1. GI- GERD- cont the omeprazole. 2. ORTHO- back pain- stable. discussed ways to self massage her back 3. PSYCH- insomnia- stable 4. RESP- allergies- edu provided. discussed that this could be affecting her reflux. will use prn singulair 5. RECHECK- 1yr [place] End of Encounter Meds Medication Name Instruction Alaway 0.025 % Ophthalmic Solution INSTILL 1 DROP IN THE AFFECTED EYE(S) EVERY 12 HOURS NEEDED. Diclofenac Sodium 75 MG Oral Tablet Delayed Release 1 tab po qd prn back pain Montelukast Sodium 10 MG Oral Tablet 1 tab po qd prn cough or allergies Omeprazole 20 MG Oral Capsule Delayed Release Take 1 tab qd prn stomach acid Zolpidem Tartrate 10 MG Oral Tablet (Ambien) TAKE 1 TABLET AT BEDTIME NEEDED FOR INSOMNIA. ZyrTEC Allergy 10 MG Oral Tablet TAKE 1 TABLET DAILY. Signatures Electronically signed by : Sariah Benson, ; Jun 13 2015 1:23PM EST (Author) documented in this encounter Plan of Treatment Upcoming Encounters Date Type Department Care Team (Late st Contact Info) Description 01/19/2025 3:00 PM EDT Office Visit [facility] [address] [address] Jenny Lomeli PA [address] [address] documented as of this encounter Visit Diagnoses Not on filedocumented in this encounter Care Teams Manufacturing Accountant Relationship Specialty Start Date End Date Sariah Benson MD PCP - General 12/10/14 09/03/18 documented as of this encounter
--- OUTSIDE RECORDS SUMMARY | 2024-02-23 17:33 | XMS_ITS | Encounter Summary ---
Author Organization [facility] yste Address [address] [place] [address] Care Team Providers Care Industrial Engineering Intern Name Role Phone Sariah Benson MD Primary Care Provider Ninfa vailable Encounter Details Date Type Department Care Team (Late st Contact Info) Description 05/04/2014 Office Visit Converted [facility] [address] [facility] [address] [place] [address] Shelley Waldrop MD [address] [place] [address] [address] [place] [address] Social History Tobacco Use Types Packs/Day Years Used Date Smoking Tobacco: Never Assessed Comments Unknown Sex and Gender Information Value Date Recorded Sex Assigned at Not on file Legal Sex Female 12:26 PM EDT Gender Identity Not on file Sexual Orientation Not on file documented as of this encounter Last Filed Vital Signs Vital Sign Reading Time Taken Comments Blood Pressure 124/80 05/04/2014 3:45 PM EST Pulse 101 05/04/2014 3:45 PM EST Temperature - - Respiratory Rate 12 05/04/2014 3:45 PM EST Oxygen Saturation 95% 05/04/2014 3:45 PM EST Inhaled Oxygen Concentration - - Weight 55.4 kg (122 lb 3.9 oz) 05/04/2014 3:45 P M EST Height 154.9 cm (5' 1 ) 05/04/2014 3:45 PM EST Body Mass Index 23.1 05/04/2014 3:45 PM EST documented in this encounter Progress Notes * Shelley Waldrop MD - 05/04/2014 3:45 PM EST Chief Complaint New pt, est care with Dr. Waldrop. C/O LBP and some pain in upper back. Has had x-ray in past, always WNL. She had TB 50 yrs ago, says the back pain she feels is similar to when she had TB. Hx hysterectomy, she says when she is working, or strains she feels like something is coming out. She says it causes discomfort, no bleeding. She is concerned because she cannot afford surgery and she needs to work. History of Present Illness HPI: Back pain: only intermittent, depending on how she lays down. Sharp stabbing pain, improves when she gets up. Pelvic pressure: had a hysterectomy, but now feels like something is coming out whenever she does any heavy lifting or housework. No trouble urinating, but has to lean forward in order to completely void. No problems pooping. HM: last colonoscopy more than 10 years, last mammogram spring. last cholesterol last year - normal. Review of Systems Complete-Female: Constitutional: malaise. Head and Face: negative. Eyes: red eyes and itching of the eyes. ENT: hearing loss. Cardiovascular: negative. Respiratory: shortness of breath and cough. Gastrointestinal: negative. Genitourinary: as noted in HPI. Musculoskeletal: negative. Integumentary and Breasts: negative. Neurological: headache. Psychiatric: insomnia and depression. Endocrine: hot flashes. Current Meds Medication Name Instruction Alaway 0.025 % Ophthalmic Solution INSTILL 1 DROP IN THE AFFECTED EYE(S) EVERY 12 HOURS NEEDED. ZyrTEC Allergy 10 MG Oral Tablet TAKE 1 TABLET DAILY. Allergies 1. Ranitidine HCl TABS Vitals Signs [Data Includes: Current Encounter] Heart Rate: 101 Respiration: 12 Systolic: 124 Diastolic: 80 Height: 5 ft 1 in Weight: 122 lb 4 oz BMI Calculated: 23.1 BSA Calculated: 1.53 O2 Saturation: 95 Physical Exam BH Complete Multi-System Exam: Constitutional General appearance: No acute distress, well appearing and well nourished. Head and Face Head and face: Normal. Eyes Conjunctiva and lids: No swelling, erythema or discharge. Pupils and irises: Equal, round, reactive to light. Ears, Nose, Mouth, and Throat External inspection of ears and nose: Normal. Otoscopic examination: Tympanic membranes translucent with normal light reflex. Canals patent without erythema. Lips, teeth, and gums: Normal, good dentition. Oropharynx: Normal with no erythema, edema, exudate or lesions. Neck Neck: Supple, symmetric, trachea midline, no masses. Thyroid: Normal, no thyromegaly. Pulmonary Respiratory effort: No increased work of breathing or signs of respiratory distress. Auscultation of lungs: Clear to auscultation. Cardiovascular Auscultation of heart: Normal rate and rhythm, normal S1 and S2, no murmurs. Examination of extremities for edema and/or varicosities: Normal. Abdomen Abdomen: Non-tender, no masses. Liver and spleen: No hepatomegaly or splenomegaly. Genitourinary External genitalia and vagina: Normal, no lesions appreciated. Urethra: Normal, no discharge. Bladder: Abnormal. Grade II cystocele, almost III with bearing down and standing. Sugically absent. Lymphatic Palpation of lymph nodes in neck: No lymphadenopathy. Musculoskeletal Gait and station: Normal. Muscle strength/tone: Normal. Neurologic Reflexes: 2+ and symmetric. Assessment 1. Acid reflux (530.81) 2. Asthma (493.90) 3. Arthritis (716.90) 4. Depression (311) 5. Migraine headache (346.90) 6. Seasonal allergies (477.9) 7. LBP (low back pain) (724.2) 8. Female bladder prolapse (618.01) Plan LBP (low back pain) ?? Start: Sodium 75 MG Oral Tablet Delayed Release; TAKE 1 TABLET Twice daily PRN if back is hurting Bladder prolapse: pt states emphatically that she doesn't want to have another surgery. Discussed options with patient - the sensation and discomfort from the cystocele is limiting her activities andcausing possible bladder retention symptoms. Discussed pessary as option- showed patient 2 different types of pessaries, explained their use and safety. However, pt was unwilling to try the pessary and wants to wait until her symptoms worsen. Pt was sent home with literature about bladder prolapse and treatment options. LBP: stretching exercises given. HM: pt refused both mammogram and colonoscopy. End of Encounter Meds Medication Name Instruction Diclofenac Sodium 75 MG Oral Tablet Delayed Release TAKE 1 TABLET Twice daily PRN if back is hurting ZyrTEC Allergy 10 MG Oral Tablet TAKE 1 TABLET DAILY. Future Appointments Date/Time Provider Specialty Site 05/07/2014 10:45 AM Sariah Benson Family Medicine [facility] [address] Signatures Electronically signed by : Shelley Waldrop M.D.; May 07 2014 9:33AM EST (Author) documented in this encounter Plan of Treatment Upcoming Encounters Date Type Department Care Team (Late st Contact Info) Description 01/19/2025 3:00 PM EDT Office Visit [facility] [address] [place] [address] Jenny Lomeli PA [address] [place], [place] [id number] documented as of this encounter Visit Diagnoses Not on filedocumented in this encounter Care Teams Industrial Engineering Intern Relationship Specialty Start Date End Date Sariah Benson MD PCP - General 12/10/14 09/03/18 documented as of this encounter
--- OUTSIDE RECORDS SUMMARY | 2024-02-23 17:33 | XMS_ITS | Encounter Summary ---
Author Organization [facility] Address [address] [place] [address] Care Team Providers Care Mine Laborer Name Role Phone Sariah Benson MD Primary Care Provider Ninfa vailable Reason for Referral * (Routine) - Closed Specialty Diagnoses / Procedures Referred By Contac isael Referred To Contact Radiology Diagnoses Arthritis Procedures XR Shoulder 2+ View Bilateral Sariah Benson MD Referral ID Status Reason Start Date Expiration Date Visits Re quested Visits Authorized [id number] Closed 11/21/2017 11/21/2018 1 1 Reason for Visit * Reason Comments Shoulder Pain Encounter Details Date Type Department Care Team (Late Contact Info) Description 11/21/2017 1:45 PM EDT Office Visit [facility] [address] [place] [address] [place] [address] Sariah Benson MD Arthritis (Primary Dx) Social History Tobacco Use Types [...] Sign Reading Time Taken Comments Blood Pressure 112/70 11/21/2017 1:49 PM EDT Pulse - - Temperature 36.7 ??C (98.1 ??F) 11/21/2017 1:49 PM ED T Respiratory Rate - - Oxygen Saturation - - Inhaled Oxygen Concentration - - Weight 52.3 kg (115 lb 3.2 oz) 11/21/2017 1:49 P M EDT Height 152.4 cm (5') 11/21/2017 1:49 PM EDT Body Mass Index 22.5 11/21/2017 1:49 PM EDT documented in this encounter Patient Instructions * Patient Instructions* Sariah Benson MD - 11/21/2017 1:45 PM EDT 1. ORTHO- arthritis. Will get an xray of left shoulder. Pt advised to take the diclofenac every dayfor 5 days and then return to as needed . Advised massage for her back and shoulders. 2. RECHECK- Medicare Wellness with labs documented in this encounter Progress Notes * Sariah Benson MD - 11/21/2017 1:45 PM EDT Zi Hardin is a 67 y.o. female. History of Present Illness Here for shoulder pain. Last seen 05/01/17 for BLE pain, routine. Was seen 06/13/15 for routine. Pt seen as a new patient 05/07/14. Sees Dr Mahoney for CPE. 1. ORTHO- arthritis spine. Pt has been treated with stretches and prn diclofenac. Was seen 05/01/17 with 1mo of back and right calf pain that was gradually improving. Had not been taking diclofenac and was advised to do so. Today she reports this is the same pain she had in the past that improved with stretches but it has recently come back. It has responded to massage. She has voltaren but is limiting use to try to save it . 2. GI- GERD. Treated with omeprazole. 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 3. PSYCH- insomnia. Pt has taken ambien tank terminal gauger, 0-2x/wk. Will take it if stressed, especially ifshe has to leave the house the next day. Rx for #30 x3 lasts 1yr. At her last visit pt was behavingoddly and reported being ???persecuted?? at [facility]. The following portions of the patient's history were reviewed and updated as appropriate: current medications, past family history, past medical history, past social history, past surgical history and problem list. Review of Systems Cardiovascular: Negative for chest pain. Gastrointestinal: Negative for abdominal distention and abdominal pain. Musculoskeletal: Left sided shoulder pain Skin: Negative for color change. Neurological: Negative for tremors, speech difficulty and headaches. Psychiatric/Behavioral: Negative for agitation and confusion. All other systems reviewed and are negative. Current Outpatient Prescriptions: ??? diclofenac (VOLTAREN) 50 MG EC tablet, Take 1 tablet by mouth Daily As Needed (for pain and inflammation)., Disp: 90 tablet, Rfl: 1 ??? omeprazole (PRILOSEC) 20 MG capsule, Take 1 capsule by mouth Daily As Needed (stomach acid)., Disp: 90 capsule, Rfl: 1 ??? zolpidem (AMBIEN) 10 MG tablet, Take 1 tablet by mouth At Night As Needed for Sleep., Disp: 30 tablet, Rfl: 1 Objective BP 112/70 Temp 98.1 ??F (36.7 ??C) Ht 152.4 cm (60 ) Wt 52.3 kg (115 lb 3.2 oz) BMI 22.50 kg/m?? Physical Exam Constitutional: She is oriented [...] Diagnoses and all orders for this visit: Arthritis - XR Shoulder 2+ View Bilateral 1. ORTHO- arthritis. Will get an xray of left shoulder. Pt advised to take the diclofenac every dayfor 5 days and then return to as needed . Advised massage for her back and shoulders. 2. RECHECK- Medicare Wellness with labs documented in this encounter Plan of Treatment Upcoming Encounters Date Type Department Care Team (Late st Contact Info) Description 01/19/2025 3:00 PM EDT Office Visit [facility] [address] [place] [address] Jenny Lomeli PA [address] [place] [address] documented as of this encounter Procedures Procedure Name Priority Date/Time Associated Diagnosis Comments XR SHOULDER 2+ VW BILATERAL Routine 12/18/2017 10:39 AM EDT Arthritis documented in this encounter Results * XR Shoulder 2+ View Bilateral (12/18/2017 10:39 AM EDT) Anatomical Region Laterality Modality Upper Extremities, Shoulder Bilateral Radi ographic Imaging 12/18/2017 11:4 4 AM EDT Impressions 12/18/2017 12:30 PM EDT Possible loose bodies in the posterior left glenohumeral joint space. D: ??12/18/2017 E: ??12/18/2017 This report was finalized on 12/18/2017 12:30 PM by Goyo Waldron. Narrative 12/18/2017 12:30 PM EDT EXAMINATION: XR SHOULDER 2+ VW BILATERAL- 12/18/2017 INDICATION: left shoulder pain; M19.90-Unspecified osteoarthritis, unspecified site TECHNIQUE: ??Left shoulder pain COMPARISONS: ??3 views both shoulders FINDINGS: ??Left: No acute fracture, dislocation or malalignment. Normal joint spaces. Possible loose bodies in the posterior glenohumeral joint space. Right: No acute fracture, dislocation or malalignment. Normal joint spaces. Imaged portions of the lungs are clear. Procedure Note Goyo Waldron MD - 12/18/2017 EXAMINATION: XR SHOULDER 2+ VW BILATERAL- 12/18/2017 INDICATION: left shoulder pain; M19.90-Unspecified osteoarthritis, unspecified site TECHNIQUE: Left shoulder pain COMPARISONS: 3 views both shoulders FINDINGS: Left: No acute fracture, dislocation or malalignment. Normal joint spaces. Possible loose bodies in the posterior glenohumeral joint space. Right: No acute fracture, dislocation or malalignment. Normal joint spaces. Imaged portions of the lungs are clear. IMPRESSION: Possible loose bodies in the posterior left glenohumeral joint space. E: 12/18/2017 This report was finalized on 12/18/2017 12:30 PM by Goyo Waldron. Sariah Benson MD IMG DIAGNOSTIC IMAGING ORD ERABLES Final Result documented in this encounter Visit Diagnoses Diagnosis Arthritis- Primary Unspecified arthropathy, site unspecified documented in this encounter Care Teams Mine Laborer Relationship Specialty Start Date End Date Sariah Benson MD PCP - General 12/10/14 09/03/18 documented as of this encounter
--- OUTSIDE RECORDS SUMMARY | 2024-02-23 17:33 | XMS_ITS | Encounter Summary ---
Author Organization [facility] Address [address] [id number] Care Team Providers Care Terrazzo Tile Setter Name Role Phone Kortney Woods MD Primary Care Provi kenny Reason for Visit * Reason Comments Memory Loss * Consultation (Routine) - Closed Specialty Diagnoses / Procedures Referred By Contac t Referred To Contact Neurology Diagnoses Memory loss Kortney Woods MD [address] [facility] [address] [place] [address] Phone: tel: fax: Christine Huertas, SUPERVISOR [employer]UM[employer]SEMBLY [address] [facility] [address] [place] [address] Phone: tel: fax: Referral ID Status Reason Start Date Expiration Date V isits Requested Visits Authorized [id number] Closed Specialty Services Required 11/26/2018 11/26/2019 1 1 Encounter Details Date Type Department Care Team (Late st Contact Info) Description 12/15/2018 3:00 PM EDT Office Visit [facility] NEUROLOGY [address] [facility] [address] [place] [address] Christine Huertas, SUPERVISOR [employer]SEMBL[employer] [address] [facility] [address] [place] [address] Intermittent confusion (Primary Dx); Paranoid behavior; Poor short term memory; Personal history of other diseases of the circulatory system Social History Tobacco Use Types Packs/Day Years [...] Sign Reading Time Taken Comments Blood Pressure 116/80 12/15/2018 2:54 PM EDT Pulse 93 12/15/2018 2:54 PM EDT Temperature - - Respiratory Rate - - Oxygen Saturation 98% 12/15/2018 2:54 PM EDT Inhaled Oxygen Concentration - - Weight 51.7 kg (114 lb) 12/15/2018 2:54 PM EDT Height 154.9 cm (5' 1 ) 12/15/2018 2:54 PM EDT Body Mass Index 21.54 12/15/2018 2:54 PM EDT documented in this encounter Progress Notes * Christine Huertas, ABRAHAM - 12/15/2018 3:00 PM EDT Subjective: Patient ID: Dorita Hardin is a 68 y.o. female. CC: Chief Complaint Patient presents with ??? Memory Loss HPI: History of Present Illness This is a 68-year-old female who presents for initial neurological evaluation of some memory issues. She is by herself during today's visit. She was referred by her primary care provider for further evaluation. She basically tells me she lives in [facility] housing and is concerned that while she is gone from her apartment (volunteering at [employer] or walking at the nearby park) that someone is going in and out of her apartment and leaving the stove on, messing up her towels and putting holes in her clothes. She tells me that this is the work of my ex- for sure . She tells me that she will tell her friends or even the business line manager of the housing facility and they tell her she must have dementia or memory issues. She tells me she is even called the police and got her own cameras. She tellsme that somebody covered up the cameras and she was not able to catch anyone. She tells me when shereturns to her apartment that the doors have not been tampered with and they are locked. She is wondering if she may have dementia. She has never been diagnosed with dementia. She does have significant anxiety and fear now. She tells me that these events have been going on since 2012 but when she [facility] she felt like this was stopped. She tells me that she has no history of concussion, no history of seizures, has never passed out and has no known dementia. No memory issues run in her family. Her mom of a stroke around age 50. She tells me that she has had longtime insomnia and takes Ambien as needed. She is from the [facility] and came to [place] 1982. 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 She tells me that her ex- has always given her issues. MMSE 27/30, STM 3/3. The following portions of the patient's history were reviewed and updated as appropriate: allergies, current medications, past family history, past medical history, past social history, past surgicalhistory and problem list. Past Medical History: Diagnosis Date ??? Anxiety ??? Arthritis ??? Asthma ??? Breast injury 2013 left breast ??? Depression ??? Female bladder prolapse ??? Migraine ??? Positive TB test Past Surgical History: Procedure Laterality Date ??? HYSTERECTOMY Social History Socioeconomic History ??? Marital status: Spouse name: Not on file ??? Number of children: Not on file ??? Years of education: Not on file ??? Highest education level: Not on file Tobacco Use ??? Smoking status: Never Smoker ??? Smokeless tobacco: Never Used Substance and Sexual Activity ??? Alcohol use: No ??? Drug use: No Family History Problem Relation Age of Onset ??? Arthritis Mother ??? Stroke Mother ??? Breast cancer Neg Hx Review of Systems All other systems reviewed and are negative. Objective: Neurologic Exam Mental Status Oriented to person, place, and time. Registration: recalls 3 of 3 objects. Recall at 5 minutes: recalls 3 of 3 objects. Follows 3 step commands. Attention: normal. Concentration: normal. Speech: speech is normal Level of consciousness: alert Knowledge: good and consistent with education. Able to perform simple calculations. Able to name object. Able to read. Able to repeat. Able to write. Normal comprehension. Cranial Nerves Cranial nerves II through XII intact. Motor Exam Muscle bulk: normal Overall muscle tone: normal Strength Strength 5/5 throughout. Sensory Exam Light touch normal. Vibration normal. Proprioception normal. Pinprick normal. Gait, Coordination, and Reflexes Gait Gait: normal Coordination Romberg: negative Finger to nose coordination: normal Heel to voss coordination: normal Tremor Resting tremor: absent Intention tremor: absent Action tremor: absent Reflexes Right brachioradialis: 2+ Left brachioradialis: 2+ Right biceps: 2+ Left biceps: 2+ Right triceps: 2+ Left triceps: 2+ Right patellar: 2+ Left patellar: 2+ Right achilles: 2+ Left achilles: 2+ Right tester food products: 2+ Left tester food products: 2+ Right plantar: normal Left plantar: normal Right Carrasquillo: absent Left Carrasquillo: absent Right ankle clonus: absent Left ankle clonus: absent Physical Exam Constitutional: She is oriented to person, place, and time. She appears well- developed and well-nourished. Eyes: Fundoscopic exam: The right eye shows red reflex. The left eye shows red reflex. Cardiovascular: Normal rate, regular rhythm, S1 normal, S2 normal and normal heart sounds. Pulmonary/Chest: Effort normal and breath sounds normal. Neurological: She is oriented to person, place, and time. She has normal strength. She has a zcrqjySxmfko-Rkpq-Nmwlns Test, a normal Heel to Voss Test and a normal Romberg Test. Gait normal. Reflex Scores: Tricep reflexes are 2+ on the right side and 2+ on the left side. Bicep reflexes are 2+ on the right side and 2+ on the left side. Brachioradialis reflexes are 2+ on the right side and 2+ on the left side. Patellar reflexes are 2+ on the right side and 2+ on the left side. Achilles reflexes are 2+ on the right side and 2+ on the left side. Psychiatric: Her speech is normal and behavior is normal. Judgment normal. Her mood appears anxious. Thought content is paranoid. Cognition and memory are normal. Assessment/Plan: Dorita was seen today for memory loss. Diagnoses and all orders for this visit: Intermittent confusion - MRI Brain Without Contrast; Future - EEG Awake or Drowsy Routine; Future - Comprehensive Metabolic Panel; Future - CBC & Differential; Future - Vitamin B12 & Folate; Future - Urinalysis With Culture If Indicated - Urine, Clean Catch; Future - Comprehensive Metabolic Panel - CBC & Differential - Vitamin B12 & Folate - Urinalysis With Culture If Indicated - Urine, Clean Catch Paranoid behavior (CMS/HCC) Comments: Psychiatry appointment pending-ordered/referred by PCP Orders: - EEG Awake or Drowsy Routine; Future - NeuroPsych Testing; Future Poor short term memory Comments: MMSE 27/30 today, 06/01 [facility] Orders: - EEG Awake or Drowsy Routine; Future - NeuroPsych Testing; Future - Comprehensive Metabolic Panel; Future - CBC & Differential; Future - Vitamin B12 & Folate; Future - Thyroid Panel With TSH; Future - Methylmalonic Acid, Serum; Future - Homocysteine; Future - Comprehensive Metabolic Panel - CBC & Differential - Vitamin B12 & Folate - Thyroid Panel With TSH - Methylmalonic Acid, Serum - Homocysteine Personal history of other diseases of the circulatory system - Homocysteine; Future - Homocysteine We will do labs today to rule out any other etiology of symptoms. EEG to rule out partial seizures.MRI of the brain to rule out atrophy or acute findings. Neuropsych testing recommended. I recommended she keep psychiatry evaluation as ordered by her primary care provider. I do not see any evidenceof true dementia on exam or MMSE today. Is a little bit difficult to get a complete and accurate history but her symptoms have been present since about 2012 but worsened since living and hud housing over the past year. Reviewed medications, potential side effects and signs and symptoms to report. Discussed risk versus benefits of treatment plan with patient and/or family-including medications, labs and radiology that may be ordered. Addressed questions and concerns during visit. Patient and/or family verbalized understanding and agree with plan. During this visit the following were done: Labs Reviewed [x] Labs Ordered [x] Radiology Reports Reviewed [] Radiology Ordered [x] PCP Records Reviewed [x] Referring Provider Records Reviewed [x] ER Records Reviewed [] Hospital Records Reviewed [] History Obtained From Family [] Radiology Images Reviewed [] Other Reviewed [] Records Requested [] EMR Dragon/Sail Finisher Hand Disclaimer: Much of this encounter note is an electronic housekeeping assistant of spoken language to printed text. Electronic housekeeping assistant of spoken language may permit erroneous words or phrases to be inadvertently transcribed. Although I have reviewed the note for such errors, some may still exist in this documentation. Christine Huertas APRN 12/15/2018 * Christine Huertas APRN - 12/15/2018 3:00 PM EDT All labs are normal. We will f/u as scheduled in office. Lei Valencia APRN documented in this encounter Plan of Treatment Upcoming Encounters Date Type Department Care Team (Late st Contact Info) Description 01/19/2025 3:00 PM EDT Office Visit [facility] FAMILY MEDICINE [address] [place] [address] Jenny Lomeli PA [address] [place] [address] documented as of this encounter Procedures Procedure Name Priority Date/Time Associated Diagnosis Comments CONV PLEASE NOTE * Routine 12/16/2018 12 :00 AM EDT ~MICROSCOPIC EXAMINATION Routine 12/16/2018 12:00 AM EDT URINALYSIS W/ CULTURE IF INDICATED Routine 12/16/2018 12:00 AM EDT Intermittent confusion VITAMIN B12 AND FOLATE Routine 9 12:00 AM EDT Intermittent confusion Poor short term memory THYROID PANEL WITH TSH Routine 9 12:00 AM EDT Poor short term memory METHYLMALONIC ACID, SERUM Routine 12/16/2018 12:00 AM EDT Poor short term memory CBC AND DIFFERENTIAL Routine 12/16/2018 12:00 AM EDT Intermittent confusion Poor short term memory HOMOCYSTEINE Routine 12/16/2018 12:00 AM EDT Personal history of other diseases of the circulatory system Poor short term memory COMPREHENSIVE METABOLIC PANEL Routine 12/16/2018 12:00 AM EDT Intermittent confusion Poor short term memory documented in this encounter Results * Please Note (12/16/2018 12:00 AM EDT) Please note Comment [facility] Comment: The date and/or time of collection was not indicated on the requisition as required by state and federal law. ??The date of receipt of the specimen was used as the collection date if not supplied. 12/16/2018 12/16/2018 Comment:BLOOD MANUAL DIFFERE N Narrative [facility] [place] (AMBULATORY) - 12/18/2018 4:09 PM EDT Performed at: ??01 - [facility] ??[id number] Brilliandeer Looper: Hawk Mireles PhD, Phone: ??[phone] [facility] LAB BLOOD ORDERABLES Fi nal Result [facility] [place] (AMBULATORY) [address] [place] [address], [place] [phone] [facility] [address] [place] [address], [place] [phone] * Microscopic Examination - (12/16/2018 12:00 AM EDT) WBC, UA 0-5 0 - 5 /hpf [facility] RBC, UA None seen 0 - 2 /hpf [facility] Epithelial Cells (non renal) 0-10 0 - 10 /hpf [facility] Bacteria, UA Few None seen/Few [facility] 12/16/2018 12/16/2018 Comment:BLOOD MANUAL DIFFERE N Narrative [facility] [place] (AMBULATORY) - 12/18/2018 4:09 PM EDT Performed at: ??01 - [facility] [address] ??[id number] Brilliandeer Looper: Hawk Mireles PhD, Phone: ??[phone] Christine Banger SUPERVISOR [employer]UMIN[employer] ASSEMBLY URINE ORDERABLES Final Result Performing Organization Address City/[facility]/ZIP Co de Phone Number [facility] (AMBULATORY) [address] [place] [address], [facility] [address] [place] [address], * Urinalysis With Culture If Indicated - Urine, Clean Catch (12/16/2018 12:00 AM EDT) Specific [place], UA 1.019 1.005 - 1.030 [facility] pH, UA 6.5 5.0 - 7.5 [facility] Color, UA Yellow Yellow [facility] Appearance, UA Clear Clear [facility] Leukocytes, UA Negative Negative [facility] Protein Negative Negative/Tra ce [facility] Glucose, UA Negative Negative [facility] Ketones Negative Negative [facility] Blood, UA Negative Negative [facility] Bilirubin, UA Negative Negative [facility] Urobilinogen, UA 0.2 0.2 - 1.0 mg/dL [facility] Nitrite, UA Negative Negative [facility] Microscopic Examination Comment [facility] Comment:Microscopic follows if indicated. Microscopic Examination See below: [facility] Comment:Microscopic was abhishek cated and was performed. Urinalysis Reflex Comment [facility] Comment:This specimen will n ot reflex to a Urine Culture. Urine Urine specimen collection, clean catch / Unknown 12/16/2018 12/16/2018 Comment:BLOOD MANUAL DIFFERE N Narrative [facility] ([facility]) - 12/18/2018 4:09 PM EDT Performed at: ??01 - [facility] ??[id number] Brilliandeer Looper: Hawk Mireles PhD, Phone: ??[phone] Christineamadeo Banger SUPERVISOR ALUMINUM BOAT ASSEMBLY URINE ORDERABLES Final Result Performing Organization Address City/[facility]/ZIP Co de Phone Number [facility] [address] [place] [address], [facility] [address] [place] [address], * Homocysteine (12/16/2018 12:00 AM EDT) Pathologist [facility] Homocystine, Plasma (Quant) 9.0 0.0 - 15.0 umol/L [facility] Blood 12/16/2018 12/16/2018 Comment:BLOOD MANUAL DIFFERE N Narrative [facility] (AMBULATORY) - 12/18/2018 4:09 PM EDT Performed at: ??01 - [facility] ??[id number] Brilliandeer Looper: Hawk Mireles PhD, Phone: ??[phone] [facility] BLOOD ORDERABLES Fi nal Result Performing Organization Address [facility] de Phone Number [facility] ([facility] [address] [place] [address], [facility] [address] [place] [address], * Methylmalonic Acid, Serum (12/16/2018 12:00 AM EDT) Pathologist [facility] Methylmalonic Acid 168 0 - 378 nmol/L [facility] Disclaimer: Comment [facility] Comment: This test was developed and its performance characteristics determined by [facility]. It has not been cleared or approved by the Food and Drug Administration. Blood 12/16/2018 12/16/2018 Comment:BLOOD MANUAL DIFFERE N Narrative [facility] (AMBULATORY) - 12/18/2018 4:09 PM EDT Performed at: ??02 - [facility] ??[id number] Brilliandeer Looper: Brenna Patel MD, Phone: ??[phone] [facility] BLOOD ORDERABLES Fi nal Result Performing Organization Address [facility] Co de Phone Number [facility] ([facility]) [address] [place] [address], [facility] [address] [place] [address], [place] [phone] * Thyroid Panel With TSH (12/16/2018 12:00 AM EDT) Pathologist [facility] TSH 2.360 0.450 - 4.500 uIU/mL [facility] T4, Total 7.6 4.5 - 12.0 ug/dL [facility] T3 Uptake 26 24 - 39 % [facility] Free Thyroxine Index 2.0 1.2 - 4.9 [facility] Blood 12/16/2018 12/16/2018 Comment:BLOOD MANUAL DIFFERE N Abel [facility] (AMBULATORY) - 12/18/2018 4:09 PM EDT Performed at: ??01 - [facility] ??[id number] Brilliandeer Looper: Hawk Mireles PhD, Phone: ??[phone] Christine Givens [facility] LAB BLOOD ORDERABLES nal Result [facility] [address] [place] [address], [facility] [address] [place] [address], [place] [phone] * Vitamin B12 & Folate (12/16/2018 12:00 AM EDT) [facility] Vitamin B-12 542 232 - 1,245 pg/mL [facility] Folate 17.4 >3.0 ng/mL [facility] Comment: A serum folate concentration of less than 3.1 ng/mL is considered to represent clinical deficiency. Blood 12/16/2018 12/16/2018 Comment:BLOOD MANUAL DIFFERE N Narrative [facility] (AMBULATORY) - 12/18/2018 4:09 PM EDT Performed at: ??01 - [facility] ??[id number] Brilliandeer Looper: Hawk Mireles PhD, Phone: ??[phone] Chirstine Huertas SUPERVISOR [employer] LAB BLOOD ORDERABLES Fi nal Result [facility] ([facility]) [address] [place] [address], [place] [phone] [facility] [address] [place] [address], [place] [phone] * (ABNORMAL) CBC & Differential (12/16/2018 12:00 AM EDT) WBC 6.2 3.4 - 10.8 x10E3/uL [facility] RBC 4.27 3.77 - 5.28 x10E6/uL [facility] Hemoglobin 14.0 11.1 - 15.9 g/dL [facility] Hematocrit 41.5 34.0 - 46.6 % [facility] MCV 97 79 - 97 fL [facility] MCH 32.8 26.6 - 33.0 pg [facility] MCHC 33.7 31.5 - 35.7 g/dL [facility] RDW 13.7 12.3 - 15.4 % [facility] Platelets 248 150 - 450 x10E3/uL [facility] Neutrophil Rel % 31 Not Estab. % [facility] Lymphocyte Rel % 61 Not Estab. % [facility] Monocyte Rel % 5 Not Estab. % [facility] Eosinophil Rel % 2 Not Estab. % [facility] Basophil Rel % 1 Not Estab. % [facility] Neutrophils Absolute 1.9 1.4 - 7.0 x10E3/uL [facility] Lymphocytes Absolute 3.8(H) 0.7 - 3.1 x10E3/uL [facility] Monocytes Absolute 0.3 0.1 - 0.9 x10E3/uL [facility] Eosinophils Absolute 0.1 0.0 - 0.4 x10E3/uL [facility] Basophils Absolute 0.0 0.0 - 0.2 x10E3/uL [facility] Immature Granulocyte Rel % 0 Not Estab. % [facility] Immature Grans Absolute 0.0 0.0 - 0.1 x10E3/uL [facility] Blood 12/16/2018 12/16/2018 Comment:BLOOD MANUAL DIFFERE N Narrative [facility] (AMBULATORY) - 12/18/2018 4:09 PM EDT Performed at: ??01 - [facility] [place] [address] [place], [place] ??[id number] Brilliandeer Looper: Hawk Mireles PhD, Phone: ??[phone] Christine [place]iv[place] Huertas SUPERVISOR [employer] LAB BLOOD ORDERABLES Fi nal Result [facility] (AMBULATORY) [address] [place] [address], [facility] [address] [place] [address], * Comprehensive Metabolic Panel (12/16/2018 12:00 AM EDT) Glucose 91 65 - 99 mg/dL [facility] BUN 16 8 - 27 mg/dL [facility] Creatinine 0.93 0.57 - 1.00 mg/dL [facility] eGFR Non Am 63 >59 mL/min/1.7 3 [facility] eGFR Am 73 >59 mL/min/1.7 3 [facility] BUN/Creatinine Ratio 17 12 - 28 [facility] Sodium 144 134 - 144 mmol/L [facility] Potassium 4.2 3.5 - 5.2 mmol/L [facility] Chloride 105 96 - 106 mmol/L [facility] Total CO2 24 20 - 29 mmol/L [facility] Calcium 10.3 8.7 - 10.3 mg/dL [facility] Total Protein 7.3 6.0 - 8.5 g/dL [facility] Albumin 4.5 3.6 - 4.8 g/dL [facility] Globulin 2.8 1.5 - 4.5 g/dL [facility] A/G Ratio 1.6 1.2 - 2.2 [facility] Total Bilirubin <0.2 0.0 - 1.2 mg/dL [facility] Alkaline Phosphatase 69 39 - 117 IU/L [facility] AST (SGOT) 25 0 - 40 IU/L [facility] ALT (SGPT) 13 0 - 32 IU/L [facility] Blood 12/16/2018 12/16/2018 Comment:BLOOD MANUAL DIFFERE N Narrative [facility] (AMBULATORY) - 12/18/2018 4:09 PM EDT Performed at: ??01 - [facility] [address] ??[id number] Brilliandeer Looper: Hawk Mireles PhD, Phone: ??[phone] Christine Huertas APRN LAB BLOOD ORDERABLES Fi nal Result [facility] (AMBULATORY) [address] [place] [address], [facility] [address] [place] [address], documented in this encounter Visit Diagnoses Diagnosis Intermittent confusion- Primary Paranoid behavior Poor short term memory Memory loss Personal history of other diseases of the circulatory system documented in this encounter Care Teams Terrazzo Tile Setter Relationship Specialty Start Date End Date Kortney Woods MD [address] [place] [address] PCP - General Internal Medicine 09/04/18 10/15/22 documented as of this encounter
--- OUTSIDE RECORDS SUMMARY | 2024-02-23 17:33 | XMS_ITS | Encounter Summary ---
[facility] Address [address] [id number] Care Team Providers Care Manager Critical Care Unit Name Role Phone Kortney Woods MD Primary Care Provi kenny Encounter Details Date Type Department Care Team (Late st Contact Info) Description 09/10/2018 Telephone [facility] PRIMARY CARE [address] [place] [address] Kortney Woods MD [address] [place] [address] Social History Tobacco Use Types Packs/Day Years [...] Telephone Encounter - Sophia Noriega MA - 09/10/2018 12:23 PM EDT Lm advising patient.nh * Telephone Encounter - Sophia Noriega MA - 09/10/2018 12:23 PM EDT ----- Message from Kortney Woods MD sent at 09/09/2018 7:37 AM EDT ----- Please call the patient tell her kidney function is now normal. She was probably just dehydrated that day. documented in this encounter Plan of Treatment Upcoming Encounters Date Type Department Care Team (Late st Contact Info) Description 01/19/2025 3:00 PM EDT Office Visit [facility] FAMILY MEDICINE [address] [place] [address] Jenny Lomeli PA [address] [place], [place] [id number] documented as of this encounter Visit Diagnoses Not on filedocumented in this encounter Care Teams Manager Critical Care Unit Relationship Specialty Start Date End Date Kortney Woods MD [address] [place] [address] PCP - General Internal Medicine 09/04/18 10/15/22 documented as of this encounter
--- OUTSIDE RECORDS SUMMARY | 2024-02-23 17:33 | XMS_ITS | Encounter Summary ---
[facility] Address [address] [place] [id number] Care Team Providers Care Crab Catcher Name Role Phone Kortney Woods MD Primary Care Provi kenny Encounter Details Date Type Department Care Team (Late st Contact Info) Description 10/13/2018 Telephone [facility] PRIMARY CARE [address] [place] [address] Kortney Woods MD [address] [place] [address] Social History Tobacco Use Types Packs/Day Years [...] encounter Miscellaneous Notes * Telephone Encounter - Jessi Flores MA - 10/13/2018 3:27 PM EDT Medication approved. Sent into [employer] mail * Telephone Encounter - Ann Schafer - 10/13/2018 2:40 PM EDT OMEPRAZOLE 20MG 90 #[id number] documented in this encounter Plan of Treatment Upcoming Encounters Date Type Department Care Team (Late st Contact Info) Description 01/19/2025 3:00 PM EDT Office Visit [facility] FAMILY MEDICINE [address] [place] [phone] Jenny Lomeli PA [address] [place] [address] documented as of this encounter Visit Diagnoses Diagnosis Gastroesophageal reflux disease, esophagitis presence not specified- Primary documented in this encounter Care Teams Crab Catcher Relationship Specialty Start Date End Date Kortney Woods MD [address] [place] [address] PCP - General Internal Medicine 09/04/18 10/15/22 documented as of this encounter
--- OUTSIDE RECORDS SUMMARY | 2024-02-23 17:33 | XMS_ITS | Encounter Summary ---
Author Organization [facility] Address [address] [place] [address] Care Team Providers Care Gasoline Tester Name Role Phone Sariah Benson MD Primary Care Provider Ninfa vailable Reason for Visit * (Routine) - Closed Specialty Diagnoses / Procedures Referred By Contac t Referred To Contact Radiology Diagnoses Arthritis Procedures XR Shoulder 2+ View Bilateral Sariah Benson MD Referral ID Status Reason Start Date Expiration Date Visits Re quested Visits Authorized [id number] Closed 11/21/2017 11/21/2018 1 1 Encounter Details Date Type Department Care Team (Latest Contact Info) Description 12/18/2017 9:42 AM EDT - 12/18/2017 11:59 PM EDT Hospital Encounter [facility] XRAY AT [address] [address] Sariah Benson MD Discharge Disposition: Home or [facility] [address] [place] [address] Jenny Lomeli PA [address] [place] [address] documented as of this encounter [...] on filedocumented in this encounter Care Teams Gasoline Tester Relationship Specialty Start Date End Date Sariah Benson MD PCP - General 12/10/14 09/03/18 documented as of this encounter
[2024-02-23 17:41] VITALS: BP 138/77; PULSE 96; RESP 18; O2SAT 96
[2024-02-23] MEDS: RABIES VACCINE (PCEC)/PF 2.5 UNIT VIAL IM (17:42)
== END 2024-02-23 17:55 | disposition home or self-care (01) ==
LOC: INF 17:31
PROVIDERS: PCP Physician Assistant; Visit Provider Emergency Medicine
DX: Z29.14 Encounter for prophylactic rabies immune globulin (principal)
CPT/HCPCS: 90675; 96372

== ENCOUNTER 2024-02-27 14:45 | Outpatient (CLI) | payer MEDICARE, SELFPAY ==
--- OUTSIDE RECORDS SUMMARY | 2024-02-27 14:48 | XMS_ITS | Encounter Summary ---
[facility] [address] [place] [address] Care Team Providers Care Nurse Staff Industrial Name Role Phone Jenny Lomeli Primary Care Provider [phone] Encounter Details Date Type Department Care Team [...] Visit [facility] FAMILY MEDICINE [address] [place] [phone] Jenny Lomeli PA [address] [place] [address] documented as of this encounter Visit Diagnoses Not on filedocumented in this encounter Additional Health Concerns Infection Onset Date Last Indicated Resolved Time Norovirus 10/23/2022 10/23/2022 Assessment Noted Time PHQ-2 Depression Total Score: 1 10/14/19 24 3:41 PM EDT documented as of this encounter Care Teams Nurse Staff Industrial Relationship Specialty Start Date End Date Jenny Lomeli PA [address] [place] [address] PCP - General Physician Ring Rolling Machine Operator 10/11/23 documented as of this encounter
--- OUTSIDE RECORDS SUMMARY | 2024-02-27 14:48 | XMS_ITS | Encounter Summary ---
[facility] Address [address] [place] [address] Care Team Providers Care Record Maker Name Role Phone Jenny Lomeli Primary Care Provider [phone] Encounter Details Date Type Department Care Team (Late st Contact Info) Description 10/18/2023 Telephone [facility] MEDICINE [address] [place] [address] Jenny Lomeli PA [address] [place] [address] Social History Tobacco Use Types [...] PM EDT INFORMED PATIENT TO GO TO THE [facility] IN THE ER TO COMPLETE THE RABIES SHOT * Telephone Encounter - Keily Jimenez MA - 10/23/2023 1:07 PM EDT Pt states she needs a referral to [facility] in order for her to get rabies shots * Telephone Encounter - Keily Jimenez MA - 10/21/2023 2:14 PM EDT LVM * Telephone Encounter - Jenny Loemli PA - 10/21/2023 7:58 AM EDT Patient was not referred to [facility] or hospital as we knew they would not be able to help, she was provided contact information for [facility] who we called ahead and they noted they could help facilitate rabies vaccinations. Did she reach out to them? * Telephone Encounter - Pat Brice RegSched Rep - 10/18/2023 4:38 PM EDT PATIENT WAS SEEN FOR AN ANIMAL BITE, SHE STATED THAT SHE WAS TOLD TO GO TO [facility] AND THEY COULD HELP WITH HER GETTING A RABIES SHOT. SHE SAID THEY SENT HER TO [facility] BUT THERE OFFICE TOLD HER SHE WOULD NEED A REFERRAL FROM HER PCP BEFORE HER INSURANCE WOULD COVER THE SHOT PLEASE ADVISE documented in this encounter Plan of Treatment Upcoming Encounters Date Type Department Care Team (Late st Contact Info) Description 01/19/2025 3:00 PM EDT Office Visit [facility] MEDICINE [address] [place] [address] Jenny Lomeli PA [address] [place] [address] documented as of this encounter Visit Diagnoses Not on filedocumented in this encounter Additional Health Concerns Infection Onset Date Last Indicated Resolved Time Norovirus 10/23/2022 10/23/2022 Assessment Noted Time PHQ-2 Depression Total Score: 1 10/14/19 24 3:41 PM EDT documented as of this encounter Care Teams Record Maker Relationship Specialty Start Date End Date Jenny Lomeli PA [address] [place] [address] PCP - General Physician Nuclear Physics Teacher 10/11/23 documented as of this encounter
--- OUTSIDE RECORDS SUMMARY | 2024-02-27 14:48 | XMS_ITS | Encounter Summary ---
Author Organization [facility] Address [address] [place] [address] Care Team Providers Care Reconciliation Coordinator Name Role Phone Jenny Lomeli Primary Care Provider [phone] Reason for Referral * Diagnostic Imaging (Routine) - Closed Specialty Diagnoses / Procedures Referred By Contac t Referred To Contact Radiology Diagnoses Mass of skin of left shoulder Procedures US Nonvascular Extremity Limited Jenny Lomeli PA [address] [facility] [place] [address] Phone: tel: fax: [facility] [address] [place] [address] Phone: tel: Referral ID Status Reason Start Date Expiration Date Visits Re quested Visits Authorized [id number] Closed 10/14/2023 10/13/2024 1 1 Reason for [...] Description 10/14/2023 3:45 PM EDT Office Visit [facility] FAM[facility] MEDICINE [address] [place] [address] Jenny Lomeli PA [address] [place] [address] Cat bite, initial encounter (Primary [...] Patient asks about rabies vaccination. Contact for [facility] that offers Diclofenac for arthritic [...] [facility] [address] [place] [address] Jenny Lomeli PA [address] [place] [address] documented as of this encounter Results * [...] MD 10/28/2023 11:09 AM EDT Workstation ID: [id number] [facility] 10/28/2023 11:09 AM EDT US NONVASCULAR [...] MD 10/28/2023 11:09 AM EDT Workstation ID: [id number] us Jenny NUR [facility] US ORDERABLES Final Result documented in this [...] documented as of this encounter Care Teams Reconciliation Coordinator Relationship Specialty Start Date End Date Jenny Lomeli PA [address] [place] [address] [place] [address] PCP - General Physician Medical Laboratory Technologist 10/11/23 documented as of this encounter
--- OUTSIDE RECORDS SUMMARY | 2024-02-27 14:48 | XMS_ITS | Encounter Summary ---
[facility] Address [address] [place] [address] Care Team Providers Care Health Care Attorney Name Role Phone Jenny Lomeli Primary Care Provider [phone] Encounter Details Date Type Department Care Team (Late st Contact Info) Description 10/16/2023 Telephone [facility] FAMILY MEDICINE [address] [place] [address] Jenny Lomeli PA [address] [place] [address] Social History Tobacco Use Types [...] Hardin Relationship: Self Best call back number: [phone] What was the call regarding: RABIES SHOT. INSURANCE IS REQUESTING PATIENT GET A RABIES SHOT AT [facility]. PATIENT WAS TOLD THAT IN ORDER FOR [...] 3:00 PM EDT Office Visit [facility] FAM[facility] [address] [place] [address] Jenny Lomeli PA [address] [place] [address] documented as of this encounter Visit Diagnoses Not on filedocumented in this encounter Additional Health Concerns Infection Onset Date Last Indicated Resolved Time Norovirus 10/23/2022 10/23/2022 Assessment Noted Time PHQ-2 Depression Total Score: 1 10/14/19 24 3:41 PM EDT documented as of this encounter Care Teams Health Care Attorney Relationship Specialty Start Date End Date Jenny Lomeli PA [address] [place] [address] PCP - General Physician Mutuel Machine Operator 10/11/23 documented as of this encounter
--- OUTSIDE RECORDS SUMMARY | 2024-02-27 14:48 | XMS_ITS | Clinical Summary ---
Author Organization [facility] Address [address] [place] [address] Care Team Providers Care Production Reproduction Manager Name Role Phone Jenny Lomeli Primary Care Provider [phone] Allergies Active Allergy Reactions Criticality Noted Date Comments Ranitidine 05/04/2014 Medications neomycin-polymyxin- dexamethasone (MAXITROL) 3.5-63353-9.1 ophthalmic suspension INSTILL 1 DROP INTO BOTH [...] Description 01/15/2024 3:00 PM EDT Office Visit [facility]INE [address] [facility] [place] [address] Jenny Lomeli PA Medicare annual wellness [...] [facility] [address] [place] [address] Jenny Lomeli PA [address] [place] [address] Health Maintenance Due Date Last Done [...] D deficiency has been defined by the Barker of Medicine and an Endocrine Society practice guideline as a level of serum 25-OH vitamin D less than 20 ng/mL (1,2). The Endocrine Society went on to further define vitamin D insufficiency as a level between 21 and 29 ng/mL (2). 1. IOM (Barker of Medicine). 2010. Dietary reference ?? intakes for calcium and D. [place]: The ?? National AcademGreycork Press. 2. Raghu MF, Jamin NC, Drew COLEMAN, et al. ?? Evaluation, treatment, and prevention of vitamin D ?? deficiency: an Endocrine Society clinical practice ?? guideline. JCEM. 2011 Sep; 96(7):1911-30. Blood 01/15/2024 4:17 PM EDT 01/15/2024 Narrative [facility] (AMBULATORY) - 01/16/2024 8:21 AM EDT Performed at: ??01 - [facility] [address] ??[id number] Geophysical Support Specialist: Hawk Mireles PhD, Phone: ??[phone] Patient Fasting: ??Y us Jenny NUR LAB BLOOD ORDERABLES Final Res ult [facility] (AMBULATORY) [address] [place] [address], [place] [phone] [facility] [address] [place] [address], * CBC w AUTO Differential (01/15/2024 4:17 [...] AM EDT Performed at: ??01 - [facility] [address] ??[id number] Geophysical Support Specialist: Hawk Mireles PhD, Phone: ??[phone] Patient Fasting: ??Y Jenny NUR LAB BLOOD ORDERABLES Final Res ult Performing Organization Address City/[facility]/ZIP Co de Phone Number [facility] (AMBULATORY) [address] [place] [address], [facility] [address] [place] [address], * (ABNORMAL) Hemoglobin A1c (01/15/2024 4:17 PM EDT) Hemoglobin A1C 5.8(H) 4.8 - 5.6 % [facility] Comment: ? Prediabetes: 5.7 - 6.4 ? Diabetes: >6.4 ? Glycemic control for adults with diabetes: <7.0 Blood 01/15/2024 4:17 PM EDT 01/15/2024 Narrative [facility] (AMBULATORY) - 01/16/2024 8:21 AM EDT Performed at: ??01 - [facility] [address] ??[id number] Geophysical Support Specialist: Hawk Mireles PhD, Phone: ??[phone] Patient Fasting: ??Y Jenny NUR LAB BLOOD ORDERABLES Final Res ult Performing Organization Address [facility] Co de Phone Number [facility] [address] [place] [address], [facility] [address] [place] [address], * Folate (01/15/2024 4:17 PM EDT) Folate 9.4 >3.0 ng/mL [facility] Comment: A serum folate concentration of less than 3.1 ng/mL is considered to represent clinical deficiency. Blood 01/15/2024 4:17 PM EDT 01/15/2024 Narrative [facility] (AMBULATORY) - 01/16/2024 8:21 AM EDT Performed at: ??01 - [facility] [place] [address] [place], [place] ??[id number] Geophysical Support Specialist: Hawk Mireles PhD, Phone: ??[phone] Patient Fasting: ??Y Jenny NUR LAB BLOOD ORDERABLES Final Res ult Performing Organization Address [facility]/ZIP Co de Phone Number [facility] [address] [place] [address], [facility] [address] [place] [address], * Vitamin B12 (01/15/2024 4:17 PM EDT) Pathologist [facility] Vitamin B-12 407 232 - 1,245 pg/mL [facility] Blood 01/15/2024 4:17 PM EDT 01/15/2024 Narrative [facility] - 01/16/2024 8:21 AM EDT Performed at: ??01 - [facility] [place] [address] [place] [address] ??[id number] Geophysical Support Specialist: Hawk Mireles PhD, Phone: ??[phone] Patient Fasting: ??Y Jenny NUR LAB BLOOD ORDERABLES Final Res ult Performing Organization Address [facility] Co de Phone Number [facility] [address] [place] [address], [place] [phone] [facility] [address] [place] [address], [place] [phone] * (ABNORMAL) Lipid Panel (01/15/2024 4:17 PM EDT) Total Cholesterol 172 100 - 199 mg/dL [facility] Triglycerides 89 0 - 149 mg/dL [facility] HDL Cholesterol 53 >39 mg/dL [facility] VLDL Cholesterol Naga 16 5 - 40 mg/dL [facility] LDL Chol Calc (NIH) 103(H) 0 - 99 mg/dL [facility] Blood 01/15/2024 4:17 PM EDT 01/15/2024 Narrative [facility] (AMBULATORY) - 01/16/2024 8:21 AM EDT Performed at: ??01 - [facility] [address] [place], [place] ??[id number] Geophysical Support Specialist: Hawk Mireles PhD, Phone: ??[phone] Patient Fasting: ??Y us Jenny NUR LAB BLOOD ORDERABLES Final Res ult [facility] (AMBULATORY) [address] [place] [address], [facility] [address] [place] [address], * (ABNORMAL) Comprehensive metabolic panel (01/15/2024 4:17 [...] Blood 01/15/2024 4:17 PM EDT 01/15/2024 Narrative [facility] - 01/16/2024 8:21 AM EDT Performed at: ??01 - [facility] [address] [place], [place] ??[id number] Geophysical Support Specialist: Hawk Mireles PhD, Phone: ??[phone] Patient Fasting: ??Y Jenny NUR LAB BLOOD ORDERABLES Final Res ult [facility] [address] [place] [address], [facility] [address] [place] [address], * Mammo Screening Digital Tomosynthesis Bilateral With [...] areas of distortion are seen. Velma Phillips BODY AND FRAME TECHNICIAN IMG MAMMOGRAPHY ORDERABLES F inal Result * [...] fall-prevention measurements. The National Osteoporosis Foundation recommends (http://www.nof.org/hcp/practice/slytznic-zvn-vuvedsgm-guidelines/clinic ans-guide) that FDA-approved medical therapies be considered [...] the left hip with 95% confidence is 0.302977 gm/cm2 at the hip and 0.137072 g/cm2 at the lumbar spine. This report [...] fall-prevention measurements. The National Osteoporosis Foundation recommends (http://www.nof.org/hcp/practice/nocvdyfl-aee-vabdkjnb-guidelines/clinic ans-guide) that FDA-approved medical therapies be considered [...] the left hip with 95% confidence is 0.701799 gm/cm2 at the hip and 0.675139 g/cm2 at the lumbar spine. This report [...] with a HCV Nucleic Acid Amplification test ([id number]). Blood 02/06/2018 02/07/2018 Comment:BLOOD Narrative [facility] (AMBULATORY) - 02/07/2018 10:16 AM EST Performed at: ??01 - [facility] ??[id number] Geophysical Support Specialist: Hawk Mireles PhD, Phone: ??[phone] us Sariah Benson MD LAB BLOOD ORDERABLES Final Result [facility] [address] [place] [address], [facility] [address] [place] [address], from Last 3 Months or Most Recently Relevant to Health Maintenance Additional Health Concerns Infection Onset Date Last Indicated Norovirus 10/23/2022 10/23/2022 [place] [address] [employer] Advance Directives Documents on File Type Date Recorded Patient Final Inspector Movement Assembly Expl anation LIVING WILL - SCAN 03/18/2018 1:35 PM MAUREEN ING WILL 03/13/2018 Care Teams Production Reproduction Manager Relationship Specialty Start Date End Date Jenny Lomeli PA [address] [place] [address] PCP - General Physician Warranty Clerk 10/11/23
--- OUTSIDE RECORDS SUMMARY | 2024-02-27 14:48 | XMS_ITS | Encounter Summary ---
[facility] Address [address] [place] [address] Care Team Providers Care Hardening Machine Operator Helper Name Role Phone Jenny Lomeli Primary Care Provider [phone] Reason for Referral * Consultation (Routine) - Authorized Specialty Diagnoses / Procedures Referred By Contac t Referred To Contact Orthopedic Surgery Diagnoses Chronic left shoulder pain Jenny Lomeli PA [address] [place] [address] Phone: tel: [place]: [place] [address] [place] [address] Phone: tel: fax: Referral ID Status Reason Start Date Expiration Date Visits Requested Visits Authorized [id number] Authorized Specialty Services Required 01/14/2025 1 1 Scheduling Instructions Wants to see a different ortho office. Not [place]. Wants to stay in [place] Reason for Visit * Reason Comments Medicare Wellness-subsequent Med refills .Wants another ortho/? Does not care for Dr. Duke. Encounter Details Date Type Department Care Team (Latest Contact Info) Description 01/15/2024 3:00 PM EDT Office Visit [facility] [address] [facility] [place] [phone] Jenny Lomeli PA [address] [place] [address] Medicare annual wellness visit, subsequent (Primary Dx); [...] Lomeli PA as PCP - General (Physician Key Holder) Outpatient Medications Prior to Visit Medication Sig Dispense Refill atorvastatin (LIPITOR) 20 MG tablet Take 1 tablet by mouth Every Night. 90 tablet 3 lqglkxfw-bsuwbghre-qrvkevdlyywyx (MAXITROL) 3.5-64042-4.1 ophthalmic suspension INSTILL 1 DROP INTOBOTH EYES [...] C SCREENING Completed Pneumococcal Vaccine 65+ Completed [facility] Preventative Services Quick Reference Risk Factors Identified [...] [facility] [address] [facility] [place] [address] Jenny Lomeli PA [address] [place] [address] Scheduled Referrals Name Type Priority [...] 01/15/2024 4:17 PM EDT 01/15/2024 Narrative [facility] (AMBULATORY) - 01/16/2024 8:21 AM EDT Performed at: ??01 - [facility] [address] ??[id number] Natural Resource Manager: Hawk Mireles PhD, Phone: ??[phone] Patient Fasting: ??Y Jenny NUR LAB BLOOD ORDERABLES Final Res ult [facility] (AMBULATORY) [address] [place] [address], [facility] [address] [place] [address], [place] [phone] * Vitamin B12 (01/15/2024 4:17 PM EDT) Vitamin B-12 407 232 - 1,245 pg/mL [facility] Blood 01/15/2024 4:17 PM EDT 01/15/2024 Narrative [facility] (AMBUL[facility]ORY) - 01/16/2024 8:21 AM EDT Performed at: ??01 - [facility] ??[id number] Natural Resource Manager: Hawk Mireles PhD, Phone: ??[phone] Patient Fasting: ??Y Jenny NUR LAB BLOOD ORDERABLES Final Res ult Performing Organization Address City/[facility]/ZIP Co de Phone Number [facility] [address] [place] [address], [place] [phone] [facility] [address] [place] [address], [place] [phone] * (ABNORMAL) Hemoglobin A1c (01/15/2024 4:17 PM EDT) Pathologist [facility] Hemoglobin A1C 5.8(H) 4.8 - 5.6 % [facility] Comment: ? Prediabetes: 5.7 - 6.4 ? Diabetes: >6.4 ? Glycemic control for adults with diabetes: <7.0 Blood 01/15/2024 4:17 PM EDT 01/15/2024 [facility] ([facility]) - 01/16/2024 8:21 AM EDT Performed at: ??01 - [facility] ??[id number] Natural Resource Manager: Hawk Mireles PhD, Phone: ??[phone] Patient Fasting: ??Y Jenny NUR LAB BLOOD ORDERABLES Final Res ult Performing Organization Address [facility] Co de Phone Number [facility] [address] [place] [address], [place] [phone] [facility] [address] [place] [address], [place] [phone] * (ABNORMAL) Vitamin D 25 hydroxy (01/15/2024 4:17 PM EDT) 25 Hydroxy, Vitamin D 28.5(L) 30.0 - 100.0 ng/mL [facility] Comment: Vitamin D deficiency has been defined by the [place] of Medicine and an Endocrine Society practice guideline as a level of serum 25-OH vitamin D less than 20 ng/mL (1,2). The Endocrine Society went on to further define vitamin D insufficiency as a level between 21 and 29 ng/mL (2). 1. IOM ([place] of Medicine). 2010. Dietary reference ?? intakes for calcium and D. [place]: The ?? National [employer]. 2. Raghu MF, Jamin [place], Drew COLEMAN, et al. ?? Evaluation, treatment, and prevention of vitamin D ?? deficiency: an Endocrine Society clinical practice ?? guideline. JCEM. 2010; 96(7):1911-30. Blood 01/15/2024 4:17 PM EDT 01/15/2024 Narrative [facility] ([facility] - 01/16/2024 8:21 AM EDT Performed at: ??01 - [facility] ??[id number] Natural Resource Manager: Hawk Mireles PhD, Phone: ??[phone] Patient Fasting: ??Y Jenny NUR LAB BLOOD ORDERABLES Final Res ult [facility] [address] [place] [address], [facility] [address] [place] [address], * (ABNORMAL) Lipid Panel (01/15/2024 4:17 PM [...] 01/15/2024 4:17 PM EDT 01/15/2024 Narrative [facility] (AMBULATORY) - 01/16/2024 8:21 AM EDT Performed at: ??01 - [facility] [address] [place], [place] ??[id number] Natural Resource Manager: Hawk Mireles PhD, Phone: ??[phone] Patient Fasting: ??Y us Jenny NUR LAB BLOOD ORDERABLES Final Res ult [facility] (AMBULATORY) [address] [place] [address], [facility] [address] [place] [address], * (ABNORMAL) Comprehensive metabolic panel (01/15/2024 4:17 [...] 01/15/2024 4:17 PM EDT 01/15/2024 Narrative [facility] (AMBULATORY) - 01/16/2024 8:21 AM EDT Performed at: ??01 - [facility] [address] [place], [place] ??[id number] Natural Resource Manager: Hawk Mireles PhD, Phone: ??[phone] Patient Fasting: ??Y Jenny NUR LAB BLOOD ORDERABLES Final Res ult [facility] (AMBULATORY) [address] [place] [address], [facility] [address] [place] [address], * CBC w AUTO Differential (01/15/2024 4:17 [...] 01/15/2024 4:17 PM EDT 01/15/2024 Narrative [facility] (AMBULATORY) - 01/16/2024 8:21 AM EDT Performed at: ??01 - [facility] [address] [place], [place] ??[id number] Natural Resource Manager: Hawk Mireles PhD, Phone: ??[phone] Patient Fasting: ??Y Jenny NUR LAB BLOOD ORDERABLES Final Res ult [facility] (AMBULATORY) [address] [place] [address], [facility] [address] [place] [address], documented in this encounter Visit Diagnoses Diagnosis [...] documented as of this encounter Care Teams Hardening Machine Operator Helper Relationship Specialty Start Date End Date Jenny [place] [address] PCP - General Physician Key Holder 10/11/23 documented as of this encounter
--- OUTSIDE RECORDS SUMMARY | 2024-02-27 14:48 | XMS_ITS | Encounter Summary ---
[facility] Address [address] [place] [id number] Care Team Providers Care Director Data Architecture Name Role Phone Jenny Lomeli Primary Care Provider [phone] Reason for Referral * Diagnostic Imaging (Routine) - Closed Specialty Diagnoses / Procedures Referred By Contac t Referred To Contact Radiology Diagnoses Mass of skin of left shoulder Procedures US Nonvascular Extremity Limited Jenny Lomeli PA [address] [place] [address] Phone: tel: fax: [facility] [place] [address] [place] [address] Phone: tel: Referral ID Status Reason Start Date Expiration Date Visits Re quested Visits Authorized [id number] Closed 10/14/2023 10/13/2024 1 1 Reason for Visit * Diagnostic Imaging (Routine) - Closed Specialty Diagnoses / Procedures Referred By Contac t Referred To Contact Radiology Diagnoses Mass of skin of left shoulder Procedures US Nonvascular Extremity Limited Jenny Lomeli PA [address] [place] [address] Phone: tel: fax: [facility] [place] [address] [place] [address] Phone: tel: Referral ID Status Reason Start Date Expiration Date Visits Re quested Visits Authorized [id number] Closed 10/14/2023 10/13/2024 1 1 Encounter Details Date Type Department Care Team (Latest Contact Info) Description 10/24/2023 3:50 PM EDT - 10/24/2023 11:59 PM EDT Hospital Encounter [facility] [address] [place] [address] Jenny Lomeli PA [address] [address] Mass of skin of left [...] mouth Every Night. 90 tablet 3 10/14/2023 isdziiqj-kxoxqwkjk-s examethasone (MAXITROL) 3.5-38233-0.1 ophthalmic suspension INSTILL 1 DROP INTO BOTH [...] [facility] [address] [place] [address] Jenny Lomeli PA [address] [place] [address] documented as of this encounter Procedures [...] MD 10/28/2023 11:09 AM EDT Workstation ID: [id number] Narrative 10/28/2023 11:09 AM EDT US NONVASCULAR [...] MD 10/28/2023 11:09 AM EDT Workstation ID: [id number] us Jenny NUR [facility] US ORDERABLES Final Result documented in this encounter Visit Diagnoses Diagnosis Mass of skin of left shoulder documented in this encounter Additional Health Concerns Infection Onset Date Last Indicated Resolved Time Norovirus 10/23/2022 10/23/2022 Assessment Noted Time PHQ-2 Depression Total Score: 1 10/14/19 24 3:41 PM EDT documented as of this encounter Care Teams Director Data Architecture Relationship Specialty Start Date End Date [facility] [place] [address] PCP - General Physician Small Animal Veterinarian 10/11/23 documented as of this encounter
--- OUTSIDE RECORDS SUMMARY | 2024-02-27 14:49 | XMS_ITS | Encounter Summary ---
[facility] Address [address] [place] [address] Care Team Providers Care Switch Coupler Name Role Phone Sariah Benson MD Primary Care Provider Ninfa vailable Reason for Visit * Reason Onset Date Comments Med Refill 07/28/2018 Encounter Details Date Type Department Care Team (Late st Contact Info) Description 07/28/2018 Refill [facility] [address] [place] [address] [address] [place] [address] Sariah Benson MD Primary insomnia [...] DAYS OF HER AMBIEN 10 MG TO [facility]. SHE REC. THE DICLOFENAC BUT NOTTHE AMBIEN. PLEASE CALL HER AT [phone] documented in this encounter Plan of Treatment Upcoming Encounters Date Type Department Care Team (Late st Contact Info) Description 01/19/2025 3:00 PM EDT Office Visit [facility] [address] [place] [address] Jenny Lomeli PA [address] [place] [address] documented as of this encounter Visit Diagnoses Diagnosis Primary insomnia Persistent disorder of initiating or maintaining sleep documented in this encounter Care Teams Switch Coupler Relationship Specialty Start Date End Date Sariah Benson MD PCP - General 12/10/14 09/03/18 documented as of this encounter
--- OUTSIDE RECORDS SUMMARY | 2024-02-27 14:49 | XMS_ITS | Encounter Summary ---
[facility] Address [address] [place] [address] Care Team Providers Care Dairy Equipment Repairer Name Role Phone Velma Phillips APRN Primary Care Provider [phone] Reason for Visit * Reason Onset Date Comments LAB RESULTS 02/04/2023 Encounter Details Date Type Department Care Team (Late st Contact Info) Description 02/04/2023 Telephone [facility] [address] [place] [address] Velma Phillips APRN [address] [place] [id number] LAB RESULTS Social History Tobacco Use Types [...] time of call. Good call back number [phone] documented in this encounter Plan of Treatment Upcoming Encounters Date Type Department Care Team (Late st Contact Info) Description 01/19/2025 3:00 PM EDT Office Visit [facility] [address] [place] [address] Jenny Lomeli PA [address] [place] [address] documented as of this encounter Visit Diagnoses Not on filedocumented in this encounter Additional Health Concerns Infection Onset Date Last Indicated Resolved Time Norovirus 10/23/2022 10/23/2022 Assessment Noted Time PHQ-2 Depression Total Score: 3 10/17/19 23 1:57 PM EDT documented as of this encounter Care Teams Dairy Equipment Repairer Relationship Specialty Start Date End Date Velma Phillips APRN PCP - General Family Medicine 10/16/22 10/10/23 documented as of this encounter
--- OUTSIDE RECORDS SUMMARY | 2024-02-27 14:49 | XMS_ITS | Encounter Summary ---
[facility] [address] [place] [address] Care Team Providers Care Colorectal Surgeon Name Role Phone Kortney Woods MD Primary Care Provi kenny Reason for Visit * Reason Onset Date Comments Medicare Wellness-subsequent 11/20/2019 Encounter Details Date Type Department Care Team (Late st Contact Info) Description 11/20/2019 Telephone [facility] [address] [phone] [place] Helms LPN Medicare Wellness-subsequent Social History [...] Description 01/19/2025 3:00 PM EDT Office Visit [facility] [address] [facility] [place] [phone] Jenny Lomeli PA 210 [facility] [address] [place], [place] [phone] documented as of this encounter Visit Diagnoses Not on filedocumented in this encounter Care Teams Colorectal Surgeon Relationship Specialty Start Date End Date Kortney Woods MD [address] [facility] [address] [place] [address] PCP - General Internal Medicine 09/04/18 10/15/22 documented as of this encounter
--- OUTSIDE RECORDS SUMMARY | 2024-02-27 14:49 | XMS_ITS | Encounter Summary ---
[facility] Address [address] [place] [address] Care Team Providers Care Steam Tunnel Feeder Name Role Phone Kortney Woods MD Primary Care Provi kenny Reason for Visit * Reason Onset Date Comments ORDER FOR BLOOD WORK 12/23/2019 Encounter Details Date Type Department Care Team (Late st Contact Info) Description 12/23/2019 Telephone [facility] [address] [place] [phone] Kortney Woods MD [address] [place] [address] ORDER FOR BLOOD WORK Social [...] WilfredDorita Relationship: Self Best call back number: [phone] What orders are you requesting (i.e. lab or imaging): BLOOD WORK In what timeframe would the patient need to come in: BEFORE HER APPOINTMENT ON 12/29/2019 Where will you receive your lab/imaging services: [facility] Additional notes: NA documented in this encounter Plan of Treatment Upcoming Encounters Date Type Department Care Team (Late st Contact Info) Description 01/19/2025 3:00 PM EDT Office Visit [facility] [address] [place] [address] Jenny Lomeli PA [address] [place] [address] documented as of this encounter Visit Diagnoses Not on filedocumented in this encounter Care Teams Steam Tunnel Feeder Relationship Specialty Start Date End Date Kortney Woods MD [address] [place] [address] PCP - General Internal Medicine 09/04/18 10/15/22 documented as of this encounter
--- OUTSIDE RECORDS SUMMARY | 2024-02-27 14:49 | XMS_ITS | Encounter Summary ---
[facility] [address] [place] [phone] Care Team Providers Care Professor Criminal Justice Name Role Phone Velma Phillips APRN Primary Care Provider [phone] Reason for Visit * Reason Onset Date Comments REFERRAL 02/25/2023 Encounter Details Date Type Department Care Team (Late st Contact Info) Description 02/25/2023 Telephone [facility] [address] [place] [address] Velma Phillips APRN [address] [place] [id number] REFERRAL Social History Tobacco Use Types Packs/Day [...] ARE JUST WANTING PATIENTS MRI CHANGED TO [facility]. I TOLD HIM SINCE WE DIDN'T ORDER THE MRI (ORTHO OFFICE DID) THEY WOULD NEED TO CONTACT ORTHO PROVIDER. * Telephone Encounter - Aleshia Abrams - 02/25/2023 3:21 PM EST Caller: WAYLON HARDIN Relationship: Child Best call back number: [phone] What is the best time to reach you: ANY Who are you requesting to speak with (clinical staff, provider, specific staff member): NURSE Do you know the name of the person who called: SON What was the call regarding: SON WOULD LIKE ORTHOPEDIC REFERRAL TO [facility]. DR RICHY CRAWFORD, DR SUSSY TERRELL OR DR AURELIA COYNE. POSSIBLE PHONE # [phone] Is it okay if the provider responds through MyChart: PHONE CALL PLEASE documented in this encounter Plan of Treatment Upcoming Encounters Date Type Department Care Team (Late st Contact Info) Description 01/19/2025 3:00 PM EDT Office Visit [facility] [address] [place], [place] [address] Jenny Lomeli PA [address] [place], [place] [address] documented as of this encounter Visit Diagnoses Not on filedocumented in this encounter Additional Health Concerns Infection Onset Date Last Indicated Resolved Time Norovirus 10/23/2022 10/23/2022 Assessment Noted Time PHQ-2 Depression Total Score: 3 10/17/19 23 1:57 PM EDT documented as of this encounter Care Teams Professor Criminal Justice Relationship Specialty Start Date End Date Velma Phillips APRN PCP - General Family Medicine 10/16/22 10/10/23 documented as of this encounter
--- OUTSIDE RECORDS SUMMARY | 2024-02-27 14:49 | XMS_ITS | Encounter Summary ---
[facility] Address [address] [place] [address] Care Team Providers Care Picker Box Operator Name Role Phone Kortney Woods MD Primary Care Provi kenny Reason for Visit * Reason Onset Date Comments CS-Meds Re-Fill 04/10/2019 Encounter Details Date Type Department Care Team (Late st Contact Info) Description 04/10/2019 Telephone [facility] [address] [place] [address] Kortney Woods MD [address] [place] [address] CS-Meds Re-Fill Social History Tobacco [...] [employer] Mail Delivery, confirmed Patient Call Back [phone] documented in this encounter Plan of Treatment Upcoming Encounters Date Type Department Care Team (Late st Contact Info) Description 01/19/2025 3:00 PM EDT Office Visit [facility] [address] [place] [address] Jenny Lomeli PA [address] [facility] [place] [address] documented as of this encounter Visit Diagnoses Diagnosis Primary insomnia Persistent disorder of initiating or maintaining sleep documented in this encounter Care Teams Picker Box Operator Relationship Specialty Start Date End Date Kortney Woods MD [address] [place] [address] PCP - General Internal Medicine 09/04/18 10/15/22 documented as of this encounter
--- OUTSIDE RECORDS SUMMARY | 2024-02-27 14:49 | XMS_ITS | Encounter Summary ---
Author Organization [facility] Address [address] [place] [phone] Care Team Providers Care Surgical Manager Name Role Phone Velma Phillips APRN Primary Care Provider [phone] Reason for Visit * Reason Comments Follow-up [employer] gave her 2 mo nth extension. Has not went to get her MRI yet. Concerns with getting results back soon enough to go over before line. And Mammogram. May need refills Encounter Details Date Type Department Care Team (Late st Contact Info) Description 03/15/2023 2:45 PM EST Office Visit [facility] [address] [place] [address] Velma Phillips APRN [address] [place] [phone] Hyperlipidemia, unspecified hyperlipidemia type (Primary Dx); Need [...] [facility] [address] [place] [address] Jenny Lomeli PA [address] [place] [address] documented as of this encounter Procedures Procedure [...] 03/15/2023 3:06 PM EST 03/15/2023 Narrative [facility] (AMBULATORY) - 03/16/2023 9:10 AM EST Performed at: ??01 - [address] ??[id number] Tube Machine Operator Helper: Hawk Mireles PhD, Phone: ??[phone] Patient Fasting: ??Y Velma Phillips APRN LAB BLOOD ORDERABLES Final R esult [facility] [address] [place] [address], [facility] [address] [place] [address], * Lipid Panel (03/15/2023 3:06 PM EST) Total Cholesterol 161 100 - 199 mg/dL [facility] Triglycerides 83 0 - 149 mg/dL [facility] HDL Cholesterol 52 >39 mg/dL [facility] VLDL Cholesterol Naga 16 5 - 40 mg/dL [facility] LDL Chol Calc ([email or web address] 93 0 - 99 mg/dL [facility] Blood 03/15/2023 3:06 PM EST 03/15/2023 Narrative [facility] (AMBULATORY) - 03/16/2023 9:10 AM EST Performed at: ??01 - [facility] [address] [facility] [place], [place] ??[id number] Tube Machine Operator Helper: Hawk Mireles PhD, Phone: ??[phone] Patient Fasting: ??Y Velma Phillips APRN LAB BLOOD ORDERABLES Final R esult [facility] (AMBULATORY) [address] [place] [address], [place] [phone] [facility] [address] [place] [address], [place] [phone] documented in this encounter Visit Diagnoses Diagnosis Hyperlipidemia, unspecified hyperlipidemia type- Primary Need for pneumococcal vaccination Need for prophylactic vaccination against streptococcus pneumoniae (pneumococcus) Need for Tdap vaccination Need for prophylactic vaccination with combined lphgjnjlra-lrvwnms-lctobgiyw (DTP) vaccine Chronic left shoulder pain Pain in joint, shoulder region documented in this encounter Additional Health Concerns Infection Onset Date Last Indicated Resolved Time Norovirus 10/23/2022 10/23/2022 Assessment Noted Time PHQ-2 Depression Total Score: 3 10/17/19 23 1:57 PM EDT documented as of this encounter Care Teams Surgical Manager Relationship Specialty Start Date End Date Velma Phillips APRN PCP - General Family Medicine 10/16/22 10/10/23 documented as of this encounter
--- OUTSIDE RECORDS SUMMARY | 2024-02-27 14:49 | XMS_ITS | Encounter Summary ---
[facility] Address [address] [place] [address] Care Team Providers Care Engineering Drafter Name Role Phone Velma Phillips APRN Primary Care Provider [phone] Reason for Visit * Reason Comments Med Refill Encounter Details Date Type Department Care Team (Late st Contact Info) Description 04/17/2023 Refill [facility] [address] [place] [address] Velma Phillips APRN [address] [place], [place] [phone] Hyperlipidemia, unspecified hyperlipidemia type Social History Tobacco [...] Description 01/19/2025 3:00 PM EDT Office Visit [facility] [address] [facility] [place] [phone] Jenny Lomeli PA [address] [place] [address] documented as of this encounter Visit Diagnoses Diagnosis Hyperlipidemia, unspecified hyperlipidemia type documented in this encounter Additional Health Concerns Infection Onset Date Last Indicated Resolved Time Norovirus 10/23/2022 10/23/2022 Assessment Noted Time PHQ-2 Depression Total Score: 3 10/17/19 23 1:57 PM EDT documented as of this encounter Care Teams Engineering Drafter Relationship Specialty Start Date End Date Velma Phillips APRN PCP - General Family Medicine 10/16/22 10/10/23 documented as of this encounter
--- OUTSIDE RECORDS SUMMARY | 2024-02-27 14:49 | XMS_ITS | Encounter Summary ---
Author Organization [facility] Address [address] [place] [address] Care Team Providers Care Music Executive Name Role Phone Velma Phillips APRN Primary Care Provider [phone] Reason for Referral * Consultation (Routine) - Closed Specialty Diagnoses / Procedures Referred By Contkarlee t Referred To Contact Vascular Surgery Diagnoses Superficial varicosities Procedures IA OFFICE/OUTPATIENT NEW MODERATE MDM 45-59 MINUTES Velma Phillips APRN Phone: tel: fax: Mikel Varma MD [address] [place] [address] [place] [address] Phone: tel: fax: Referral ID Status Reason Start Date Expiration Date V isits Requested Visits Authorized [id number] Closed Specialty Services Required 10/16/2022 10/16/2023 1 1 Reason for Visit * Reason Comments Establish Care Needs for pcpCyst on left arm (shoulder) since 2019 Encounter Details Date Type Department Care Team (Late st Contact Info) Description 10/16/2022 2:00 PM EDT Office Visit [facility] [address] [place] [address] Velma Phillips APRN [address] [place] [address] Superficial varicosities (Primary Dx); PTSD [...] Description 01/19/2025 3:00 PM EDT Office Visit [facility] [address] [address] Jenny [...] 12:0 2 PM EDT 10/19/2022 Narrative [facility] (AMBULATORY) - 10/20/2022 5:14 AM EDT Performed at: ??01 - [facility] ??[id number] Commercial Trailer Truck Driver: Hawk Mireles PhD, Phone: ??[phone] Patient Fasting: ??Y Velma Phillips APRN LAB BLOOD ORDERABLES Final R esult [facility] (AMBULATORY) [address] [place] [address], [facility] [address] [place] [address], * (ABNORMAL) Lipid Panel (10/19/2022 12:02 PM EDT) Total Cholesterol 230(H) 100 - 199 mg/dL [facility] Triglycerides 134 0 - 149 mg/dL [facility] HDL Cholesterol 60 >39 mg/dL [facility] VLDL Cholesterol Naga 24 5 - 40 mg/dL [facility] LDL Chol Calc (NIH) 146(H) 0 - 99 mg/dL [facility] Blood 10/19/2022 12:0 2 PM EDT 10/19/2022 Narrative [facility] (AMBULATORY) - 10/20/2022 5:14 AM EDT Performed at: ??01 - [facility] [address] [facility] [place], [place] ??[id number] Commercial Trailer Truck Driver: Hawk Mireles PhD, Phone: ??[phone] Patient Fasting: ??Y Velma Meyermaribel Phillips APRN LAB BLOOD ORDERABLES Final R esult [facility] (AMBULATORY) [address] [place] [address], [facility] [address] [place] [address], * (ABNORMAL) CBC & Differential (10/19/2022 12:02 [...] AM EDT Performed at: ??01 - [facility] [address] [place] [address] ??[id number] Commercial Trailer Truck Driver: Hawk Mireles PhD, Phone: ??[phone] Patient Fasting: ??Y Velma Phillips APRN LAB BLOOD ORDERABLES Final R esult [facility] (AMBULATORY) [address] [place] [address], [place] [phone] [facility] [address] [place] [address], [place] [phone] documented in this encounter Visit Diagnoses Diagnosis [...] documented as of this encounter Care Teams Music Executive Relationship Specialty Start Date End Date Velma Phillips APRN PCP - General Family Medicine 10/16/22 10/10/23 documented as of this encounter
--- OUTSIDE RECORDS SUMMARY | 2024-02-27 14:49 | XMS_ITS | Encounter Summary ---
[facility] Address [address] [place] [address] Care Team Providers Care Automatic Machine Attendant Name Role Phone Kortney Woods MD Primary Care Provi kenny Reason for Visit * Reason Onset Date Comments Med Refill 07/31/2019 Encounter Details Date Type Department Care Team (Late st Contact Info) Description 07/31/[address] [facility] [address] [place] [phone] Kortney Woods MD [address] [place] [address] Diarrhea, unspecified type Social History Tobacco [...] 2 MG capsule Pharmacy confirmed- [facility] PLEASE ADVISE documented in this encounter Plan of Treatment Upcoming Encounters Date Type Department Care Team (Late st Contact Info) Description 01/19/2025 3:00 PM EDT Office Visit [facility] [address] [place] [address] Jenny Lomeli PA [address] [place], [place] [phone] documented as of this encounter Visit Diagnoses Diagnosis Diarrhea, unspecified type documented in this encounter Care Teams Automatic Machine Attendant Relationship Specialty Start Date End Date Kortney Woods MD [address] [address] PCP - General Internal Medicine 09/04/18 10/15/22 documented as of this encounter
--- OUTSIDE RECORDS SUMMARY | 2024-02-27 14:49 | XMS_ITS | Encounter Summary ---
[facility] Address [address] [place] [address] Care Team Providers Care Office Worker Name Role Phone Kortney Woods MD Primary Care Provi kenny Reason for Visit * Reason Onset Date Comments MED REFILLS 01/11/2020 Encounter Details Date Type Department Care Team (Late st Contact Info) Description 01/11/2020 Telephone [facility] [address] [place] [address] Kortney Woods MD [address] [place] [address] MED REFILLS Social History Tobacco Use Types [...] VOLTAREN NEEDED' [facility] DORITA: [phone] documented in this encounter Plan of Treatment Upcoming Encounters Date Type Department Care Team (Late st Contact Info) Description 01/19/2025 3:00 PM EDT Office Visit [facility] [address] [place] [phone] Jenny Lomeli PA [address] [place] [address] documented as of this encounter Visit Diagnoses Diagnosis Primary insomnia Persistent disorder of initiating or maintaining sleep Gastroesophageal reflux disease Esophageal reflux documented in this encounter Care Teams Office Worker Relationship Specialty Start Date End Date Kortney Woods MD [address] [place] [address] PCP - General Internal Medicine 09/04/18 10/15/22 documented as of this encounter
--- OUTSIDE RECORDS SUMMARY | 2024-02-27 14:49 | XMS_ITS | Encounter Summary ---
[facility] Address [address] [place] [address] Care Team Providers Care Gravure Press Set Up Operator Name Role Phone Kortney Woods MD Primary Care Provi kenny Encounter Details Date Type Department Care Team (Late st Contact Info) Description 12/19/2018 Telephone [facility] [address] [facility] [address] [place] [address] Christine Huertas, OPTOMECHANICAL ENGINEER [address] [facility] [address] [place] [address] Social History Tobacco Use Types [...] [facility] [address] [place] [phone] Jenny Lomeli PA [address] [place], [place] [id number] documented as of this encounter Visit Diagnoses Not on filedocumented in this encounter Care Teams Gravure Press Set Up Operator Relationship Specialty Start Date End Date Kortney Woods MD [address] [facility] [address] [place] [address] PCP - General Internal Medicine 09/04/18 10/15/22 documented as of this encounter
--- OUTSIDE RECORDS SUMMARY | 2024-02-27 14:49 | XMS_ITS | Encounter Summary ---
[facility] Address [address] [place] [id number] Care Team Providers Care Sports Complex Attendant Name Role Phone Kortney Woods MD Primary Care Provi kenny Encounter Details Date Type Department Care Team (Late st Contact Info) Description 09/10/2018 Telephone [facility] [address] [place] [address] Kortney Woods MD [address] [place] [address] Social History Tobacco Use Types Packs/Day Years [...] Description 01/19/2025 3:00 PM EDT Office Visit [facility] [address] [place] [address] Jenny Lomeli PA [address] [place], [place] [phone] documented as of this encounter Visit Diagnoses Not on filedocumented in this encounter Care Teams Sports Complex Attendant Relationship Specialty Start Date End Date Kortney Woods MD [address] [place] [address] PCP - General Internal Medicine 09/04/18 10/15/22 documented as of this encounter
--- OUTSIDE RECORDS SUMMARY | 2024-02-27 14:49 | XMS_ITS | Encounter Summary ---
Author Organization [facility] Address [address] [place] [address] Care Team Providers Care City Manager Name Role Phone Kortney Woods MD Primary Care Provi kenny Reason for Visit * Reason Onset Date Comments Med Refill 04/13/2019 Encounter Details Date Type Department Care Team (Late st Contact Info) Description 04/13/2019 Refill [facility] [address] [place] [address] Kortney Woods MD [address] [place] [address] Primary insomnia Social History Tobacco [...] [facility] [address] [place] [address] Jenny Lmoeli PA [address] [place] [id number] documented as of this encounter Visit Diagnoses Diagnosis Primary insomnia Persistent disorder of initiating or maintaining sleep documented in this encounter Care Teams City Manager Relationship Specialty Start Date End Date Kortney Woods MD [address] [address] PCP - General Internal Medicine 09/04/18 10/15/22 documented as of this encounter
--- OUTSIDE RECORDS SUMMARY | 2024-02-27 14:49 | XMS_ITS | Encounter Summary ---
[facility] Address [address] [place] [address] Care Team Providers Care Administrator Of Home Health Name Role Phone Kortney Woods MD Primary Care Provi kenny Reason for Visit * Reason Onset Date Comments kaylyn 02/16/2019 order Encounter Details Date Type Department Care Team (Late st Contact Info) Description 02/16/2019 Telephone [facility] [address] [place] [phone] Kortney Woods MD [address] [place] [address] kaylyn (order ) Social History Tobacco Use [...] date up for her mammogram. Please call freeport back documented in this encounter Plan of Treatment Upcoming Encounters Date Type Department Care Team (Late st Contact Info) Description 01/19/2025 3:00 PM EDT Office Visit [facility] [address] [phone] Jenny Lomeli PA [address] [phone] documented as of this encounter Visit Diagnoses Not on filedocumented in this encounter Care Teams Administrator Of Home Health Relationship Specialty Start Date End Date Kortney Woods MD [address] [address] PCP - General Internal Medicine 09/04/18 10/15/22 documented as of this encounter
--- OUTSIDE RECORDS SUMMARY | 2024-02-27 14:49 | XMS_ITS | Encounter Summary ---
Author Organization [facility] Address [address] [place] [address] Care Team Providers Care Dredge Captain Name Role Phone Sariah Benson MD Primary Care Provider Ninfa vailable Reason for Referral * Consultation (Routine) - Closed Specialty Diagnoses / Procedures Referred By Contkarlee kirkland Referred To Contact Dermatology Diagnoses Skin mass Kortney Woods MD [address] [place] [address] Phone: tel: fax: [facility] [address] [place] [address] [address] [place] [address] Phone: tel: fax: Referral ID Status Reason Start Date Expiration Date V isits Requested Visits Authorized [id number] Closed Specialty Services Required 08/20/2018 08/20/2019 1 1 Reason for Visit * Reason Comments Shoulder Pain Encounter Details Date Type Department Care Team (Late st Contact Info) Description 08/20/2018 2:45 PM EDT Office Visit [facility] [address] [place] [address] Kortney Woods MD [address] [place] [address] Skin mass (Primary Dx); Screening [...] over her body. Her ex lives in [place] but he has a lot of money [...] [facility] [address] [phone] Jenny [...] 08/20/2018 Comment:BLOOD MANUAL DIFFERE N Narrative [facility] (AMBULATORY) - 08/21/2018 3:07 AM EDT Performed at: ??[address] - [address] ??[id number] Pet Care Assistant: David Farnsworth MD, Phone: ??[phone] Kortney Woods MD LAB BLOOD ORDERABLE S Final Result [facility] (AMBULATORY) [address] [place] [address], [facility] [address] [place] [address], * (ABNORMAL) Comprehensive Metabolic Panel (08/20/2018 3:09 [...] 3:07 AM EDT Performed at: ??[address] ??[id number] Pet Care Assistant: David Farnsworth MD, Phone: ??[phone] Kortney Woods MD LAB BLOOD ORDERABLE S Final Result [facility] ([facility]BULATORY) [address] [place] [id number], [facility] [address] [place] [address], * (ABNORMAL) CBC & Differential (08/20/2018 3:09 [...] 3:07 AM EDT Performed at: ??[address] ??[id number] Pet Care Assistant: David Farnsworth MD, Phone: ??[phone] Performed at: ??02 - [address] ??[id number] Pet Care Assistant: Brady Zendejas MD, Phone: ??[phone] Kortney Woods MD LAB BLOOD ORDERABLE S Edited Result - Final [facility] (AMBULATORY) [address] [place] [address], [place] [phone] [facility] [address] [place] [address], [place] [phone] documented in this encounter Visit Diagnoses Diagnosis Skin mass- Primary Localized superficial swelling, mass, or lump Screening for cardiovascular condition Screening for other and unspecified cardiovascular conditions Diarrhea, unspecified type Weakness Other malaise and fatigue documented in this encounter Care Teams Dredge Captain Relationship Specialty Start Date End Date Sariah Benson MD PCP - General 12/10/14 09/03/18 documented as of this encounter
--- OUTSIDE RECORDS SUMMARY | 2024-02-27 14:49 | XMS_ITS | Encounter Summary ---
Author Organization [facility] Address [address] [address] Care Team Providers Care Spinning Lathe Operator Hydraulic Name Role Phone Kortney Woods MD Primary Care Provi kenny Reason for Referral * Behavorial Health/Psych (Routine) - Canceled Specialty Diagnoses / Procedures Referred By Camila kirkland Referred To Contact Psychiatry Diagnoses Paranoia Anxiety Kortney Woods MD [address] [place] [address] Phone: tel: fax: [facility] [address] [place] [address] [address] [place] [address] Phone: tel: fax: Referral ID Status Reason Start Date Expiration Date Visits Requested Visits Authorized [id number] Canceled Specialty Services Required 11/26/2018 11/26/2019 1 1 * Consultation (Routine) - Closed Specialty Diagnoses / Procedures Referred By Camila t Referred To Contact Neurology Diagnoses Memory loss Kortney Woods MD [address] [place] [address] Phone: tel: fax: Christine Huertas, PROCESS DEVELOPMENT ENGINEER [facility] [facility] [address] [place] [address] Phone: tel: fax: Referral ID Status Reason Start Date Expiration Date V isits Requested Visits Authorized [id number] Closed Specialty Services Required 11/26/2018 11/26/2019 1 1 Reason for Visit * Reason Comments Follow-up shaky Encounter Details Date Type Department Care Team (Late st Contact Info) Description 11/26/2018 2:30 PM EDT Office Visit [facility] [address] [place] [address] Kortney Woods MD [address] [place] [address] Memory loss (Primary Dx); Breast [...] thinks it was her ex.He lives in [place] and she has not seen him in a long time, but thinks it could be only him. Shehas not seen him in the apt. She had a camera and said that someone covered it up so she couldn't see when someone came in. She has called the police, told friends, neighbors, and her apt credit control manager. Many (or most) of them have told her she is a psycho, psychotic, demented. The community health representative recently rec she ge t checked out [...] itself, but it's in the ddx Paranoia (CMS/[facility]) - Ambulatory Referral to Psychiatry Anxiety - Ambulatory Referral to Psychiatry Breast cancer screening - Mammo Screening Digital Tomosynthesis Bilateral With CAD documented in this encounter Plan of Treatment Upcoming Encounters Date Type Department Care Team (Late st Contact Info) Description 01/19/2025 3:00 PM EDT Office Visit [facility] [address] [place] [phone] Jenny Lomeli PA [address] [place] [address] Scheduled Referrals Name Type Priority Associated Diagnoses Order Schedule Ambulatory Referral to Neurology Outpatient Referral Routine Memory loss Ordered: 11/26/2018 Ambulatory Referral to Psychiatry Outpatient Referral Routine Paranoia Anxiety Ordered: 11/26/2018 documented as of this encounter Visit Diagnoses Diagnosis Memory loss- Primary Breast cancer screening Breast screening, unspecified Paranoia Delusional disorder Anxiety Anxiety state, unspecified documented in this encounter Care Teams Spinning Lathe Operator Hydraulic Relationship Specialty Start Date End Date Kortney Woods MD [address] [facility] [address] [place] [address] PCP - General Internal Medicine 09/04/18 10/15/22 documented as of this encounter
--- OUTSIDE RECORDS SUMMARY | 2024-02-27 14:49 | XMS_ITS | Encounter Summary ---
[facility] Address [address] [place] [address] Care Team Providers Care Rice Drier Name Role Phone Kortney Woods MD Primary Care Provi kenny Encounter Details Date Type Department Care Team (Late st Contact Info) Description 11/13/2019 Telephone [facility] [address] [place] [address] [place] Helms LPN Social History [...] Description 01/19/2025 3:00 PM EDT Office Visit [facility] [address] [place] [address] Jenny Lomeli PA [address] [place] [address] documented as of this encounter Visit Diagnoses Not on filedocumented in this encounter Care Teams Rice Drier Relationship Specialty Start Date End Date Kortney Woods MD [address] [place] [address] PCP - General Internal Medicine 09/04/18 10/15/22 documented as of this encounter
--- OUTSIDE RECORDS SUMMARY | 2024-02-27 14:49 | XMS_ITS | Encounter Summary ---
Author Organization [facility] Address [address] [id number] Care Team Providers Care Tie Binder Name Role Phone Kortney Woods MD Primary Care Provi kenny Reason for Visit * Reason Comments Memory Loss * Consultation (Routine) - Closed Specialty Diagnoses / Procedures Referred By Contac t Referred To Contact Neurology Diagnoses Memory loss Kortney Woods MD 280 [facility] 200 [place] [address] Phone: tel: fax: Christine Huertas, DOCUMENT CONTROL COORDINATOR 1773 [facility] 160 [place] [address] Phone: tel: fax: Referral ID Status Reason Start Date Expiration Date V isits Requested Visits Authorized [id number] Closed Specialty Services Required 11/26/2018 11/26/2019 1 1 Encounter Details Date Type Department Care Team (Late st Contact Info) Description 12/15/2018 3:00 PM EDT Office Visit [facility] 160 [place] [address] Christine Huertas, DOCUMENT CONTROL COORDINATOR 1775 [facility] 160 [place] [address] Intermittent confusion (Primary Dx); Paranoid behavior; Poor [...] basically tells me she lives in [facility] housing and is concerned that while she [...] will tell her friends or even the admissions manager rn of the housing facility and they tell [...] 2012 but when she moved to the [facility] in December 2017 she felt like this [...] Ambien as needed. She is from the [facility] [place] and came to [place] 1982. She tells me in the [facility] [place] she was a college graduate and majored [...] Right achilles: 2+ Left achilles: 2+ Right office equipment technician: 2+ Left office equipment technician: 2+ Right plantar: normal Left plantar: normal [...] She has normal strength. She has a gmgvyuKmgvji-Gmsw-Cetpcg Test, a normal Heel to Voss Test [...] term memory Comments: MMSE 27/30 today, 06/01 [facility] Orders: - EEG Awake or [...] Other Reviewed [] Records Requested [] EMR Dragon/Bench Patternmaker Metal Disclaimer: Much of this encounter note is an electronic senior architectural designer of spoken language to printed text. Electronic senior architectural designer of spoken language may permit erroneous words [...] 3:00 PM EDT Office Visit [facility] [address] [place] [address] Jenny Lomeli PA [address] [place] [address] documented as of this encounter Procedures [...] 12/16/2018 Comment:BLOOD MANUAL DIFFERE N Narrative [facility] (AMBULATORY) - 12/18/2018 4:09 PM EDT Performed at: ??01 - [facility] ??[id number] Administrative Office Clerk: Hawk Mireles PhD, Phone: ??[phone] [facility] LAB BLOOD ORDERABLES Fi nal Result [facility] (AMBULATORY) [address] [place] [address], [place] [phone] [facility] [address] [place] [address], [place] [phone] * Microscopic Examination - (12/16/2018 12:00 AM EDT) WBC, UA 0-5 0 - 5 /hpf [facility] RBC, UA None seen 0 - 2 /hpf [facility] Epithelial Cells (non renal) 0-10 0 - 10 /hpf [facility] Bacteria, UA Few None seen/Few [facility] 12/16/2018 12/16/2018 Comment:BLOOD MANUAL DIFFERE N Narrative [facility] (AMBULATORY) - 12/18/2018 4:09 PM EDT Performed at: ??01 - [facility] [address] ??[id number] Administrative Office Clerk: Hawk Mireles PhD, Phone: ??[phone] Christine Banger DOCUMENT CONTROL COORDINATOR URINE ORDERABLES Final Result Performing Organization Address City/[facility]/ZIP Co de Phone Number [facility] (AMBULATORY) [address] [place] [address], [facility] [address] [place] [address], * Urinalysis With Culture If Indicated - Urine, Clean Catch (12/16/2018 12:00 AM EDT) Specific [place], UA 1.019 1.005 - 1.030 [facility] [...] 4:09 PM EDT Performed at: ??01 - [facility] ??[id number] Administrative Office Clerk: Hawk Mireles PhD, Phone: ??[phone] Christineamadeo Banger DOCUMENT CONTROL COORDINATOR URINE ORDERABLES Final Result Performing Organization Address City/[facility]/ZIP Co de Phone Number [facility] [address] [place] [address], [facility] [address] [place] [address], * Homocysteine (12/16/2018 12:00 AM EDT) Pathologist [facility] Homocystine, Plasma (Quant) 9.0 0.0 - 15.0 umol/L [facility] Blood 12/16/2018 12/16/2018 Comment:BLOOD MANUAL DIFFERE N Narrative [facility] (AMBULATORY) - 12/18/2018 4:09 PM EDT Performed at: ??01 - [facility] ??[id number] Administrative Office Clerk: Hawk Mireles PhD, Phone: ??[phone] [facility] BLOOD ORDERABLES Fi nal Result Performing Organization Address [facility] de Phone Number [facility] ([facility]) [address] [place] [address], [facility] [address] [place] [address], * Methylmalonic Acid, Serum (12/16/2018 12:00 AM EDT) Pathologist [facility] Methylmalonic Acid 168 0 - 378 nmol/L [facility] Disclaimer: Comment [facility] Comment: This test was developed and its performance characteristics determined by [facility]. It has not been cleared or approved by the Food and Drug Administration. Blood 12/16/2018 12/16/2018 Comment:BLOOD MANUAL DIFFERE N Narrative [facility] (AMBULATORY) - 12/18/2018 4:09 PM EDT Performed at: ??02 - [facility] ??[id number] Administrative Office Clerk: Brenna Patel MD, Phone: ??[phone] [facility] BLOOD ORDERABLES Fi nal Result Performing Organization Address [facility] Co de Phone Number [facility] ([facility]) [address] [place] [address], [facility] [address] [place] [address], [place] [phone] * Thyroid Panel With TSH (12/16/2018 12:00 AM EDT) Pathologist [facility] TSH 2.360 0.450 - 4.500 uIU/mL [facility] T4, Total 7.6 4.5 - 12.0 ug/dL [facility] T3 Uptake 26 24 - 39 % [facility] Free Thyroxine Index 2.0 1.2 - 4.9 [facility] Blood 12/16/2018 12/16/2018 Comment:BLOOD MANUAL DIFFERE N Abel [facility] (AMBULATORY) - 12/18/2018 4:09 PM EDT Performed at: ??01 - [facility] ??[id number] Administrative Office Clerk: Hawk Mireles PhD, Phone: ??[phone] Christine Givens [facility] LAB BLOOD ORDERABLES nal Result [facility] ([facility]) [address] [place] [address], [facility] [address] [place] [address], [place] [phone] * Vitamin B12 & Folate (12/16/2018 12:00 AM EDT) [facility] Vitamin B-12 542 232 - 1,245 pg/mL [facility] Folate 17.4 >3.0 ng/mL [facility] Comment: A serum folate concentration of less than 3.1 ng/mL is considered to represent clinical deficiency. Blood 12/16/2018 12/16/2018 Comment:BLOOD MANUAL DIFFERE N Narrative [facility] (AMBULATORY) - 12/18/2018 4:09 PM EDT Performed at: ??01 - [facility] ??[id number] Administrative Office Clerk: Hawk Mireles PhD, Phone: ??[phone] Christine Huertas DOCUMENT CONTROL COORDINATOR LAB BLOOD ORDERABLES Fi nal Result [facility] ([facility]UL[facility]ORY) [address] [place] [address], [place] [phone] [facility] [address] [place] [address], [place] [phone] * (ABNORMAL) CBC & Differential (12/16/2018 12:00 [...] 12/16/2018 Comment:BLOOD MANUAL DIFFERE N Narrative [facility] (AMBULATORY) - 12/18/2018 4:09 PM EDT Performed at: ??01 - [facility] [place] [address] [place], [place] ??[id number] Administrative Office Clerk: Hawk Mireles PhD, Phone: ??[phone] Christine Givens Huertas DOCUMENT CONTROL COORDINATOR LAB BLOOD ORDERABLES Fi nal Result [facility] (AMBULATORY) [address] [place] [address], [facility] [address] [place] [address], * Comprehensive Metabolic Panel (12/16/2018 12:00 AM [...] 12/16/2018 Comment:BLOOD MANUAL DIFFERE N Narrative [facility] (AMBULATORY) - 12/18/2018 4:09 PM EDT Performed at: ??01 - [facility] [address] ??[id number] Administrative Office Clerk: Hawk Mireles PhD, Phone: ??[phone] Christine Huertas APRN LAB BLOOD ORDERABLES Fi nal Result [facility] (AMBULATORY) [address] [place] [address], [facility] [address] [place] [address], documented in this encounter Visit Diagnoses Diagnosis Intermittent confusion- Primary Paranoid behavior Poor short term memory Memory loss Personal history of other diseases of the circulatory system documented in this encounter Care Teams Tie Binder Relationship Specialty Start Date End Date Kortney Woods MD [address] [place] [address] PCP - General Internal Medicine 09/04/18 10/15/22 documented as of this encounter
--- OUTSIDE RECORDS SUMMARY | 2024-02-27 14:49 | XMS_ITS | Encounter Summary ---
[facility] Address [address] [id number] Care Team Providers Care Trimmer Machine Name Role Phone Kortney Woods MD Primary Care Provi kenny Reason for Referral * Diagnostic Imaging (Routine) - Closed Specialty Diagnoses / Procedures Referred By Contac t Referred To Contact Radiology Diagnoses Breast pain Procedures Mammo diagnostic digital tomosynthesis bilateral w Kortney Hardy MD [address] [place] [address] Phone: tel: fax: [address] [address] Phone: tel: Referral ID Status Reason Start Date Expiration Date Visits Re quested Visits Authorized [id number] Closed 02/17/2019 02/17/2020 1 1 Reason for Visit * Diagnostic Imaging (Routine) - Closed Specialty Diagnoses / Procedures Referred By Contac t Referred To Contact Radiology Diagnoses Breast pain Procedures Mammo diagnostic digital tomosynthesis bilateral w Kortney Hardy MD [address] [place] [address] Phone: tel: fax: [address] [address] Phone: tel: Referral ID Status Reason Start Date Expiration Date Visits Re quested Visits Authorized [id number] Closed 02/17/2019 02/17/2020 1 1 Encounter Details Date Type Department Care Team (Latest Contact Info) Description 04/20/2019 12:45 PM EST - 04/20/2019 11:59 PM EST Hospital Encounter [facility] [address] [place], [place] [id number] Kortney Woods MD [address] [place], [place] [address] Breast pain Discharge Disposition: Home or Self [...] Description 01/19/2025 3:00 PM EDT Office Visit [facility] [address] [address] Jenny Lomeli PA [address] [address] documented as of this encounter Procedures Procedure [...] Mastodynia documented in this encounter Care Teams Trimmer Machine Relationship Specialty Start Date End Date Kortney Woods MD [address] [place] [address] PCP - General Internal Medicine 09/04/18 10/15/22 documented as of this encounter
--- OUTSIDE RECORDS SUMMARY | 2024-02-27 14:49 | XMS_ITS | Encounter Summary ---
[facility] Address [address] [place] [address] Care Team Providers Care Cook Manager Name Role Phone Velma Phillips APRN Primary Care Provider [phone] Reason for Referral * Diagnostic Imaging (Routine) - Closed Specialty Diagnoses / Procedures Referred By Camila kirkland Referred To Contact Radiology Diagnoses Screening mammogram for breast cancer Procedures Mammo Screening Digital Tomosynthesis Bilateral With CAD Velma Phillips APRN Phone: tel: fax: [facility] [address] [place] [address] Phone: tel: Referral ID Status Reason Start Date Expiration Date Visits Re quested Visits Authorized [id number] Closed 01/31/2023 01/31/2024 1 1 Reason for Visit * Diagnostic Imaging (Routine) - Closed Specialty Diagnoses / Procedures Referred By Contac t Referred To Contact Radiology Diagnoses Screening mammogram for breast cancer Procedures Mammo Screening Digital Tomosynthesis Bilateral With Velma Murdock APRN Phone: tel: fax: [facility] [address] [place] [address] Phone: tel: Referral ID Status Reason Start Date Expiration Date Visits Re quested Visits Authorized [id number] Closed 01/31/2023 01/31/2024 1 1 Encounter Details Date Type Department Care Team (Latest Contact Info) Description 03/21/2023 1:44 PM EST - 03/21/2023 11:59 PM [facility] Hospital Encounter [facility] [address] [place] [address] Screening mammogram for breast cancer Discharge [...] Visit [facility] [address] [place], [place] [address] Jenny Lomeli PA [address] [place], [place] [address] documented as of this encounter Procedures Procedure [...] documented as of this encounter Care Teams Cook Manager Relationship Specialty Start Date End Date Velma Phillips APRN PCP - General Family Medicine 10/16/22 10/10/23 documented as of this encounter
--- OUTSIDE RECORDS SUMMARY | 2024-02-27 14:49 | XMS_ITS | Encounter Summary ---
Author Organization [facility] Address [address] [place] [address] Care Team Providers Care Etl Data Architect Name Role Phone Kortney Woods MD Primary Care Provi kenny Reason for Visit * Reason Comments Follow-up GERD, Insomnia Encounter Details Date Type Department Care Team (Late st Contact Info) Description 08/07/2019 9:00 AM EDT Office Visit [facility] [address] [place] [address] Kortney Woods MD [address] [place] [address] Drug-induced constipation (Primary Dx); Abdominal [...] her abdomen so she went [facility] the [facility] and was evaluatedthere. They did an x-ray [...] PM EDT Office Visit [facility] [address] [place] [phone] Jenny Lomeli PA [address] [place] [address] documented as of this encounter Visit Diagnoses Diagnosis Drug-induced constipation- Primary Other constipation Abdominal cramping Abdominal pain, unspecified site documented in this encounter Care Teams Etl Data Architect Relationship Specialty Start Date End Date Kortney Woods MD [address] [address] PCP - General Internal Medicine 09/04/18 10/15/22 documented as of this encounter
--- OUTSIDE RECORDS SUMMARY | 2024-02-27 14:49 | XMS_ITS | Encounter Summary ---
[facility] [address] [id number] Care Team Providers Care Grey Goods Tester Name Role Phone Kortney Woods MD Primary Care Provi kenny Encounter Details Date Type Department Care Team (Late st Contact Info) Description 02/17/2019 Telephone [facility] [address] [place] [address] Kortney Woods MD [address] [place] [address] Social History Tobacco Use Types Packs/Day Years [...] EST CALLING BACK ABOUT HER MAMMOGRAM RESULTS [phone] documented in this encounter Plan of Treatment Upcoming Encounters Date Type Department Care Team (Late st Contact Info) Description 01/19/2025 3:00 PM EDT Office Visit [facility] [address] [place] [address] Jenny Lomeli PA [address] [place] [address] documented as of this encounter Visit Diagnoses Not on filedocumented in this encounter Care Teams Grey Goods Tester Relationship Specialty Start Date End Date Kortney Woods MD [address] [facility] [address] [place] [address] PCP - General Internal Medicine 09/04/18 10/15/22 documented as of this encounter
--- OUTSIDE RECORDS SUMMARY | 2024-02-27 14:49 | XMS_ITS | Encounter Summary ---
[facility] [address] [place] [id number] Care Team Providers Care Welt Slasher Name Role Phone Velma Phillips APRN Primary Care Provider [phone] Reason for Visit * Reason Onset Date Comments Stool order 10/16/2022 Encounter Details Date Type Department Care Team (Late st Contact Info) Description 10/16/2022 Telephone [facility] [address] [place] [address] Velma Phillips APRN [address] [phone] Stool order Social History Tobacco Use Types [...] Description 01/19/2025 3:00 PM EDT Office Visit [facility] [address] [address] Jenny Lomeli PA [address] [address] documented as of this encounter Visit Diagnoses Not on filedocumented in this encounter Additional Health Concerns Assessment Noted Time PHQ-2 Depression Total Score: 3 10/17/19 23 1:57 PM EDT documented as of this encounter Care Teams Welt Slasher Relationship Specialty Start Date End Date Velma Phillips APRN PCP - General Family Medicine 10/16/22 10/10/23 documented as of this encounter
--- OUTSIDE RECORDS SUMMARY | 2024-02-27 14:49 | XMS_ITS | Encounter Summary ---
[facility] Address [address] [phone] Care Team Providers Care Commercial Reporter Name Role Phone Velma Phillips APRN Primary Care Provider [phone] Reason for Visit * Reason Onset Date Comments RETURNING A CALL TO OFFICE 10/25/2022 Encounter Details Date Type Department Care Team (Late st Contact Info) Description 10/25/[address] [facility] [address] [place] [address] Velma Phillips APRN [facility] [place], [place] [phone] RETURNING A CALL TO OFFICE Social History [...] to patient: Self Best call back number: [phone] Patient is needing: RETURNING A CALL TO THE OFFICE documented in this encounter Plan of Treatment Upcoming Encounters Date Type Department Care Team (Late st Contact Info) Description 01/19/2025 3:00 PM EDT Office Visit [facility] [address] [place] [phone] Jenny Lomeli PA [address] [place] [address] documented as of this encounter Visit Diagnoses Not on filedocumented in this encounter Additional Health Concerns Infection Onset Date Last Indicated Resolved Time Norovirus 10/23/2022 10/23/2022 Assessment Noted Time PHQ-2 Depression Total Score: 3 10/17/19 23 1:57 PM EDT documented as of this encounter Care Teams Commercial Reporter Relationship Specialty Start Date End Date Velma Phillips APRN PCP - General Family Medicine 10/16/22 10/10/23 documented as of this encounter
--- OUTSIDE RECORDS SUMMARY | 2024-02-27 14:49 | XMS_ITS | Encounter Summary ---
[facility] [address] [place] [address] Care Team Providers Care Thermal Cutter Hand Name Role Phone Velma Phillips APRN Primary Care Provider [phone] Reason for Referral * Diagnostic Imaging (Routine) - Closed Specialty Diagnoses / Procedures Referred By Camila kirkland Referred To Contact Radiology Diagnoses Screening mammogram for breast cancer Procedures Mammo Screening Digital Tomosynthesis Bilateral With CAD Velma Phillips APRN Phone: tel: fax: [facility] [address] [place] [address] Phone: tel: Referral ID Status Reason Start Date Expiration Date Visits Re quested Visits Authorized [id number] Closed 01/31/2023 01/31/2024 1 1 * Consultation (Routine) - Closed Specialty Diagnoses / Procedures Referred By Contkarlee t Referred To Contact Orthopedic Surgery Diagnoses Chronic left shoulder pain Velma Phillips APRN Phone: tel: fax: Chuck Thakur MD [facility] [address] [place] [address] Phone: tel: fax: Referral ID Status Reason Start Date Expiration Date V isits Requested Visits Authorized [id number] Closed Specialty Services Required 01/31/2023 01/31/2024 1 1 Reason for Visit * Reason Comments Follow-up 4 month f/u, Labs fo r cholesterol, pt is not fasting. May need Mri of lt shoulder pain x 1 year. Encounter Details Date Type Department Care Team (Late st Contact Info) Description 01/31/2023 10:45 AM EDT Office Visit [facility] [address] [place] [address] Velma Phillips APRN [address] [place] [address] Hyperlipidemia, unspecified hyperlipidemia type (Primary [...] psychotherapy, but she wants to go to [facility] in [place] like we previously discussed. She does not want to go to [facility]. She cannot travel to [place]. The following portions of the patient's history [...] for influenza vaccination - Fluzone High-Dose 65+yrs ([id number]) Patient opts to wait for psychotherapy to be available at [facility] here in [place], we will revisit referral at follow up. She declines [facility] or [facility] Referral. Hyperlipidemia - check labs as ordered. [...] [facility] [address] [place] [phone] Jenny Lomeli PA [address] [place] [address] documented as of this encounter Procedures Procedure [...] 8:08 PM EDT Performed at: ??01 - [address] ??[id number] Grain Broker: David Farnsworth MD, Phone: ??[phone] Patient Fasting: ??Y Velma Phillips APRN LAB BLOOD ORDERABLES Final R esult [facility] (AMBULATORY) [address] [place] [address], [facility] [address] [place] [address], * (ABNORMAL) Comprehensive Metabolic Panel (01/31/2023 11:27 [...] 8:08 PM EDT Performed at: ??01 - [address] ??[id number] Grain Broker: David Farnsworth MD, Phone: ??[phone] Patient Fasting: ??Y Velma Phillips APRN LAB BLOOD ORDERABLES Final R esult [facility] (AMBULATORY) [address] [id number], [place] [phone] [facility] [address] [place] [address], [place] [phone] documented in this encounter Visit Diagnoses Diagnosis [...] documented as of this encounter Care Teams Thermal Cutter Hand Relationship Specialty Start Date End Date Velma Phillips APRN PCP - General Family Medicine 10/16/22 10/10/23 documented as of this encounter
--- OUTSIDE RECORDS SUMMARY | 2024-02-27 14:49 | XMS_ITS | Encounter Summary ---
[facility] Address [address] [place] [address] Care Team Providers Care Laundry Aid Name Role Phone Kortney Woods MD Primary Care Provi kenny Reason for Visit * Reason Comments Depression Encounter Details Date Type Department Care Team (Late st Contact Info) Description 01/12/2019 10:30 AM EDT Office Visit [facility] [address] [place] [address] Kortney Woods MD [address] [place] [address] Current moderate episode of major [...] not able to afford to go to [facility] due to copay of $180. She wants [...] Not able to afford to go to [facility] right now so will table that [...] for influenza vaccination - Fluad Tri 65yr ([id number]) Sophia Noriega MA documented in this encounter Plan of Treatment Upcoming Encounters Date Type Department Care Team (Late st Contact Info) Description 01/19/2025 3:00 PM EDT Office Visit [facility] [address] [address] Jenny Lomeli PA [address] [address] documented as of this encounter Visit Diagnoses Diagnosis Current moderate episode of major depressive disorder without prior episode- Primary Paranoia Delusional disorder Need for influenza vaccination Need for prophylactic vaccination and inoculation against influenza Abdominal bloating Flatulence, eructation, and gas pain documented in this encounter Care Teams Laundry Aid Relationship Specialty Start Date End Date Kortney Woods MD [address] [place] [address] PCP - General Internal Medicine 09/04/18 10/15/22 documented as of this encounter
--- OUTSIDE RECORDS SUMMARY | 2024-02-27 14:49 | XMS_ITS | Encounter Summary ---
[facility] Address [address] [place] [id number] Care Team Providers Care Corporate Legal Secretary Name Role Phone Kortney Woods MD Primary Care Provi kenny Encounter Details Date Type Department Care Team (Late st Contact Info) Description 10/13/2018 Telephone [facility]IMARY [facility] [address] [place] [address] Kortney Woods MD [address] [place] [address] Social History Tobacco Use Types Packs/Day Years [...] 3:27 PM EDT Medication approved. Sent into [employer] mail * Telephone Encounter - Ann Schafer - 10/13/2018 2:40 PM EDT OMEPRAZOLE 20MG 90 [facility] documented in this encounter Plan of Treatment Upcoming Encounters Date Type Department Care Team (Late st Contact Info) Description 01/19/2025 3:00 PM EDT Office Visit [facility] [address] [place] [phone] Jenny Lomeli PA [address] [place] [address] documented as of this encounter Visit Diagnoses Diagnosis Gastroesophageal reflux disease, esophagitis presence not specified- Primary documented in this encounter Care Teams Corporate Legal Secretary Relationship Specialty Start Date End Date Kortney Woods MD [address] [place] [address] PCP - General Internal Medicine 09/04/18 10/15/22 documented as of this encounter
--- OUTSIDE RECORDS SUMMARY | 2024-02-27 14:49 | XMS_ITS | Encounter Summary ---
Author Organization [facility] Address [address] [place] [address] Care Team Providers Care Investment Counselor Name Role Phone Kortney Woods MD Primary Care Provi kenny Reason for Visit * Reason Comments Diarrhea Encounter Details Date Type Department Care Team (Late st Contact Info) Description 07/24/2019 2:00 PM EDT Office Visit [facility] PRIMARY CARE [address] [place] [address] Kortney Woods MD [address] [place] [address] Diarrhea, unspecified type (Primary Dx) [...] recent antibiotic use. She went to the [facility] yesterday and was given Imodium 2 [...] Total time of discussion was 8 minutes. Sophia Noriega MA Please note that [...] [facility] [address] [place] [address] Jenny Lomeli PA [address] [place] [address] documented as of this encounter Visit Diagnoses Diagnosis Diarrhea, unspecified type- Primary documented in this encounter Care Teams Investment Counselor Relationship Specialty Start Date End Date Kortney Woods MD [address] [place] [address] PCP - General Internal Medicine 09/04/18 10/15/22 documented as of this encounter
--- OUTSIDE RECORDS SUMMARY | 2024-02-27 14:49 | XMS_ITS | Encounter Summary ---
[facility] Address [address] [place] [address] Care Team Providers Care Ui Developer Designer Name Role Phone Kortney Woods MD Primary Care Provi kenny Reason for Visit * Reason Onset Date Comments Med Refill 12/04/2018 Encounter Details Date Type Department Care Team (Late st Contact Info) Description 12/04/2018 Refill [facility] PRIMARY [facility] [address] [place] [address] Kortney Woods MD [address] [place] [address] Social History Tobacco Use Types [...] [facility] [address] [place] [phone] Jenny Lomeli PA [address] [place] [address] documented as of this encounter Visit Diagnoses Not on filedocumented in this encounter Care Teams Ui Developer Designer Relationship Specialty Start Date End Date Kortney Woods MD [address] [address] PCP - General Internal Medicine 09/04/18 10/15/22 documented as of this encounter
--- OUTSIDE RECORDS SUMMARY | 2024-02-27 14:49 | XMS_ITS | Encounter Summary ---
[facility] Address [address] [place] [address] Care Team Providers Care Tool And Die Technician Name Role Phone Kortney oWods MD Primary Care Provi kenny Reason for Referral * Consultation (Routine) - Canceled Specialty Diagnoses / Procedures Referred By Contac t Referred To Contact Diagnoses Skin mass Kortney Woods MD [address] [place] [address] Phone: tel: fax: Chidi Coyle MD [address] [facility] ATTN: [place] [address] Phone: tel: fax: Referral ID Status Reason Start Date Expiration Date Visits Requested Visits Authorized [id number] Canceled Specialty Services Required 09/08/2018 09/08/2019 1 1 Reason for Visit * Reason Comments Depression Encounter Details Date Type Department Care Team (Late st Contact Info) Description 09/08/2018 1:30 PM EDT Office Visit [facility] PRIMARY CARE [address] [place] [phone] Kortney Woods MD [address] [place] [address] Decreased GFR (Primary Dx); Skin [...] letter stating such. Wants referral to [facility] for left shoulder mass (likely lipoma). The [...] CENTER FAMILY MEDICINE [address] [place] [address] Jenny Lomeli PA [address] [place] [address] Scheduled Referrals Name Type Priority [...] 4:06 AM EDT Performed at: ??01 - [address] ??[id number] Logistics Planner: David Farnsworth MD, Phone: ??[phone] Kortney Woods MD LAB BLOOD ORDERABLE S Final Result [facility] (AMBULATORY) [address] [place] [address], [facility] [address] [place] [address], documented in this encounter Visit Diagnoses Diagnosis Decreased GFR- Primary Skin mass Localized superficial swelling, mass, or lump documented in this encounter Care Teams Tool And Die Technician Relationship Specialty Start Date End Date Kortney Woods MD [address] [address] PCP - General Internal Medicine 09/04/18 10/15/22 documented as of this encounter
--- OUTSIDE RECORDS SUMMARY | 2024-02-27 14:49 | XMS_ITS | Encounter Summary ---
[facility] [address] [place] [address] Care Team Providers Care Sr. Media Manager Name Role Phone Kortney Woods MD Primary Care Provi kenny Reason for Visit * Reason Comments Follow-up not feeling well, fa arley zaman Encounter Details Date Type Department Care Team (Late st Contact Info) Description 12/29/2019 1:00 PM EDT Office Visit [facility] PRIMARY CARE [address] [place] [address] Kortney Woods MD [address] [place] [address] Tremor (Primary Dx); Paranoia; Lipid screening; History [...] bothering her. She has never seen a naval architect specialist nor been treated for rheumatoid arthritis. Also [...] autoimmune disease - FAVIOLA With / DsDNA, FRONT SIGHT ATTACHER, Sjogrens A / B, Farah -patient says [...] Description 01/19/2025 3:00 PM EDT Office Visit [facility] FAM[facility] MED[facility]INE [address] [place], [place] [address] Jenny Lomeli PA [address] [place], [place] [address] documented as of this encounter Procedures Procedure [...] Color Yellow Yellow, Straw, Dark Yellow, Velma [facility] Clarity, UA Clear Clear [facility] Specific Jones 1.000(A) 1.005 - 1.030 [facility] pH, Urine 7.0 5.0 - 8.0 [facility] Leukocytes Negative Negative [facility] Nitrite, UA Negative Negative [facility] Protein, POC Negative Negative mg/dL [facility] Glucose, UA Negative Negative, 1000 mg/dL (3+) mg/dL [facility] Ketones, UA Negative Negative [facility] Urobilinogen, UA Normal Normal [facility] Bilirubin Negative Negative [facility] Blood, UA Negative Negative [facility] Urine 12/29/2019 1:53 PM EDT Kortney Woods MD POINT OF CARE TEST ORDERABLES Final Result [facility]
[address] [place] [address], * FAVIOLA With / DsDNA, FRONT SIGHT ATTACHER, Sjogrens A / B, Farah (12/29/2019 1:45 PM EDT) FAVIOLA Direct Negative Negative [facility] Blood 12/29/2019 1:45 PM EDT 12/30/2019 Comment:BLOOD Narrative [facility] ([facility]) - 12/31/2019 2:09 PM EDT Performed at: ??02 - [facility] [address] ??[id number] Wall Taper: Hawk Mireles PhD, Phone: ??[phone] Kortney Woods MD LAB BLOOD ORDERABLE S Final Result [facility] ([facility]) [address] [place] [address], [place] [phone] [facility] [address] [place] [address], [place] [phone] * (ABNORMAL) Lipid Panel (12/29/2019 1:45 PM EDT) Total Cholesterol 242(H) 0 - 200 mg/dL [facility] Triglycerides 229(H) 0 - 150 mg/dL [facility] HDL Cholesterol 45 40 - 60 mg/dL [facility] VLDL Cholesterol Naga 45.8 mg/dL [facility] LDL Chol Calc ([facility]) 151(H) 0 - 100 mg/dL [facility] Blood 12/29/2019 1:45 PM EDT 12/30/2019 Comment:BLOOD Narrative [facility] (AMBULATORY) - 12/31/2019 2:09 PM EDT Performed at: ??01 - [address] ??[id number] Wall Taper: David Farnsworth MD, Phone: ??[phone] Kortney Woods MD LAB BLOOD ORDERABLE S Final Result Performing Organization Address [facility]/ZIP Co de Phone Number [facility] [address] [place] [address], [facility] [address] [place] [address], * RPR (12/29/2019 1:45 PM EDT) Pathologist [facility] RPR Non Reactive Non Reactive [facility] Blood 12/29/2019 1:45 PM EDT 12/30/2019 Comment:BLOOD Narrative [facility] (AMBULATORY) - 12/31/2019 2:09 PM EDT Performed at: ??02 - [facility] [address] [place] [address] ??[id number] Wall Taper: Hawk Mireles PhD, Phone: ??[phone] Kortney Woods MD LAB BLOOD ORDERABLE S Final Result Performing Organization Address City/[facility]/ZIP Co de Phone Number [facility] (AMBULATORY) [address] [place] [address], [facility] [address] [place] [address], * HIV-1/O/2 Ag/Ab w Reflex (12/29/2019 1:45 PM EDT) Pathologist [facility] HIV Screen 4th Gen w/RFX (Reference) Non Reactive Non Reactive [facility] Blood 12/29/2019 1:45 PM EDT 12/30/2019 Comment:BLOOD Narrative [facility] (AMBULATORY) - 12/31/2019 2:09 PM EDT Performed at: ??02 - [facility] [address] [place], [place] ??[id number] Wall Taper: Hawk Mireles PhD, Phone: ??[phone] Kortney Woods MD LAB BLOOD ORDERABLE S Final Result [facility] (AMBULATORY) [address] [place] [address], [facility] [address] [place] [address], [place] [phone] * Vitamin B12 (12/29/2019 1:45 PM EDT) Vitamin B-12 362 211 - 946 pg/mL [facility] Comment:Results may be false ly increased if patient taking Biotin. Blood 12/29/2019 1:45 PM EDT 12/30/2019 Comment:BLOOD Narrative [facility] (AMBULATORY) - 12/31/2019 2:09 PM EDT Performed at: ??01 - [address] ??[id number] Wall Taper: David Farnsworth MD, Phone: ??[phone] Kortney Woods MD LAB BLOOD ORDERABLE S Final Result [facility] (AMBULATORY) [address] [place] [address], [place] [phone] [facility] [address] [place] [address], [place] [phone] * TSH (12/29/2019 1:45 PM EDT) TSH 2.740 0.270 - 4.200 uIU/mL [facility] Blood 12/29/2019 1:45 PM EDT 12/30/2019 Comment:BLOOD Narrative [facility] (AMBULAT[facility]) - 12/31/2019 2:09 PM EDT Performed at: ??01 - [place] [address] [address] [place], [place] ??[id number] Wall Taper: David Farnsworth MD, Phone: ??[phone] Kortney Woods MD LAB BLOOD ORDERABLE S Final Result [facility] ([facility]) [address] [place] [address], [facility] [address] [place] [address], * (ABNORMAL) Comprehensive Metabolic Panel (12/29/2019 1:45 [...] 2:09 PM EDT Performed at: ??01 - [facility] [address] [place], [place] ??[id number] Wall Taper: David Farnsworth MD, Phone: ??[phone] Kortney Woods MD LAB BLOOD ORDERABLE S Final Result [facility] ([facility]) [address] [place] [id number], [facility] [address] [place] [address], * CBC (No Diff) (12/29/2019 1:45 PM EDT) [facility] WBC 4.83 3.40 - 10.80 10*3/mm3 [facility] [...] 2:09 PM EDT Performed at: ??01 - [facility] [address] [place], [place] ??[id number] Wall Taper: David Farnsworth MD, Phone: ??[phone] Kortney Woods MD LAB BLOOD ORDERABLE S Final Result [facility] ([facility]) [address] [place] [address], [place] [phone] [facility] [address] [place] [address], [place] [phone] documented in this encounter Visit Diagnoses Diagnosis Tremor- Primary Abnormal involuntary movements Paranoia Delusional disorder Lipid screening Screening for lipoid disorders History of autoimmune disease Urinary frequency Need for influenza vaccination Need for prophylactic vaccination and inoculation against influenza documented in this encounter Care Teams Sr. Media Manager Relationship Specialty Start Date End Date Kortney Woods MD [address] [place] [address] PCP - General Internal Medicine 09/04/18 10/15/22 documented as of this encounter
--- OUTSIDE RECORDS SUMMARY | 2024-02-27 14:50 | XMS_ITS | Encounter Summary ---
[facility] Address [address] [place] [address] Care Team Providers Care Lumber Tripper Name Role Phone Sariah Benson MD Primary Care Provider Ninfa vailable Reason for Visit * Diagnostic Imaging (Routine) - Closed Specialty Diagnoses / Procedures Referred By Contac t Referred To Contact Radiology Diagnoses Screening for breast cancer Procedures Mammo Screening Digital Tomosynthesis Bilateral With CAD Sariah Benson MD [address] [address] Phone: tel: Referral ID Status Reason Start Date Expiration Date Visits Re quested Visits Authorized [id number] Closed 02/06/2018 02/06/2019 1 1 Encounter Details Date Type Department Care Team (Latest Contact Info) Description 03/28/2018 1:07 PM EST - 03/28/2018 11:59 PM EST Hospital Encounter [facility] [address] [place] [address] Sariah Benson MD Discharge Disposition: Home or [...] Description 01/19/2025 3:00 PM EDT Office Visit [facility] MEDIC[facility] [address] [place], [place] [address] Jenny Lomeli PA [address] [place] [address] documented as of this encounter Procedures Procedure [...] on filedocumented in this encounter Care Teams Lumber Tripper Relationship Specialty Start Date End Date Sariah Benson MD PCP - General 12/10/14 09/03/18 documented as of this encounter
--- OUTSIDE RECORDS SUMMARY | 2024-02-27 14:50 | XMS_ITS | Encounter Summary ---
[facility] [address] [place] [address] Care Team Providers Care Custodial Engineer Name Role Phone Sariah Benson MD Primary Care Provider Ninfa vailable Reason for Visit * Reason Onset Date Comments Med Refill 10/18/2017 Encounter Details Date Type Department Care Team (Late st Contact Info) Description 10/18/2017 Telephone [facility] [address] [place] [address] [facility] [address] [place] [address] Sariah Benson MD Med Refill [...] 10/18/2017 10:45 AM EDT Rx faxed to [facility] mail in * Telephone Encounter - Yecenia [...] [facility] [address] [place] [phone] Jenny Lomeli PA [address] [place], [place] [address] documented as of this encounter Visit Diagnoses Not on filedocumented in this encounter Care Teams Custodial Engineer Relationship Specialty Start Date End Date Sariah Benson MD PCP - General 12/10/14 09/03/18 documented as of this encounter
--- OUTSIDE RECORDS SUMMARY | 2024-02-27 14:50 | XMS_ITS | Encounter Summary ---
[facility] [address] [place] [address] Care Team Providers Care Moving Picture Producer Name Role Phone Sariah Benson MD Primary Care Provider Ninfa vailable Encounter Details Date Type Department Care Team (Late st Contact Info) Description 06/10/2014 Office Visit Converted [facility] PRIMARY CARE [address] [facility] [address] [place] [address] Sariah Benson MD Social History [...] EGD in past as screening, ordered by Rooms Director. No issues. Has had GERD in the [...] 12/13/2014 01:00 PM Sariah Benson Family Medicine [facility] [address] Signatures Electronically signed by : Sariah Benson, ; Jun 10 2014 2:23PM EST (Author) documented in this encounter Plan of Treatment Upcoming Encounters Date Type Department Care Team (Late st Contact Info) Description 01/19/2025 3:00 PM EDT Office Visit [facility] FAM[facility] MEDICINE [address] [place] [phone] Jenny Lomeli PA [address] [place] [address] documented as of this encounter Visit Diagnoses Not on filedocumented in this encounter Care Teams Moving Picture Producer Relationship Specialty Start Date End Date Sariah Benson MD PCP - General 12/10/14 09/03/18 documented as of this encounter
--- OUTSIDE RECORDS SUMMARY | 2024-02-27 14:50 | XMS_ITS | Encounter Summary ---
[facility] [address] [place] [address] Care Team Providers Care Cost Estimating Clerk Name Role Phone Sariah Benson MD Primary Care Provider Ninfa vailable Reason for Visit * Reason Onset Date Comments Mammo Order 10/07/2017 Encounter Details Date Type Department Care Team (Late st Contact Info) Description 10/07/2017 Telephone [facility] PRIMARY CARE [address] [place] [address] [facility] [address] [place] [address] Sariah Benson MD Mammo Order [...] PM EDT Per pt chart she sees [facility] and will need to get order from them. Thanks! * Telephone Encounter - Madina Storey - 10/07/2017 12:36 PM EDT PATIENT WANTED TO KNOW IF SHE COULD A REFERRAL TO GET A MAMMOGRAM AT [address] [place] [address]. documented in this encounter Plan of Treatment Upcoming Encounters Date Type Department Care Team (Late st Contact Info) Description 01/19/2025 3:00 PM EDT Office Visit [facility] FAMILY MEDICINE [address] [place] [phone] Jenny Lomeli PA [address] [place] [phone] documented as of this encounter Visit Diagnoses Not on filedocumented in this encounter Care Teams Cost Estimating Clerk Relationship Specialty Start Date End Date Sariah Benson MD PCP - General 12/10/14 09/03/18 documented as of this encounter
--- OUTSIDE RECORDS SUMMARY | 2024-02-27 14:50 | XMS_ITS | Encounter Summary ---
Author Organization [facility] Address [address] [place] [address] Care Team Providers Care Library Services Dean Name Role Phone Sariah Benson MD Primary Care Provider Ninfa vailable Reason for Referral * (Routine) - Closed Specialty Diagnoses / Procedures Referred By Contac t Referred To Contact Radiology Diagnoses Arthritis Procedures XR Shoulder 2+ View Bilateral Sariah Benson MD Referral ID Status Reason Start Date Expiration Date Visits Re quested Visits Authorized [id number] Closed 11/21/2017 11/21/2018 1 1 Reason for Visit * Reason Comments Shoulder Pain Encounter Details Date Type Department Care Team (Late Contact Info) Description 11/21/2017 1:45 PM EDT Office Visit [facility] PRIMARY CARE [address] [place] [address] Sariah Benson MD Arthritis (Primary Dx) Social [...] and EGD in past as screening by Engineer Remote Control Diesel. 3. PSYCH- insomnia. Pt has taken ambien terminal supervisor, 0-2x/wk. Will take it if stressed, especially ifshe has to leave the house the next day. Rx for #30 x3 lasts 1yr. At her last visit pt was behavingoddly and reported [facility]. The following portions of the patient's history [...] EDT Office Visit [facility] MEDICINE [address] [place], [place] [address] Jenny Lomeli PA [address] [place] [address] documented as of this encounter Procedures [...] unspecified documented in this encounter Care Teams Library Services Dean Relationship Specialty Start Date End Date Sariah Benson MD PCP - General 12/10/14 09/03/18 documented as of this encounter
--- OUTSIDE RECORDS SUMMARY | 2024-02-27 14:50 | XMS_ITS | Encounter Summary ---
[facility] [address] [place] [address] Care Team Providers Care Appeals Referee Name Role Phone Sariah Benson MD Primary Care Provider Ninfa vailable Encounter Details Date Type Department Care Team (Late st Contact Info) Description 05/20/2017 Telephone [facility] [address] [facility] [address] [place] [address] Sariah Benson MD Social History [...] Description 01/19/2025 3:00 PM EDT Office Visit [facility] FAMILY MEDICINE [address] [place] [address] Jenny Lomeli PA [address] [place] [address] documented as of this encounter Visit Diagnoses Not on filedocumented in this encounter Care Teams Appeals Referee Relationship Specialty Start Date End Date Sariah Benson MD PCP - General 12/10/14 09/03/18 documented as of this encounter
--- OUTSIDE RECORDS SUMMARY | 2024-02-27 14:50 | XMS_ITS | Encounter Summary ---
[facility] [address] [place] [id number] Care Team Providers Care Ad Trafficker Name Role Phone Sariah Benson MD Primary Care Provider Ninfa vailable Reason for Visit * Diagnostic Imaging (Routine) - Closed Specialty Diagnoses / Procedures Referred By Contac t Referred To Contact Radiology Diagnoses Menopause Procedures DEXA Bone Density Axial Sariah Benson MD [address] [address] Phone: tel: Referral ID Status Reason Start Date Expiration Date Visits Re quested Visits Authorized [id number] Closed 02/06/2018 02/06/2019 1 1 Encounter Details Date Type Department Care Team (Latest Contact Info) Description 03/13/2018 1:11 PM EST - 03/13/2018 11:59 PM [facility] Hospital Encounter [facility] [place] [address] Sariah Benson MD Discharge Disposition: Home or [...] Lomeli PA [address] [place] [address] documented as of this encounter Procedures Procedure [...] fall-prevention measurements. The National Osteoporosis Foundation recommends (http://www.nof.org/hcp/practice/bwtbhygl-qry-xlgspwen-guidelines/clinic ans-guide) that FDA-approved medical therapies be considered [...] the left hip with 95% confidence is 0.432136 gm/cm2 at the hip and 0.517158 g/cm2 at the lumbar spine. This report [...] fall-prevention measurements. The National Osteoporosis Foundation recommends (http://www.nof.org/hcp/practice/lpyjiqyl-mkh-ruraftyn-guidelines/clinic ans-guide) that FDA-approved medical therapies be considered [...] the left hip with 95% confidence is 0.236054 gm/cm2 at the hip and 0.065260 g/cm2 at the lumbar spine. This report was finalized on 03/13/2018 4:[address] Leida Wilkinson MD. Sariah Benson MD IMG DXA ORDERABLES Final R esult documented in this encounter Visit Diagnoses Not on filedocumented in this encounter Care Teams Ad Trafficker Relationship Specialty Start Date End Date Sariah Benson MD PCP - General 12/10/14 09/03/18 documented as of this encounter
--- OUTSIDE RECORDS SUMMARY | 2024-02-27 14:50 | XMS_ITS | Encounter Summary ---
[facility] Address [address] [place] [address] Care Team Providers Care Telecommunications Analyst Name Role Phone Sariah Benson MD Primary Care Provider Ninfa vailable Encounter Details Date Type Department Care Team (Late st Contact Info) Description 04/26/2015 Office Visit Converted [facility]IMARY [facility]ARE [address] [facility] [address] [place] [address] Sariah Benson MD Social History [...] a month ago she went to the ink jet operator due to eye allergies. Had her eyes [...] ORTHO- rotator cuff sprain. edu re the [facility] on injury discussed. to do home [...] 06/13/2015 01:00 PM Sariah Benson Family Medicine [facility]ARE [address] Signatures Electronically signed by : Sariah Benson, ; Apr 26 2015 12:26PM EST (Author) documented in this encounter Plan of Treatment Upcoming Encounters Date Type Department Care Team (Late st Contact Info) Description 01/19/2025 3:00 PM EDT Office Visit [facility] [address] [address] Jenny Lomeli PA [address] [place] [address] documented as of this encounter Visit Diagnoses Not on filedocumented in this encounter Care Teams Telecommunications Analyst Relationship Specialty Start Date End Date Sariah Benson MD PCP - General 12/10/14 09/03/18 documented as of this encounter
--- OUTSIDE RECORDS SUMMARY | 2024-02-27 14:50 | XMS_ITS | Encounter Summary ---
[facility] Address [address] [place] [address] Care Team Providers Care Air Intercept Controller Name Role Phone Sariah Benson MD Primary Care Provider Ninfa vailable Reason for Referral * Diagnostic Imaging (Routine) - Closed Specialty Diagnoses / Procedures Referred By Contac t Referred To Contact Radiology Diagnoses Screening for breast cancer Procedures Mammo Screening Digital Tomosynthesis Bilateral With CAD Sariah Benson MD [address] [address] Phone: tel: Referral ID Status Reason Start Date Expiration Date Visits Re quested Visits Authorized [id number] Closed 02/06/2018 02/06/2019 1 1 * Diagnostic Imaging (Routine) - Closed Specialty Diagnoses / Procedures Referred By Contac t Referred To Contact Radiology Diagnoses Menopause Procedures DEXA Bone Density Axial Sariah Benson MD [address] [address] Phone: tel: Referral ID Status Reason Start Date Expiration Date Visits Re quested Visits Authorized [id number] Closed 02/06/2018 02/06/2019 1 1 Reason for Visit * Reason Comments Annual Exam Encounter Details Date Type Department Care Team (Late st Contact Info) Description 02/06/2018 1:15 PM EST Office Visit [facility] [address] [place] [phone] Sariah Benson MD Annual physical exam (Primary [...] and EGD in past as screening by Network Solutions Architect. 3. PSYCH- insomnia. Pt has taken ambien watermaster, 0-2x/wk. Will take it if stressed, especially ifshe has to leave the house the next day. Rx for #30 x3 lasts 1yr. At her last visit pt was behavingoddly and reported being ???persecuted[facility] at [facility]. 4. W- initial SCREENING: Bone Density: 2016 Colonoscopy: past ordered by Network Solutions Architect (Dr Mahoney) in 2016. No fam hx [...] Description 01/19/2025 3:00 PM EDT Office Visit [facility] [address] [place], [place] [address] Jenny Lomeli PA [address] [place], [place] [address] documented as of this encounter Procedures Procedure [...] fall-prevention measurements. The National Osteoporosis Foundation recommends (http://www.nof.org/hcp/practice/efiefrjo-wwa-gcletuml-guidelines/clinic ans-guide) that FDA-approved medical therapies be considered [...] the left hip with 95% confidence is 0.579284 gm/cm2 at the hip and 0.484860 g/cm2 at the lumbar spine. This report [...] fall-prevention measurements. The National Osteoporosis Foundation recommends (http://www.nof.org/hcp/practice/ibzwtveu-puk-ejzvyknr-guidelines/clinic ans-guide) that FDA-approved medical therapies be considered [...] the left hip with 95% confidence is 0.313037 gm/cm2 at the hip and 0.222858 g/cm2 at the lumbar spine. This report [...] with a HCV Nucleic Acid Amplification test ([id number]). Blood 02/06/2018 02/07/2018 Comment:BLOOD Narrative [facility] (AMBULATORY) - 02/07/2018 10:16 AM EST Performed at: ??01 - [facility] [address] ??[id number] Melting Furnace Skimmer: Hawk Mireles PhD, Phone: ??[phone] Sariah Benson MD LAB BLOOD ORDERABLES Final Result [facility] (AMBULATORY) [address] [place] [address], [facility] [address] [place] [address], [place] [phone] documented in this encounter Visit Diagnoses Diagnosis Annual physical exam- Primary Routine general medical examination at a health care facility Menopause Symptomatic menopausal or female climacteric states Immunization due documented in this encounter Care Teams Air Intercept Controller Relationship Specialty Start Date End Date Sariah Benson MD PCP - General 12/10/14 09/03/18 documented as of this encounter
--- OUTSIDE RECORDS SUMMARY | 2024-02-27 14:50 | XMS_ITS | Encounter Summary ---
[facility] Address [address] [place] [address] Care Team Providers Care Art Therapy Specialist Name Role Phone Sariah Benson MD Primary Care Provider Ninfa vailable Encounter Details Date Type Department Care Team (Late st Contact Info) Description 06/13/2015 Office Visit Converted [facility] PRIMARY CARE [address] [facility] [address] [place] [address] Sariah Benson MD Social History [...] and EGD in past as screening by Casino Gaming Inspector with no issues.Was startedon omeprazole prn, sim [...] 3. PSYCH- insomnia. Pt has taken ambien fpc, 0-2x/wk. Usually needs it when she will [...] 01/19/2025 3:00 PM EDT Office Visit [facility] MED[facility]INE [address] [place] [address] Jenny Lomeli PA [address] [place] [address] documented as of this encounter Visit Diagnoses Not on filedocumented in this encounter Care Teams Art Therapy Specialist Relationship Specialty Start Date End Date Sariah Benson MD PCP - General 12/10/14 09/03/18 documented as of this encounter
--- OUTSIDE RECORDS SUMMARY | 2024-02-27 14:50 | XMS_ITS | Encounter Summary ---
Author Organization [facility] Address [address] [place] [address] Care Team Providers Care Resident Care Spec Name Role Phone Sariah Benson MD Primary Care Provider Ninfa vailable Reason for Visit * (Routine) - Closed Specialty Diagnoses / Procedures Referred By Contac t Referred To Contact Radiology Diagnoses Arthritis Procedures XR Shoulder 2+ View Bilateral Sariah Benson MD Referral ID Status Reason Start Date Expiration Date Visits Re quested Visits Authorized [id number] Closed 11/21/2017 11/21/2018 1 1 Encounter Details Date Type Department Care Team (Latest Contact Info) Description 12/18/2017 9:42 AM EDT - 12/18/2017 11:59 PM EDT Hospital Encounter [facility] XRAY AT [address] [address] Sariah Benson MD Discharge Disposition: [...] [facility] [address] [place] [address] Jenny Lomeli PA [address] [place] [address] documented as of this encounter Procedures [...] the lungs are clear. Procedure Note Goyo Wadlron MD - 12/18/2017 EXAMINATION: XR SHOULDER 2+ [...] on filedocumented in this encounter Care Teams Resident Care Spec Relationship Specialty Start Date End Date Sariah Benson MD PCP - General 12/10/14 09/03/18 documented as of this encounter
--- OUTSIDE RECORDS SUMMARY | 2024-02-27 14:50 | XMS_ITS | Encounter Summary ---
[facility] Address [address] [place] [address] Care Team Providers Care Culturist Name Role Phone Sariah Benson MD Primary Care Provider Ninfa vailable Reason for Visit * Reason Comments Leg Pain Encounter Details Date Type Department Care Team (Late st Contact Info) Description 05/01/2017 10:00 AM EST Office Visit [facility] [address] [place] [address] Sariah Benson MD Primary insomnia [...] * Patient Instructions* Sariah Benson MD - 05/01/2017 10:00 AM [...] and EGD in past as screening by Supervisor Finishing Department. 3. PSYCH- insomnia. Pt has taken ambien group home, 0-2x/wk. Will take it if stressed, especially [...] Description 01/19/2025 3:00 PM EDT Office Visit [facility] FAMILY MEDICINE [address] [place] [phone] Jenny Lomlei PA [address] [address] documented as of this encounter Visit Diagnoses Diagnosis Primary insomnia- Primary Persistent disorder of initiating or maintaining sleep Arthritis Unspecified arthropathy, site unspecified documented in this encounter Care Teams Culturist Relationship Specialty Start Date End Date Sariah Benson MD PCP - General 12/10/14 09/03/18 documented as of this encounter
--- OUTSIDE RECORDS SUMMARY | 2024-02-27 14:50 | XMS_ITS | Encounter Summary ---
[facility] Address [address] [place] [address] Care Team Providers Care Hand Stoner Name Role Phone Sariah Benson MD Primary Care Provider Ninfa vailable Reason for Visit * Reason Onset Date Comments Med Refill 07/09/2018 Encounter Details Date Type Department Care Team (Late st Contact Info) Description 07/09/2018 Refill [facility] PRIMARY CARE [address] [place] [address] [address] [place] [address] Sariah Benson MD Primary insomnia [...] Lomeli PA [address] [place], [place] [address] documented as of this encounter Visit Diagnoses Diagnosis Primary insomnia Persistent disorder of initiating or maintaining sleep documented in this encounter Care Teams Hand Stoner Relationship Specialty Start Date End Date Sariah Benson MD PCP - General 12/10/14 09/03/18 documented as of this encounter
--- OUTSIDE RECORDS SUMMARY | 2024-02-27 14:50 | XMS_ITS | Encounter Summary ---
[facility] Address [address] [place] [address] Care Team Providers Care Business Management Professor Name Role Phone Sariah Benson MD Primary Care Provider Ninfa vailable Encounter Details Date Type Department Care Team (Late st Contact Info) Description 05/07/2014 Office Visit Converted [facility] PRIMARY CARE [address] [facility] [address] [place] [address] Sariah Benson MD Social History [...] Has had hysterectomy. Hasseen Dr Mahoney in Compliance Review[place] for her CPE. Pt did not want [...] 06/10/2014 01:00 PM Sariah Benson Family Medicine [facility] PRIMARY CARE [address] The patient was [...] Visit [facility] [address] [place] [phone] Jenny Lomeli PA [address] [place], [place] [phone] documented as of this encounter Visit Diagnoses Not on filedocumented in this encounter Care Teams Business Management Professor Relationship Specialty Start Date End Date Sariah Benson MD PCP - General 12/10/14 09/03/18 documented as of this encounter
--- OUTSIDE RECORDS SUMMARY | 2024-02-27 14:50 | XMS_ITS | Encounter Summary ---
Author Organization [facility] Address [address] [place] [address] Care Team Providers Care Patient Relations Liaison Name Role Phone Sariah Benson MD Primary Care Provider Ninfa vailable Encounter Details Date Type Department Care Team (Late st Contact Info) Description 08/05/2014 Telephone Converted [facility] HISTORICAL CONV [address] [place] [address] ProviderPamela MD [address] [place] [address] Social History Tobacco Use Types Packs/Day [...] she could have a Mammogram done at [address] [place] [address] ([facility]- [phone]) Please advise Thank you! Patient can be reached at if needed [phone] Payton Alcantar - 03 Aug 2014 3:48 PM TASK REPLIED TO: Previously Assigned To Payton Alcantra Absolutely. That would be fine. Thank you! Washington Shah - 03 Aug 2014 9:16 PM TASK EDITED Please advise on type of mammogram patient needs and DX for mammogram. Thank you! Payton Alcantar - 04 Aug 2014 9:07 AM TASK EDITED I assumed that this had been ordered by us already and pt just wanted a new location. Pt has only been seen two times and has CPE done with EMAIL PRODUCER. Is this okay to order through us or does she need to ask EMAIL PRODUCER for this? Sariah Benson - 04 Aug 2014 12:15 PM TASK EDITED has to come from [employer].Payton Ruiz - 04 Aug 2014 12:21 PM TASK REASSIGNED: Previously Assigned To Payton Alcantar Jamie - 04 Aug 2014 3:12 PM TASK EDITED s/w patient she stated she called [employer]MAIL PRODUCER they stated for her to call us. Please advise patient at [phone] (Patient stated she will try and call EMAIL PRODUCER again) documented in this encounter Plan of Treatment Upcoming Encounters Date Type Department Care Team (Late st Contact Info) Description 01/19/2025 3:00 PM EDT Office Visit [facility] MEDICINE [address] [place] [address] Jenny Lomeli PA [address] [place] [address] documented as of this encounter Visit Diagnoses Not on filedocumented in this encounter Care Teams Patient Relations Liaison Relationship Specialty Start Date End Date Sariah Benson MD PCP - General 12/10/14 09/03/18 documented as of this encounter
--- OUTSIDE RECORDS SUMMARY | 2024-02-27 14:50 | XMS_ITS | Encounter Summary ---
Author Organization [facility] Address [address] [place] [address] Care Team Providers Care Priming Mixture Carrier Name Role Phone Sariah Benson MD Primary Care Provider Ninfa vailable Encounter Details Date Type Department Care Team (Late st Contact Info) Description 05/04/2014 Office Visit Converted [facility] PRIMARY CARE [address] [facility] 200 [place] [address] Shelley Waldrop MD [address] [place] [address] 9 [place] [address] Social History Tobacco Use Types [...] 05/07/2014 10:45 AM Sariah Benson Family Medicine [facility] [address] Signatures Electronically signed by : Shelley Waldrop M.D.; May 07 2014 9:33AM EST (Author) documented in this encounter Plan of Treatment Upcoming Encounters Date Type Department Care Team (Late st Contact Info) Description 01/19/2025 3:00 PM EDT Office Visit [facility] FAMILY MEDICINE [address] [place] [address] Jenny Lomeli PA [address] [place], [place] [phone] documented as of this encounter Visit Diagnoses Not on filedocumented in this encounter Care Teams Priming Mixture Carrier Relationship Specialty Start Date End Date Sariah Benson MD PCP - General 12/10/14 09/03/18 documented as of this encounter
--- OUTSIDE RECORDS SUMMARY | 2024-02-27 14:50 | XMS_ITS | Encounter Summary ---
[facility] Address [address] [place] [address] Care Team Providers Care Director Index Name Role Phone Sariah Benson MD Primary Care Provider Ninfa vailable Encounter Details Date Type Department Care Team (Late st Contact Info) Description 12/13/2014 Office Visit Converted [facility] PRIMARY CARE [address] [facility] [address] [place] [address] Sariah Benson MD Social [...] EGD in past as screening, ordered by Locomotive Electrician. No issues. Has had GERD in the past and done well with zantac. Current started after she took some aleve. Was started onomeprazole and this did well. Was advised to continue this as long as she was on NSAID, sim as she is now on diclofenac for back pain. Was encouarged to keep her screening colonoscopy as ordered by Locomotive Electrician as part of her CPE. Today pt [...] Today pt reports she has taken ambien intermediate, 0-2x/wk. 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 2. ORTHO- arthritis- improved. discussed hand stretches. [...] [facility] FAM[facility] MEDIC[facility] [address] [facility] [place] [address] Jenny Lomeli PA [address] [place] [address] documented as of this encounter Visit Diagnoses Not on filedocumented in this encounter Care Teams Director Index Relationship Specialty Start Date End Date Sariah Benson MD PCP - General 12/10/14 09/03/18 documented as of this encounter
[2024-02-27 15:15] VITALS: BP 139/82; PULSE 89; RESP 16; O2SAT 99
[2024-02-27] MEDS: RABIES VACCINE (PCEC)/PF 2.5 UNIT VIAL IM (15:15)
--- NOTE | 2024-02-27 15:32 | PC.NURSE ---
Addendum entered by Aleshia Toribio RN 02/27/24 15:39: SN: [id number] EXP: Lot: [id number] GTIN: [id number] Original Note: Rabies vaccine 2.5 units administered in (L) deltoid @ 1510.
== END 2024-02-27 23:59 | disposition home or self-care (01) ==
LOC: INF 14:46
PROVIDERS: PCP Physician Assistant; Visit Provider Physician Assistant
DX: Z20.3 Contact with and (suspected) exposure to rabies (principal)
CPT/HCPCS: 90471; 90472; 90675; 96372

== ENCOUNTER 2024-03-05 16:51 | Emergency (ER) | payer MEDICARE, SELFPAY ==
--- OUTSIDE RECORDS SUMMARY | 2024-03-05 16:56 | XMS_ITS | Encounter Summary ---
[facility] Address [address] [place] [phone] Care Team Providers Care Char Belt Operator Name Role Phone Velma Phillips APRN Primary Care Provider [phone] Reason for Visit * Reason Onset Date Comments RETURNING A CALL TO OFFICE 10/25/2022 Encounter Details Date Type Department Care Team (Late st Contact Info) Description 10/25/2022 Telephone [facility] FAMILY MEDICINE [address] [place] [address] Velma Phillips APRN [facility]5 [place], [place] [phone] RETURNING A CALL TO OFFICE Social History [...] to patient: Self Best call back number: [phone] Patient is needing: RETURNING A CALL TO THE OFFICE documented in this encounter Plan of Treatment Upcoming Encounters Date Type Department Care Team (Late st Contact Info) Description 01/19/2025 3:00 PM EDT Office Visit [facility] FAMILY MEDICINE [address] [place] [phone] Jenny Lomeli PA [address] [place] [address] documented as of this encounter Visit Diagnoses Not on filedocumented in this encounter Additional Health Concerns Infection Onset Date Last Indicated Resolved Time Norovirus 10/23/2022 10/23/2022 Assessment Noted Time PHQ-2 Depression Total Score: 3 10/17/19 23 1:57 PM EDT documented as of this encounter Care Teams Char Belt Operator Relationship Specialty Start Date End Date Velma Phillips APRN PCP - General Family Medicine 10/16/22 10/10/23 documented as of this encounter
--- OUTSIDE RECORDS SUMMARY | 2024-03-05 16:56 | XMS_ITS | Encounter Summary ---
[facility] [address] [place] [address] [phone] Care Team Providers Care Wireless Sales Representative Name Role Phone Kortney Woods MD Primary Care Provi kenny Reason for Referral * Diagnostic Imaging (Routine) - Closed Specialty Diagnoses / Procedures Referred By Contac t Referred To Contact Radiology Diagnoses Breast pain Procedures Mammo diagnostic digital tomosynthesis bilateral w Kortney Hardy MD [address] [place] [address] Phone: tel: fax: [place] [address] Phone: tel: Referral ID Status Reason Start Date Expiration Date Visits Re quested Visits Authorized [id number] Closed 02/17/2019 02/17/2020 1 1 Reason for Visit * Diagnostic Imaging (Routine) - Closed Specialty Diagnoses / Procedures Referred By Contac t Referred To Contact Radiology Diagnoses Breast pain Procedures Mammo diagnostic digital tomosynthesis bilateral w Kortney Hardy MD [address] [place] [address] Phone: tel: fax: [address] [address] Phone: tel: Referral ID Status Reason Start Date Expiration Date Visits Re quested Visits Authorized [id number] Closed 02/17/2019 02/17/2020 1 1 Encounter Details Date Type Department Care Team (Latest Contact Info) Description 04/20/2019 12:45 PM EST - 04/20/2019 11:59 PM EST Hospital Encounter [facility] [address] [place] [place], [place] [id number] Kortney Woods MD [address] [place], [place] [phone] Breast pain Discharge Disposition: Home or Self [...] Description 01/19/2025 3:00 PM EDT Office Visit [facility] FAMILY MEDICINE [address] [place] [address] Jenny Lomeli PA [address] [place] [address] documented as of this encounter Procedures Procedure [...] Mastodynia documented in this encounter Care Teams Wireless Sales Representative Relationship Specialty Start Date End Date Kortney Woods MD [address] [place] [address] PCP - General Internal Medicine 09/04/18 10/15/22 documented as of this encounter
--- OUTSIDE RECORDS SUMMARY | 2024-03-05 16:56 | XMS_ITS | Encounter Summary ---
[facility] Address [address] [place] [address] Care Team Providers Care Commercial Credit Analyst Name Role Phone Kortney Woods MD Primary Care Provi kenny Reason for Visit * Reason Onset Date Comments Medicare Wellness-subsequent 11/20/2019 Encounter Details Date Type Department Care Team (Late st Contact Info) Description 11/20/2019 Telephone [facility] PRIMARY CARE [address] [phone] Washington Helms LPN Medicare Wellness-subsequent Social History [...] [facility] MED[facility] [address] [facility] [phone] Jenny Lomeli PA 210 [facility] [address] [place], [place] [phone] documented as of this encounter Visit Diagnoses Not on filedocumented in this encounter Care Teams Commercial Credit Analyst Relationship Specialty Start Date End Date Kortney Woods MD [address] [facility] 200 [place] [address] PCP - General Internal Medicine 09/04/18 10/15/22 documented as of this encounter
--- OUTSIDE RECORDS SUMMARY | 2024-03-05 16:56 | XMS_ITS | Encounter Summary ---
[facility] Address [address] [place] [address] Care Team Providers Care Proof Press Operator Name Role Phone Jenny Lomeli Primary Care Provider [phone] Encounter Details Date Type Department Care Team [...] 3:00 PM EDT Office Visit [facility] FAM[facility] MEDIC[facility] [address] [place] [phone] Jenny Lomeli PA [address] [place] [address] documented as of this encounter Visit Diagnoses Not on filedocumented in this encounter Additional Health Concerns Infection Onset Date Last Indicated Resolved Time Norovirus 10/23/2022 10/23/2022 Assessment Noted Time PHQ-2 Depression Total Score: 1 10/14/19 24 3:41 PM EDT documented as of this encounter Care Teams Proof Press Operator Relationship Specialty Start Date End Date Jenny Lomeli PA [address] [place] [address] PCP - General Physician Laminating Press Operator 10/11/23 documented as of this encounter
--- OUTSIDE RECORDS SUMMARY | 2024-03-05 16:56 | XMS_ITS | Encounter Summary ---
[facility] Address [address] [place] [address] Care Team Providers Care Adult Education Manager Name Role Phone Velma Phillips APRN Primary Care Provider [phone] Reason for Visit * Reason Onset Date Comments LAB RESULTS 02/04/2023 Encounter Details Date Type Department Care Team (Late st Contact Info) Description 02/04/2023 Telephone [facility] [address] [place] [address] Velma Phillips APRN [address] [phone] LAB RESULTS Social History Tobacco Use Types [...] time of call. Good call back number [phone] documented in this encounter Plan of Treatment Upcoming Encounters Date Type Department Care Team (Late st Contact Info) Description 01/19/2025 3:00 PM EDT Office Visit [facility] [address] [place] [address] Jenny Lomeli PA [address] [place] [address] documented as of this encounter Visit Diagnoses Not on filedocumented in this encounter Additional Health Concerns Infection Onset Date Last Indicated Resolved Time Norovirus 10/23/2022 10/23/2022 Assessment Noted Time PHQ-2 Depression Total Score: 3 10/17/19 23 1:57 PM EDT documented as of this encounter Care Teams Adult Education Manager Relationship Specialty Start Date End Date Velma Phillips APRN PCP - General Family Medicine 10/16/22 10/10/23 documented as of this encounter
--- OUTSIDE RECORDS SUMMARY | 2024-03-05 16:56 | XMS_ITS | Encounter Summary ---
[facility] Organization [facility] Address [address] [place] [address] Care Team Providers Care Commercial Pest Control Representative Name Role Phone Kortney Woods MD Primary Care Provi kenny Encounter Details Date Type Department Care Team (Late st Contact Info) Description 11/13/2019 Telephone [facility] [address] [place] [address] [place] Helms LPN Social History [...] [facility] [address] [place] [address] Jenny Lomeli PA [address] [place] [address] documented as of this encounter Visit Diagnoses Not on filedocumented in this encounter Care Teams Commercial Pest Control Representative Relationship Specialty Start Date End Date Kortney Woods MD [address] [place] [address] PCP - General Internal Medicine 09/04/18 10/15/22 documented as of this encounter
--- OUTSIDE RECORDS SUMMARY | 2024-03-05 16:56 | XMS_ITS | Clinical Summary ---
[facility] Organization [facility] Address [address] [place] [address] Care Team Providers Care Steward/Stewardess Third Class Name Role Phone Jenny Lomeli Primary Care Provider [phone] Allergies Active Allergy Reactions Criticality Noted Date Comments Ranitidine 05/04/2014 Medications neomycin-polymyxin- dexamethasone (MAXITROL) 3.5-27241-0.1 ophthalmic suspension INSTILL 1 DROP INTO BOTH [...] Description 01/15/2024 3:00 PM EDT Office Visit [facility] [address] [facility] [place] [place] [address] Jenny Lomeli PA Medicare annual wellness [...] 01/19/2025 3:00 PM EDT Office Visit [facility] [address] [place] [address] Jenny Lomeli PA [address] [place] [address] Health Maintenance Due Date Last Done [...] D deficiency has been defined by the [place] of Medicine and an Endocrine Society practice guideline as a level of serum 25-OH vitamin D less than 20 ng/mL (1,2). The Endocrine Society went on to further define vitamin D insufficiency as a level between 21 and 29 ng/mL (2). 1. IOM ([place] of Medicine). 2010. Dietary reference ?? intakes for calcium and D. [place]: The ?? National AcademLiberty Hydro Press. 2. Raghu MF, Jamin NC, Drew COLEMAN, et al. ?? Evaluation, treatment, and prevention of vitamin D ?? deficiency: an Endocrine Society clinical practice ?? guideline. JCEM. 2011 Sep; 96(7):1911-30. Blood 01/15/2024 4:17 PM EDT 01/15/2024 Narrative [facility] (AMBULATORY) - 01/16/2024 8:21 AM EDT Performed at: ??01 - [facility] [address] ??[id number] Mesmerist: Hawk Mireles PhD, Phone: ??[phone] Patient Fasting: ??Y us Jenny NUR LAB BLOOD ORDERABLES Final Res ult [facility] (AMBULATORY) [address] [place] [address], [place] [phone] [facility] [address] [place] [address], * CBC w AUTO Differential (01/15/2024 4:17 [...] AM EDT Performed at: ??01 - [facility] [address] ??[id number] Mesmerist: Hawk Mireles PhD, Phone: ??[phone] Patient Fasting: ??Y Jenny NUR LAB BLOOD ORDERABLES Final Res ult Performing Organization Address City/[facility]/ZIP Co de Phone Number [facility] (AMBULATORY) [address] [place] [address], [facility] [address] [place] [address], * (ABNORMAL) Hemoglobin A1c (01/15/2024 4:17 PM EDT) Hemoglobin A1C 5.8(H) 4.8 - 5.6 % [facility] Comment: ? Prediabetes: 5.7 - 6.4 ? Diabetes: >6.4 ? Glycemic control for adults with diabetes: <7.0 Blood 01/15/2024 4:17 PM EDT 01/15/2024 Narrative [facility] (AMBUL[facility]ORY) - 01/16/2024 8:21 AM EDT Performed at: ??01 - [facility] [address] ??[id number] Mesmerist: Hawk Mireles PhD, Phone: ??[phone] Patient Fasting: ??Y Jenny NUR LAB BLOOD ORDERABLES Final Res ult Performing Organization Address [facility] Co de Phone Number [facility] [address] [place] [address], [facility] [address] [place] [address], * Folate (01/15/2024 4:17 PM EDT) Folate 9.4 >3.0 ng/mL [facility] Comment: A serum folate concentration of less than 3.1 ng/mL is considered to represent clinical deficiency. Blood 01/15/2024 4:17 PM EDT 01/15/2024 Narrative [facility] (AMBULATORY) - 01/16/2024 8:21 AM EDT Performed at: ??01 - [facility] [place] [address] [place], [place] ??[id number] Mesmerist: Hawk Mireles PhD, Phone: ??[phone] Patient Fasting: ??Y Jenny NUR LAB BLOOD ORDERABLES Final Res ult Performing Organization Address [facility]/ZIP Co de Phone Number [facility] [address] [place] [address], [facility] [address] [place] [address], * Vitamin B12 (01/15/2024 4:17 PM EDT) Pathologist [facility] Vitamin B-12 407 232 - 1,245 pg/mL [facility] Blood 01/15/2024 4:17 PM EDT 01/15/2024 Narrative [facility] - 01/16/2024 8:21 AM EDT Performed at: ??01 - [facility] [place] [address] [place] [address] ??[id number] Mesmerist: Hawk Mireles PhD, Phone: ??[phone] Patient Fasting: ??Y Jenny NUR LAB BLOOD ORDERABLES Final Res ult Performing Organization Address [facility] Co de Phone Number [facility] (AMBULATORY) [address] [place] [address], [place] [phone] [facility] [address] [place] [address], [place] [phone] * (ABNORMAL) Lipid Panel (01/15/2024 4:17 PM EDT) Total Cholesterol 172 100 - 199 mg/dL [facility] Triglycerides 89 0 - 149 mg/dL [facility] HDL Cholesterol 53 >39 mg/dL [facility] VLDL Cholesterol Naga 16 5 - 40 mg/dL [facility] LDL Chol Calc (NIH) 103(H) 0 - 99 mg/dL [facility] Blood 01/15/2024 4:17 PM EDT 01/15/2024 Narrative [facility] (AMBUL[facility]ORY) - 01/16/2024 8:21 AM EDT Performed at: ??01 - [facility] [address] [place], [place] ??[id number] Mesmerist: Hawk Mireles PhD, Phone: ??[phone] Patient Fasting: ??Y us Jenny NUR LAB BLOOD ORDERABLES Final Res ult [facility] ([facility]) [address] [place] [address], [facility] [address] [place] [address], * (ABNORMAL) Comprehensive metabolic panel (01/15/2024 4:17 [...] Blood 01/15/2024 4:17 PM EDT 01/15/2024 Narrative [facility] - 01/16/2024 8:21 AM EDT Performed at: ??01 - [facility] [address] [place], [place] ??[id number] Mesmerist: Hawk Mireles PhD, Phone: ??[phone] Patient Fasting: ??Y Jenny NUR LAB BLOOD ORDERABLES Final Res ult [facility] (AMBULATORY) [address] [place] [address], [facility] [address] [place] [address], * Mammo Screening Digital Tomosynthesis Bilateral With [...] areas of distortion are seen. Velma Phillips SOAP INSPECTOR IMG MAMMOGRAPHY ORDERABLES F inal Result * [...] fall-prevention measurements. The National Osteoporosis Foundation recommends (http://www.nof.org/hcp/practice/oduftxct-dgm-petdxumg-guidelines/clinic ans-guide) that FDA-approved medical therapies be considered [...] the left hip with 95% confidence is 0.540209 gm/cm2 at the hip and 0.738616 g/cm2 at the lumbar spine. This report [...] fall-prevention measurements. The National Osteoporosis Foundation recommends (http://www.nof.org/hcp/practice/wyuhddqx-oqm-ziphyeqo-guidelines/clinic ans-guide) that FDA-approved medical therapies be considered [...] the left hip with 95% confidence is 0.714637 gm/cm2 at the hip and 0.818217 g/cm2 at the lumbar spine. This report [...] with a HCV Nucleic Acid Amplification test ([id number]). Blood 02/06/2018 02/07/2018 Comment:BLOOD Narrative [facility] (AMBULATORY) - 02/07/2018 10:16 AM EST Performed at: ??01 - [facility] ??[id number] Mesmerist: Hawk Mireles PhD, Phone: ??[phone] us Sariah Benson MD LAB BLOOD ORDERABLES Final Result [facility] (AMBULATORY) [address] [place] [address], [facility] [address] [place] [address], from Last 3 Months or Most Recently Relevant to Health Maintenance Additional Health Concerns Infection Onset Date Last Indicated Norovirus 10/23/2022 10/23/2022 [place] [address] [employer]AGE Advance Directives Documents on File Type Date Recorded Patient Service Desk Analyst Expl anation LIVING WILL - SCAN 03/18/2018 1:35 PM MAUREEN ING WILL 03/13/2018 Care Teams Steward/Stewardess Third Class Relationship Specialty Start Date End Date Jenny Lomeli PA [address] [place] [address] PCP - General Physician Lpn Per Diem 10/11/23
--- OUTSIDE RECORDS SUMMARY | 2024-03-05 16:56 | XMS_ITS | Encounter Summary ---
[facility] Address [address] [place] [address] Care Team Providers Care Pocket Closer Name Role Phone Velma Phillips APRN Primary Care Provider [phone] Reason for Referral * Diagnostic Imaging (Routine) - Closed Specialty Diagnoses / Procedures Referred By Camila kirkland Referred To Contact Radiology Diagnoses Screening mammogram for breast cancer Procedures Mammo Screening Digital Tomosynthesis Bilateral With CAD Velma Phillips APRN Phone: tel: fax: [facility] [address] [place] [address] Phone: tel: Referral ID Status Reason Start Date Expiration Date Visits Re quested Visits Authorized [id number] Closed 01/31/2023 01/31/2024 1 1 * Consultation (Routine) - Closed Specialty Diagnoses / Procedures Referred By Contkarlee t Referred To Contact Orthopedic Surgery Diagnoses Chronic left shoulder pain Velma Phillips APRN Phone: tel: fax: Chuck Thakur MD [facility] [address] [place] [address] Phone: tel: fax: Referral ID Status Reason Start Date Expiration Date V isits Requested Visits Authorized [id number] Closed Specialty Services Required 01/31/2023 01/31/2024 1 1 Reason for Visit * Reason Comments Follow-up 4 month f/u, Labs fo r cholesterol, pt is not fasting. May need Mri of lt shoulder pain x 1 year. Encounter Details Date Type Department Care Team (Late st Contact Info) Description 01/31/2023 10:45 AM EDT Office Visit [facility] [address] [place] [address] Velma Phillips APRN [address] [place] [address] Hyperlipidemia, unspecified hyperlipidemia type (Primary [...] psychotherapy, but she wants to go to [facility] in [place] like we previously discussed. She does not want to go to [facility]. She cannot travel to [place]. The following portions of the patient's history [...] for influenza vaccination - Fluzone High-Dose 65+yrs ([id number]) Patient opts to wait for psychotherapy to be available at [facility] here in [place], we will revisit referral at follow up. She declines [facility] or [facility] Referral. Hyperlipidemia - check labs as [...] [facility] [address] [place] [address] Jenny Lomeli PA [address] [place] [address] documented as of this encounter Procedures Procedure [...] 8:08 PM EDT Performed at: ??01 - [address] ??[id number] Staff Midwife/Apprenticeship Director: David Farnsworth MD, Phone: ??[phone] Patient Fasting: ??Y Velma Phillips APRN LAB BLOOD ORDERABLES Final R esult [facility] ([facility]) [address] [place] [address], [facility] [address] [place] [address], * (ABNORMAL) Comprehensive Metabolic Panel (01/31/2023 11:27 [...] 8:08 PM EDT Performed at: ??01 - [address] ??[id number] Staff Midwife/Apprenticeship Director: David Farnsworth MD, Phone: ??[phone] Patient Fasting: ??Y Velma Phillips APRN LAB BLOOD ORDERABLES Final R esult [facility] (AMBULATORY) [address] [id number], [place] [phone] [facility] [address] [place] [address], [place] [phone] documented in this encounter Visit Diagnoses Diagnosis [...] documented as of this encounter Care Teams Pocket Closer Relationship Specialty Start Date End Date Velma Phillips APRN PCP - General Family Medicine 10/16/22 10/10/23 documented as of this encounter
--- OUTSIDE RECORDS SUMMARY | 2024-03-05 16:56 | XMS_ITS | Encounter Summary ---
[facility] Address [address] [place] [address] Care Team Providers Care Rayon Tester Name Role Phone Kortney Woods MD Primary Care Provi kenny Reason for Visit * Reason Comments Follow-up not feeling well, fa arley zaman Encounter Details Date Type Department Care Team (Late st Contact Info) Description 12/29/2019 1:00 PM EDT Office Visit [facility] [address] [place] [address] Kortney Woods MD [address] [place] [address] Tremor (Primary Dx); Paranoia; Lipid screening; History [...] bothering her. She has never seen a process line operator nor been treated for rheumatoid arthritis. Also [...] autoimmune disease - FAVIOLA With / DsDNA, DIRECTOR MISSION, Sjogrens A / B, Faarh -patient says she was diagnosed with rheumatoid [...] Description 01/19/2025 3:00 PM EDT Office Visit [facility] [address] [place], [place] [address] Jenny Lomeli PA [address] [place], [place] [address] documented as of this encounter Procedures Procedure [...] Color Yellow Yellow, Straw, Dark Yellow, Velma [facility] Clarity, UA Clear Clear [facility] Specific [place] 1.000(A) 1.005 - 1.030 [facility] pH, Urine 7.0 5.0 - 8.0 [facility] Leukocytes Negative Negative [facility] Nitrite, UA Negative Negative [facility] Protein, POC Negative Negative mg/dL [facility] Glucose, UA Negative Negative, 1000 mg/dL (3+) mg/dL [facility] Ketones, UA Negative Negative [facility] Urobilinogen, UA Normal Normal [facility] Bilirubin Negative Negative [facility] Blood, UA Negative Negative [facility] Urine 12/29/2019 1:53 PM EDT Kortney Woods MD POINT OF CARE TEST ORDERABLES Final Result [facility]
[address] [place] [address], * FAVIOLA With / DsDNA, DIRECTOR MISSION, Sjogrens A / B, Farah (12/29/2019 1:45 PM EDT) FAVIOLA Direct Negative Negative [facility] Blood 12/29/2019 1:45 PM EDT 12/30/2019 Comment:BLOOD Narrative [facility] ([facility]) - 12/31/2019 2:09 PM EDT Performed at: ??02 - [facility] [address] ??[id number] Appraiser Land: Hawk Mireles PhD, Phone: ??[phone] Kortney Woods MD LAB BLOOD ORDERABLE S Final Result [facility] ([facility]) [address] [place] [address], [place] [phone] [facility] [address] [place] [address], [place] [phone] * (ABNORMAL) Lipid Panel (12/29/2019 1:45 PM EDT) Total Cholesterol 242(H) 0 - 200 mg/dL [facility] Triglycerides 229(H) 0 - 150 mg/dL [facility] HDL Cholesterol 45 40 - 60 mg/dL [facility] VLDL Cholesterol Naga 45.8 mg/dL [facility] LDL Chol Calc ([facility]) 151(H) 0 - 100 mg/dL [facility] Blood 12/29/2019 1:45 PM EDT 12/30/2019 Comment:BLOOD Narrative [facility] (AMBULATORY) - 12/31/2019 2:09 PM EDT Performed at: ??01 - [address] ??[id number] Appraiser [place]: aDvid Farnsworth MD, Phone: ??[phone] Kortney Woods MD LAB BLOOD ORDERABLE S Final Result Performing Organization Address [facility]/ZIP Co de Phone Number [facility] [address] [place] [address], [facility] [address] [place] [address], * RPR (12/29/2019 1:45 PM EDT) Pathologist [facility] RPR Non Reactive Non Reactive [facility] Blood 12/29/2019 1:45 PM EDT 12/30/2019 Comment:BLOOD Narrative [facility] (AMBULATORY) - 12/31/2019 2:09 PM EDT Performed at: ??02 - [facility] [address] [place] [address] ??[id number] Appraiser Land: Hawk Mireles PhD, Phone: ??[phone] Kortney Woods MD LAB BLOOD ORDERABLE S Final Result Performing Organization Address City/[facility]/ZIP Co de Phone Number [facility] (AMBULATORY) [address] [place] [address], [facility] [address] [place] [address], * HIV-1/O/2 Ag/Ab w Reflex (12/29/2019 1:45 PM EDT) Pathologist [facility] HIV Screen 4th Gen w/RFX (Reference) Non Reactive Non Reactive [facility] Blood 12/29/2019 1:45 PM EDT 12/30/2019 Comment:BLOOD Narrative [facility] (AMBULATORY) - 12/31/2019 2:09 PM EDT Performed at: ??02 - [facility] [address] [place], [place] ??[id number] Appraiser Land: Hawk Mireles PhD, Phone: ??[phone] Kortney Woods MD LAB BLOOD ORDERABLE S Final Result [facility] (AMBULATORY) [address] [place] [address], [facility] [address] [place] [address], [place] [phone] * Vitamin B12 (12/29/2019 1:45 PM EDT) Vitamin B-12 362 211 - 946 pg/mL [facility] Comment:Results may be false ly increased if patient taking Biotin. Blood 12/29/2019 1:45 PM EDT 12/30/2019 Comment:BLOOD Narrative [facility] (AMBULATORY) - 12/31/2019 2:09 PM EDT Performed at: ??01 - [address] ??[id number] Appraiser Land: David Farnsworth MD, Phone: ??[phone] Kortney Woods MD LAB BLOOD ORDERABLE S Final Result [facility] (AMBULATORY) [address] [place] [address], [place] [phone] [facility] [address] [place] [address], [place] [phone] * TSH (12/29/2019 1:45 PM EDT) TSH 2.740 0.270 - 4.200 uIU/mL [facility] Blood 12/29/2019 1:45 PM EDT 12/30/2019 Comment:BLOOD Narrative [facility] (AMBUL[facility]ORY) - 12/31/2019 2:09 PM EDT Performed at: ??01 - [address] [address] [address] [place], [place] ??[id number] Appraiser Land: David Farnsworth MD, Phone: ??[phone] Kortney Woods MD LAB BLOOD ORDERABLE S Final Result [facility] ([facility]) [address] [place] [address], [facility] [address] [place] [address], * (ABNORMAL) Comprehensive Metabolic Panel (12/29/2019 1:45 [...] 2:09 PM EDT Performed at: ??01 - [facility] [address] [place], [place] ??[id number] Appraiser Land: David Farnsworth MD, Phone: ??[phone] Kortney Woods MD LAB BLOOD ORDERABLE S Final Result [facility] ([facility]) [address] [id number], [facility] [address] [place] [address], * CBC (No Diff) (12/29/2019 1:45 PM EDT) [facility] WBC 4.83 3.40 - 10.80 10*3/mm3 [facility] [...] 2:09 PM EDT Performed at: ??01 - [facility] [address] [place], [place] ??[id number] Appraiser Land: David Farnsworth MD, Phone: ??[phone] Kortney Woods MD LAB BLOOD ORDERABLE S Final Result [facility] ([facility]) [address] [place] [address], [place] [phone] [facility] [address] [place] [address], [place] [phone] documented in this encounter Visit Diagnoses Diagnosis Tremor- Primary Abnormal involuntary movements Paranoia Delusional disorder Lipid screening Screening for lipoid disorders History of autoimmune disease Urinary frequency Need for influenza vaccination Need for prophylactic vaccination and inoculation against influenza documented in this encounter Care Teams Rayon Tester Relationship Specialty Start Date End Date Kortney Woods MD [address] [place] [address] PCP - General Internal Medicine 09/04/18 10/15/22 documented as of this encounter
--- OUTSIDE RECORDS SUMMARY | 2024-03-05 16:56 | XMS_ITS | Encounter Summary ---
[facility] Address [address] [place] [address] Care Team Providers Care Card Processing Clerk Name Role Phone Velma Phillips APRN Primary Care Provider [phone] Reason for Referral * Diagnostic Imaging (Routine) - Closed Specialty Diagnoses / Procedures Referred By Camila kirkland Referred To Contact Radiology Diagnoses Screening mammogram for breast cancer Procedures Mammo Screening Digital Tomosynthesis Bilateral With CAD Velma Phillips APRN Phone: tel: fax: [facility] [address] [place] [address] Phone: tel: Referral ID Status Reason Start Date Expiration Date Visits Re quested Visits Authorized [id number] Closed 01/31/2023 01/31/2024 1 1 Reason for Visit * Diagnostic Imaging (Routine) - Closed Specialty Diagnoses / Procedures Referred By Contac t Referred To Contact Radiology Diagnoses Screening mammogram for breast cancer Procedures Mammo Screening Digital Tomosynthesis Bilateral With Velma Murdock APRN Phone: tel: fax: [facility] [address] [place] [address] Phone: tel: Referral ID Status Reason Start Date Expiration Date Visits Re quested Visits Authorized [id number] Closed 01/31/2023 01/31/2024 1 1 Encounter Details Date Type Department Care Team (Latest Contact Info) Description 03/21/2023 1:44 PM EST - 03/21/2023 11:59 PM [facility] Hospital Encounter [facility] [address] [place] [address] Screening mammogram for breast cancer Discharge [...] Description 01/19/2025 3:00 PM EDT Office Visit [facility] [address] [place], [place] [address] Jenny Lomeli PA [address] [place], [place] [address] documented as of this encounter Procedures Procedure [...] documented as of this encounter Care Teams Card Processing Clerk Relationship Specialty Start Date End Date Velma Phillips APRN PCP - General Family Medicine 10/16/22 10/10/23 documented as of this encounter
--- OUTSIDE RECORDS SUMMARY | 2024-03-05 16:56 | XMS_ITS | Encounter Summary ---
Author Organization [facility] Address [address] [place] [address] Care Team Providers Care Dialysis Technician Name Role Phone Kortney Woods MD Primary Care Provi kenny Reason for Visit * Reason Comments Follow-up GERD, Insomnia Encounter Details Date Type Department Care Team (Late st Contact Info) Description 08/07/2019 9:00 AM EDT Office Visit [facility] PRIMARY CARE [address] [place] [address] Kortney Woods MD [address] [place] [address] Drug-induced constipation (Primary Dx); Abdominal [...] her abdomen so [facility] and was evaluatedthere. They did an [...] FAMILY MEDICINE [address] [place] [phone] Jenny Lomeli PA [address] [place] [address] documented as of this encounter Visit Diagnoses Diagnosis Drug-induced constipation- Primary Other constipation Abdominal cramping Abdominal pain, unspecified site documented in this encounter Care Teams Dialysis Technician Relationship Specialty Start Date End Date Kotrney Woods MD [address] [address] PCP - General Internal Medicine 09/04/18 10/15/22 documented as of this encounter
--- OUTSIDE RECORDS SUMMARY | 2024-03-05 16:56 | XMS_ITS | Encounter Summary ---
[facility] Address [address] [place] [address] Care Team Providers Care Development Administrator Name Role Phone Jenny Lomeli Primary Care Provider [phone] Reason for Referral * Diagnostic Imaging (Routine) - Closed Specialty Diagnoses / Procedures Referred By Contac t Referred To Contact Radiology Diagnoses Mass of skin of left shoulder Procedures US Nonvascular Extremity Limited Jenny Lomeli PA [address] [facility] [place] [address] Phone: tel: fax: [facility] [address] [place] [address] Phone: tel: Referral ID Status Reason Start Date Expiration Date Visits Re quested Visits Authorized [id number] Closed 10/14/2023 10/13/2024 1 1 Reason for [...] Description 10/14/2023 3:45 PM EDT Office Visit [facility] FAMILY MEDICINE [address] [place] [address] Jenny Lomeli PA [address] [place] [address] Cat bite, initial encounter (Primary [...] Patient asks about rabies vaccination. Contact [facility] offers Diclofenac for arthritic [...] Jenny Lomeli PA [address] [place] [address] documented as of this encounter Results * [...] MD 10/28/2023 11:09 AM EDT Workstation ID: [id number] Merged With [facility] 10/28/2023 11:09 AM EDT US NONVASCULAR [...] MD 10/28/2023 11:09 AM EDT Workstation ID: [id number] us Jenny NUR [facility] US ORDERABLES Final Result documented in this [...] documented as of this encounter Care Teams Development Administrator Relationship Specialty Start Date End Date Jenny Lomeli PA [address] [place] [address] [place] [address] PCP - General Physician Denture Waxer 10/11/23 documented as of this encounter
--- OUTSIDE RECORDS SUMMARY | 2024-03-05 16:56 | XMS_ITS | Encounter Summary ---
Author Organization [facility] Address [address] [place] [address] Care Team Providers Care Head Porter Name Role Phone Kortney Woods MD Primary Care Provi kenny Reason for Visit * Reason Comments Diarrhea Encounter Details Date Type Department Care Team (Late st Contact Info) Description 07/24/2019 2:00 PM EDT Office Visit [facility] PRIMARY CARE [address] [place] [address] Kortney Woods MD [address] [place] [address] Diarrhea, unspecified type (Primary Dx) [...] [facility] [address] [place] [address] Jenny Lomeli PA [address] [place] [address] documented as of this encounter Visit Diagnoses Diagnosis Diarrhea, unspecified type- Primary documented in this encounter Care Teams Head Porter Relationship Specialty Start Date End Date Kortney Woods MD [address] [place] [address] PCP - General Internal Medicine 09/04/18 10/15/22 documented as of this encounter
--- OUTSIDE RECORDS SUMMARY | 2024-03-05 16:56 | XMS_ITS | Encounter Summary ---
Author Organization [facility] Address [address] [place] [id number] Care Team Providers Care Distance Education Teacher Name Role Phone Velma Phillips APRN Primary Care Provider [phone] Reason for Visit * Reason Comments Follow-up [employer] gave her 2 mo nth extension. Has not went to get her MRI yet. Concerns with getting results back soon enough to go over before line. And Mammogram. May need refills Encounter Details Date Type Department Care Team (Late st Contact Info) Description 03/15/2023 2:45 PM EST Office Visit [facility] FAMILY MEDICINE [address] [place] [address] Velma Phillips APRN [address] [place] [id number] Hyperlipidemia, unspecified hyperlipidemia type (Primary Dx); Need [...] CENTER FAMILY MEDICINE [address] [place] [address] Jenny Lomeli PA [address] [place] [address] documented as of this encounter Procedures Procedure [...] 03/15/2023 3:06 PM EST 03/15/2023 Narrative [facility] (AMBULATORY) - 03/16/2023 9:10 AM EST Performed at: ??01 - [address] ??[id number] Hoof And Shoe Inspector: Hawk Mireles PhD, Phone: ??[phone] Patient Fasting: ??Y Velma Phillips APRN LAB BLOOD ORDERABLES Final R esult [facility] [address] [place] [address], [facility] [address] [place] [address], * Lipid Panel (03/15/2023 3:06 PM EST) Total Cholesterol 161 100 - 199 mg/dL [facility] Triglycerides 83 0 - 149 mg/dL [facility] HDL Cholesterol 52 >39 mg/dL [facility] VLDL Cholesterol Naga 16 5 - 40 mg/dL [facility] LDL Chol Calc ([facility]) 93 0 - 99 mg/dL [facility] Blood 03/15/2023 3:06 PM EST 03/15/2023 Narrative [facility] (AMBULATORY) - 03/16/2023 9:10 AM EST Performed at: ??01 - [facility] [place] [address], [place], [place] ??[id number] Hoof And Shoe Inspector: Hawk Mireles PhD, Phone: ??[phone] Patient Fasting: ??Y Velma Phillips APRN LAB BLOOD ORDERABLES Final R esult [facility] (AMBULATORY) [address] [place] [address], [place] [phone] [facility] [address] [place] [address], [place] [phone] documented in this encounter Visit Diagnoses Diagnosis Hyperlipidemia, unspecified hyperlipidemia type- Primary Need for pneumococcal vaccination Need for prophylactic vaccination against streptococcus pneumoniae (pneumococcus) Need for Tdap vaccination Need for prophylactic vaccination with combined msaoaprhbc-ciovxwx-yybvffrfv (DTP) vaccine Chronic left shoulder pain Pain in joint, shoulder region documented in this encounter Additional Health Concerns Infection Onset Date Last Indicated Resolved Time Norovirus 10/23/2022 10/23/2022 Assessment Noted Time PHQ-2 Depression Total Score: 3 10/17/19 23 1:57 PM EDT documented as of this encounter Care Teams Distance Education Teacher Relationship Specialty Start Date End Date Velma Phillips APRN PCP - General Family Medicine 10/16/22 10/10/23 documented as of this encounter
--- OUTSIDE RECORDS SUMMARY | 2024-03-05 16:56 | XMS_ITS | Encounter Summary ---
[facility] Address [address] [place] [address] Care Team Providers Care Director Strategic Account Management Name Role Phone Jenny Lomeli Primary Care Provider [phone] Reason for Referral * Consultation (Routine) - Authorized Specialty Diagnoses / Procedures Referred By Contac t Referred To Contact Orthopedic Surgery Diagnoses Chronic left shoulder pain Jenny Lomeli PA [address] [place] [address] Phone: tel: fax: Andrea Vela MD [address] [place] [address] Phone: tel: fax: Referral ID Status Reason Start Date Expiration Date Visits Requested Visits Authorized [id number] Authorized Specialty Services Required 01/14/2025 1 1 Scheduling Instructions Wants to see a different ortho office. Not [place]. Wants to stay in [place] Reason for Visit * Reason Comments Medicare Wellness-subsequent Med refills .Wants another ortho/? Does not care for Dr. Duke. Encounter Details Date Type Department Care Team (Latest Contact Info) Description 01/15/2024 3:00 PM EDT Office Visit [facility] FAMILY MEDICINE [address] [facility] [place] [phone] Jenny Lomeli PA [address] [place] [address] Medicare annual wellness visit, subsequent (Primary Dx); [...] Lomeli PA as PCP - General (Physician C Software Developer) Outpatient Medications Prior to Visit Medication Sig Dispense Refill atorvastatin (LIPITOR) 20 MG tablet Take 1 tablet by mouth Every Night. 90 tablet 3 ffiwihcv-sxrvoadvv-tcgralrgizcry (MAXITROL) 3.5-84003-4.1 ophthalmic suspension INSTILL 1 DROP INTOBOTH EYES [...] C SCREENING Completed Pneumococcal Vaccine 65+ Completed [facility] Preventative Services Quick Reference Risk Factors Identified [...] [facility] FAMILY MEDICINE [address] [facility] [place] [address] Jenny Lomeli PA [address] [place] [address] Scheduled Referrals Name Type Priority [...] 01/15/2024 4:17 PM EDT 01/15/2024 Narrative [facility] (AMBULATORY) - 01/16/2024 8:21 AM EDT Performed at: ??01 - [facility] [address] ??[id number] Assistant Education Director: Hawk Mireles PhD, Phone: ??[phone] Patient Fasting: ??Y Jenny NUR LAB BLOOD ORDERABLES Final Res ult [facility] (AMBULATORY) [address] [place] [address], [facility] [address] [place] [address], [place] [phone] * Vitamin B12 (01/15/2024 4:17 PM EDT) Vitamin B-12 407 232 - 1,245 pg/mL [facility] Blood 01/15/2024 4:17 PM EDT 01/15/2024 Narrative [facility] (AMBULATORY) - 01/16/2024 8:21 AM EDT Performed at: ??01 - [facility] ??[id number] Assistant Education Director: Hawk Mireles PhD, Phone: ??[phone] Patient Fasting: ??Y Jenny NUR LAB BLOOD ORDERABLES Final Res ult Performing Organization Address City/[facility]/ZIP Co de Phone Number [facility] [address] [place] [address], [place] [phone] [facility] [address] [place] [address], [place] [phone] * (ABNORMAL) Hemoglobin A1c (01/15/2024 4:17 PM EDT) Pathologist [facility] Hemoglobin A1C 5.8(H) 4.8 - 5.6 % [facility] Comment: ? Prediabetes: 5.7 - 6.4 ? Diabetes: >6.4 ? Glycemic control for adults with diabetes: <7.0 Blood 01/15/2024 4:17 PM EDT 01/15/2024 [facility] (AMBULATORY) - 01/16/2024 8:21 AM EDT Performed at: ??01 - [facility] ??[id number] Assistant Education Director: Hawk Mireles PhD, Phone: ??[phone] Patient Fasting: ??Y Jenny NUR LAB BLOOD ORDERABLES Final Res ult Performing Organization Address [facility] Co de Phone Number [facility] [address] [place] [address], [place] [phone] [facility] [address] [place] [address], [place] [phone] * (ABNORMAL) Vitamin D 25 hydroxy (01/15/2024 4:17 PM EDT) 25 Hydroxy, Vitamin D 28.5(L) 30.0 - 100.0 ng/mL [facility] Comment: Vitamin D deficiency has been defined by the [place] of Medicine and an Endocrine Society practice guideline as a level of serum 25-OH vitamin D less than 20 ng/mL (1,2). The Endocrine Society went on to further define vitamin D insufficiency as a level between 21 and 29 ng/mL (2). 1. IOM ([place] of Medicine). 2010. Dietary reference ?? intakes for calcium and D. [place]: The ?? National [employer] Press. 2. Raghu MF, Jamin SA[place], Drew COLEMAN, et al. ?? Evaluation, treatment, and prevention of vitamin D ?? deficiency: an Endocrine Society clinical practice ?? guideline. JCEM. 2010; 96(7):1911-30. Blood 01/15/2024 4:17 PM EDT 01/15/2024 Narrative [facility] - 01/16/2024 8:21 AM EDT Performed at: ??01 - [address] ??[id number] Assistant Education Director: Hawk Mireles PhD, Phone: ??[phone] Patient Fasting: ??Y Jenny NUR LAB BLOOD ORDERABLES Final Res ult [facility]) [address] [place] [address], [facility] [address] [place] [address], * (ABNORMAL) Lipid Panel (01/15/2024 4:17 PM EDT) Total Cholesterol 172 100 - 199 mg/dL [facility] Triglycerides 89 0 - 149 mg/dL [facility] HDL Cholesterol 53 >39 mg/dL [facility] VLDL Cholesterol Naga 16 5 - 40 mg/dL [facility] LDL Chol Calc ([facility]) 103(H) 0 - 99 mg/dL [facility] Blood 01/15/2024 4:17 PM EDT 01/15/2024 Narrative [facility] (AMBULATORY) - 01/16/2024 8:21 AM EDT Performed at: ??01 - [facility] [address] [place], [place] ??[id number] Assistant Education Director: Hawk Mireles PhD, Phone: ??[phone] Patient Fasting: ??Y us Jenny NUR LAB BLOOD ORDERABLES Final Res ult [facility] (AMBULATORY) [address] [place] [address], [facility] [address] [place] [address], * (ABNORMAL) Comprehensive metabolic panel (01/15/2024 4:17 [...] 01/15/2024 4:17 PM EDT 01/15/2024 Narrative [facility] (AMBULATORY) - 01/16/2024 8:21 AM EDT Performed at: ??01 - [facility] [address] [place], [place] ??[id number] Assistant Education Director: Hawk Mireles PhD, Phone: ??[phone] Patient Fasting: ??Y Jenny NUR LAB BLOOD ORDERABLES Final Res ult [facility] (AMBULATORY) [address] [place] [address], [facility] [address] [place] [address], * CBC w AUTO Differential (01/15/2024 4:17 [...] 01/15/2024 4:17 PM EDT 01/15/2024 Narrative [facility] (AMBULATORY) - 01/16/2024 8:21 AM EDT Performed at: ??01 - [facility] [place] [address] [place], [place] ??[id number] Assistant Education Director: Hawk Mireles PhD, Phone: ??[phone] Patient Fasting: ??Y Jenny NUR LAB BLOOD ORDERABLES Final Res ult [facility] (AMBULATORY) [address] [place] [address], [facility] [address] [place] [address], documented in this encounter Visit Diagnoses Diagnosis [...] as of this encounter Care Teams Director Strategic Account Management Relationship Specialty Start Date End Date Jenny Lomeli [place] [address] PCP - General Physician C Software Developer 10/11/23 documented as of this encounter
--- OUTSIDE RECORDS SUMMARY | 2024-03-05 16:56 | XMS_ITS | Encounter Summary ---
[facility] Address [address] [place] [id number] Care Team Providers Care Assembler Radio And Electrical Name Role Phone Jenny Lomeli Primary Care Provider [phone] Reason for Referral * Diagnostic Imaging (Routine) - Closed Specialty Diagnoses / Procedures Referred By Contac t Referred To Contact Radiology Diagnoses Mass of skin of left shoulder Procedures US Nonvascular Extremity Limited Jenny Lomeli PA [address] [place] [address] Phone: tel: fax: [facility] [place] [address] [place] [address] Phone: tel: Referral ID Status Reason Start Date Expiration Date Visits Re quested Visits Authorized [id number] Closed 10/14/2023 10/13/2024 1 1 Reason for Visit * Diagnostic Imaging (Routine) - Closed Specialty Diagnoses / Procedures Referred By Contac t Referred To Contact Radiology Diagnoses Mass of skin of left shoulder Procedures US Nonvascular Extremity Limited Jenny Lomeli PA [address] [place] [address] Phone: tel: fax: [facility] [place] [address] [place] [address] Phone: tel: Referral ID Status Reason Start Date Expiration Date Visits Re quested Visits Authorized [id number] Closed 10/14/2023 10/13/2024 1 1 Encounter Details Date Type Department Care Team (Latest Contact Info) Description 10/24/2023 3:50 PM EDT - 10/24/2023 11:59 PM EDT Hospital Encounter [facility] [place] [address] [place] [address] Jenny Lomeli PA [address] [place] [address] Mass of skin of left [...] mouth Every Night. 90 tablet 3 10/14/2023 rmfxdptn-revuudbyz-z examethasone (MAXITROL) 3.5-52616-8.1 ophthalmic suspension INSTILL 1 DROP INTO BOTH [...] [facility] FAMILY MEDICINE [address] [place] [address] Jenny Lomeli PA [address] [place] [address] documented as of this encounter Procedures [...] MD 10/28/2023 11:09 AM EDT Workstation ID: [id number] Narrative 10/28/2023 11:09 AM EDT US NONVASCULAR [...] MD 10/28/2023 11:09 AM EDT Workstation ID: [id number] us Jenny NUR [facility] US ORDERABLES Final Result documented in this encounter Visit Diagnoses Diagnosis Mass of skin of left shoulder documented in this encounter Additional Health Concerns Infection Onset Date Last Indicated Resolved Time Norovirus 10/23/2022 10/23/2022 Assessment Noted Time PHQ-2 Depression Total Score: 1 10/14/19 24 3:41 PM EDT documented as of this encounter Care Teams Assembler Radio And Electrical Relationship Specialty Start Date End Date [facility] [place] [address] PCP - General Physician Mandrel Cleaner 10/11/23 documented as of this encounter
--- OUTSIDE RECORDS SUMMARY | 2024-03-05 16:56 | XMS_ITS | Encounter Summary ---
[facility] Address [address] [place] [id number] Care Team Providers Care Drilling Engineer Name Role Phone Velma Phillips APRN Primary Care Provider [phone] Reason for Visit * Reason Onset Date Comments REFERRAL 02/25/2023 Encounter Details Date Type Department Care Team (Late st Contact Info) Description 02/25/2023 Telephone [facility] FAMILY MEDICINE [address] [place] [address] Velma Phillips APRN [address] [place] [id number] REFERRAL Social History Tobacco Use Types Packs/Day [...] ARE JUST WANTING PATIENTS MRI CHANGED TO [facility]. I TOLD HIM SINCE WE DIDN'T ORDER THE MRI (ORTHO OFFICE DID) THEY WOULD NEED TO CONTACT ORTHO PROVIDER. * Telephone Encounter - Aleshia Abrams - 02/25/2023 3:21 PM EST Caller: WAYLON HARDIN Relationship: Child Best call back number: [phone] What is the best time to reach you: ANY Who are you requesting to speak with (clinical staff, provider, specific staff member): NURSE Do you know the name of the person who called: SON What was the call regarding: SON WOULD LIKE ORTHOPEDIC REFERRAL TO [facility] DR RICHY CRAWFORD, DR SUSSY TERRELL OR DR AURELIA COYNE. POSSIBLE PHONE # [phone] Is it okay if the provider responds through MyChart: PHONE CALL PLEASE documented in this encounter Plan of Treatment Upcoming Encounters Date Type Department Care Team (Late st Contact Info) Description 01/19/2025 3:00 PM EDT Office Visit [facility] FAMILY MEDICINE [address] [place], [place] [address] Jenny Lomeli PA [address] [place], [place] [address] documented as of this encounter Visit Diagnoses Not on filedocumented in this encounter Additional Health Concerns Infection Onset Date Last Indicated Resolved Time Norovirus 10/23/2022 10/23/2022 Assessment Noted Time PHQ-2 Depression Total Score: 3 10/17/19 23 1:57 PM EDT documented as of this encounter Care Teams Drilling Engineer Relationship Specialty Start Date End Date Velma Phillips APRN PCP - General Family Medicine 10/16/22 10/10/23 documented as of this encounter
--- OUTSIDE RECORDS SUMMARY | 2024-03-05 16:56 | XMS_ITS | Encounter Summary ---
[facility] Address [address] [place] [address] Care Team Providers Care Refrigerating Oiler Name Role Phone Jenny Lomeli Primary Care Provider [phone] Encounter Details Date Type Department Care Team (Late st Contact Info) Description 10/16/2023 Telephone [facility] FAMILY MEDICINE [address] [place] [address] Jenny Lomeli PA [address] [place] [address] Social History Tobacco Use Types [...] [place] Relationship: Self Best call back number: [phone] What was the call regarding: RABIES SHOT. INSURANCE IS REQUESTING PATIENT GET A RABIES SHOT AT [facility] [place] [facility]. PATIENT WAS TOLD THAT IN ORDER FOR [...] CENTER FAMILY MEDICINE [address] [place] [address] Jenny Lomeli PA [address] [place] [address] documented as of this encounter Visit Diagnoses Not on filedocumented in this encounter Additional Health Concerns Infection Onset Date Last Indicated Resolved Time Norovirus 10/23/2022 10/23/2022 Assessment Noted Time PHQ-2 Depression Total Score: 1 10/14/19 24 3:41 PM EDT documented as of this encounter Care Teams Refrigerating Oiler Relationship Specialty Start Date End Date Jenny Lomeli PA [address] [place] [address] PCP - General Physician Unit Manager 10/11/23 documented as of this encounter
--- OUTSIDE RECORDS SUMMARY | 2024-03-05 16:56 | XMS_ITS | Encounter Summary ---
[facility] Address [address] [place] [address] Care Team Providers Care Acute Care Registered Nurse Name Role Phone Kortney Woods MD Primary Care Provi kenny Reason for Visit * Reason Onset Date Comments MED REFILLS 01/11/2020 Encounter Details Date Type Department Care Team (Late st Contact Info) Description 01/11/2020 Telephone [facility] PRIMARY [facility] [address] [place] [address] Kortney Woods MD [address] [place] [address] MED REFILLS Social History Tobacco Use Types [...] VOLTAREN NEEDED' [facility] DORITA: [phone] documented in this encounter Plan of Treatment Upcoming Encounters Date Type Department Care Team (Late st Contact Info) Description 01/19/2025 3:00 PM EDT Office Visit [facility] FAMILY MEDIC[facility] [address] [place] [address] Jenny Lomeli PA [address] [place] [address] documented as of this encounter Visit Diagnoses Diagnosis Primary insomnia Persistent disorder of initiating or maintaining sleep Gastroesophageal reflux disease Esophageal reflux documented in this encounter Care Teams Acute Care Registered Nurse Relationship Specialty Start Date End Date Kortney Woods MD [address] [place] [address] PCP - General Internal Medicine 09/04/18 10/15/22 documented as of this encounter
--- OUTSIDE RECORDS SUMMARY | 2024-03-05 16:56 | XMS_ITS | Encounter Summary ---
[facility] Address [address] [place] [address] Care Team Providers Care Ball Worker Name Role Phone Kortney Woods MD Primary Care Provi kenny Reason for Visit * Reason Onset Date Comments Med Refill 07/31/2019 Encounter Details Date Type Department Care Team (Late st Contact Info) Description 07/31/2019 Refill [facility] [address] [place] [phone] Kortney Woods MD [address] [place] [address] Diarrhea, unspecified type Social History Tobacco [...] 2 MG capsule Pharmacy confirmed- [facility] [address] [address] [facility] ADVISE documented in this encounter Plan of Treatment Upcoming Encounters Date Type Department Care Team (Late st Contact Info) Description 01/19/2025 3:00 PM EDT Office Visit [facility] [address] [place] [address] Jenny Lomeli PA [address] [place], [place] [id number] documented as of this encounter Visit Diagnoses Diagnosis Diarrhea, unspecified type documented in this encounter Care Teams Ball Worker Relationship Specialty Start Date End Date Kortney Woods MD [address] [address] PCP - General Internal Medicine 09/04/18 10/15/22 documented as of this encounter
--- OUTSIDE RECORDS SUMMARY | 2024-03-05 16:56 | XMS_ITS | Encounter Summary ---
Author Organization [facility] Address [address] [place] [address] Care Team Providers Care Regional Property Manager Name Role Phone Velma Phillips APRN Primary Care Provider [phone] Reason for Referral * Consultation (Routine) - Closed Specialty Diagnoses / Procedures Referred By Contkarlee t Referred To Contact Vascular Surgery Diagnoses Superficial varicosities Procedures LA OFFICE/OUTPATIENT NEW MODERATE MDM 45-59 MINUTES Velma Phillips APRN Phone: tel: fax: Mikel Varma MD [address] [place] [address] [place] [address] Phone: tel: fax: Referral ID Status Reason Start Date Expiration Date V isits Requested Visits Authorized [id number] Closed Specialty Services Required 10/16/2022 10/16/2023 1 1 Reason for Visit * Reason Comments Establish Care Needs for pcpCyst on left arm (shoulder) since 2019 Encounter Details Date Type Department Care Team (Late st Contact Info) Description 10/16/2022 2:00 PM EDT Office Visit [facility] FAMILY MEDICINE [address] [place] [address] Velma Phillips APRN [address] [place] [address] Superficial varicosities (Primary Dx); PTSD [...] Visit [facility] [address] [place] [address] [...] 12:0 2 PM EDT 10/19/2022 Narrative [facility] (AMBULATORY) - 10/20/2022 5:14 AM EDT Performed at: ??01 - [address] ??[id number] Collar Turner: Hawk Mireles PhD, Phone: ??[phone] Patient Fasting: ??Y Velma Phillips APRN LAB BLOOD ORDERABLES Final R esult [facility] (AMBULATORY) [address] [place] [address], [facility] [address] [place] [address], * (ABNORMAL) Lipid Panel (10/19/2022 12:02 PM EDT) Total Cholesterol 230(H) 100 - 199 mg/dL [facility] Triglycerides 134 0 - 149 mg/dL [facility] HDL Cholesterol 60 >39 mg/dL [facility] VLDL Cholesterol Naga 24 5 - 40 mg/dL [facility] LDL Chol Calc (NIH) 146(H) 0 - 99 mg/dL [facility] Blood 10/19/2022 12:0 2 PM EDT 10/19/2022 Narrative [facility] (AMBULATORY) - 10/20/2022 5:14 AM EDT Performed at: ??01 - [facility] [address] [facility] [place], [place] ??[id number] Collar Turner: Hawk Mireles PhD, Phone: ??[phone] Patient Fasting: ??Y Velma Meyermaribel Phillips APRN LAB BLOOD ORDERABLES Final R esult [facility] (AMBULATORY) [address] [place] [address], [facility] [address] [place] [address], * (ABNORMAL) CBC & Differential (10/19/2022 12:02 [...] AM EDT Performed at: ??01 - [facility] [address] [place] [address] ??[id number] Collar Turner: Hawk Mireles PhD, Phone: ??[phone] Patient Fasting: ??Y Velma Phillips APRN LAB BLOOD ORDERABLES Final R esult [facility] (AMBULATORY) [address] [place] [address], [place] [phone] [facility] [address] [place] [address], [place] [phone] documented in this encounter Visit Diagnoses Diagnosis [...] documented as of this encounter Care Teams Regional Property Manager Relationship Specialty Start Date End Date Velma Phillips APRN PCP - General Family Medicine 10/16/22 10/10/23 documented as of this encounter
--- OUTSIDE RECORDS SUMMARY | 2024-03-05 16:56 | XMS_ITS | Encounter Summary ---
Author Organization [facility] Address [address] [place] [id number] Care Team Providers Care Taker Off Braker Machine Name Role Phone Velma Phillips APRN Primary Care Provider [phone] Reason for Visit * Reason Onset Date Comments Stool order 10/16/2022 Encounter Details Date Type Department Care Team (Late st Contact Info) Description 10/16/2022 Telephone [facility] FAMILY MEDICINE [address] [place] [address] Velma Phillips APRN [address] [place] [phone] Stool order Social History Tobacco Use Types [...] [facility] FAMILY MEDICINE [address] [place] [address] Jenny Lomeli PA [address] [place] [address] documented as of this encounter Visit Diagnoses Not on filedocumented in this encounter Additional Health Concerns Assessment Noted Time PHQ-2 Depression Total Score: 3 10/17/19 23 1:57 PM EDT documented as of this encounter Care Teams Taker Off Braker Machine Relationship Specialty Start Date End Date Velma Phillips APRN PCP - General Family Medicine 10/16/22 10/10/23 documented as of this encounter
--- OUTSIDE RECORDS SUMMARY | 2024-03-05 16:56 | XMS_ITS | Encounter Summary ---
[facility] Organization [facility] Address [address] [place] [address] Care Team Providers Care Rewinder Name Role Phone Jenny Lomeli Primary Care Provider [phone] Encounter Details Date Type Department Care Team (Late st Contact Info) Description 10/18/2023 Telephone [facility] FAMILY MEDICINE [address] [place] [address] Jenny Lomeli PA [address] [place] [address] Social History Tobacco Use Types [...] PM EDT INFORMED PATIENT TO GO TO [facility] IN THE ER TO COMPLETE THE RABIES SHOT * Telephone Encounter - Keily Jimenez MA - 10/23/2023 1:07 PM EDT Pt states she needs a referral to [facility] in order for her to get rabies shots * Telephone Encounter - Keily Jimenez MA - 10/21/2023 2:14 PM EDT LVM * Telephone Encounter - Jenny Lomeli PA - 10/21/2023 7:58 AM EDT Patient was not referred to [facility] or hospital as we knew they would not be able to help, she was provided contact information for [facility] who we called ahead and they noted they could help facilitate rabies vaccinations. Did she reach out to them? * Telephone Encounter - Pat Brice RegSched Rep - 10/18/2023 4:38 PM EDT PATIENT WAS SEEN FOR AN ANIMAL BITE, SHE STATED THAT SHE WAS TOLD TO GO TO [facility] AND THEY COULD HELP WITH HER GETTING A RABIES SHOT. SHE SAID THEY SENT HER TO [facility] BUT THERE OFFICE TOLD HER SHE WOULD NEED A REFERRAL FROM HER PCP BEFORE HER INSURANCE WOULD COVER THE SHOT PLEASE ADVISE documented in this encounter Plan of Treatment Upcoming Encounters Date Type Department Care Team (Late st Contact Info) Description 01/19/2025 3:00 PM EDT Office Visit [facility] FAMILY MEDICINE [address] [place] [address] Jenny Lomeli PA [address] [place] [address] documented as of this encounter Visit Diagnoses Not on filedocumented in this encounter Additional Health Concerns Infection Onset Date Last Indicated Resolved Time Norovirus 10/23/2022 10/23/2022 Assessment Noted Time PHQ-2 Depression Total Score: 1 10/14/19 24 3:41 PM EDT documented as of this encounter Care Teams Rewinder Relationship Specialty Start Date End Date Jenny Lomeli PA [address] [place] [address] PCP - General Physician Bus Cleaner 10/11/23 documented as of this encounter
--- OUTSIDE RECORDS SUMMARY | 2024-03-05 16:56 | XMS_ITS | Encounter Summary ---
Author Organization [facility] Address [address] [place] [address] Care Team Providers Care House Steward/Stewardess Name Role Phone Velma Phillips APRN Primary Care Provider [phone] Reason for Visit * Reason Comments Med Refill Encounter Details Date Type Department Care Team (Late st Contact Info) Description 04/17/2023 Refill [facility] FAMILY MEDICINE [address] [place] [address] Velma Phillips APRN [address] [place], [place] [address] Hyperlipidemia, unspecified hyperlipidemia type Social History Tobacco [...] Description 01/19/2025 3:00 PM EDT Office Visit [facility] FAMILY MEDICINE [address] [facility] [place] [phone] Jenny Lomeli PA [address] [place] [address] documented as of this encounter Visit Diagnoses Diagnosis Hyperlipidemia, unspecified hyperlipidemia type documented in this encounter Additional Health Concerns Infection Onset Date Last Indicated Resolved Time Norovirus 10/23/2022 10/23/2022 Assessment Noted Time PHQ-2 Depression Total Score: 3 10/17/19 23 1:57 PM EDT documented as of this encounter Care Teams House Steward/Stewardess Relationship Specialty Start Date End Date Velma Phillips APRN PCP - General Family Medicine 10/16/22 10/10/23 documented as of this encounter
--- OUTSIDE RECORDS SUMMARY | 2024-03-05 16:56 | XMS_ITS | Encounter Summary ---
Author Organization [facility] Address [address] [place] [address] Care Team Providers Care Drafter Geological Name Role Phone Kortney Woods MD Primary Care Provi kenny Reason for Visit * Reason Onset Date Comments ORDER FOR BLOOD WORK 12/23/2019 Encounter Details Date Type Department Care Team (Late st Contact Info) Description 12/23/2019 Telephone [facility] PRIMARY CARE [address] [place] [phone] Kortney Woods MD [address] [place] [address] ORDER FOR BLOOD WORK Social [...] WilfredDorita Relationship: Self Best call back number: [phone] What orders are you requesting (i.e. lab or imaging): BLOOD WORK In what timeframe would the patient need to come in: BEFORE HER APPOINTMENT ON 12/29/2019 Where will you receive your lab/imaging services: [facility] Additional notes: NA documented in this encounter Plan of Treatment Upcoming Encounters Date Type Department Care Team (Late st Contact Info) Description 01/19/2025 3:00 PM EDT Office Visit [facility] FAMILY MEDICINE [address] [place] [address] Jenny Lomeli PA [address] [place] [address] documented as of this encounter Visit Diagnoses Not on filedocumented in this encounter Care Teams Drafter Geological Relationship Specialty Start Date End Date Kortney Woods MD [address] [place] [address] PCP - General Internal Medicine 09/04/18 10/15/22 documented as of this encounter
--- OUTSIDE RECORDS SUMMARY | 2024-03-05 16:57 | XMS_ITS | Encounter Summary ---
Author Organization [facility] Address [address] [place] [address] Care Team Providers Care Senior Speech Pathologist Name Role Phone Sariah Benson MD Primary Care Provider Ninfa vailable Reason for Visit * (Routine) - Closed Specialty Diagnoses / Procedures Referred By Contac t Referred To Contact Radiology Diagnoses Arthritis Procedures XR Shoulder 2+ View Bilateral Sariah Benson MD Referral ID Status Reason Start Date Expiration Date Visits Re quested Visits Authorized [id number] Closed 11/21/2017 11/21/2018 1 1 Encounter Details Date Type Department Care Team (Latest Contact Info) Description 12/18/2017 9:42 AM EDT - 12/18/2017 11:59 PM EDT Hospital Encounter [facility] XRAY AT [address] [address] Sariah Benson MD Discharge Disposition: [...] FAMILY MEDICINE [address] [place] [address] Jenny Lomeli PA [address] [place] [address] documented as of this encounter Procedures [...] on filedocumented in this encounter Care Teams Senior Speech Pathologist Relationship Specialty Start Date End Date Sariah Benson MD PCP - General 12/10/14 09/03/18 documented as of this encounter
--- OUTSIDE RECORDS SUMMARY | 2024-03-05 16:57 | XMS_ITS | Encounter Summary ---
Author [facility] Address [address] [place] [address] Care Team Providers Care Project Manager/Team Coach Name Role Phone Sariah Benson MD Primary Care Provider Ninfa vailable Reason for Visit * Reason Onset Date Comments Med Refill 10/18/2017 Encounter Details Date Type Department Care Team (Late st Contact Info) Description 10/18/2017 Telephone [facility] PRIMARY CARE [address] [place] [address] [facility] [address] [place] [address] Sariah Benson MD Med Refill [...] 10/18/2017 10:45 AM EDT Rx faxed to [facility] mail in * Telephone Encounter - Yecenia Ortiz - 10/18/2017 10:13 AM EDT Pt needs a refill on diclofenac and omeprazole. [facility] documented in this encounter Plan of Treatment Upcoming Encounters Date Type Department Care Team (Late st Contact Info) Description 01/19/2025 3:00 PM EDT Office Visit [facility] FAMILY MEDICINE [address] [place] [phone] Jenny Lomeli PA [address] [place], [place] [phone] documented as of this encounter Visit Diagnoses Not on filedocumented in this encounter Care Teams Project Manager/Team Coach Relationship Specialty Start Date End Date Sariah Benson MD PCP - General 12/10/14 09/03/18 documented as of this encounter
--- OUTSIDE RECORDS SUMMARY | 2024-03-05 16:57 | XMS_ITS | Encounter Summary ---
Author Organization [facility] Address [address] [place] [address] Care Team Providers Care Combination Welder Name Role Phone Kortney Woods MD Primary Care Provi kenny Reason for Visit * Reason Onset Date Comments kaylyn 02/16/2019 order Encounter Details Date Type Department Care Team (Late st Contact Info) Description 02/16/2019 Telephone [facility] PRIMARY CARE [address] [place] [phone] Kortney Woods MD [address] [place] [phone] kaylyn (order ) Social History Tobacco Use [...] date up for her mammogram. Please call [facility] back documented in this encounter Plan of Treatment Upcoming Encounters Date Type Department Care Team (Late st Contact Info) Description 01/19/2025 3:00 PM EDT Office Visit [facility] FAMILY MEDICINE [address] [place] [phone] Jenny Lomeli PA [address] [phone] documented as of this encounter Visit Diagnoses Not on filedocumented in this encounter Care Teams Combination Welder Relationship Specialty Start Date End Date Kortney Woods MD [address] [address] PCP - General Internal Medicine 09/04/18 10/15/22 documented as of this encounter
--- OUTSIDE RECORDS SUMMARY | 2024-03-05 16:57 | XMS_ITS | Encounter Summary ---
Author [facility] Address [address] [place] [address] Care Team Providers Care Sales Applications Engineer Name Role Phone Kortney Woods MD Primary Care Provi kenny Reason for Referral * Consultation (Routine) - Canceled Specialty Diagnoses / Procedures Referred By Contac t Referred To Contact Diagnoses Skin mass Kortney Woods MD [address] [place] [address] Phone: tel: fax: Chidi Coyle MD [address] [facility] ATTN: [place] [address] Phone: tel: fax: Referral ID Status Reason Start Date Expiration Date Visits Requested Visits Authorized [id number] Canceled Specialty Services Required 09/08/2018 09/08/2019 1 1 Reason for Visit * Reason Comments Depression Encounter Details Date Type Department Care Team (Late st Contact Info) Description 09/08/2018 1:30 PM EDT Office Visit [facility] PRIMARY CARE [address] [place] [phone] Kortney Woods MD [address] [place] [address] Decreased GFR (Primary Dx); Skin [...] letter stating such. Wants referral to [facility] for left shoulder mass (likely lipoma). [...] [facility] FAMILY MEDICINE [address] [place] [address] Jenny Lomeli PA [address] [address] Scheduled Referrals Name Type Priority [...] 4:06 AM EDT Performed at: ??01 - [address] ??[id number] Thermal Cutting Machine Operator: David Farnsworth MD, Phone: ??[phone] oKrtney oWods MD LAB BLOOD ORDERABLE S Final Result [facility] (AMBULATORY) [address] [place] [address], [facility] [address] [place] [address], documented in this encounter Visit Diagnoses Diagnosis Decreased GFR- Primary Skin mass Localized superficial swelling, mass, or lump documented in this encounter Care Teams Sales Applications Engineer Relationship Specialty Start Date End Date Kortney Woods MD [address] [address] PCP - General Internal Medicine 09/04/18 10/15/22 documented as of this encounter
--- OUTSIDE RECORDS SUMMARY | 2024-03-05 16:57 | XMS_ITS | Encounter Summary ---
[facility] Address [address] [place] [address] Care Team Providers Care Z Os Mainframe Systems Programmer Name Role Phone Sariah Benson MD Primary Care Provider Ninfa vailable Reason for Visit * Reason Onset Date Comments Med Refill 07/28/2018 Encounter Details Date Type Department Care Team (Late st Contact Info) Description 07/28/2018 Refill [facility] PRIMARY CARE [address] [place] [address] [address] [place] [address] Sariah Benson MD Primary insomnia [...] DAYS OF HER AMBIEN 10 MG TO [facility]. SHE REC. THE DICLOFENAC BUT NOTTHE AMBIEN. PLEASE CALL HER AT [phone] documented in this encounter Plan of Treatment Upcoming Encounters Date Type Department Care Team (Late st Contact Info) Description 01/19/2025 3:00 PM EDT Office Visit [facility] FAMILY MEDICINE [address] [place] [address] Jenny Lomeli PA [address] [place] [address] documented as of this encounter Visit Diagnoses Diagnosis Primary insomnia Persistent disorder of initiating or maintaining sleep documented in this encounter Care Teams Z Os Mainframe Systems Programmer Relationship Specialty Start Date End Date Sariah Benson MD PCP - General 12/10/14 09/03/18 documented as of this encounter
--- OUTSIDE RECORDS SUMMARY | 2024-03-05 16:57 | XMS_ITS | Encounter Summary ---
Author Organization [facility] Address [address] [place] [address] Care Team Providers Care Clinical Rehabilitation Coordinator Name Role Phone Kortney Woods MD Primary Care Provi kenny Encounter Details Date Type Department Care Team (Late st Contact Info) Description 12/19/2018 Telephone [facility] [address] [facility] [facility] [address] [place] [address] Christine Huertas, AUTO TESTER [address] [facility] [address] [place] [address] Social History Tobacco Use Types [...] [facility] FAMILY MEDICINE [address] [place] [phone] Jenny Lomeli PA [address] [place], [place] [phone] documented as of this encounter Visit Diagnoses Not on filedocumented in this encounter Care Teams Clinical Rehabilitation Coordinator Relationship Specialty Start Date End Date Kortney Woods MD [address] [facility] [address] [place] [address] PCP - General Internal Medicine 09/04/18 10/15/22 documented as of this encounter
--- OUTSIDE RECORDS SUMMARY | 2024-03-05 16:57 | XMS_ITS | Encounter Summary ---
Author Organization [facility] Address [address] [place] [address] Care Team Providers Care Ceo And President Name Role Phone Sariah Benson MD Primary Care Provider Ninfa vailable Encounter Details Date Type Department Care Team (Late st Contact Info) Description 05/20/2017 Telephone [facility] PRIMARY CARE [address] [facility] [address] [place] [address] Sariah Benson MD Social History [...] [facility] FAMILY [facility] [address] [address] Jenny Lomeli PA [address] [place] [address] documented as of this encounter Visit Diagnoses Not on filedocumented in this encounter Care Teams Ceo And President Relationship Specialty Start Date End Date Sariah Benson MD PCP - General 12/10/14 09/03/18 documented as of this encounter
--- OUTSIDE RECORDS SUMMARY | 2024-03-05 16:57 | XMS_ITS | Encounter Summary ---
Author Organization [facility] Address [address] [place] [address] Care Team Providers Care Product Marketing Manager Name Role Phone Sariah Benson MD Primary Care Provider Ninfa vailable Reason for Referral * (Routine) - Closed Specialty Diagnoses / Procedures Referred By Contac isael Referred To Contact Radiology Diagnoses Arthritis Procedures XR Shoulder 2+ View Bilateral Sariah Benson MD Referral ID Status Reason Start Date Expiration Date Visits Re quested Visits Authorized [id number] Closed 11/21/2017 11/21/2018 1 1 Reason for Visit * Reason Comments Shoulder Pain Encounter Details Date Type Department Care Team (Late Contact Info) Description 11/21/2017 1:45 PM EDT Office Visit [facility] PRIMARY CARE [address] [place] [address] Sariah Benson MD Arthritis (Primary Dx) Social [...] and EGD in past as screening by Draw Furnace Tender. 3. PSYCH- insomnia. Pt has taken ambien longterm, 0-2x/wk. Will take it if stressed, especially ifshe has to leave the house the next day. Rx for #30 x3 lasts 1yr. At her last visit pt was behavingoddly and reported being ???persecuted[facility] at [facility]. The following portions of the [...] Description 01/19/2025 3:00 PM EDT Office Visit [facility] MEDICINE [address] [place], [place] [address] Jenny Lomeli PA [address] [address] documented as of this encounter [...] unspecified documented in this encounter Care Teams Product Marketing Manager Relationship Specialty Start Date End Date Saraih Benson MD PCP - General 12/10/14 09/03/18 documented as of this encounter
--- OUTSIDE RECORDS SUMMARY | 2024-03-05 16:57 | XMS_ITS | Encounter Summary ---
Author Organization [facility] Address [address] [place] [address] Care Team Providers Care Marketing Copywriter Name Role Phone Sariah Benson MD Primary Care Provider Ninfa vailable Encounter Details Date Type Department Care Team (Late st Contact Info) Description 05/07/2014 Office Visit Con[facility] PRIMARY CARE [address] [facility] [address] [place] [address] Sariah Benson MD Social History [...] documented in this encounter Progress Notes * Sariha Benson MD - 05/07/2014 10:45 AM EST Chief Complaint BACK PAIN, GET ESTAB History of Present Illness HPI: New patient, here to establ. Has back pain. Pt just seen on 05/04/[address] Waldrop for back painand pelvic pressure. Was diagnosed with OA with LBP and bladder prolapse. Has had hysterectomy. Hasseen Dr Mahoney in [place] for her CPE. Pt did not want [...] 06/10/2014 01:00 PM Sariah Benson Family Medicine [facility] PRIMARY CARE [address] The patient was [...] FAMILY MEDICINE [address] [place] [phone] Jenny Lomeli PA [address] [place], [place] [phone] documented as of this encounter Visit Diagnoses Not on filedocumented in this encounter Care Teams Marketing Copywriter Relationship Specialty Start Date End Date Sariah Benson MD PCP - General 12/10/14 09/03/18 documented as of this encounter
--- OUTSIDE RECORDS SUMMARY | 2024-03-05 16:57 | XMS_ITS | Encounter Summary ---
[facility] Address [address] [place] [address] Care Team Providers Care Research Assistant Name Role Phone Sariah Benson MD Primary Care Provider Ninfa vailable Encounter Details Date Type Department Care Team (Late st Contact Info) Description 06/10/2014 Office Visit Converted [facility] [address] [facility] [address] [place] [address] Sariah Benson MD Social History [...] EGD in past as screening, ordered by Parking Lot Supervisor. No issues. Has had GERD in the [...] 12/13/2014 01:00 PM Sariah Benson Family Medicine [facility] [address] Signatures Electronically signed by : Sariah Benson, ; Jun 10 2014 2:23PM EST (Author) documented in this encounter Plan of Treatment Upcoming Encounters Date Type Department Care Team (Late st Contact Info) Description 01/19/2025 3:00 PM EDT Office Visit [facility] [address] [phone] Jenny Lomeli PA [address] [place] [address] documented as of this encounter Visit Diagnoses Not on filedocumented in this encounter Care Teams Research Assistant Relationship Specialty Start Date End Date Sariah Benson MD PCP - General 12/10/14 09/03/18 documented as of this encounter
--- OUTSIDE RECORDS SUMMARY | 2024-03-05 16:57 | XMS_ITS | Encounter Summary ---
[facility] Address [address] [place] [address] Care Team Providers Care Gravel Truck Driver Name Role Phone Sariah Benson MD Primary Care Provider Ninfa vailable Reason for Referral * Diagnostic Imaging (Routine) - Closed Specialty Diagnoses / Procedures Referred By Contac t Referred To Contact Radiology Diagnoses Screening for breast cancer Procedures Mammo Screening Digital Tomosynthesis Bilateral With CAD Sariah Benson MD [address] [address] Phone: tel: Referral ID Status Reason Start Date Expiration Date Visits Re quested Visits Authorized [id number] Closed 02/06/2018 02/06/2019 1 1 * Diagnostic Imaging (Routine) - Closed Specialty Diagnoses / Procedures Referred By Contac t Referred To Contact Radiology Diagnoses Menopause Procedures DEXA Bone Density Axial Sariah Benson MD [address] [address] Phone: tel: Referral ID Status Reason Start Date Expiration Date Visits Re quested Visits Authorized [id number] Closed 02/06/2018 02/06/2019 1 1 Reason for Visit * Reason Comments Annual Exam Encounter Details Date Type Department Care Team (Late st Contact Info) Description 02/06/2018 1:15 PM EST Office Visit [facility] [address] [place] [phone] Sariah Benson MD Annual physical exam (Primary [...] and EGD in past as screening by Core Dipper. 3. PSYCH- insomnia. Pt has taken ambien ferry terminal supervisor, 0-2x/wk. Will take it if stressed, especially ifshe has to leave the house the next day. Rx for #30 x3 lasts 1yr. At her last visit pt was behavingoddly and reported being ???persecuted?? at [facility]. 4. W- initial SCREENING: Bone Density: 2016 Colonoscopy: past ordered by Core Dipper (Dr Mahoney) in 2016. No fam hx [...] PA [address] [place], [place] [address] documented as of this encounter Procedures Procedure [...] fall-prevention measurements. The National Osteoporosis Foundation recommends (http://www.nof.org/hcp/practice/kxdiufao-qro-dwupvrvo-guidelines/clinic ans-guide) that FDA-approved medical therapies be considered [...] the left hip with 95% confidence is 0.346369 gm/cm2 at the hip and 0.234817 g/cm2 at the lumbar spine. This report [...] fall-prevention measurements. The National Osteoporosis Foundation recommends (http://www.nof.org/hcp/practice/kjycsini-ijl-kvysrkiy-guidelines/clinic ans-guide) that FDA-approved medical therapies be considered [...] the left hip with 95% confidence is 0.404665 gm/cm2 at the hip and 0.275628 g/cm2 at the lumbar spine. This report [...] with a HCV Nucleic Acid Amplification test ([id number]). Blood 02/06/2018 02/07/2018 Comment:BLOOD Narrative [facility] (AMBULATORY) - 02/07/2018 10:16 AM EST Performed at: ??01 - [facility] [address] ??[id number] Ophthalmologist Retina Specialist: Hawk Mireles PhD, Phone: ??[phone] Sariah Benson MD LAB BLOOD ORDERABLES Final Result [facility] ([facility]) [address] [place] [address], [facility] [address] [place] [address], [place] [phone] documented in this encounter Visit Diagnoses Diagnosis Annual physical exam- Primary Routine general medical examination at a health care facility Menopause Symptomatic menopausal or female climacteric states Immunization due documented in this encounter Care Teams Gravel Truck Driver Relationship Specialty Start Date End Date Sariah Benson MD PCP - General 12/10/14 09/03/18 documented as of this encounter
--- OUTSIDE RECORDS SUMMARY | 2024-03-05 16:57 | XMS_ITS | Encounter Summary ---
Author Organization [facility] Address [address] [place] [address] Care Team Providers Care Answerer Name Role Phone Sariah Benson MD Primary Care Provider Ninfa vailable Reason for Referral * Consultation (Routine) - Closed Specialty Diagnoses / Procedures Referred By Contkarlee kirkland Referred To Contact Dermatology Diagnoses Skin mass Kortney Woods MD [address] [place] [address] Phone: tel: fax: [facility] [address] [place] [address] [address] [place] [address] Phone: tel: fax: Referral ID Status Reason Start Date Expiration Date V isits Requested Visits Authorized [id number] Closed Specialty Services Required 08/20/2018 08/20/2019 1 1 Reason for Visit * Reason Comments Shoulder Pain Encounter Details Date Type Department Care Team (Late st Contact Info) Description 08/20/2018 2:45 PM EDT Office Visit [facility] [address] [place] [address] Kortney Woods MD [address] [place] [address] Skin mass (Primary Dx); Screening [...] over her body. Her ex lives in [place] but he has a lot of money [...] Visit [facility] [address] [place] [address] [...] 08/20/2018 Comment:BLOOD MANUAL DIFFERE N Narrative [facility] (AMBULATORY) - 08/21/2018 3:07 AM EDT Performed at: ??01 - [address] ??[id number] Investments Manager: David Farnsworth MD, Phone: ??[phone] Kortney Woods MD LAB BLOOD ORDERABLE S Final Result [facility] (AMBULATORY) [address] [place] [address], [facility] [address] [place] [address], * (ABNORMAL) Comprehensive Metabolic Panel (08/20/2018 3:09 [...] 3:07 AM EDT Performed at: ??01 - [address] ??[id number] Investments Manager: David Farnsworth MD, Phone: ??[phone] Kortney Woods MD LAB BLOOD ORDERABLE S Final Result [facility] (AMBULATORY) [address] [place] [id number], [facility] [address] [place] [address], * (ABNORMAL) CBC & Differential (08/20/2018 3:09 [...] 3:07 AM EDT Performed at: ??01 - [address] ??[id number] Investments Manager: David Farnsworth MD, Phone: ??[phone] Performed at: ??02 - [address] ??[id number] Investments Manager: Brady Zendejas MD, Phone: ??[phone] Kortney Woods MD LAB BLOOD ORDERABLE S Edited Result - Final [facility] (AMBULATORY) [address] [place] [address], [place] [phone] [facility] [address] [place] [address], [place] [phone] documented in this encounter Visit Diagnoses Diagnosis Skin mass- Primary Localized superficial swelling, mass, or lump Screening for cardiovascular condition Screening for other and unspecified cardiovascular conditions Diarrhea, unspecified type Weakness Other malaise and fatigue documented in this encounter Care Teams Answerer Relationship Specialty Start Date End Date Sariah Benson MD PCP - General 12/10/14 09/03/18 documented as of this encounter
--- OUTSIDE RECORDS SUMMARY | 2024-03-05 16:57 | XMS_ITS | Encounter Summary ---
[facility] Address [address] [place] [address] Care Team Providers Care Industrial Energy Engineer Name Role Phone Sariah Benson MD Primary Care Provider Ninfa vailable Encounter Details Date Type Department Care Team (Late st Contact Info) Description 12/13/2014 Office Visit Converted [facility] [address] [facility] [address] [place] [address] Sariah Benson MD Social History [...] EGD in past as screening, ordered by Fur Sorter. No issues. Has had GERD in the past and done well with zantac. Current started after she took some aleve. Was started onomeprazole and this did well. Was advised to continue this as long as she was on NSAID, sim as she is now on diclofenac for back pain. Was encouarged to keep her screening colonoscopy as ordered by Fur Sorter as part of her CPE. Today pt [...] Today pt reports she has taken ambien fdc, 0-2x/wk. Usually needs it when she will [...] flare, the less problem she should have fdc. 2. ORTHO- arthritis- improved. discussed hand stretches. [...] [facility] [address] [facility] [place] [address] Jenny Lomeli PA [address] [place] [address] documented as of this encounter Visit Diagnoses Not on filedocumented in this encounter Care Teams Industrial Energy Engineer Relationship Specialty Start Date End Date Sariah Benson MD PCP - General 12/10/14 09/03/18 documented as of this encounter
--- OUTSIDE RECORDS SUMMARY | 2024-03-05 16:57 | XMS_ITS | Encounter Summary ---
[facility] [address] [place] [address] Care Team Providers Care Herbicide Sprayer Name Role Phone Sariah Benson MD Primary Care Provider Ninfa vailable Reason for Visit * Reason Onset Date Comments Mammo Order 10/07/2017 Encounter Details Date Type Department Care Team (Late st Contact Info) Description 10/07/2017 Telephone [facility]ARE [address] [place] [address] [facility] [address] [place] [address] Sariah Benson MD Mammo Order [...] PM EDT Per pt chart she sees ANALYTICS SPECIALIST and will need to get order from them. Thanks! * Telephone Encounter - Madina Storey - 10/07/2017 12:36 PM EDT PATIENT WANTED TO KNOW IF SHE COULD A REFERRAL TO GET A MAMMOGRAM AT [address] [place] [address]. documented in this encounter Plan of Treatment Upcoming Encounters Date Type Department Care Team (Late st Contact Info) Description 01/19/2025 3:00 PM EDT Office Visit [facility] [address] [place] [phone] Jenny Lomeli PA [address] [place] [phone] documented as of this encounter Visit Diagnoses Not on filedocumented in this encounter Care Teams Herbicide Sprayer Relationship Specialty Start Date End Date Sariah Benson MD PCP - General 12/10/14 09/03/18 documented as of this encounter
--- OUTSIDE RECORDS SUMMARY | 2024-03-05 16:57 | XMS_ITS | Encounter Summary ---
[facility] Address [address] [place] [id number] Care Team Providers Care Director Of Curriculum Name Role Phone Kortney Woods MD Primary Care Provi kenny Encounter Details Date Type Department Care Team (Late st Contact Info) Description 09/10/[address] [facility]ARE [address] [place] [address] Kortney Woods MD [address] [place] [address] Social History Tobacco Use Types Packs/Day Years [...] PM EDT Office Visit [facility] [address] [address] Jenny Lomeli PA [address] [place], [place] [phone] documented as of this encounter Visit Diagnoses Not on filedocumented in this encounter Care Teams Director Of Curriculum Relationship Specialty Start Date End Date Kortney Woods MD [address] [place] [address] PCP - General Internal Medicine 09/04/18 10/15/22 documented as of this encounter
--- OUTSIDE RECORDS SUMMARY | 2024-03-05 16:57 | XMS_ITS | Encounter Summary ---
[facility] Address [address] [place] [id number] Care Team Providers Care Ambulatory Services Representative Name Role Phone Kortney Woods MD Primary Care Provi kenny Encounter Details Date Type Department Care Team (Late st Contact Info) Description 10/13/2018 Telephone [facility]ARE [address] [place] [address] Kortney Woods MD [address] [place] [address] Social History Tobacco Use Types Packs/Day Years [...] 3:27 PM EDT Medication approved. Sent into [facility] [employer] mail * Telephone Encounter - Ann Schafer - 10/13/2018 2:40 PM EDT OMEPRAZOLE 20MG 90 #[facility] documented in this encounter Plan of Treatment Upcoming Encounters Date Type Department Care Team (Late st Contact Info) Description 01/19/2025 3:00 PM EDT Office Visit [facility] [address] [place] [phone] Jenny Lomeli PA [address] [place] [address] documented as of this encounter Visit Diagnoses Diagnosis Gastroesophageal reflux disease, esophagitis presence not specified- Primary documented in this encounter Care Teams Ambulatory Services Representative Relationship Specialty Start Date End Date Kortney Woods MD [address] [place] [address] PCP - General Internal Medicine 09/04/18 10/15/22 documented as of this encounter
--- OUTSIDE RECORDS SUMMARY | 2024-03-05 16:57 | XMS_ITS | Encounter Summary ---
[facility] [address] [place] [address] Care Team Providers Care Tellers Supervisor Name Role Phone Kortney Woods MD Primary Care Provi kenny Reason for Visit * Reason Comments Depression Encounter Details Date Type Department Care Team (Late st Contact Info) Description 01/12/2019 10:30 AM EDT Office Visit [facility] [address] [place] [address] Kortney Woods MD [address] [place] [address] Current moderate episode of major [...] not able to afford to go to [facility] due to copay of $180. She wants [...] Not able to afford to go to [facility] right now so will table that [...] for influenza vaccination - Fluad Tri 65yr ([id number]) Sophia Noriega MA documented in this encounter Plan of Treatment Upcoming Encounters Date Type Department Care Team (Late st Contact Info) Description 01/19/2025 3:00 PM EDT Office Visit [facility] [address] [place] [place] [address] Jenny Lomeli PA [address] [place] [address] documented as of this encounter Visit Diagnoses Diagnosis Current moderate episode of major depressive disorder without prior episode- Primary Paranoia Delusional disorder Need for influenza vaccination Need for prophylactic vaccination and inoculation against influenza Abdominal bloating Flatulence, eructation, and gas pain documented in this encounter Care Teams Tellers Supervisor Relationship Specialty Start Date End Date Kortney Woods MD [address] [place] [address] PCP - General Internal Medicine 09/04/18 10/15/22 documented as of this encounter
--- OUTSIDE RECORDS SUMMARY | 2024-03-05 16:57 | XMS_ITS | Encounter Summary ---
[facility] Address [address] [place] [address] Care Team Providers Care Pole Incisor Operator Name Role Phone Sariah Benson MD Primary Care Provider Ninfa vailable Reason for Visit * Reason Comments Leg Pain Encounter Details Date Type Department Care Team (Late st Contact Info) Description 05/01/2017 10:00 AM EST Office Visit [facility] [address] [place] [address] Sariah Benson MD Primary insomnia [...] and EGD in past as screening by Equipment Operator Warehouse. 3. PSYCH- insomnia. 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 Will take it if stressed, especially [...] [facility] [address] [place] [phone] Jenny Lomeli PA [address] [place] [address] documented as of this encounter Visit Diagnoses Diagnosis Primary insomnia- Primary Persistent disorder of initiating or maintaining sleep Arthritis Unspecified arthropathy, site unspecified documented in this encounter Care Teams Pole Incisor Operator Relationship Specialty Start Date End Date Sariah Benson MD PCP - General 12/10/14 09/03/18 documented as of this encounter
--- OUTSIDE RECORDS SUMMARY | 2024-03-05 16:57 | XMS_ITS | Encounter Summary ---
[facility] [address] [place] [address] Care Team Providers Care Track Car Operator Name Role Phone Kortney Woods MD Primary Care Provi kenny Reason for Visit * Reason Onset Date Comments CS-Meds Re-Fill 04/10/2019 Encounter Details Date Type Department Care Team (Late st Contact Info) Description 04/10/2019 Telephone [facility] [address] [place] [address] Kortney Woods MD [address] [place] [address] CS-Meds Re-Fill Social History Tobacco [...] [employer] Mail Delivery, confirmed Patient Call Back [phone] documented in this encounter Plan of Treatment Upcoming Encounters Date Type Department Care Team (Late st Contact Info) Description 01/19/2025 3:00 PM EDT Office Visit [facility] [address] [place] [phone] Jenny Lomeli PA [address] [facility] [place] [address] documented as of this encounter Visit Diagnoses Diagnosis Primary insomnia Persistent disorder of initiating or maintaining sleep documented in this encounter Care Teams Track Car Operator Relationship Specialty Start Date End Date Kortney Woods MD [address] [place] [address] PCP - General Internal Medicine 09/04/18 10/15/22 documented as of this encounter
--- OUTSIDE RECORDS SUMMARY | 2024-03-05 16:57 | XMS_ITS | Encounter Summary ---
Author Organization [facility] Address [address] [place] [phone] Care Team Providers Care Tester Wafer Substrate Name Role Phone Sariah Benson MD Primary Care Provider Ninfa vailable Reason for Visit * Diagnostic Imaging (Routine) - Closed Specialty Diagnoses / Procedures Referred By Contac t Referred To Contact Radiology Diagnoses Menopause Procedures DEXA Bone Density Axial Sariah Benson MD [address] [address] Phone: tel: Referral ID Status Reason Start Date Expiration Date Visits Re quested Visits Authorized [id number] Closed 02/06/2018 02/06/2019 1 1 Encounter Details Date Type Department Care Team (Latest Contact Info) Description 03/13/2018 1:11 PM EST - 03/13/2018 11:59 PM [facility] Hospital [facility] [place] [address] Sariah Benson MD Discharge Disposition: Home or [...] [facility] [address] [place], [place] [address] Jenny Lomeli PA [address] [place] [address] documented as of this encounter Procedures Procedure [...] fall-prevention measurements. The National Osteoporosis Foundation recommends (http://www.nof.org/hcp/practice/lfagyrqm-okn-qjnqjicr-guidelines/clinic ans-guide) that FDA-approved medical therapies be considered [...] the left hip with 95% confidence is 0.229476 gm/cm2 at the hip and 0.063087 g/cm2 at the lumbar spine. This report [...] fall-prevention measurements. The National Osteoporosis Foundation recommends (http://www.nof.org/hcp/practice/rrxiwaln-gms-ovtjxtfp-guidelines/clinic ans-guide) that FDA-approved medical therapies be considered [...] the left hip with 95% confidence is 0.487528 gm/cm2 at the hip and 0.924597 g/cm2 at the lumbar spine. This report was finalized on 03/13/2018 4:[address] Leida Wilkinson MD. Sariah Benson MD IMG DXA ORDERABLES Final R esult documented in this encounter Visit Diagnoses Not on filedocumented in this encounter Care Teams Tester Wafer Substrate Relationship Specialty Start Date End Date Sariah Benson MD PCP - General 12/10/14 09/03/18 documented as of this encounter
--- OUTSIDE RECORDS SUMMARY | 2024-03-05 16:57 | XMS_ITS | Encounter Summary ---
[facility] Address [address] [place] [address] Care Team Providers Care Turf Manager Name Role Phone Kortney Woods MD Primary Care Provi kenny Reason for Visit * Reason Onset Date Comments Med Refill 12/04/2018 Encounter Details Date Type Department Care Team (Late st Contact Info) Description 12/04/2018 Refill [facility]IMARY [facility]ARE [address] [place] [address] Kortney Woods MD [address] [place] [address] Social History Tobacco Use Types [...] [facility] [address] [place] [phone] Jenny Lomeli PA [address] [place] [address] documented as of this encounter Visit Diagnoses Not on filedocumented in this encounter Care Teams Turf Manager Relationship Specialty Start Date End Date Kortney Woods MD [address] [address] PCP - General Internal Medicine 09/04/18 10/15/22 documented as of this encounter
--- OUTSIDE RECORDS SUMMARY | 2024-03-05 16:57 | XMS_ITS | Encounter Summary ---
[facility] [address] [place] [address] Care Team Providers Care Precision Market Insights Name Role Phone Sariah Benson MD Primary Care Provider Ninfa vailable Encounter Details Date Type Department Care Team (Late st Contact Info) Description 06/13/2015 Office Visit Converted [facility] PRIMARY [facility]ARE [address] [facility] [address] [place] [address] Sariah Benson MD Social History [...] and EGD in past as screening by Lime Sludge Mixer with no issues.Was startedon omeprazole prn, sim [...] 3. PSYCH- insomnia. Pt has taken ambien detention, 0-2x/wk. Usually needs it when she will [...] Description 01/19/2025 3:00 PM EDT Office Visit [facility] [address] [place] [address] Jenny Lomeli PA [address] [place] [address] documented as of this encounter Visit Diagnoses Not on filedocumented in this encounter Care Teams Precision Market Insights Relationship Specialty Start Date End Date Sariah Benson MD PCP - General 12/10/14 09/03/18 documented as of this encounter
--- OUTSIDE RECORDS SUMMARY | 2024-03-05 16:57 | XMS_ITS | Encounter Summary ---
Author Organization [facility] Address [address] [id number] Care Team Providers Care Commissary Clerk Name Role Phone Kortney Woods MD Primary Care Provi kenny Reason for Visit * Reason Comments Memory Loss * Consultation (Routine) - Closed Specialty Diagnoses / Procedures Referred By Contac t Referred To Contact Neurology Diagnoses Memory loss Kortney Woods MD [address] [facility] 200 [place] [address] Phone: tel: fax: Christine Huertas, ELEMENTARY EDUCATION TEACHER [address] [facility] [address] [place] [address] Phone: tel: fax: Referral ID Status Reason Start Date Expiration Date V isits Requested Visits Authorized [id number] Closed Specialty Services Required 11/26/2018 11/26/2019 1 1 Encounter Details Date Type Department Care Team (Late st Contact Info) Description 12/15/2018 3:00 PM EDT Office Visit [facility] [address] [facility] [address] [place] [address] Christine Huertas, ELEMENTARY EDUCATION TEACHER [address] [facility] [address] [place] [address] Intermittent confusion (Primary Dx); Paranoid behavior; Poor [...] She basically tells me she lives in [facility] housing and is concerned that while [...] will tell her friends or even the fleet manager/dispatch of the housing facility and they tell [...] 2012 but when she moved to the [facility] in December 2017 she felt like this [...] Ambien as needed. She is from the [facility] and came to [place] 1982. She tells me in the [facility] she was a college graduate and majored [...] Right achilles: 2+ Left achilles: 2+ Right cognos lead: 2+ Left cognos lead: 2+ Right plantar: normal Left plantar: normal [...] She has normal strength. She has a [id number]-[id number] Test, a normal Heel to Voss Test [...] term memory Comments: MMSE 27/30 today, 06/01 [facility] Orders: - EEG Awake or Drowsy Routine; [...] Other Reviewed [] Records Requested [] EMR Dragon/Clinical Account Liaison Disclaimer: Much of this encounter note is an electronic crew dispatcher of spoken language to printed text. Electronic crew dispatcher of spoken language may permit erroneous words [...] FAMILY MEDICINE [address] [place] [address] Jenny Lomeli PA [address] [place] [address] documented as of this encounter Procedures [...] 12/16/2018 Comment:BLOOD MANUAL DIFFERE N Narrative [facility] (AMBULATORY) - 12/18/2018 4:09 PM EDT Performed at: ??01 - [facility] ??[id number] [employer] Professional Sports: Hawk Mireles PhD, Phone: ??[phone] [facility] LAB BLOOD ORDERABLES Fi nal Result [facility] (AMBULATORY) [address] [place] [address], [place] [phone] [facility] [address] [place] [address], [place] [phone] * Microscopic Examination - (12/16/2018 12:00 AM EDT) WBC, UA 0-5 0 - 5 /hpf [facility] RBC, UA None seen 0 - 2 /hpf [facility] Epithelial Cells (non renal) 0-10 0 - 10 /hpf [facility] Bacteria, UA Few None seen/Few [facility] 12/16/2018 12/16/2018 Comment:BLOOD MANUAL DIFFERE N Narrative [facility] (AMBULATORY) - 12/18/2018 4:09 PM EDT Performed at: ??01 - [facility] [address] ??[id number] [employer]: Hawk Mireles PhD, Phone: ??[phone] Christine Banger ELEMENTARY EDUCATION TEACHER URINE ORDERABLES Final Result Performing Organization Address City/[facility]/ZIP Co de Phone Number [facility] (AMBULATORY) [address] [place] [address], [facility] [address] [place] [address], * Urinalysis With Culture If Indicated - Urine, Clean Catch (12/16/2018 12:00 AM EDT) Specific [place], UA 1.019 1.005 - 1.030 [facility] [...] 4:09 PM EDT Performed at: ??01 - [facility] ??[id number] [employer]: Hawk Mireles PhD, Phone: ??[phone] Christineamadeo Banger ELEMENTARY EDUCATION TEACHER URINE ORDERABLES Final Result Performing Organization Address City/[facility]/ZIP Co de Phone Number [facility] [address] [place] [address], [facility] [address] [place] [address], * Homocysteine (12/16/2018 12:00 AM EDT) Pathologist [facility] Homocystine, Plasma (Quant) 9.0 0.0 - 15.0 umol/L [facility] Blood 12/16/2018 12/16/2018 Comment:BLOOD MANUAL DIFFERE N Narrative [facility] (AMBULATORY) - 12/18/2018 4:09 PM EDT Performed at: ??01 - [address] ??[id number] [employer]: Hawk Mireles PhD, Phone: ??[phone] [facility] BLOOD ORDERABLES Fi nal Result Performing Organization Address [facility] de Phone Number [facility] ([facility]) [address] [place] [address], [facility] [address] [place] [address], * Methylmalonic Acid, Serum (12/16/2018 12:00 AM EDT) Pathologist [facility] Methylmalonic Acid 168 0 - 378 nmol/L [facility] Disclaimer: Comment [facility] Comment: This test was developed and its performance characteristics determined by [facility]. It has not been cleared or approved by the Food and Drug Administration. Blood 12/16/2018 12/16/2018 Comment:BLOOD MANUAL DIFFERE N Narrative [facility] (AMBULATORY) - 12/18/2018 4:09 PM EDT Performed at: ??02 - [address] ??[id number] [employer]: Brenna Patel MD, Phone: ??[phone] [facility] BLOOD ORDERABLES Fi nal Result Performing Organization Address [facility] Co de Phone Number [facility] ([facility]) [address] [place] [address], [facility] [address] [place] [address], [place] [phone] * Thyroid Panel With TSH (12/16/2018 12:00 AM EDT) Pathologist [facility] TSH 2.360 0.450 - 4.500 uIU/mL [facility] T4, Total 7.6 4.5 - 12.0 ug/dL [facility] T3 Uptake 26 24 - 39 % [facility] Free Thyroxine Index 2.0 1.2 - 4.9 [facility] Blood 12/16/2018 12/16/2018 Comment:BLOOD MANUAL DIFFERE N Abel [facility] (AMBULATORY) - 12/18/2018 4:09 PM EDT Performed at: ??01 - [facility] ??[id number] [employer]: Hawk Mireles PhD, Phone: ??[phone] Christine Givens [facility] LAB BLOOD ORDERABLES nal Result [facility] [address] [place] [address], [facility] [address] [place] [address], [place] [phone] * Vitamin B12 & Folate (12/16/2018 12:00 AM EDT) [facility] Vitamin B-12 542 232 - 1,245 pg/mL [facility] Folate 17.4 >3.0 ng/mL [facility] Comment: A serum folate concentration of less than 3.1 ng/mL is considered to represent clinical deficiency. Blood 12/16/2018 12/16/2018 Comment:BLOOD MANUAL DIFFERE N Narrative [facility] (AMBULATORY) - 12/18/2018 4:09 PM EDT Performed at: ??01 - [facility] ??[id number] [employer]: Hawk Mireles PhD, Phone: ??[phone] Christine Huertas ELEMENTARY EDUCATION TEACHER LAB BLOOD ORDERABLES Fi nal Result [facility] ([facility]UL[facility]) [address] [place] [address], [place] [phone] [facility] [address] [place] [address], [place] [phone] * (ABNORMAL) CBC & Differential (12/16/2018 12:00 [...] 12/16/2018 Comment:BLOOD MANUAL DIFFERE N Narrative [facility] (AMBULATORY) - 12/18/2018 4:09 PM EDT Performed at: ??01 - [facility] [place] [address] [place], [place] ??[id number] [employer]: Hawk Mireles PhD, Phone: ??[phone] Christine Givens Huertas ELEMENTARY EDUCATION TEACHER LAB BLOOD ORDERABLES Fi nal Result [facility] (AMBULATORY) [address] [place] [address], [facility] [address] [place] [address], * Comprehensive Metabolic Panel (12/16/2018 12:00 AM [...] 12/16/2018 Comment:BLOOD MANUAL DIFFERE N Narrative [facility] (AMBULATORY) - 12/18/2018 4:09 PM EDT Performed at: ??01 - [facility] [address] ??[id number] [employer]: Hawk Mireles PhD, Phone: ??[phone] Christine Huertas APRN LAB BLOOD ORDERABLES Fi nal Result [facility] (AMBULATORY) [address] [place] [address], [facility] [address] [place] [address], documented in this encounter Visit Diagnoses Diagnosis Intermittent confusion- Primary Paranoid behavior Poor short term memory Memory loss Personal history of other diseases of the circulatory system documented in this encounter Care Teams Commissary Clerk Relationship Specialty Start Date End Date Kortney Woods MD [address] [place] [address] PCP - General Internal Medicine 09/04/18 10/15/22 documented as of this encounter
--- OUTSIDE RECORDS SUMMARY | 2024-03-05 16:57 | XMS_ITS | Encounter Summary ---
Author Organization [facility] Address [address] [place] [address] Care Team Providers Care Glass Or Mirror Inspector Name Role Phone Kortney Woods MD Primary Care Provi kenny Reason for Visit * Reason Onset Date Comments Med Refill 04/13/2019 Encounter Details Date Type Department Care Team (Late st Contact Info) Description 04/13/2019 Refill [facility] [address] [place] [address] Kortney Woods MD [address] [place] [address] Primary insomnia Social History Tobacco [...] [facility] [address] [place] [address] Jenny Lomeli PA [address] [place] [address] documented as of this encounter Visit Diagnoses Diagnosis Primary insomnia Persistent disorder of initiating or maintaining sleep documented in this encounter Care Teams Glass Or Mirror Inspector Relationship Specialty Start Date End Date Kortney Woods MD [address] [address] PCP - General Internal Medicine 09/04/18 10/15/22 documented as of this encounter
--- OUTSIDE RECORDS SUMMARY | 2024-03-05 16:57 | XMS_ITS | Encounter Summary ---
Author Organization [facility] Address [address] [place] [address] Care Team Providers Care Distance Learning Technician Name Role Phone Sariah Benson MD Primary Care Provider Ninfa vailable Encounter Details Date Type Department Care Team (Late st Contact Info) Description 05/04/2014 Office Visit Converted [facility] [address] [facility] [address] [place] [address] Shelley Waldrop MD [address] [place] [address] 9 [place] [address] Social History Tobacco Use Types [...] 05/07/2014 10:45 AM Sariah Benson Family Medicine [facility] [address] Signatures Electronically signed by : Shelley Waldrop M.D.; May 07 2014 9:33AM EST (Author) documented in this encounter Plan of Treatment Upcoming Encounters Date Type Department Care Team (Late st Contact Info) Description 01/19/2025 3:00 PM EDT Office Visit [facility] [address] [place] [address] Jenny Lomeli PA [address] [place], [place] [id number] documented as of this encounter Visit Diagnoses Not on filedocumented in this encounter Care Teams Distance Learning Technician Relationship Specialty Start Date End Date Sariah Benson MD PCP - General 12/10/14 09/03/18 documented as of this encounter
--- OUTSIDE RECORDS SUMMARY | 2024-03-05 16:57 | XMS_ITS | Encounter Summary ---
Author Organization [facility] Address [address] [place] [address] Care Team Providers Care Auto Body Repair Estimator Name Role Phone Kortney Woods MD Primary Care Provi kenny Reason for Referral * Behavorial Health/Psych (Routine) - Canceled Specialty Diagnoses / Procedures Referred By Camila kirkland Referred To Contact Psychiatry Diagnoses Paranoia Anxiety Kortney Woods MD [address] [place] [address] Phone: tel: fax: [facility] [address] [place] [address] [address] [place] [address] Phone: tel: fax: Referral ID Status Reason Start Date Expiration Date Visits Requested Visits Authorized [id number] Canceled Specialty Services Required 11/26/2018 11/26/2019 1 1 * Consultation (Routine) - Closed Specialty Diagnoses / Procedures Referred By Camila t Referred To Contact Neurology Diagnoses Memory loss Kortney Woods MD [address] [place] [address] Phone: tel: fax: Christine Huertas, CHEMICAL RADIATION TECHNICIAN [address] [facility] [address] [place] [address] Phone: tel: fax: Referral ID Status Reason Start Date Expiration Date V isits Requested Visits Authorized [id number] Closed Specialty Services Required 11/26/2018 11/26/2019 1 1 Reason for Visit * Reason Comments Follow-up shaky Encounter Details Date Type Department Care Team (Late st Contact Info) Description 11/26/2018 2:30 PM EDT Office Visit [facility] [address] [place] [address] Kortney Woods MD [address] [place] [address] Memory loss (Primary Dx); Breast [...] thinks it was her ex.He lives in [place] and she has not seen him in a long time, but thinks it could be only him. Shehas not seen him in the apt. She had a camera and said that someone covered it up so she couldn't see when someone came in. She has called the police, told friends, neighbors, and her apt projects manager. Many (or most) of them have told her she is a psycho, psychotic, demented. The radiologic technologist mammogram recently rec she ge t checked out [...] itself, but it's in the ddx Paranoia ([facility]) - Ambulatory Referral to Psychiatry Anxiety - Ambulatory Referral to Psychiatry Breast cancer screening - Mammo Screening Digital Tomosynthesis Bilateral With CAD documented in this encounter Plan of Treatment Upcoming Encounters Date Type Department Care Team (Late st Contact Info) Description 01/19/2025 3:00 PM EDT Office Visit [facility] [address] [place] [phone] Jenny Lomeli PA [address] [place] [address] Scheduled Referrals Name Type Priority Associated Diagnoses Order Schedule Ambulatory Referral to Neurology Outpatient Referral Routine Memory loss Ordered: 11/26/2018 Ambulatory Referral to Psychiatry Outpatient Referral Routine Paranoia Anxiety Ordered: 11/26/2018 documented as of this encounter Visit Diagnoses Diagnosis Memory loss- Primary Breast cancer screening Breast screening, unspecified Paranoia Delusional disorder Anxiety Anxiety state, unspecified documented in this encounter Care Teams Auto Body Repair Estimator Relationship Specialty Start Date End Date Kortney Woods MD [address] [facility] [address] [place] [address] PCP - General Internal Medicine 09/04/18 10/15/22 documented as of this encounter
--- OUTSIDE RECORDS SUMMARY | 2024-03-05 16:57 | XMS_ITS | Encounter Summary ---
[facility] [address] [place] [address] Care Team Providers Care Battery Wrecker Operator Name Role Phone Sariah Benson MD Primary Care Provider Ninfa vailable Reason for Visit * Reason Onset Date Comments Med Refill 07/09/2018 Encounter Details Date Type Department Care Team (Late st Contact Info) Description 07/09/2018 Refill [facility] [address] [place] [address] [address] [place] [address] Sariah Benson MD Primary insomnia [...] Description 01/19/2025 3:00 PM EDT Office Visit [facility] [address] [place], [place] [address] Jenny Lomeli PA [address] [place], [place] [address] documented as of this encounter Visit Diagnoses Diagnosis Primary insomnia Persistent disorder of initiating or maintaining sleep documented in this encounter Care Teams Battery Wrecker Operator Relationship Specialty Start Date End Date Sariah Benson MD PCP - General 12/10/14 09/03/18 documented as of this encounter
--- OUTSIDE RECORDS SUMMARY | 2024-03-05 16:57 | XMS_ITS | Encounter Summary ---
Author Organization [facility] Address [address] [place] [address] Care Team Providers Care Veterans Services Specialist Name Role Phone Sariah Benson MD Primary Care Provider Ninfa vailable Encounter Details Date Type Department Care Team (Late st Contact Info) Description 04/26/2015 Office Visit Converted [facility] [address] [facility] [address] [place] [address] Sariah Benson MD Social History [...] a month ago she went to the music cataloguer due to eye allergies. Had her eyes [...] ORTHO- rotator cuff sprain. edu re the [facility] on injury discussed. to do home [...] 06/13/2015 01:00 PM Sariah Benson Family Medicine [facility] [address] Signatures Electronically signed by : Sariah Benson, ; Apr 26 2015 12:26PM EST (Author) documented in this encounter Plan of Treatment Upcoming Encounters Date Type Department Care Team (Late st Contact Info) Description 01/19/2025 3:00 PM EDT Office Visit [facility] [address] [place] [address] Jenny Lomeli PA [address] [place] [address] documented as of this encounter Visit Diagnoses Not on filedocumented in this encounter Care Teams Veterans Services Specialist Relationship Specialty Start Date End Date Sariah Benson MD PCP - General 12/10/14 09/03/18 documented as of this encounter
--- OUTSIDE RECORDS SUMMARY | 2024-03-05 16:57 | XMS_ITS | Encounter Summary ---
[facility] [address] [place] [address] Care Team Providers Care Credit Control Manager Name Role Phone Sariah Benson MD Primary Care Provider Ninfa vailable Encounter Details Date Type Department Care Team (Late st Contact Info) Description 08/05/2014 Telephone Converted [facility] H[facility] [address] [place] [address] ProviderPamela MD [address] [place] [address] Social History Tobacco Use Types Packs/Day [...] Assigned To: Payton Alcantar Regarding Patient: DORITA HARDNI, Status: Active Comment: [place] Shah - 03 Aug 2014 1:08 PM TASK CREATED Caller: Self; General Medical Question; ; xCELL (Work) Patient called and would like to know is she could have a Mammogram done at [address] [place] [address] ([facility]- [phone]) Please advise Thank you! Patient can be reached at if needed [phone] Payton Alcantar - 03 Aug 2014 3:48 [...] two times and has CPE done with SERVICE OPERATIONS MANAGER. Is this okay to order through us or does she need to ask SERVICE OPERATIONS MANAGER for this? Sariah Benson - 04 Aug 2014 12:15 PM TASK EDITED has to come from Cement Production Plant Operator.Payton Ruiz - 04 Aug 2014 12:21 PM TASK REASSIGNED: Previously Assigned To Payton Alcantar Jamie - 04 Aug 2014 3:12 PM TASK EDITED s/w patient she stated she called SERVICE OPERATIONS MANAGER they stated for her to call us. Please advise patient at [phone] (Patient stated she will try and call SERVICE OPERATIONS MANAGER again) documented in this encounter Plan of Treatment Upcoming Encounters Date Type Department Care Team (Late st Contact Info) Description 01/19/2025 3:[address]T Office Visit [facility] [address] [place] [address] Jenny Lomeli PA [address] [place] [address] documented as of this encounter Visit Diagnoses Not on filedocumented in this encounter Care Teams Credit Control Manager Relationship Specialty Start Date End Date Sariah Benson MD PCP - General 12/10/14 09/03/18 documented as of this encounter
--- OUTSIDE RECORDS SUMMARY | 2024-03-05 16:57 | XMS_ITS | Encounter Summary ---
[facility] Address [address] [id number] Care Team Providers Care Custom Tailor Name Role Phone Kortney Woods MD Primary Care Provi kenny Encounter Details Date Type Department Care Team (Late st Contact Info) Description 02/17/2019 Telephone [facility] [address] [place] [address] Kortney Woods MD [address] [place] [address] Social History Tobacco Use Types Packs/Day Years [...] EST CALLING BACK ABOUT HER MAMMOGRAM RESULTS [phone] documented in this encounter Plan of Treatment Upcoming Encounters Date Type Department Care Team (Late st Contact Info) Description 01/19/2025 3:00 PM EDT Office Visit [facility] [address] [place] [address] Jenny Lomeli PA [address] [place] [address] documented as of this encounter Visit Diagnoses Not on filedocumented in this encounter Care Teams Custom Tailor Relationship Specialty Start Date End Date Kortney Woods MD [address] [facility] [address] [place] [address] PCP - General Internal Medicine 09/04/18 10/15/22 documented as of this encounter
--- OUTSIDE RECORDS SUMMARY | 2024-03-05 16:57 | XMS_ITS | Encounter Summary ---
[facility] Address [address] [place] [address] Care Team Providers Care Laboratory Equipment Cleaner Name Role Phone Sariah Benson MD Primary Care Provider Ninfa vailable Reason for Visit * Diagnostic Imaging (Routine) - Closed Specialty Diagnoses / Procedures Referred By Contac t Referred To Contact Radiology Diagnoses Screening for breast cancer Procedures Mammo Screening Digital Tomosynthesis Bilateral With CAD Sariah Benson MD [address] [address] Phone: tel: Referral ID Status Reason Start Date Expiration Date Visits Re quested Visits Authorized [id number] Closed 02/06/2018 02/06/2019 1 1 Encounter Details Date Type Department Care Team (Latest Contact Info) Description 03/28/2018 1:07 PM EST - 03/28/2018 11:59 PM EST Hospital Encounter [facility] [address] [place] [address] Sariah Benson MD Discharge Disposition: Home or [...] Visit [facility] [address] [place], [place] [address] Jenny Lomeli PA [address] [place] [address] documented as of this encounter Procedures Procedure [...] on filedocumented in this encounter Care Teams Laboratory Equipment Cleaner Relationship Specialty Start Date End Date Sariah Benson MD PCP - General 12/10/14 09/03/18 documented as of this encounter
[2024-03-05 17:20] VITALS: BP 151/86; PULSE 94; RESP 18; TEMP 36.8; O2SAT 99; BMI 24.0
--- NOTE | 2024-03-05 17:38 | EXP.UTC ---
Discharge Plan Disposition Patient Disposition: Home, Self-Care Condition: Good Prescriptions Prescriptions: New menthol-zinc oxide [Calmoseptine] 0.44-20.6 % ointment 1 applic topical DIRECTED PRN (Reason: skin irritation) Qty: 113 0RF Rx Instructions: apply thin layer to area 2-4 times daily as needed for irritation No Action atorvastatin 20 mg tablet 20 mg PO HS Patient Comments: TAKE 1 TABLET BY MOUTH EVERY DAY AT NIGHT diclofenac sodium 50 mg tablet,delayed release (DR/EC) 50 mg PO DAILY Patient Comments: TAKE 1 TABLET BY MOUTH DAILY NEEDED (ARTHRITIS PAIN). Referrals Follow up/Referrals: Provider,Referral, MD [Primary Care Provider] - See instructions Activity Restrictions/Add. Instructions Additional Instructions/Restrictions: Drink extra fluids with and between meals. If you have difficulty drinking, try very small amounts of water or suck on ice chips. ? Avoid fruit juices, as these do not replace minerals and can actually increase diarrhea. ? Children and adults can use sports drinks to replenish electrolytes. Younger children and infants should use products formulated for children, like oral rehydration solutions. ? Eat food in small amounts and let your stomach recover. ? Get lots of rest. You may feel tired or weak. ? No greasy or fried foods for the next 24-48 hours BRAT diet Bananas Rice Apples and Clifford ? Make sure to drink plenty of liquids ? Return if needed ? Straight to ER if any life threatening symptoms ? You was given an outpatient order for diarrhea panel, please collect specimen and bring back to outpatient lab then call back to the [facility] or follow up with family doctor for results Use Calmoseptine for your irritation ? Follow up with family doctor in the next 48-72 hours if no improvement or any worsening of symptoms Clinical Impressions Clinical Impression: Diarrhea Instructions Patient Instructions: Diarrhea Print Language Print Language: Mauritanian Discharge ED Provider: Christiana Whitlock [facility] HPI General Stated complaint: abdominal pain Mode of Arrival: Ambulatory Source of Information: Patient Limitations: No Limitations Time Seen by Provider: 03/05/24 17:38 Description of Symptoms (Recalled from Triage Doc. by RN): PATIENT C/O DIARRHEA FOR THE LAST SEVERAL DAYS WITH UPPER ABDOMINAL CRAMPING BEFORE DIARRHEA EPISODE. PATIENT DENIES ANY ABDOMINAL PAIN AT THIS TIME HEENT Symptoms (Recalled from RN notes): No Resp Symptoms (Recalled from RN notes): No Skin Symptoms (Recalled from RN notes): No MS Symptoms (Recalled from RN notes): No Functional Status (Recalled from RN notes): WNL History of Present Illness Provider Complaint: Patient states that she recently finished antibitoics for cat bite, States for the last couple of days she has had a rumble in her tummy, cramping and diarrhea States that it has her bottom raw and hurting States that she was worried and needed to get something for her bottom and see why she had diarrhea she had an infection once before that caused diarrhea that she had to get treatment for but doesnt remember what it was Denies any abdominal pain right now, cramping only happens before she has diarrhea Related Data Home Medications ?Medication ?Instructions ?Recorded ?Confirmed atorvastatin 20 mg tablet 20 mg PO HS 03/05/24 03/05/24 diclofenac sodium 50 mg 50 mg PO DAILY 03/05/24 03/05/24 tablet,delayed release Previous Rx's ?Medication ?Instructions ?Recorded menthol 0.44 %-zinc oxide 20.6 % 1 applic topical DIRECTED PRN 03/05/24 topical ointment (Calmoseptine) skin irritation #113 grams Allergies Allergy/AdvReac Type Severity Reaction Status Date / Time No Known Allergies Allergy Verified 02/20/24 16:46 Worker's Comp Is this a Worker's Comp case?: No PFSH [facility] Disclaimer: The information contained in this section may have been updated after the patient was seen, as this information can be updated by other users. Medical History (Updated 03/05/24 @ 17:49 by Christiana Whitlock APRN) Depression Anxiety Hyperlipidemia Surgical History (Updated 03/05/24 @ 17:40 by Rosibel Wilkinson RN) History of hysterectomy Social History (Updated 02/20/24 @ 16:55 by BOOM Read) Smoking Status: Never smoker alcohol intake: never current occupational status: retired Travel in the last 8 weeks: None ROS Obtained: Yes All systems reviewed & no additional complaints except as documented and Yes Systems reviewed as appropriate & no additional complaints except as documented Constitutional Constitutional: Reports system reviewed and no additional complaints, except as documented, Reports as per HPI, Denies fever(s) and Denies headache(s) Eyes Eyes: Reports system reviewed and no additional complaints, except as documented and Reports as per HPI ENT Ears, Nose, Mouth, and Throat: Reports system reviewed and no additional complaints, except as documented, Reports as per HPI and Denies headache(s) Cardiovascular Cardiovascular: Reports system reviewed and no additional complaints, except as documented and Reports as per HPI Respiratory Respiratory: Reports system reviewed and no additional complaints, except as documented and Reports as per HPI Gastrointestinal Gastrointestingal: Reports system reviewed and no additional complaints, except as documented, as per HPI, cramping and diarrhea; Denies nausea or vomiting Genitourinary Female Genitourinary: Reports system reviewed and no additional complaints, except as documented and Reports as per HPI Musculoskeletal Musculoskeletal: Reports system reviewed and no additional complaints, except as documented and Reports as per HPI Integumentary/Breasts Skin/Breast: Reports system reviewed and no additional complaints, except as documented, Reports as per HPI and Reports other Comments: irritation from diarrhea on her butt crack Neurologic Neurologic: Denies headache(s) Physical Exam General General appearance: alert and in no apparent distress ENT ENT exam: Present mucous membranes moist Respiratory Respiratory exam: Present normal lung sounds bilaterally; Absent respiratory distress or wheezes Cardiovascular Cardiovascular exam: Present regular rate, normal rhythm and normal heart sounds Abdominal Exam Abdominal exam: Present soft and normal bowel sounds; Absent distention, tenderness, guarding or rebound Neurological Exam Neurological exam: Present alert, oriented X3 and normal gait Medical Decision Making Medical Records Screening: Per USPSTF and CDC recommendations, given the prevalence of disease in our region, it is our hospital?s policy to screen for HIV and viral Hepatitis for all patients aged 18 and over and those with ongoing risk factors. Cruz Inquiry Pt receiving controlled substance: No Cruz was queried for this patient: No Vital Signs: 03/05/24 17:20 Temperature 98.2 F Temperature Source Oral Pulse Rate [Left Brachial] 94 H Respiratory Rate 18 Blood Pressure [Left Arm] 151/86 H Blood Pressure Mean [Left Arm] 107 Blood Pressure Source [Left Arm] Automatic Cuff Blood Pressure Position [Left Arm] Sitting 02 Sat by Pulse Oximetry 99 Oxygen Delivery Method Room Air Medical Decision Narrative: Patient was recenlty on Augmentin for cat bite, states that for last couple days she has been having diarrhea, and feels raw and irritated, patient has mild redness noted appears irritated and raw from the diarrhea, will dc with diarrhea panel since she was recently on antibiotics and prescribe Calmoseptine for her buttock area to help with irritation and have her follow up with PCP
[2024-03-05 17:53] VITALS: BP 151/86; PULSE 94; RESP 18; TEMP 36.8; O2SAT 99
== END 2024-03-05 17:58 | disposition home or self-care (01) ==
PROVIDERS: Emergency Provider Nurse Practitioner
DX: R19.7 Diarrhea, unspecified (principal)
CPT/HCPCS: 99213; G0381

== ENCOUNTER 2024-03-05 17:58 | Outpatient (CLI) | payer MEDICARE, SELFPAY ==
--- OUTSIDE RECORDS SUMMARY | 2024-03-05 18:02 | XMS_ITS | Encounter Summary ---
[facility] Organization [facility] Address [address] [place] [address] Care Team Providers Care Field Sales Consultant Name Role Phone Velma Phillips APRN Primary Care Provider [phone] Reason for Referral * Diagnostic Imaging (Routine) - Closed Specialty Diagnoses / Procedures Referred By Camila kirkland Referred To Contact Radiology Diagnoses Screening mammogram for breast cancer Procedures Mammo Screening Digital Tomosynthesis Bilateral With CAD Velma Phillips APRN Phone: tel: fax: [facility] [address] [place] [address] Phone: tel: Referral ID Status Reason Start Date Expiration Date Visits Re quested Visits Authorized [id number] Closed 01/31/2023 01/31/2024 1 1 * Consultation (Routine) - Closed Specialty Diagnoses / Procedures Referred By Contkarlee t Referred To Contact Orthopedic Surgery Diagnoses Chronic left shoulder pain Velma Phillips APRN Phone: tel: fax: Chuck Thakur MD [facility] [address] [place] [address] Phone: tel: fax: Referral ID Status Reason Start Date Expiration Date V isits Requested Visits Authorized [id number] Closed Specialty Services Required 01/31/2023 01/31/2024 1 1 Reason for Visit * Reason Comments Follow-up 4 month f/u, Labs fo r cholesterol, pt is not fasting. May need Mri of lt shoulder pain x 1 year. Encounter Details Date Type Department Care Team (Late st Contact Info) Description 01/31/2023 10:45 AM EDT Office Visit [facility] [address] [place] [address] Velma Phillips APRN [address] [place] [address] Hyperlipidemia, unspecified hyperlipidemia type (Primary [...] psychotherapy, but she wants to go to [facility] in [place] like we previously discussed. She does not want to go to [facility]. She cannot travel to [place]. The following portions of the patient's history [...] for influenza vaccination - Fluzone High-Dose 65+yrs ([id number]) Patient opts to wait for psychotherapy to be available at [facility] here in [place], we will revisit referral at follow up. She declines [facility] or [facility] Referral. Hyperlipidemia - check labs as ordered. [...] [facility] [address] [place] [phone] Jenny Lomeli PA [address] [place] [address] documented as of this encounter Procedures Procedure [...] 8:08 PM EDT Performed at: ??01 - [address] ??[id number] Police Guard: David Farnsworth MD, Phone: ??[phone] Patient Fasting: ??Y Velma Phillips APRN LAB BLOOD ORDERABLES Final R esult [facility] (AMBULATORY) [address] [place] [address], [facility] [address] [place] [address], * (ABNORMAL) Comprehensive Metabolic Panel (01/31/2023 11:27 [...] 8:08 PM EDT Performed at: ??01 - [address] ??[id number] Police Guard: David Farnsworth MD, Phone: ??[phone] Patient Fasting: ??Y Velma Phillips APRN LAB BLOOD ORDERABLES Final R esult [facility] (AMBULATORY) [address] [id number], [place] [phone] [facility] [address] [place] [address], [place] [phone] documented in this encounter Visit Diagnoses Diagnosis [...] documented as of this encounter Care Teams Field Sales Consultant Relationship Specialty Start Date End Date Velma Phillips APRN PCP - General Family Medicine 10/16/22 10/10/23 documented as of this encounter
--- OUTSIDE RECORDS SUMMARY | 2024-03-05 18:02 | XMS_ITS | Encounter Summary ---
[facility] Address [address] [place] [address] Care Team Providers Care Marketing Research Analyst Name Role Phone Jenny Lomeli Primary Care Provider [phone] Reason for Referral * Consultation (Routine) - Authorized Specialty Diagnoses / Procedures Referred By Contac t Referred To Contact Orthopedic Surgery Diagnoses Chronic left shoulder pain Jneny Lomeli PA [address] [place] [address] Phone: tel: fax: Andrea Vela MD [address] [place] [address] Phone: tel: fax: Referral ID Status Reason Start Date Expiration Date Visits Requested Visits Authorized [id number] Authorized Specialty Services Required 01/14/2025 1 1 Scheduling Instructions Wants to see a different ortho office. Not [place]. Wants to stay in [place] Reason for Visit * Reason Comments Medicare Wellness-subsequent Med refills .Wants another ortho/? Does not care for Dr. Duke. Encounter Details Date Type Department Care Team (Latest Contact Info) Description 01/15/2024 3:00 PM EDT Office Visit [facility] [address] [facility] [place] [place] [phone] Jenny Lomeli PA [address] [place] [address] Medicare annual wellness visit, subsequent (Primary Dx); [...] Lomeli PA as PCP - General (Physician Cloth Dyer) Outpatient Medications Prior to Visit Medication Sig Dispense Refill atorvastatin (LIPITOR) 20 MG tablet Take 1 tablet by mouth Every Night. 90 tablet 3 ssapyqxp-sjzhlekyy-nngjpfiqcsyrb (MAXITROL) 3.5-46677-8.1 ophthalmic suspension INSTILL 1 DROP INTOBOTH EYES [...] C SCREENING Completed Pneumococcal Vaccine 65+ Completed [facility] Preventative Services Quick Reference Risk Factors [...] Visit [facility] [address] [facility] [place] [address] Jenny Lomeli PA [address] [place] [address] Scheduled Referrals Name Type Priority [...] 01/15/2024 4:17 PM EDT 01/15/2024 Narrative [facility] (AMBULATORY) - 01/16/2024 8:21 AM EDT Performed at: ??01 - [facility] [address] ??[id number] Literature Professor: Hawk Mireles PhD, Phone: ??[phone] Patient Fasting: ??Y Jenny NUR LAB BLOOD ORDERABLES Final Res ult [facility] (AMBULATORY) [address] [place] [address], [facility] [address] [place] [address], [place] [phone] * Vitamin B12 (01/15/2024 4:17 PM EDT) Vitamin B-12 407 232 - 1,245 pg/mL [facility] Blood 01/15/2024 4:17 PM EDT 01/15/2024 Narrative [facility] (AMBULATORY) - 01/16/2024 8:21 AM EDT Performed at: ??01 - [facility] ??[id number] Literature Professor: Hawk Mireles PhD, Phone: ??[phone] Patient Fasting: ??Y Jenny NUR LAB BLOOD ORDERABLES Final Res ult Performing Organization Address City/[facility]/ZIP Co de Phone Number [facility] [address] [place] [address], [place] [phone] [facility] [address] [place] [address], [place] [phone] * (ABNORMAL) Hemoglobin A1c (01/15/2024 4:17 PM EDT) Pathologist [facility] Hemoglobin A1C 5.8(H) 4.8 - 5.6 % [facility] Comment: ? Prediabetes: 5.7 - 6.4 ? Diabetes: >6.4 ? Glycemic control for adults with diabetes: <7.0 Blood 01/15/2024 4:17 PM EDT 01/15/2024 [facility] (AMBULATORY) - 01/16/2024 8:21 AM EDT Performed at: ??01 - [facility] ??[id number] Literature Professor: Hawk Mireles PhD, Phone: ??[phone] Patient Fasting: ??Y Jenny NUR LAB BLOOD ORDERABLES Final Res ult Performing Organization Address [facility] Co de Phone Number [facility] [address] [place] [address], [place] [phone] [facility] [address] [place] [address], [place] [phone] * (ABNORMAL) Vitamin D 25 hydroxy (01/15/2024 4:17 PM EDT) 25 Hydroxy, Vitamin D 28.5(L) 30.0 - 100.0 ng/mL [facility] Comment: Vitamin D deficiency has been defined by the [place] of Medicine and an Endocrine Society practice guideline as a level of serum 25-OH vitamin D less than 20 ng/mL (1,2). The Endocrine Society went on to further define vitamin D insufficiency as a level between 21 and 29 ng/mL (2). 1. IOM ([place] of Medicine). 2010. Dietary reference ?? intakes for calcium and D. [place]: The ?? National Oncothyreon Press. 2. Raghu MF, Jamin [place], Drew COLEMAN, et al. ?? Evaluation, treatment, and prevention of vitamin D ?? deficiency: an Endocrine Society clinical practice ?? guideline. JCEM. 2010; 96(7):1911-30. Blood 01/15/2024 4:17 PM EDT 01/15/2024 Narrative [facility] - 01/16/2024 8:21 AM EDT Performed at: ??01 - [address] ??[id number] Literature Professor: Hawk Mireles PhD, Phone: ??[phone] Patient Fasting: ??Y Jenyn NUR LAB BLOOD ORDERABLES Final Res ult [facility] [address] [place] [address], [facility] [address] [place] [address], * (ABNORMAL) Lipid Panel (01/15/2024 4:17 PM EDT) Total Cholesterol 172 100 - 199 mg/dL [facility] Triglycerides 89 0 - 149 mg/dL [facility] HDL Cholesterol 53 >39 mg/dL [facility] VLDL Cholesterol Naga 16 5 - 40 mg/dL [facility] LDL Chol Calc ([facility]) 103(H) 0 - 99 mg/dL [facility] Blood 01/15/2024 4:17 PM EDT 01/15/2024 Narrative [facility] (AMBULATORY) - 01/16/2024 8:21 AM EDT Performed at: ??01 - [facility] [address] [place], [place] ??[id number] Literature Professor: Hawk Mireles PhD, Phone: ??[phone] Patient Fasting: ??Y us Jenny NUR LAB BLOOD ORDERABLES Final Res ult [facility] (AMB[facility]) [address] [place] [address], [facility] [address] [place] [address], * (ABNORMAL) Comprehensive metabolic panel (01/15/2024 4:17 [...] 01/15/2024 4:17 PM EDT 01/15/2024 Narrative [facility] (AMBULATORY) - 01/16/2024 8:21 AM EDT Performed at: ??01 - [facility] [address] [place], [place] ??[id number] Literature Professor: Hawk Mireles PhD, Phone: ??[phone] Patient Fasting: ??Y Jenny NUR LAB BLOOD ORDERABLES Final Res ult [facility] (AMBULAT[facility]) [address] [place] [address], [facility] [address] [place] [address], * CBC w AUTO Differential (01/15/2024 4:17 [...] 01/15/2024 4:17 PM EDT 01/15/2024 Narrative [facility] (AMBULATORY) - 01/16/2024 8:21 AM EDT Performed at: ??01 - [facility] [address] [place], [place] ??[id number] Literature Professor: Hawk Mireles PhD, Phone: ??[phone] Patient Fasting: ??Y Jenny NUR LAB BLOOD ORDERABLES Final Res ult [facility] (AMBULATORY) [address] [place] [address], [facility] [address] [place] [address], documented in this encounter Visit Diagnoses Diagnosis [...] documented as of this encounter Care Teams Marketing Research Analyst Relationship Specialty Start Date End Date Jenny [place] [address] PCP - General Physician Cloth Dyer 10/11/23 documented as of this encounter
--- OUTSIDE RECORDS SUMMARY | 2024-03-05 18:02 | XMS_ITS | Encounter Summary ---
[facility] Address [address] [id number] Care Team Providers Care Sulfuric Acid Plant Supervisor Name Role Phone Velma Phillips APRN Primary Care Provider [phone] Reason for Visit * Reason Onset Date Comments RETURNING A CALL TO OFFICE 10/25/2022 Encounter Details Date Type Department Care Team (Late st Contact Info) Description 10/25/2022 Telephone [facility] [address] [place] [address] Velma Phillips APRN [facility] [place], [place] [id number] RETURNING A CALL TO OFFICE Social History [...] to patient: Self Best call back number: [phone] Patient is needing: RETURNING A CALL TO THE OFFICE documented in this encounter Plan of Treatment Upcoming Encounters Date Type Department Care Team (Late st Contact Info) Description 01/19/2025 3:00 PM EDT Office Visit [facility] [address] [place] [phone] Jenny Lomeli PA [address] [place] [address] documented as of this encounter Visit Diagnoses Not on filedocumented in this encounter Additional Health Concerns Infection Onset Date Last Indicated Resolved Time Norovirus 10/23/2022 10/23/2022 Assessment Noted Time PHQ-2 Depression Total Score: 3 10/17/19 23 1:57 PM EDT documented as of this encounter Care Teams Sulfuric Acid Plant Supervisor Relationship Specialty Start Date End Date Velam Phillips APRN PCP - General Family Medicine 10/16/22 10/10/23 documented as of this encounter
--- OUTSIDE RECORDS SUMMARY | 2024-03-05 18:02 | XMS_ITS | Encounter Summary ---
[facility] Address [address] [place] [address] Care Team Providers Care Skinning Machine Feeder Name Role Phone Jenny Lomeli Primary Care Provider [phone] Encounter Details Date Type Department Care Team (Late st Contact Info) Description 10/18/2023 Telephone [facility] [address] [place] [address] Jenny Lomeli PA [address] [place] [address] Social History Tobacco Use Types [...] PM EDT INFORMED PATIENT TO GO TO [facility] IN THE ER TO COMPLETE THE RABIES SHOT * Telephone Encounter - Keily Jimenez MA - 10/23/2023 1:07 PM EDT Pt states she needs a referral to [facility] in order for her to get rabies shots * Telephone Encounter - Keily Jimenez MA - 10/21/2023 2:14 PM EDT LVM * Telephone Encounter - Jenny Lomeli PA - 10/21/2023 7:58 AM EDT Patient was not referred to [facility] or hospital as we knew they would not be able to help, she was provided contact information for [facility] who we called ahead and they noted they could help facilitate rabies vaccinations. Did she reach out to them? * Telephone Encounter - Pat Brice RegSched Rep - 10/18/2023 4:38 PM EDT PATIENT WAS SEEN FOR AN ANIMAL BITE, SHE STATED THAT SHE WAS TOLD TO GO TO [facility] AND THEY COULD HELP WITH HER GETTING A RABIES SHOT. SHE SAID THEY SENT HER TO [facility] BUT THERE OFFICE TOLD HER SHE WOULD NEED A REFERRAL FROM HER PCP BEFORE HER INSURANCE WOULD COVER THE SHOT PLEASE ADVISE documented in this encounter Plan of Treatment Upcoming Encounters Date Type Department Care Team (Late st Contact Info) Description 01/19/2025 3:00 PM EDT Office Visit [facility] [address] [place] [address] Jenny Lomeli PA [address] [place] [address] documented as of this encounter Visit Diagnoses Not on filedocumented in this encounter Additional Health Concerns Infection Onset Date Last Indicated Resolved Time Norovirus 10/23/2022 10/23/2022 Assessment Noted Time PHQ-2 Depression Total Score: 1 10/14/19 24 3:41 PM EDT documented as of this encounter Care Teams Skinning Machine Feeder Relationship Specialty Start Date End Date Jenny Lomeli PA [address] [place] [address] PCP - General Physician Mental Health Social Worker 10/11/23 documented as of this encounter
--- OUTSIDE RECORDS SUMMARY | 2024-03-05 18:02 | XMS_ITS | Encounter Summary ---
[facility] Address [address] [place] [id number] Care Team Providers Care Automobile Repair Service Estimator Name Role Phone Jenny Lomeli Primary Care Provider [phone] Reason for Referral * Diagnostic Imaging (Routine) - Closed Specialty Diagnoses / Procedures Referred By Contac t Referred To Contact Radiology Diagnoses Mass of skin of left shoulder Procedures US Nonvascular Extremity Limited Jenny Lomeli PA [address] [place] [address] Phone: tel: fax: [facility] [address] [place] [address] Phone: tel: Referral ID Status Reason Start Date Expiration Date Visits Re quested Visits Authorized [id number] Closed 10/14/2023 10/13/2024 1 1 Reason for Visit * Diagnostic Imaging (Routine) - Closed Specialty Diagnoses / Procedures Referred By Contac t Referred To Contact Radiology Diagnoses Mass of skin of left shoulder Procedures US Nonvascular Extremity Limited Jenny Lomeli PA [address] [place] [address] Phone: tel: fax: [facility] [address] [place] [address] Phone: tel: Referral ID Status Reason Start Date Expiration Date Visits Re quested Visits Authorized [id number] Closed 10/14/2023 10/13/2024 1 1 Encounter Details Date Type Department Care Team (Latest Contact Info) Description 10/24/2023 3:50 PM EDT - 10/24/2023 11:59 PM EDT Hospital Encounter [facility] [address] [place] [address] Jenny Lomeli PA [address] [place] [address] Mass of skin of left [...] mouth Every Night. 90 tablet 3 10/14/2023 iwvuccna-gjpipabfx-y examethasone (MAXITROL) 3.5-03183-4.1 ophthalmic suspension INSTILL 1 DROP INTO BOTH [...] Description 01/19/2025 3:00 PM EDT Office Visit [facility] [address] [place] [address] Jenny Lomeli PA [address] [place] [address] documented as of this encounter Procedures [...] MD 10/28/2023 11:09 AM EDT Workstation ID: [id number] Narrative 10/28/2023 11:09 AM EDT US NONVASCULAR [...] MD 10/28/2023 11:09 AM EDT Workstation ID: [id number] us Jenny NUR [facility] US ORDERABLES Final Result documented in this encounter Visit Diagnoses Diagnosis Mass of skin of left shoulder documented in this encounter Additional Health Concerns Infection Onset Date Last Indicated Resolved Time Norovirus 10/23/2022 10/23/2022 Assessment Noted Time PHQ-2 Depression Total Score: 1 10/14/19 24 3:41 PM EDT documented as of this encounter Care Teams Automobile Repair Service Estimator Relationship Specialty Start Date End Date [facility]omeli [facility] [address] PCP - General Physician Manager Management 10/11/23 documented as of this encounter
--- OUTSIDE RECORDS SUMMARY | 2024-03-05 18:02 | XMS_ITS | Encounter Summary ---
[facility] Address [address] [place] [address] Care Team Providers Care Regional Climate Change Analyst Name Role Phone Velma Phillips APRN Primary Care Provider [phone] Reason for Visit * Reason Onset Date Comments LAB RESULTS 02/04/2023 Encounter Details Date Type Department Care Team (Late st Contact Info) Description 02/04/2023 Telephone [facility] [address] [place] [address] Velma Phillips APRN [address] [place] [id number] LAB RESULTS Social History Tobacco Use Types [...] time of call. Good call back number [phone] documented in this encounter Plan of Treatment Upcoming Encounters Date Type Department Care Team (Late st Contact Info) Description 01/19/2025 3:00 PM EDT Office Visit [facility] [address] [place] [address] Jenny Lomeli PA [address] [place] [address] documented as of this encounter Visit Diagnoses Not on filedocumented in this encounter Additional Health Concerns Infection Onset Date Last Indicated Resolved Time Norovirus 10/23/2022 10/23/2022 Assessment Noted Time PHQ-2 Depression Total Score: 3 10/17/19 23 1:57 PM EDT documented as of this encounter Care Teams Regional Climate Change Analyst Relationship Specialty Start Date End Date Velma Phillips APRN PCP - General Family Medicine 10/16/22 10/10/23 documented as of this encounter
--- OUTSIDE RECORDS SUMMARY | 2024-03-05 18:02 | XMS_ITS | Encounter Summary ---
[facility] Address [address] [place] [address] Care Team Providers Care Flower Picker Name Role Phone Velma Phillips APRN Primary Care Provider [phone] Reason for Visit * Reason Comments Med Refill Encounter Details Date Type Department Care Team (Late st Contact Info) Description 04/17/2023 Refill [facility] [address] [place] [address] Velma Phillips APRN [address] [place], [place] [id number] Hyperlipidemia, unspecified hyperlipidemia type Social History Tobacco [...] Visit [facility] [address] [facility] [place] [id number] Jneny Lomeli PA [address] [place] [address] documented as of this encounter Visit Diagnoses Diagnosis Hyperlipidemia, unspecified hyperlipidemia type documented in this encounter Additional Health Concerns Infection Onset Date Last Indicated Resolved Time Norovirus 10/23/2022 10/23/2022 Assessment Noted Time PHQ-2 Depression Total Score: 3 10/17/19 23 1:57 PM EDT documented as of this encounter Care Teams Flower Picker Relationship Specialty Start Date End Date Velma Phillips APRN PCP - General Family Medicine 10/16/22 10/10/23 documented as of this encounter
--- OUTSIDE RECORDS SUMMARY | 2024-03-05 18:02 | XMS_ITS | Encounter Summary ---
[facility] Address [address] [place] [address] Care Team Providers Care Retirement Plan Specialist Name Role Phone Velma Phillips APRN Primary Care Provider [phone] Reason for Referral * Diagnostic Imaging (Routine) - Closed Specialty Diagnoses / Procedures Referred By Camila kirkland Referred To Contact Radiology Diagnoses Screening mammogram for breast cancer Procedures Mammo Screening Digital Tomosynthesis Bilateral With CAD Velma Phillips APRN Phone: tel: fax: [facility] [address] [place] [address] Phone: tel: Referral ID Status Reason Start Date Expiration Date Visits Re quested Visits Authorized [id number] Closed 01/31/2023 01/31/2024 1 1 Reason for Visit * Diagnostic Imaging (Routine) - Closed Specialty Diagnoses / Procedures Referred By Contac t Referred To Contact Radiology Diagnoses Screening mammogram for breast cancer Procedures Mammo Screening Digital Tomosynthesis Bilateral With Velma Murdock APRN Phone: tel: fax: [facility] [address] [place] [address] Phone: tel: Referral ID Status Reason Start Date Expiration Date Visits Re quested Visits Authorized [id number] Closed 01/31/2023 01/31/2024 1 1 Encounter Details Date Type Department Care Team (Latest Contact Info) Description 03/21/2023 1:44 PM EST - 03/21/2023 11:59 PM [facility] Hospital Encounter [facility] [address] [place] [address] Screening mammogram for breast cancer Discharge [...] Jenny Lomeli PA [address] [place], [place] [address] documented as of this encounter Procedures Procedure [...] documented as of this encounter Care Teams Retirement Plan Specialist Relationship Specialty Start Date End Date Velma Phillips APRN PCP - General Family Medicine 10/16/22 10/10/23 documented as of this encounter
--- OUTSIDE RECORDS SUMMARY | 2024-03-05 18:02 | XMS_ITS | Encounter Summary ---
[facility] Address [address] [place] [address] Care Team Providers Care Snow Fence Erector Name Role Phone Jenny Lomeli Primary Care Provider [phone] Encounter Details Date Type Department Care Team (Late st Contact Info) Description 10/16/2023 Telephone [facility] [address] [place] [address] Jenny Lomeli PA [address] [address] Social History Tobacco Use Types [...] [place]in Relationship: Self Best call back number: [phone] What was the call regarding: RABIES SHOT. INSURANCE IS REQUESTING PATIENT GET A RABIES SHOT AT [facility] IN [facility]. PATIENT WAS TOLD THAT IN ORDER FOR [...] [facility] [address] [place] [address] Jenny Lomeli PA [address] [place] [address] documented as of this encounter Visit Diagnoses Not on filedocumented in this encounter Additional Health Concerns Infection Onset Date Last Indicated Resolved Time Norovirus 10/23/2022 10/23/2022 Assessment Noted Time PHQ-2 Depression Total Score: 1 10/14/19 24 3:41 PM EDT documented as of this encounter Care Teams Snow Fence Erector Relationship Specialty Start Date End Date Jenny Lomeli PA [address] [place] [address] PCP - General Physician Records Management Engineer 10/11/23 documented as of this encounter
--- OUTSIDE RECORDS SUMMARY | 2024-03-05 18:02 | XMS_ITS | Encounter Summary ---
Author Organization [facility] Address [address] [place] [id number] Care Team Providers Care Sole Sewer Hand Name Role Phone Velma Phillips APRN Primary Care Provider [phone] Reason for Visit * Reason Comments Follow-up [employer] gave her 2 mo nth extension. Has not went to get her MRI yet. Concerns with getting results back soon enough to go over before line. And Mammogram. May need refills Encounter Details Date Type Department Care Team (Late st Contact Info) Description 03/15/2023 2:45 PM EST Office Visit [facility] [address] [place] [address] Velma Phillips APRN [address] [place] [phone] Hyperlipidemia, unspecified hyperlipidemia type (Primary Dx); Need [...] 12/30 Potentially Unsafe Housing Conditions Not on iav e 01/09/2023 Family and Community Support Answer [...] [facility] [address] [place] [address] Jenny Lomeli PA [address] [place] [address] documented as of this encounter Procedures Procedure [...] 03/15/2023 3:06 PM EST 03/15/2023 Narrative [facility] (AMBULATORY) - 03/16/2023 9:10 AM EST Performed at: ??01 - [address] ??[id number] Online Retailer: Hawk Mireles PhD, Phone: ??[phone] Patient Fasting: ??Y Vemla Phillips APRN LAB BLOOD ORDERABLES Final R [facility]ult [facility] [address] [place] [address], [facility] [address] [place] [address], * Lipid Panel (03/15/2023 3:06 PM EST) Total Cholesterol 161 100 - 199 mg/dL [facility] Triglycerides 83 0 - 149 mg/dL [facility] HDL Cholesterol 52 >39 mg/dL [facility] VLDL Cholesterol Naga 16 5 - 40 mg/dL [facility] LDL Chol Calc ([facility]) 93 0 - 99 mg/dL [facility] Blood 03/15/2023 3:06 PM EST 03/15/2023 Narrative [facility] (AMBULATORY) - 03/16/2023 9:10 AM EST Performed at: ??01 - [facility] [place] [address] [facility], [place], [place] ??[id number] Online Retailer: Hawk Mireles PhD, Phone: ??[phone] Patient Fasting: ??Y Velma Phillips APRN LAB BLOOD ORDERABLES Final R esult [facility] (AMBULATORY) [address] [place] [address], [place] [phone] [facility] [address] [place] [address], [place] [phone] documented in this encounter Visit Diagnoses Diagnosis Hyperlipidemia, unspecified hyperlipidemia type- Primary Need for pneumococcal vaccination Need for prophylactic vaccination against streptococcus pneumoniae (pneumococcus) Need for Tdap vaccination Need for prophylactic vaccination with combined humhgiofqt-hrfhybk-ugpiyrvqr (DTP) vaccine Chronic left shoulder pain Pain in joint, shoulder region documented in this encounter Additional Health Concerns Infection Onset Date Last Indicated Resolved Time Norovirus 10/23/2022 10/23/2022 Assessment Noted Time PHQ-2 Depression Total Score: 3 10/17/19 23 1:57 PM EDT documented as of this encounter Care Teams Sole Sewer Hand Relationship Specialty Start Date End Date Velma Phillips APRN PCP - General Family Medicine 10/16/22 10/10/23 documented as of this encounter
--- OUTSIDE RECORDS SUMMARY | 2024-03-05 18:02 | XMS_ITS | Encounter Summary ---
[facility] Address [address] [place] [address] Care Team Providers Care Puppy Trainer Name Role Phone Jenny Lomeli Primary Care Provider [phone] Reason for Referral * Diagnostic Imaging (Routine) - Closed Specialty Diagnoses / Procedures Referred By Contac t Referred To Contact Radiology Diagnoses Mass of skin of left shoulder Procedures US Nonvascular Extremity Limited Jenny Lomeli PA [address] [facility] [place] [address] Phone: tel: fax: [facility] [address] [place] [address] Phone: tel: Referral ID Status Reason Start Date Expiration Date Visits Re quested Visits Authorized [id number] Closed 10/14/2023 10/13/2024 1 1 Reason for [...] Description 10/14/2023 3:45 PM EDT Office Visit [facility] [address] [place] [address] Jenny Lomeli PA [address] [place] [address] Cat bite, initial encounter (Primary [...] Patient asks about rabies vaccination. [facility] Diclofenac for arthritic [...] [facility] [address] [place] [address] Jenny Lomeli PA [address] [place] [address] documented as of this encounter Results * [...] MD 10/28/2023 11:09 AM EDT Workstation ID: [id number] [facility] 10/28/2023 11:09 AM EDT US NONVASCULAR [...] MD 10/28/2023 11:09 AM EDT Workstation ID: [id number] us Jenny NUR [facility] US ORDERABLES Final Result documented in this [...] documented as of this encounter Care Teams Puppy Trainer Relationship Specialty Start Date End Date Jenny Lomeli PA [address] [place] [address] [place] [address] PCP - General Physician Medical Logistics Specialist 10/11/23 documented as of this encounter
--- OUTSIDE RECORDS SUMMARY | 2024-03-05 18:02 | XMS_ITS | Clinical Summary ---
[facility] Address [address] [place] [address] Care Team Providers Care Sap Plant Maintenance Consultant Name Role Phone Jenny Lomeli Primary Care Provider [phone] Allergies Active Allergy Reactions Criticality Noted Date Comments Ranitidine 05/04/2014 Medications neomycin-polymyxin- dexamethasone (MAXITROL) 3.5-99311-5.1 ophthalmic suspension INSTILL 1 DROP INTO BOTH [...] Description 01/15/2024 3:00 PM EDT Office Visit [facility] [address] [facility] [place] [place] [address] Jenny Lomeli PA Medicare annual wellness [...] [facility] [address] [place] [address] Jenny Lomeli PA [address] [place] [address] Health Maintenance Due Date Last Done [...] D deficiency has been defined by the Forest of Medicine and an Endocrine Society practice guideline as a level of serum 25-OH vitamin D less than 20 ng/mL (1,2). The Endocrine Society went on to further define vitamin D insufficiency as a level between 21 and 29 ng/mL (2). 1. IOM (Forest of Medicine). 2010. Dietary reference ?? intakes for calcium and D. [place]: The ?? National AcademAnalyze Re Press. 2. Raghu MF, Jamin NC, Drew COLEMAN, et al. ?? Evaluation, treatment, and prevention of vitamin D ?? deficiency: an Endocrine Society clinical practice ?? guideline. JCEM. 2011 Sep; 96(7):1911-30. Blood 01/15/2024 4:17 PM EDT 01/15/[address] [facility] (AMBULATORY) - 01/16/2024 8:21 AM EDT Performed at: ??01 - [facility] [address] ??[id number] Vp Human Resources: Hawk Mireles PhD, Phone: ??[phone] Patient Fasting: ??Y us Jenny NUR LAB BLOOD ORDERABLES Final Res ult [facility] (AMBULATORY) [address] [place] [address], [place] [phone] [facility] [address] [place] [address], * CBC w AUTO Differential (01/15/2024 4:17 [...] AM EDT Performed at: ??01 - [facility] [address] ??[id number] Vp Human Resources: Hawk Mireles PhD, Phone: ??[phone] Patient Fasting: ??Y Jenny NUR LAB BLOOD ORDERABLES Final Res ult Performing Organization Address City/[facility]/ZIP Co de Phone Number [facility] (AMBULATORY) [address] [place] [address], [facility] [address] [place] [address], * (ABNORMAL) Hemoglobin A1c (01/15/2024 4:17 PM EDT) Hemoglobin A1C 5.8(H) 4.8 - 5.6 % [facility] Comment: ? Prediabetes: 5.7 - 6.4 ? Diabetes: >6.4 ? Glycemic control for adults with diabetes: <7.0 Blood 01/15/2024 4:17 PM EDT 01/15/[address] [facility] (AMBULATORY) - 01/16/2024 8:21 AM EDT Performed at: ??01 - [facility] [address] ??[id number] Vp Human Resources: Hawk Mireles PhD, Phone: ??[phone] Patient Fasting: ??Y Jenny NUR LAB BLOOD ORDERABLES Final Res ult Performing Organization Address [facility] Co de Phone Number [facility] [address] [place] [address], [facility] [address] [place] [address], * Folate (01/15/2024 4:17 PM EDT) Folate 9.4 >3.0 ng/mL [facility] Comment: A serum folate concentration of less than 3.1 ng/mL is considered to represent clinical deficiency. Blood 01/15/2024 4:17 PM EDT 01/15/[address] [facility] (AMBULATORY) - 01/16/2024 8:21 AM EDT Performed at: ??01 - [facility] [place] [address] [place], [place] ??[id number] Vp Human Resources: Hawk Mireles PhD, Phone: ??[phone] Patient Fasting: ??Y Jenny NUR LAB BLOOD ORDERABLES Final Res ult Performing Organization Address [facility]/ZIP Co de Phone Number [facility] [address] [place] [address], [facility] [address] [place] [address], * Vitamin B12 (01/15/2024 4:17 PM EDT) Pathologist [facility] Vitamin B-12 407 232 - 1,245 pg/mL [facility] Blood 01/15/2024 4:17 PM EDT 01/15/2024 Narrative [facility] - 01/16/2024 8:21 AM EDT Performed at: ??01 - [facility] [place] [address] [place] [address] ??[id number] Vp Human Resources: Hawk Mireles PhD, Phone: ??[phone] Patient Fasting: ??Y Jenny NUR LAB BLOOD ORDERABLES Final Res ult Performing Organization Address [facility] Co de Phone Number [facility] (AMBULATORY) [address] [place] [address], [place] [phone] [facility] [address] [place] [address], [place] [phone] * (ABNORMAL) Lipid Panel (01/15/2024 4:17 PM EDT) Total Cholesterol 172 100 - 199 mg/dL [facility] Triglycerides 89 0 - 149 mg/dL [facility] HDL Cholesterol 53 >39 mg/dL [facility] VLDL Cholesterol Naga 16 5 - 40 mg/dL [facility] LDL Chol Calc (NIH) 103(H) 0 - 99 mg/dL [facility] Blood 01/15/2024 4:17 PM EDT 01/15/[address] [facility] (AMBULATORY) - 01/16/2024 8:21 AM EDT Performed at: ??01 - [facility] [address] [place], [place] ??[id number] Vp Human Resources: Hawk Mireles PhD, Phone: ??[phone] Patient Fasting: ??Y us Jenny NUR LAB BLOOD ORDERABLES Final Res ult [facility] (AMBULATORY) [address] [place] [address], [facility] [address] [place] [address], * (ABNORMAL) Comprehensive metabolic panel (01/15/2024 4:17 [...] Blood 01/15/2024 4:17 PM EDT 01/15/2024 Narrative [facility] - 01/16/2024 8:21 AM EDT Performed at: ??01 - [facility] [address] [place], [place] ??[id number] Vp Human Resources: Hawk Mireles PhD, Phone: ??[phone] Patient Fasting: ??Y Jenny NUR LAB BLOOD ORDERABLES Final Res ult [facility] (AMBULATORY) [address] [place] [address], [facility] [address] [place] [address], * Mammo Screening Digital Tomosynthesis Bilateral With [...] areas of distortion are seen. Velma Phillips HYDRAULIC MECHANIC IMG MAMMOGRAPHY ORDERABLES F inal Result * [...] fall-prevention measurements. The National Osteoporosis Foundation recommends (http://www.nof.org/hcp/practice/xtcnphia-rkw-vwduhnlk-guidelines/clinic ans-guide) that FDA-approved medical therapies be considered [...] the left hip with 95% confidence is 0.985400 gm/cm2 at the hip and 0.143275 g/cm2 at the lumbar spine. This report [...] fall-prevention measurements. The National Osteoporosis Foundation recommends (http://www.nof.org/hcp/practice/ytnfqsyd-rzn-kqvdxyzy-guidelines/clinic ans-guide) that FDA-approved medical therapies be considered [...] the left hip with 95% confidence is 0.070528 gm/cm2 at the hip and 0.137819 g/cm2 at the lumbar spine. This report [...] with a HCV Nucleic Acid Amplification test ([id number]). Blood 02/06/2018 02/07/2018 Comment:BLOOD Narrative [facility] (AMBULATORY) - 02/07/2018 10:16 AM EST Performed at: ??01 - [facility] ??[id number] Vp Human Resources: Hawk Mireles PhD, Phone: ??[phone] us Sariah Benson MD LAB BLOOD ORDERABLES Final Result [facility] (AMBULATORY) [address] [place] [address], [facility] [address] [place] [address], from Last 3 Months or Most Recently Relevant to Health Maintenance Additional Health Concerns Infection Onset Date Last Indicated Norovirus 10/23/2022 10/23/2022 [place] [address] [employer] MED[employer]ARE ADV[employer]AGE Advance Directives Documents on File Type Date Recorded Patient Flow Trader Expl anation LIVING WILL - SCAN 03/18/2018 1:35 PM MAUREEN ING WILL 03/13/2018 Care Teams Sap Plant Maintenance Consultant Relationship Specialty Start Date End Date Jenny Lomeli PA [address] [place] [address] PCP - General Physician Concrete Mixing Plant Superintendent 10/11/23
--- OUTSIDE RECORDS SUMMARY | 2024-03-05 18:02 | XMS_ITS | Encounter Summary ---
[facility] Address [address] [place] [id number] Care Team Providers Care .Net Developer Name Role Phone Velma Phillips APRN Primary Care Provider [phone] Reason for Visit * Reason Onset Date Comments REFERRAL 02/25/2023 Encounter Details Date Type Department Care Team (Late st Contact Info) Description 02/25/2023 Telephone [facility] [address] [place] [address] Velma Phillips APRN [address] [place] [phone] REFERRAL Social History Tobacco Use Types Packs/Day [...] ARE JUST WANTING PATIENTS MRI CHANGED TO [facility]. I TOLD HIM SINCE WE DIDN'T ORDER THE MRI (ORTHO OFFICE DID) THEY WOULD NEED TO CONTACT ORTHO PROVIDER. * Telephone Encounter - Aleshia Abrams - 02/25/2023 3:21 PM EST Caller: WAYLON HARDIN Relationship: Child Best call back number: [phone] What is the best time to reach you: ANY Who are you requesting to speak with (clinical staff, provider, specific staff member): NURSE Do you know the name of the person who called: SON What was the call regarding: SON WOULD LIKE ORTHOPEDIC REFERRAL TO [facility]. DR RICHY CRAWFORD, DR SUSSY TERRELL OR DR AURELIA COYNE. POSSIBLE PHONE # [phone] Is it okay if the provider responds through MyChart: PHONE CALL PLEASE documented in this encounter Plan of Treatment Upcoming Encounters Date Type Department Care Team (Late st Contact Info) Description 01/19/2025 3:00 PM EDT Office Visit [facility] [address] [place], [place] [address] Jenny Lomeli PA [address] [place], [place] [address] documented as of this encounter Visit Diagnoses Not on filedocumented in this encounter Additional Health Concerns Infection Onset Date Last Indicated Resolved Time Norovirus 10/23/2022 10/23/2022 Assessment Noted Time PHQ-2 Depression Total Score: 3 10/17/19 23 1:57 PM EDT documented as of this encounter Care Teams .Net Developer Relationship Specialty Start Date End Date Velma Phillips APRN PCP - General Family Medicine 10/16/22 10/10/23 documented as of this encounter
--- OUTSIDE RECORDS SUMMARY | 2024-03-05 18:02 | XMS_ITS | Encounter Summary ---
[facility] Address [address] [place] [address] Care Team Providers Care Patternmaker Metal Name Role Phone Jenny Lomeli Primary Care Provider [phone] Encounter Details Date Type Department Care Team [...] 01/19/2025 3:00 PM EDT Office Visit [facility] [address] [place] [phone] Jenny Lomeli PA [address] [place] [address] documented as of this encounter Visit Diagnoses Not on filedocumented in this encounter Additional Health Concerns Infection Onset Date Last Indicated Resolved Time Norovirus 10/23/2022 10/23/2022 Assessment Noted Time PHQ-2 Depression Total Score: 1 10/14/19 24 3:41 PM EDT documented as of this encounter Care Teams Patternmaker Metal Relationship Specialty Start Date End Date Jenny Lomeli PA [address] [place] [address] PCP - General Physician Commercial Marketing Specialist 10/11/23 documented as of this encounter
--- OUTSIDE RECORDS SUMMARY | 2024-03-05 18:02 | XMS_ITS | Encounter Summary ---
[facility] Address [address] [place] [phone] Care Team Providers Care Cat Tender Name Role Phone Velma Phillips APRN Primary Care Provider [phone] Reason for Visit * Reason Onset Date Comments Stool order 10/16/2022 Encounter Details Date Type Department Care Team (Late st Contact Info) Description 10/16/2022 Telephone [facility]INE [address] [place] [address] Velma Phillips APRN [address] [place] [phone] Stool order Social History Tobacco Use Types [...] [facility] [address] [place] [address] Jenny Lomeli PA [address] [place] [address] documented as of this encounter Visit Diagnoses Not on filedocumented in this encounter Additional Health Concerns Assessment Noted Time PHQ-2 Depression Total Score: 3 10/17/19 23 1:57 PM EDT documented as of this encounter Care Teams Cat Tender Relationship Specialty Start Date End Date Velma Phillips APRN PCP - General Family Medicine 10/16/22 10/10/23 documented as of this encounter
--- OUTSIDE RECORDS SUMMARY | 2024-03-05 18:03 | XMS_ITS | Encounter Summary ---
[facility] Address [address] [place] [address] Care Team Providers Care Composite Assembler Name Role Phone Kortney Woods MD Primary Care Provi kenny Reason for Visit * Reason Onset Date Comments Med Refill 12/04/2018 Encounter Details Date Type Department Care Team (Late st Contact Info) Description 12/04/2018 Refill [facility] [address] [place] [address] Kortney Woods MD [address] [place] [address] Social History Tobacco Use Types [...] 3:00 PM EDT Office Visit [facility] [address] [place] [phone] Jenny Lomeli PA [address] [place] [address] documented as of this encounter Visit Diagnoses Not on filedocumented in this encounter Care Teams Composite Assembler Relationship Specialty Start Date End Date Kortney Woods MD [address] [address] PCP - General Internal Medicine 09/04/18 10/15/22 documented as of this encounter
--- OUTSIDE RECORDS SUMMARY | 2024-03-05 18:03 | XMS_ITS | Encounter Summary ---
[facility] Address [address] [place] [address] Care Team Providers Care Gut Sorter Name Role Phone Kortney Woods MD Primary Care Provi kenny Reason for Visit * Reason Onset Date Comments kaylyn 02/16/2019 order Encounter Details Date Type Department Care Team (Late st Contact Info) Description 02/16/2019 Telephone [facility] PRIMARY [facility]ARE [address] [place] [phone] Kortney Woods MD [address] [place] [phone] kaylyn (order ) Social History Tobacco Use [...] date up for her mammogram. Please call [place] back documented in this encounter Plan of Treatment Upcoming Encounters Date Type Department Care Team (Late st Contact Info) Description 01/19/2025 3:00 PM EDT Office Visit [facility] MED[facility]INE [address] [place] [phone] Jenny Lomeli PA [address] [place] [phone] documented as of this encounter Visit Diagnoses Not on filedocumented in this encounter Care Teams Gut Sorter Relationship Specialty Start Date End Date Kortney Woods MD [address] [address] PCP - General Internal Medicine 09/04/18 10/15/22 documented as of this encounter
--- OUTSIDE RECORDS SUMMARY | 2024-03-05 18:03 | XMS_ITS | Encounter Summary ---
Author Organization [facility] Address [address] [place] [phone] Care Team Providers Care Irrigation System Installer Name Role Phone Kortney Woods MD Primary Care Provi kenny Reason for Visit * Reason Comments Memory Loss * Consultation (Routine) - Closed Specialty Diagnoses / Procedures Referred By Contac t Referred To Contact Neurology Diagnoses Memory loss Kortney Woods MD 280 [facility] 200 [place] [address] Phone: tel: fax: Christine Huertas, MID LEVEL DEVELOPER [address] [facility] [address] [place] [address] Phone: tel: fax: Referral ID Status Reason Start Date Expiration Date V isits Requested Visits Authorized [id number] Closed Specialty Services Required 11/26/2018 11/26/2019 1 1 Encounter Details Date Type Department Care Team (Late st Contact Info) Description 12/15/2018 3:00 PM EDT Office Visit [facility] NEUR[facility]Y [address] [facility] [address] [place] [address] Christine Huertas, MID LEVEL DEVELOPER [address] [facility] [address] [place] [address] Intermittent confusion (Primary Dx); Paranoid behavior; Poor [...] She basically tells me she lives in [facility] housing and is concerned that while she [...] will tell her friends or even the retail district manager of the housing facility and they [...] 2012 but when she moved to the [facility] in December 2017 she felt like this [...] Ambien as needed. She is from the [facility] and came to [place] 1982. She tells me in the [facility] she was a college graduate and [...] Right achilles: 2+ Left achilles: 2+ Right residential caregiver: 2+ Left residential caregiver: 2+ Right plantar: normal Left plantar: normal [...] She has normal strength. She has a kqnruiUbmwom-Caad-Avdtgp Test, a normal Heel to Voss Test [...] term memory Comments: MMSE 27/30 today, 06/01 [facility] Orders: - EEG Awake or Drowsy Routine; [...] Other Reviewed [] Records Requested [] EMR Dragon/Community Coordinator [employer] Disclaimer: Much of this encounter note is an electronic slp of spoken language to printed text. Electronic slp of spoken language may permit erroneous words [...] [facility] [address] [place] [address] Jenny Lomeli PA [address] [place] [address] documented as of this encounter Procedures [...] 12/16/2018 Comment:BLOOD MANUAL DIFFERE N Narrative [facility] (AMBULATORY) - 12/18/2018 4:09 PM EDT Performed at: ??01 - [facility] ??[id number] Metrology Engineer: Hawk Mireles PhD, Phone: ??[phone] [facility] LAB BLOOD ORDERABLES Fi nal Result [facility] (AMBULATORY) [address] [place] [address], [place] [phone] [facility] [address] [place] [address], [place] [phone] * Microscopic Examination - (12/16/2018 12:00 AM EDT) WBC, UA 0-5 0 - 5 /hpf [facility] RBC, UA None seen 0 - 2 /hpf [facility] Epithelial Cells (non renal) 0-10 0 - 10 /hpf [facility] Bacteria, UA Few None seen/Few [facility] 12/16/2018 12/16/2018 Comment:BLOOD MANUAL DIFFERE N Narrative [facility] (AMBULATORY) - 12/18/2018 4:09 PM EDT Performed at: ??01 - [facility] [address] ??[id number] Metrology Engineer: Hawk Mireles PhD, Phone: ??[phone] Christine Banger MID LEVEL DEVELOPER URINE ORDERABLES Final Result Performing Organization Address City/[facility]/ZIP Co de Phone Number [facility] (AMBULATORY) [address] [place] [address], [facility] [address] [place] [address], * Urinalysis With Culture If Indicated - Urine, Clean Catch (12/16/2018 12:00 AM EDT) Specific [place], UA 1.019 1.005 - 1.030 [facility] [...] 4:09 PM EDT Performed at: ??01 - [facility] ??[id number] Metrology Engineer: Hawk Mireles PhD, Phone: ??[phone] Christineamadeo Banger MID LEVEL DEVELOPER URINE ORDERABLES Final Result Performing Organization Address City/[facility]/ZIP Co de Phone Number [facility] [address] [place] [address], [facility] [address] [place] [address], * Homocysteine (12/16/2018 12:00 AM EDT) Pathologist [facility] Homocystine, Plasma (Quant) 9.0 0.0 - 15.0 umol/L [facility] Blood 12/16/2018 12/16/2018 Comment:BLOOD MANUAL DIFFERE N Narrative [facility] (AMBULATORY) - 12/18/2018 4:09 PM EDT Performed at: ??01 - [facility] ??[id number] Metrology Engineer: Hawk Mireles PhD, Phone: ??[phone] [facility] BLOOD ORDERABLES Fi nal Result Performing Organization Address [facility] de Phone Number [facility] ([facility]) [address] [place] [address], [facility] [address] [place] [address], * Methylmalonic Acid, Serum (12/16/2018 12:00 AM EDT) Pathologist [facility] Methylmalonic Acid 168 0 - 378 nmol/L [facility] Disclaimer: Comment [facility] Comment: This test was developed and its performance characteristics determined by [facility]. It has not been cleared or approved by the Food and Drug Administration. Blood 12/16/2018 12/16/2018 Comment:BLOOD MANUAL DIFFERE N Narrative [facility] (AMBULATORY) - 12/18/2018 4:09 PM EDT Performed at: ??02 - [address] ??[id number] Metrology Engineer: Brenna Patel MD, Phone: ??[phone] [facility] BLOOD ORDERABLES Fi nal Result Performing Organization Address [facility] Co de Phone Number [facility] ([facility]) [address] [place] [address], [facility] [address] [place] [address], [place] [phone] * Thyroid Panel With TSH (12/16/2018 12:00 AM EDT) Pathologist [facility] TSH 2.360 0.450 - 4.500 uIU/mL [facility] T4, Total 7.6 4.5 - 12.0 ug/dL [facility] T3 Uptake 26 24 - 39 % [facility] Free Thyroxine Index 2.0 1.2 - 4.9 [facility] Blood 12/16/2018 12/16/2018 Comment:BLOOD MANUAL DIFFERE N Abel [facility] (AMBULATORY) - 12/18/2018 4:09 PM EDT Performed at: ??01 - [facility] ??[id number] Metrology Engineer: Hawk Mireles PhD, Phone: ??[phone] Christine Givens [facility] LAB BLOOD ORDERABLES nal Result [facility] [address] [place] [address], [facility] [address] [place] [address], [place] [phone] * Vitamin B12 & Folate (12/16/2018 12:00 AM EDT) [facility] Vitamin B-12 542 232 - 1,245 pg/mL [facility] Folate 17.4 >3.0 ng/mL [facility] Comment: A serum folate concentration of less than 3.1 ng/mL is considered to represent clinical deficiency. Blood 12/16/2018 12/16/2018 Comment:BLOOD MANUAL DIFFERE N Narrative [facility] (AMBULATORY) - 12/18/2018 4:09 PM EDT Performed at: ??01 - [facility] ??[id number] Metrology Engineer: Hawk Mireles PhD, Phone: ??[phone] Christine Huertas MID LEVEL DEVELOPER LAB BLOOD ORDERABLES Fi nal Result [facility] (AMBULATORY) [address] [place] [address], [place] [phone] [facility] [address] [place] [address], [place] [phone] * (ABNORMAL) CBC & Differential (12/16/2018 12:00 [...] 12/16/2018 Comment:BLOOD MANUAL DIFFERE N Narrative [facility] (AMBULATORY) - 12/18/2018 4:09 PM EDT Performed at: ??01 - [facility] [place] [address] [place], [place] ??[id number] Metrology Engineer: Hawk Mireles PhD, Phone: ??[phone] Christine [place]ivens Huertas MID LEVEL DEVELOPER LAB BLOOD ORDERABLES Fi nal Result [facility] (AMBULATORY) [address] [place] [address], [facility] [address] [place] [address], * Comprehensive Metabolic Panel (12/16/2018 12:00 AM [...] 12/16/2018 Comment:BLOOD MANUAL DIFFERE N Narrative [facility] (AMBULATORY) - 12/18/2018 4:09 PM EDT Performed at: ??01 - [facility] [address] ??[id number] Metrology Engineer: Hawk Mireles PhD, Phone: ??[phone] Christine Huertas APRN LAB BLOOD ORDERABLES Fi nal Result [facility] (AMBULATORY) [address] [place] [address], [facility] [address] [place] [address], documented in this encounter Visit Diagnoses Diagnosis Intermittent confusion- Primary Paranoid behavior Poor short term memory Memory loss Personal history of other diseases of the circulatory system documented in this encounter Care Teams Irrigation System Installer Relationship Specialty Start Date End Date Kortney oWods MD [address] [place] [address] PCP - General Internal Medicine 09/04/18 10/15/22 documented as of this encounter
--- OUTSIDE RECORDS SUMMARY | 2024-03-05 18:03 | XMS_ITS | Encounter Summary ---
Author Organization [facility] Address [address] [place] [address] Care Team Providers Care Industrial Electrician Name Role Phone Kortney Woods MD Primary Care Provi kenny Reason for Visit * Reason Onset Date Comments Med Refill 07/31/2019 Encounter Details Date Type Department Care Team (Late st Contact Info) Description 07/31/2019 Refill [facility] PRIMARY CARE [address] [place] [phone] Kortney Woods MD [address] [place] [address] Diarrhea, unspecified type Social History Tobacco [...] 2 MG capsule Pharmacy confirmed- [facility] [address] [facility] documented in this encounter Plan of Treatment Upcoming Encounters Date Type Department Care Team (Late st Contact Info) Description 01/19/2025 3:00 PM EDT Office Visit [facility] MED[facility] [address] [place] [address] Jenny Lomeli PA [address] [place], [place] [phone] documented as of this encounter Visit Diagnoses Diagnosis Diarrhea, unspecified type documented in this encounter Care Teams Industrial Electrician Relationship Specialty Start Date End Date Kortney Woods MD [address] [address] PCP - General Internal Medicine 09/04/18 10/15/22 documented as of this encounter
--- OUTSIDE RECORDS SUMMARY | 2024-03-05 18:03 | XMS_ITS | Encounter Summary ---
[facility] Address [address] [place] [address] Care Team Providers Care Reinforcing Steel Placer Name Role Phone Sariah Benson MD Primary Care Provider Ninfa vailable Reason for Visit * Diagnostic Imaging (Routine) - Closed Specialty Diagnoses / Procedures Referred By Contac t Referred To Contact Radiology Diagnoses Screening for breast cancer Procedures Mammo Screening Digital Tomosynthesis Bilateral With CAD Sariah Benson MD [address] [address] Phone: tel: Referral ID Status Reason Start Date Expiration Date Visits Re quested Visits Authorized [id number] Closed 02/06/2018 02/06/2019 1 1 Encounter Details Date Type Department Care Team (Latest Contact Info) Description 03/28/2018 1:07 PM EST - 03/28/2018 11:59 PM EST Hospital Encounter [facility] [address] [place] [address] Sariah Benson MD Discharge Disposition: Home or [...] Visit [facility] MED[facility] [address] [place], [place] [address] Jenny Lomeli PA [address] [place] [address] documented as of this encounter Procedures Procedure [...] on filedocumented in this encounter Care Teams Reinforcing Steel Placer Relationship Specialty Start Date End Date Sariah Benson MD PCP - General 12/10/14 09/03/18 documented as of this encounter
--- OUTSIDE RECORDS SUMMARY | 2024-03-05 18:03 | XMS_ITS | Encounter Summary ---
[facility] [address] [place] [address] Care Team Providers Care Manufacturing Sales Representative Name Role Phone Kortney Woods MD Primary Care Provi kenny Reason for Referral * Consultation (Routine) - Canceled Specialty Diagnoses / Procedures Referred By Contac t Referred To Contact Diagnoses Skin mass Kortney Woods MD [address] [place] [address] Phone: tel: fax: Chidi Coyle MD [address] [facility] ATTN: [place] [address] Phone: tel: fax: Referral ID Status Reason Start Date Expiration Date Visits Requested Visits Authorized [id number] Canceled Specialty Services Required 09/08/2018 09/08/2019 1 1 Reason for Visit * Reason Comments Depression Encounter Details Date Type Department Care Team (Late st Contact Info) Description 09/08/2018 1:30 PM EDT Office Visit [facility] [address] [place] [phone] Kortney Woods MD [address] [place] [address] Decreased GFR (Primary Dx); Skin [...] letter stating such. Wants referral to [facility] for left shoulder mass (likely [...] Visit [facility] [address] [place] [address] Jenny Lomeli PA [address] [place] [address] Scheduled Referrals Name Type Priority [...] 4:06 AM EDT Performed at: ??01 - [address] ??[id number] Customer Account Specialist: David Farnsworth MD, Phone: ??[phone] Kortney Woods MD LAB BLOOD ORDERABLE S Final Result [facility] (AMBULATORY) [address] [place] [address], [facility] [address] [place] [address], documented in this encounter Visit Diagnoses Diagnosis Decreased GFR- Primary Skin mass Localized superficial swelling, mass, or lump documented in this encounter Care Teams Manufacturing Sales Representative Relationship Specialty Start Date End Date Kortney Woods MD [address] [address] PCP - General Internal Medicine 09/04/18 10/15/22 documented as of this encounter
--- OUTSIDE RECORDS SUMMARY | 2024-03-05 18:03 | XMS_ITS | Encounter Summary ---
[facility] [address] [place] [address] Care Team Providers Care Flatwork Tier Name Role Phone Kortney Woods MD Primary Care Provi kenny Reason for Visit * Reason Comments Depression Encounter Details Date Type Department Care Team (Late st Contact Info) Description 01/12/2019 10:30 AM EDT Office Visit [facility] PRIMARY [facility] [address] [place] [address] Kortney Woods MD [address] [place] [address] Current moderate episode of major [...] not able to afford to go to [facility] due to copay of $180. She [...] Not able to afford to go to [facility] right now so will table that [...] for influenza vaccination - Fluad Tri 65yr ([phone]) Sophia Noriega MA documented in this encounter Plan of Treatment Upcoming Encounters Date Type Department Care Team (Late st Contact Info) Description 01/19/2025 3:00 PM EDT Office Visit [facility] FAMILY MEDICINE [address] [place] [address] Jenny Lomeli PA [address] [place] [address] documented as of this encounter Visit Diagnoses Diagnosis Current moderate episode of major depressive disorder without prior episode- Primary Paranoia Delusional disorder Need for influenza vaccination Need for prophylactic vaccination and inoculation against influenza Abdominal bloating Flatulence, eructation, and gas pain documented in this encounter Care Teams Flatwork Tier Relationship Specialty Start Date End Date Kortney Woods MD [address] [place] [address] PCP - General Internal Medicine 09/04/18 10/15/22 documented as of this encounter
--- OUTSIDE RECORDS SUMMARY | 2024-03-05 18:03 | XMS_ITS | Encounter Summary ---
[facility] Organization [facility] Address [address] [place] [address] Care Team Providers Care Matcher Name Role Phone Kortney Woods MD Primary Care Provi kenny Reason for Visit * Reason Onset Date Comments Medicare Wellness-subsequent 11/20/2019 Encounter Details Date Type Department Care Team (Late st Contact Info) Description 11/20/2019 Telephone [facility] [address] [phone] [place] LPN Medicare Wellness-subsequent Social History [...] [facility] [address] [facility] [place] [phone] Jenny Lomeli PA [address] [facility] [address] [place], [place] [phone] documented as of this encounter Visit Diagnoses Not on filedocumented in this encounter Care Teams Matcher Relationship Specialty Start Date End Date Kortney Woods MD [address] [facility] [address] [place] [address] PCP - General Internal Medicine 09/04/18 10/15/22 documented as of this encounter
--- OUTSIDE RECORDS SUMMARY | 2024-03-05 18:03 | XMS_ITS | Encounter Summary ---
[facility] Address [address] [id number] Care Team Providers Care Brakeshoe Repairer Name Role Phone Kortney Woods MD Primary Care Provi kenny Encounter Details Date Type Department Care Team (Late st Contact Info) Description 02/17/2019 Telephone [facility] PRIMARY CARE [address] [place] [address] Kortney Woods MD [address] [place] [address] Social History Tobacco Use Types Packs/Day Years [...] EST CALLING BACK ABOUT HER MAMMOGRAM RESULTS [phone] documented in this encounter Plan of Treatment Upcoming Encounters Date Type Department Care Team (Late st Contact Info) Description 01/19/2025 3:00 PM EDT Office Visit [facility] FAMILY MEDICINE [address] [phone] Jenny Lomeil PA [address] [place] [address] documented as of this encounter Visit Diagnoses Not on filedocumented in this encounter Care Teams Brakeshoe Repairer Relationship Specialty Start Date End Date Kortney Woods MD [address] [facility] [address] [place] [address] PCP - General Internal Medicine 09/04/18 10/15/22 documented as of this encounter
--- OUTSIDE RECORDS SUMMARY | 2024-03-05 18:03 | XMS_ITS | Encounter Summary ---
Author Organization [facility] Address [address] [place] [address] Care Team Providers Care Server Programmer Name Role Phone Kortney Woods MD Primary Care Provi kenny Reason for Referral * Behavorial Health/Psych (Routine) - Canceled Specialty Diagnoses / Procedures Referred By Camila kirkland Referred To Contact Psychiatry Diagnoses Paranoia Anxiety Kortney Woods MD [address] [place] [address] Phone: tel: fax: [facility] [address] [place] [address] [address] [place] [address] Phone: tel: fax: Referral ID Status Reason Start Date Expiration Date Visits Requested Visits Authorized [id number] Canceled Specialty Services Required 11/26/2018 11/26/2019 1 1 * Consultation (Routine) - Closed Specialty Diagnoses / Procedures Referred By Camila t Referred To Contact Neurology Diagnoses Memory loss Kortney Woods MD [address] [place] [address] Phone: tel: fax: Christine Huertas, PASTRY COOK [facility] [address] [place] [address] Phone: tel: fax: Referral ID Status Reason Start Date Expiration Date V isits Requested Visits Authorized [id number] Closed Specialty Services Required 11/26/2018 11/26/2019 1 1 Reason for Visit * Reason Comments Follow-up shaky Encounter Details Date Type Department Care Team (Late st Contact Info) Description 11/26/2018 2:30 PM EDT Office Visit [facility] PRIMARY CARE [address] [place] [address] Kortney Woods MD [address] [place] [address] Memory loss (Primary Dx); Breast [...] thinks it was her ex.He lives in [place] and she has not seen him in a long time, but thinks it could be only him. Shehas not seen him in the apt. She had a camera and said that someone covered it up so she couldn't see when someone came in. She has called the police, told friends, neighbors, and her apt pool manager. Many (or most) of them have told her she is a psycho, psychotic, demented. The stogy maker recently rec she ge t checked out [...] itself, but it's in the ddx Paranoia (CMS/[facility]) - Ambulatory Referral to Psychiatry Anxiety - Ambulatory Referral to Psychiatry Breast cancer screening - Mammo Screening Digital Tomosynthesis Bilateral With CAD documented in this encounter Plan of Treatment Upcoming Encounters Date Type Department Care Team (Late st Contact Info) Description 01/19/2025 3:00 PM EDT Office Visit [facility] FAMILY MEDICINE [address] [place] [phone] Jenny Lomeli PA [address] [place] [address] Scheduled Referrals Name Type Priority Associated Diagnoses Order Schedule Ambulatory Referral to Neurology Outpatient Referral Routine Memory loss Ordered: 11/26/2018 Ambulatory Referral to Psychiatry Outpatient Referral Routine Paranoia Anxiety Ordered: 11/26/2018 documented as of this encounter Visit Diagnoses Diagnosis Memory loss- Primary Breast cancer screening Breast screening, unspecified Paranoia Delusional disorder Anxiety Anxiety state, unspecified documented in this encounter Care Teams Server Programmer Relationship Specialty Start Date End Date Kortney Woods MD [address] [facility] [address] [place] [address] PCP - General Internal Medicine 09/04/18 10/15/22 documented as of this encounter
--- OUTSIDE RECORDS SUMMARY | 2024-03-05 18:03 | XMS_ITS | Encounter Summary ---
[facility] Address [address] [place] [address] Care Team Providers Care Sinker Winder Name Role Phone Kortney Woods MD Primary Care Provi kenny Reason for Visit * Reason Onset Date Comments ORDER FOR BLOOD WORK 12/23/2019 Encounter Details Date Type Department Care Team (Late st Contact Info) Description 12/23/2019 Telephone [facility] PRIMARY CARE [address] [place] [phone] Kortney Woods MD [address] [place] [address] ORDER FOR BLOOD WORK Social [...] WilfredDorita Relationship: Self Best call back number: [phone] What orders are you requesting (i.e. lab or imaging): BLOOD WORK In what timeframe would the patient need to come in: BEFORE HER APPOINTMENT ON 12/29/2019 Where will you receive your lab/imaging services: [facility] Additional notes: NA documented in this encounter Plan of Treatment Upcoming Encounters Date Type Department Care Team (Late st Contact Info) Description 01/19/2025 3:00 PM EDT Office Visit [facility] FAMILY MEDICINE [address] [place] [address] Jenny Lomeli PA [address] [place] [address] documented as of this encounter Visit Diagnoses Not on filedocumented in this encounter Care Teams Sinker Winder Relationship Specialty Start Date End Date Kortney Woods MD [address] [place] [address] PCP - General Internal Medicine 09/04/18 10/15/22 documented as of this encounter
--- OUTSIDE RECORDS SUMMARY | 2024-03-05 18:03 | XMS_ITS | Encounter Summary ---
[facility] Address [address] [place] [address] Care Team Providers Care Converter Supervisor Name Role Phone Sariah Benson MD Primary Care Provider Ninfa vailable Reason for Visit * Reason Onset Date Comments Med Refill 07/28/2018 Encounter Details Date Type Department Care Team (Late st Contact Info) Description 07/28/2018 Refill [facility] PRIMARY CARE [address] [place] [address] [address] [place] [address] Sariah Benson MD Primary insomnia [...] DAYS OF HER AMBIEN 10 MG TO [facility]. SHE REC. THE DICLOFENAC BUT NOTTHE AMBIEN. PLEASE CALL HER AT [phone] documented in this encounter Plan of Treatment Upcoming Encounters Date Type Department Care Team (Late st Contact Info) Description 01/19/2025 3:00 PM EDT Office Visit [facility] FAMILY MEDICINE [address] [place] [address] Jenny Lomeli PA [address] [place] [address] documented as of this encounter Visit Diagnoses Diagnosis Primary insomnia Persistent disorder of initiating or maintaining sleep documented in this encounter Care Teams Converter Supervisor Relationship Specialty Start Date End Date Sariah Benson MD PCP - General 12/10/14 09/03/18 documented as of this encounter
--- OUTSIDE RECORDS SUMMARY | 2024-03-05 18:03 | XMS_ITS | Encounter Summary ---
[facility] Address [address] [place] [address] Care Team Providers Care Medical Billing Coordinator Name Role Phone Kortney Woods MD Primary Care Provi kenny Reason for Visit * Reason Onset Date Comments MED REFILLS 01/11/2020 Encounter Details Date Type Department Care Team (Late st Contact Info) Description 01/11/2020 Telephone [facility] PRIMARY CARE [address] [place] [address] Kortney Woods MD [address] [place] [address] MED REFILLS Social History Tobacco Use Types [...] VOLTAREN NEEDED' [facility] MA[facility] ORDER PHARMACY DORITA: [phone] documented in this encounter Plan of Treatment Upcoming Encounters Date Type Department Care Team (Late st Contact Info) Description 01/19/2025 3:00 PM EDT Office Visit [facility] [address] [place] [phone] Jenny Lomeli PA [address] [place] [address] documented as of this encounter Visit Diagnoses Diagnosis Primary insomnia Persistent disorder of initiating or maintaining sleep Gastroesophageal reflux disease Esophageal reflux documented in this encounter Care Teams Medical Billing Coordinator Relationship Specialty Start Date End Date Kortney Woods MD [address] [place] [address] PCP - General Internal Medicine 09/04/18 10/15/22 documented as of this encounter
--- OUTSIDE RECORDS SUMMARY | 2024-03-05 18:03 | XMS_ITS | Encounter Summary ---
[facility] Address [address] [place] [address] Care Team Providers Care Factory Manager Name Role Phone Kortney Woods MD Primary Care Provi kenny Reason for Visit * Reason Onset Date Comments CS-Meds Re-Fill 04/10/2019 Encounter Details Date Type Department Care Team (Late st Contact Info) Description 04/10/2019 Telephone [facility] PRIMARY CARE [address] [place] [address] Kortney Woods MD [address] [place] [address] CS-Meds Re-Fill Social History Tobacco [...] [employer] Mail Delivery, confirmed Patient Call Back [phone] documented in this encounter Plan of Treatment Upcoming Encounters Date Type Department Care Team (Late st Contact Info) Description 01/19/2025 3:00 PM EDT Office Visit [facility] FAMILY MEDICINE [address] [phone] Jenny Lomeli PA [address] [facility] [place] [address] documented as of this encounter Visit Diagnoses Diagnosis Primary insomnia Persistent disorder of initiating or maintaining sleep documented in this encounter Care Teams Factory Manager Relationship Specialty Start Date End Date Kortney Woods MD [address] [place] [address] PCP - General Internal Medicine 09/04/18 10/15/22 documented as of this encounter
--- OUTSIDE RECORDS SUMMARY | 2024-03-05 18:03 | XMS_ITS | Encounter Summary ---
[facility] Address [address] [place] [address] Care Team Providers Care Pain Medicine Physician Name Role Phone Kortney Woods MD Primary Care Provi kenny Reason for Visit * Reason Comments Follow-up not feeling well, fa arley zaman Encounter Details Date Type Department Care Team (Late st Contact Info) Description 12/29/2019 1:[address] PM [address]T Office Visit [facility] PRIMARY CARE [address] [place] [address] Kortney Woods MD [address] [place] [address] Tremor (Primary Dx); Paranoia; Lipid screening; History [...] bothering her. She has never seen a gas engine operator compressors nor been treated for rheumatoid arthritis. Also [...] autoimmune disease - FAVIOLA With / DsDNA, TECHNICAL IMPLEMENTATION LEAD, Sjogrens A / B, Farah -patient says [...] Description 01/19/2025 3:00 PM EDT Office Visit [facility] FAMILY MEDICINE [address] [place], [place] [address] Jenny Lomeli PA [address] [place], [place] [address] documented as of this encounter Procedures Procedure [...] Color Yellow Yellow, Straw, Dark Yellow, Velma [facility] Clarity, UA Clear Clear [facility] Specific [place] 1.000(A) 1.005 - 1.030 [facility] pH, Urine 7.0 5.0 - 8.0 [facility] Leukocytes Negative Negative [facility] Nitrite, UA Negative Negative [facility] Protein, POC Negative Negative mg/dL [facility] Glucose, UA Negative Negative, 1000 mg/dL (3+) mg/dL [facility] Ketones, UA Negative Negative [facility] Urobilinogen, UA Normal Normal [facility] Bilirubin Negative Negative [facility] Blood, UA Negative Negative [facility] Urine 12/29/2019 1:53 PM EDT Kortney Woods MD POINT OF CARE TEST ORDERABLES Final Result [facility]
[address] [place] [address], * FAVIOLA With / DsDNA, TECHNICAL IMPLEMENTATION LEAD, Sjogrens A / B, Farah (12/29/2019 1:45 PM EDT) FAVIOLA Direct Negative Negative [facility] Blood 12/29/2019 1:45 PM EDT 12/30/2019 Comment:BLOOD Narrative [facility] ([facility]UL[facility]) - 12/31/2019 2:09 PM EDT Performed at: ??02 - [facility] [address] ??[id number] Compression Molding Machine Tender: Hawk Mireles PhD, Phone: ??[phone] Kortney Woods MD LAB BLOOD ORDERABLE S Final Result [facility] ([facility]ULAT[facility]) [address] [place] [address], [place] [phone] [facility] [address] [place] [address], [place] [phone] * (ABNORMAL) Lipid Panel (12/29/2019 1:45 PM EDT) Total Cholesterol 242(H) 0 - 200 mg/dL [facility] Triglycerides 229(H) 0 - 150 mg/dL [facility] HDL Cholesterol 45 40 - 60 mg/dL [facility] VLDL Cholesterol Naga 45.8 mg/dL [facility] LDL Chol Calc ([facility]) 151(H) 0 - 100 mg/dL [facility] Blood 12/29/2019 1:45 PM EDT 12/30/2019 Comment:BLOOD Narrative [facility] (AMBULATORY) - 12/31/2019 2:09 PM EDT Performed at: ??01 - [address] ??[id number] Compression Molding Machine Tender: David Farnsworth MD, Phone: ??[phone] Kortney Woods MD LAB BLOOD ORDERABLE S Final Result Performing Organization Address [facility]/ZIP Co de Phone Number [facility] [address] [place] [address], [facility] [address] [place] [address], * RPR (12/29/2019 1:45 PM EDT) Pathologist [facility] RPR Non Reactive Non Reactive [facility] Blood 12/29/2019 1:45 PM EDT 12/30/2019 Comment:BLOOD Narrative [facility] (AMBULATORY) - 12/31/2019 2:09 PM EDT Performed at: ??02 - [facility] [address] [place] [address] ??[id number] Compression Molding Machine Tender: Hawk Mireles PhD, Phone: ??[phone] Kortney Woods MD LAB BLOOD ORDERABLE S Final Result Performing Organization Address City/[facility]/ZIP Co de Phone Number [facility] (AMBULATORY) [address] [place] [address], [facility] [address] [place] [address], * HIV-1/O/2 Ag/Ab w Reflex (12/29/2019 1:45 PM EDT) Pathologist [facility] HIV Screen 4th Gen w/RFX (Reference) Non Reactive Non Reactive [facility] Blood 12/29/2019 1:45 PM EDT 12/30/2019 Comment:BLOOD Narrative [facility] (AMBULATORY) - 12/31/2019 2:09 PM EDT Performed at: ??02 - [facility] [address] [place], [place] ??[id number] Compression Molding Machine Tender: Hawk Mireles PhD, Phone: ??[phone] Kortney Woods MD LAB BLOOD ORDERABLE S Final Result [facility] (AMBULATORY) [address] [place] [address], [facility] [address] [place] [address], [place] [phone] * Vitamin B12 (12/29/2019 1:45 PM EDT) Vitamin B-12 362 211 - 946 pg/mL [facility] Comment:Results may be false ly increased if patient taking Biotin. Blood 12/29/2019 1:45 PM EDT 12/30/2019 Comment:BLOOD Narrative [facility] (AMBULATORY) - 12/31/2019 2:09 PM EDT Performed at: ??01 - [address] ??[id number] Compression Molding Machine Tender: David Farnsworth MD, Phone: ??[phone] Kortney Woods MD LAB BLOOD ORDERABLE S Final Result [facility] (AMBULATORY) [address] [place] [address], [place] [phone] [facility] [address] [place] [address], [place] [phone] * TSH (12/29/2019 1:45 PM EDT) TSH 2.740 0.270 - 4.200 uIU/mL [facility] Blood 12/29/2019 1:45 PM EDT 12/30/2019 Comment:BLOOD Narrative [facility] ([facility]UL[facility]ORY) - 12/31/2019 2:09 PM EDT Performed at: ??01 - [address] [address] [address] [place], [place] ??[id number] Compression Molding Machine Tender: David Farnsworth MD, Phone: ??[phone] Kortney Woods MD LAB BLOOD ORDERABLE S Final Result [facility] (AMBULATORY) [address] [place] [address], [facility] [address] [place] [address], * (ABNORMAL) Comprehensive Metabolic Panel (12/29/2019 1:45 [...] 2:09 PM EDT Performed at: ??01 - [facility] [address] [place], [place] ??[id number] Compression Molding Machine Tender: David Farnsworth MD, Phone: ??[phone] Kortney Woods MD LAB BLOOD ORDERABLE S Final Result [facility] (AMBULATORY) [address] [id number], [facility] [address] [place] [address], * CBC (No Diff) (12/29/2019 1:45 PM EDT) [facility] WBC 4.83 3.40 - 10.80 10*3/mm3 [facility] [...] 2:09 PM EDT Performed at: ??01 - [facility] [address] [place], [place] ??[id number] Compression Molding Machine Tender: David Farnsworth MD, Phone: ??[phone] Kortney Woods MD LAB BLOOD ORDERABLE S Final Result [facility] (AMBULATORY) [address] [place] [address], [place] [phone] [facility] [address] [place] [address], [place] [phone] documented in this encounter Visit Diagnoses Diagnosis Tremor- Primary Abnormal involuntary movements Paranoia Delusional disorder Lipid screening Screening for lipoid disorders History of autoimmune disease Urinary frequency Need for influenza vaccination Need for prophylactic vaccination and inoculation against influenza documented in this encounter Care Teams Pain Medicine Physician Relationship Specialty Start Date End Date Kortney Woods MD [address] [place] [address] PCP - General Internal Medicine 09/04/18 10/15/22 documented as of this encounter
--- OUTSIDE RECORDS SUMMARY | 2024-03-05 18:03 | XMS_ITS | Encounter Summary ---
[facility] Address [address] [place] [address] Care Team Providers Care Sous Chef Kitchen Manager Name Role Phone Kortney Woods MD Primary Care Provi kenny Encounter Details Date Type Department Care Team (Late st Contact Info) Description 12/19/2018 Telephone [facility] [address] [facility] [address] [place] [address] Christine Huertas, TECHNOLOGY STRATEGIST [address] [facility] [address] [place] [address] Social History Tobacco Use Types [...] 3:00 PM EDT Office Visit [facility] FAMILY MEDICINE [address] [place] [phone] Jenny Lomeli PA [address] [place], [place] [phone] documented as of this encounter Visit Diagnoses Not on filedocumented in this encounter Care Teams Sous Chef Kitchen Manager Relationship Specialty Start Date End Date Kortney Woods MD [address] [facility] [address] [place] [address] PCP - General Internal Medicine 09/04/18 10/15/22 documented as of this encounter
--- OUTSIDE RECORDS SUMMARY | 2024-03-05 18:03 | XMS_ITS | Encounter Summary ---
[facility] [address] [id number] Care Team Providers Care Principal Systems Engineer Name Role Phone Kortney Woods MD Primary Care Provi kenny Reason for Referral * Diagnostic Imaging (Routine) - Closed Specialty Diagnoses / Procedures Referred By Contac t Referred To Contact Radiology Diagnoses Breast pain Procedures Mammo diagnostic digital tomosynthesis bilateral w Kortney Hardy MD [address] [place] [address] Phone: tel: fax: [place] [address] Phone: tel: Referral ID Status Reason Start Date Expiration Date Visits Re quested Visits Authorized [id number] Closed 02/17/2019 02/17/2020 1 1 Reason for Visit * Diagnostic Imaging (Routine) - Closed Specialty Diagnoses / Procedures Referred By Contac t Referred To Contact Radiology Diagnoses Breast pain Procedures Mammo diagnostic digital tomosynthesis bilateral w Kortney Hardy MD [address] [place] [address] Phone: tel: fax: [address] [address] Phone: tel: Referral ID Status Reason Start Date Expiration Date Visits Re quested Visits Authorized [id number] Closed 02/17/2019 02/17/2020 1 1 Encounter Details Date Type Department Care Team (Latest Contact Info) Description 04/20/2019 12:45 PM EST - 04/20/2019 11:59 PM EST Hospital Encounter [facility] [address] [place], [place] [id number] Kortney Woods MD [address] [place], [place] [phone] Breast pain Discharge Disposition: Home or Self [...] Visit [facility] FAMILY MEDICINE [address] [place] [place] [address] Jenny Lomeli PA [address] [address] documented as of this encounter Procedures Procedure [...] Mastodynia documented in this encounter Care Teams Principal Systems Engineer Relationship Specialty Start Date End Date Kortney Woods MD [address] [place] [address] PCP - General Internal Medicine 09/04/18 10/15/22 documented as of this encounter
--- OUTSIDE RECORDS SUMMARY | 2024-03-05 18:03 | XMS_ITS | Encounter Summary ---
Author Organization [facility] Address [address] [place] [address] Care Team Providers Care Packing Clerk Name Role Phone Sariah Benson MD Primary Care Provider Ninfa vailable Reason for Referral * Consultation (Routine) - Closed Specialty Diagnoses / Procedures Referred By Contkarlee kirkland Referred To Contact Dermatology Diagnoses Skin mass Kortney Woods MD [address] [place] [address] Phone: tel: fax: [facility] [address] [place] [address] [address] [place] [address] Phone: tel: fax: Referral ID Status Reason Start Date Expiration Date V isits Requested Visits Authorized [id number] Closed Specialty Services Required 08/20/2018 08/20/2019 1 1 Reason for Visit * Reason Comments Shoulder Pain Encounter Details Date Type Department Care Team (Late st Contact Info) Description 08/20/2018 2:45 PM EDT Office Visit [facility] [address] [place] [address] Kortney Woods MD [address] [place] [address] Skin mass (Primary Dx); Screening [...] over her body. Her ex lives in [place] but he has a lot of money [...] Visit [facility] [address] [place] [address] [...] 08/20/2018 Comment:BLOOD MANUAL DIFFERE N Narrative [facility] (AMBULATORY) - 08/21/2018 3:07 AM EDT Performed at: ??01 - [address] ??[id number] Willow Machine Operator: David Farnsworth MD, Phone: ??[phone] Kortney Woods MD LAB BLOOD ORDERABLE S Final Result [facility] (AMBULATORY) [address] [place] [address], [facility] [address] [place] [address], * (ABNORMAL) Comprehensive Metabolic Panel (08/20/2018 3:09 [...] 3:07 AM EDT Performed at: ??01 - [address] ??[id number] Willow Machine Operator: David Farnsworth MD, Phone: ??[phone] Kortney Woods MD LAB BLOOD ORDERABLE S Final Result [facility] (AMBULATORY) [address] [place] [id number], [facility] [address] [place] [address], * (ABNORMAL) CBC & Differential (08/20/2018 3:09 [...] 3:07 AM EDT Performed at: ??[address] - [address] ??[id number] Willow Machine Operator: David Farnsworth MD, Phone: ??[phone] Performed at: ??02 - [address] ??[id number] Willow Machine Operator: Brady Zendejas MD, Phone: ??[phone] Kortney Woods MD LAB BLOOD ORDERABLE S Edited Result - Final [facility] (AMBULATORY) [address] [place] [address], [place] [phone] [facility] [address] [place] [address], [place] [phone] documented in this encounter Visit Diagnoses Diagnosis Skin mass- Primary Localized superficial swelling, mass, or lump Screening for cardiovascular condition Screening for other and unspecified cardiovascular conditions Diarrhea, unspecified type Weakness Other malaise and fatigue documented in this encounter Care Teams Packing Clerk Relationship Specialty Start Date End Date Sariah Benson MD PCP - General 12/10/14 09/03/18 documented as of this encounter
--- OUTSIDE RECORDS SUMMARY | 2024-03-05 18:03 | XMS_ITS | Encounter Summary ---
[facility] Address [address] [id number] Care Team Providers Care Buggy Man Name Role Phone Kortney Woods MD Primary Care Provi kenny Encounter Details Date Type Department Care Team (Late st Contact Info) Description 09/10/2018 Telephone [facility]IMARY [facility]ARE [address] [place] [address] Kortney Woods MD [address] [place] [address] Social History Tobacco Use Types Packs/Day Years [...] Visit [facility] [address] [address] Jenny Lomeli PA [address] [place], [place] [address] documented as of this encounter Visit Diagnoses Not on filedocumented in this encounter Care Teams Buggy Man Relationship Specialty Start Date End Date Kortney Woods MD [address] [place] [address] PCP - General Internal Medicine 09/04/18 10/15/22 documented as of this encounter
--- OUTSIDE RECORDS SUMMARY | 2024-03-05 18:03 | XMS_ITS | Encounter Summary ---
Author Organization [facility] Address [address] [place] [address] Care Team Providers Care Wildlife Biology Technician Name Role Phone Kortney Woods MD Primary Care Provi kenny Reason for Visit * Reason Onset Date Comments Med Refill 04/13/2019 Encounter Details Date Type Department Care Team (Late st Contact Info) Description 04/13/2019 Refill [facility] PRIMARY [facility]ARE [address] [place] [address] Kortney Woods MD [address] [place] [address] Primary insomnia Social History Tobacco [...] [facility] [address] [place] [address] Jenny Lomeli PA [address] [place] [address] documented as of this encounter Visit Diagnoses Diagnosis Primary insomnia Persistent disorder of initiating or maintaining sleep documented in this encounter Care Teams Wildlife Biology Technician Relationship Specialty Start Date End Date Kortney Woods MD [address] [address] PCP - General Internal Medicine 09/04/18 10/15/22 documented as of this encounter
--- OUTSIDE RECORDS SUMMARY | 2024-03-05 18:03 | XMS_ITS | Encounter Summary ---
Author Organization [facility] Address [address] [place] [address] Care Team Providers Care Grid Casting Machine Operator Helper Name Role Phone Kortney Woods MD Primary Care Provi kenny Reason for Visit * Reason Comments Follow-up GERD, Insomnia Encounter Details Date Type Department Care Team (Late st Contact Info) Description 08/07/2019 9:00 AM EDT Office Visit [facility]IMARY [facility]ARE [address] [place] [address] Kortney Woods MD [address] [place] [address] Drug-induced constipation (Primary Dx); Abdominal [...] her abdomen so [facility] went [facility] and was evaluatedthere. They did [...] FAMILY MEDICINE [address] [place] [address] Jenny Lomeli PA [address] [address] documented as of this encounter Visit Diagnoses Diagnosis Drug-induced constipation- Primary Other constipation Abdominal cramping Abdominal pain, unspecified site documented in this encounter Care Teams Grid Casting Machine Operator Helper Relationship Specialty Start Date End Date Kortney Woods MD [address] [address] PCP - General Internal Medicine 09/04/18 10/15/22 documented as of this encounter
--- OUTSIDE RECORDS SUMMARY | 2024-03-05 18:03 | XMS_ITS | Encounter Summary ---
Author Organization [facility] Address [address] [place] [id number] Care Team Providers Care Ship Superintendent Name Role Phone Kortney Woods MD Primary Care Provi kenny Encounter Details Date Type Department Care Team (Late st Contact Info) Description 10/13/[address] [facility] PRIMARY [facility]ARE [address] [place] [address] Kortney Woods MD [address] [place] [address] Social History Tobacco Use Types Packs/Day Years [...] 3:27 PM EDT Medication approved. Sent into [facility] mail * Telephone Encounter - Ann Schafer - 10/13/2018 2:40 PM EDT OMEPRAZOLE 20MG 90 [id number] documented in this encounter Plan of Treatment Upcoming Encounters Date Type Department Care Team (Late st Contact Info) Description 01/19/2025 3:[address] EDT Office [address] [facility]INE [address] [place] [phone] Jenny Lomeli PA [address] [place] [address] documented as of this encounter Visit Diagnoses Diagnosis Gastroesophageal reflux disease, esophagitis presence not specified- Primary documented in this encounter Care Teams Ship Superintendent Relationship Specialty Start Date End Date Kortney Woods MD [address] [place] [address] PCP - General Internal Medicine 09/04/18 10/15/22 documented as of this encounter
--- OUTSIDE RECORDS SUMMARY | 2024-03-05 18:03 | XMS_ITS | Encounter Summary ---
Author Organization [facility] Address [address] [place] [address] Care Team Providers Care Sonar Subsystem Equipment Operator Name Role Phone Velma Phillips APRN Primary Care Provider [phone] Reason for Referral * Consultation (Routine) - Closed Specialty Diagnoses / Procedures Referred By Contkarlee t Referred To Contact Vascular Surgery Diagnoses Superficial varicosities Procedures SD OFFICE/OUTPATIENT NEW MODERATE MDM 45-59 MINUTES Velma Phillips APRN Phone: tel: fax: Mikel Varma MD [address] [place] [address] [place] [address] Phone: tel: fax: Referral ID Status Reason Start Date Expiration Date V isits Requested Visits Authorized [id number] Closed Specialty Services Required 10/16/2022 10/16/2023 1 1 Reason for Visit * Reason Comments Establish Care Needs for pcpCyst on left arm (shoulder) since 2019 Encounter Details Date Type Department Care Team (Late st Contact Info) Description 10/16/2022 2:00 PM EDT Office Visit [facility] [address] [place] [address] Velma Phillips APRN [address] [place] [address] Superficial varicosities (Primary Dx); PTSD [...] [facility] [address] [...] 12:0 2 PM EDT 10/19/2022 Narrative [facility] (AMBULATORY) - 10/20/2022 5:14 AM EDT Performed at: ??01 - [facility] ??[id number] Dance Hall Hostess: Hawk Mireles PhD, Phone: ??[phone] Patient Fasting: ??Y Velma Phillips APRN LAB BLOOD ORDERABLES Final R esult [facility] (AMBULATORY) [address] [place] [address], [facility] [address] [place] [address], * (ABNORMAL) Lipid Panel (10/19/2022 12:02 PM EDT) Total Cholesterol 230(H) 100 - 199 mg/dL [facility] Triglycerides 134 0 - 149 mg/dL [facility] HDL Cholesterol 60 >39 mg/dL [facility] VLDL Cholesterol Naga 24 5 - 40 mg/dL [facility] LDL Chol Calc (NIH) 146(H) 0 - 99 mg/dL [facility] Blood 10/19/2022 12:0 2 PM EDT 10/19/2022 Narrative [facility] (AMBULATORY) - 10/20/2022 5:14 AM EDT Performed at: ??01 - [facility] [address] [facility], [place], [place] ??[id number] Dance Hall Hostess: Hawk Mireles PhD, Phone: ??[phone] Patient Fasting: ??Y Velma Meyermaribel Phillips APRN LAB BLOOD ORDERABLES Final R esult [facility] ([facility]BULATORY) [address] [place] [address], [facility] [address] [place] [address], * (ABNORMAL) CBC & Differential (10/19/2022 12:02 [...] AM EDT Performed at: ??01 - [facility] [address] [place] [address] ??[id number] Dance Hall Hostess: Hawk Mireles PhD, Phone: ??[phone] Patient Fasting: ??Y Velma Phillips APRN LAB BLOOD ORDERABLES Final R esult [facility] (AMBULATORY) [address] [place] [address], [place] [phone] [facility] [address] [place] [address], [place] [phone] documented in this encounter Visit Diagnoses Diagnosis [...] documented as of this encounter Care Teams Sonar Subsystem Equipment Operator Relationship Specialty Start Date End Date Velma Phillips APRN PCP - General Family Medicine 10/16/22 10/10/23 documented as of this encounter
--- OUTSIDE RECORDS SUMMARY | 2024-03-05 18:03 | XMS_ITS | Encounter Summary ---
Author Organization [facility] Address [address] [place] [address] Care Team Providers Care Lime Burner Name Role Phone Kortney Woods MD Primary Care Provi kenny Reason for Visit * Reason Comments Diarrhea Encounter Details Date Type Department Care Team (Late st Contact Info) Description 07/24/2019 2:00 PM EDT Office Visit [facility] PRIMARY [facility]ARE [address] [place] [address] Kortney Woods MD [address] [place] [address] Diarrhea, unspecified type (Primary Dx) [...] recent antibiotic use. She went to the [facility] yesterday and was given Imodium 2 mg [...] [facility] [address] [place] [address] Jenny Lmoeli PA [address] [place] [address] documented as of this encounter Visit Diagnoses Diagnosis Diarrhea, unspecified type- Primary documented in this encounter Care Teams Lime Burner Relationship Specialty Start Date End Date Kortney Woods MD [address] [place] [address] PCP - General Internal Medicine 09/04/18 10/15/22 documented as of this encounter
--- OUTSIDE RECORDS SUMMARY | 2024-03-05 18:03 | XMS_ITS | Encounter Summary ---
[facility] Address [address] [place] [address] Care Team Providers Care Commercial Housekeeper Name Role Phone Kortney Woods MD Primary Care Provi kenny Encounter Details Date Type Department Care Team (Late st Contact Info) Description 11/13/2019 Telephone [facility] PRIMARY [facility]ARE [address] [place] [address] Washington Helms LPN Social History [...] Description 01/19/2025 3:00 PM EDT Office Visit [facility] MEDICINE [address] [place] [address] Jenny Lomeli PA [address] [place] [address] documented as of this encounter Visit Diagnoses Not on filedocumented in this encounter Care Teams Commercial Housekeeper Relationship Specialty Start Date End Date Kortney Woods MD [address] [place] [address] PCP - General Internal Medicine 09/04/18 10/15/22 documented as of this encounter
--- OUTSIDE RECORDS SUMMARY | 2024-03-05 18:03 | XMS_ITS | Encounter Summary ---
[facility] Address [address] [place] [address] Care Team Providers Care Medical Chemist Name Role Phone Sariah Benson MD Primary Care Provider Ninfa vailable Reason for Visit * Reason Onset Date Comments Med Refill 07/09/2018 Encounter Details Date Type Department Care Team (Late st Contact Info) Description 07/09/2018 Refill [facility] [address] [place] [address] [address] [place] [address] Sariah Benson MD Primary insomnia [...] Description 01/19/2025 3:00 PM EDT Office Visit [facility] [address] [place], [place] [address] Jenny Lomeli PA [address] [place], [place] [address] documented as of this encounter Visit Diagnoses Diagnosis Primary insomnia Persistent disorder of initiating or maintaining sleep documented in this encounter Care Teams Medical Chemist Relationship Specialty Start Date End Date aSriah Benson MD PCP - General 12/10/14 09/03/18 documented as of this encounter
--- OUTSIDE RECORDS SUMMARY | 2024-03-05 18:04 | XMS_ITS | Encounter Summary ---
Author Organization [facility] Address [address] [place] [address] Care Team Providers Care Market Researcher Name Role Phone Sariah Benson MD Primary Care Provider Ninfa vailable Encounter Details Date Type Department Care Team (Late st Contact Info) Description 05/20/2017 Telephone [facility] PRIMARY [facility]ARE [address] [facility] [address] [place] [address] Sariah Benson MD Social History [...] [facility] [address] [address] Jenny Lomeli PA [address] [place] [address] documented as of this encounter Visit Diagnoses Not on filedocumented in this encounter Care Teams Market Researcher Relationship Specialty Start Date End Date Sariah Benson MD PCP - General 12/10/14 09/03/18 documented as of this encounter
--- OUTSIDE RECORDS SUMMARY | 2024-03-05 18:04 | XMS_ITS | Encounter Summary ---
[facility] Address [address] [place] [address] Care Team Providers Care Can Patcher Name Role Phone Sariah Benson MD Primary Care Provider Ninfa vailable Reason for Visit * Reason Onset Date Comments Med Refill 10/18/2017 Encounter Details Date Type Department Care Team (Late st Contact Info) Description 10/18/2017 Telephone [facility] [address] [place] [address] [facility] [address] [place] [address] Sariah Benson MD Med Refill [...] 10/18/2017 10:45 AM EDT Rx faxed to [facility] * Telephone Encounter - Yecenia Ortiz - 10/18/2017 10:13 AM EDT Pt needs a refill on diclofenac and omeprazole. [facility] documented in this encounter Plan of Treatment Upcoming Encounters Date Type Department Care Team (Late st Contact Info) Description 01/19/2025 3:00 PM EDT Office Visit [facility] [address] [place] [address] Jenny Lomeli PA [address] [place], [place] [address] documented as of this encounter Visit Diagnoses Not on filedocumented in this encounter Care Teams Can Patcher Relationship Specialty Start Date End Date Sariah Benson MD PCP - General 12/10/14 09/03/18 documented as of this encounter
--- OUTSIDE RECORDS SUMMARY | 2024-03-05 18:04 | XMS_ITS | Encounter Summary ---
[facility] Address [address] [id number] Care Team Providers Care Mail Sorter Name Role Phone Sariah Benson MD Primary Care Provider Ninfa vailable Reason for Visit * Diagnostic Imaging (Routine) - Closed Specialty Diagnoses / Procedures Referred By Contac t Referred To Contact Radiology Diagnoses Menopause Procedures DEXA Bone Density Axial Sariah Benson MD [address] [address] Phone: tel: Referral ID Status Reason Start Date Expiration Date Visits Re quested Visits Authorized [id number] Closed 02/06/2018 02/06/2019 1 1 Encounter Details Date Type Department Care Team (Latest Contact Info) Description 03/13/2018 1:11 PM EST - 03/13/2018 11:59 PM [facility] Hospital Encounter [facility] [address] [place] [address] [address] Sariah Benson MD Discharge Disposition: Home or [...] [facility] [address] [place], [place] [address] Jenny Lomeli PA [address] [place] [address] documented as of this encounter Procedures Procedure [...] fall-prevention measurements. The National Osteoporosis Foundation recommends (http://www.nof.org/hcp/practice/upamsojm-qwu-lqhfxoaf-guidelines/clinic ans-guide) that FDA-approved medical therapies be considered [...] the left hip with 95% confidence is 0.533222 gm/cm2 at the hip and 0.293918 g/cm2 at the lumbar spine. This report [...] fall-prevention measurements. The National Osteoporosis Foundation recommends (http://www.nof.org/hcp/practice/bjxcotfk-htw-mozdekaf-guidelines/clinic ans-guide) that FDA-approved medical therapies be considered [...] the left hip with 95% confidence is 0.254211 gm/cm2 at the hip and 0.871547 g/cm2 at the lumbar spine. This report was finalized on 03/13/2018 4:[address] Leida Wilkinson MD. Sariah Benson MD IMG DXA ORDERABLES Final R esult documented in this encounter Visit Diagnoses Not on filedocumented in this encounter Care Teams Mail Sorter Relationship Specialty Start Date End Date Sariah Benson MD PCP - General 12/10/14 09/03/18 documented as of this encounter
--- OUTSIDE RECORDS SUMMARY | 2024-03-05 18:04 | XMS_ITS | Encounter Summary ---
Author [facility] Address [address] [place] [address] Care Team Providers Care Cargo Checker Name Role Phone Sariah Benson MD Primary Care Provider Ninfa vailable Encounter Details Date Type Department Care Team (Late st Contact Info) Description 05/07/2014 Office Visit Converted [facility]IMARY [facility]ARE [address] [facility] [address] [place] [address] Sariah Benson MD Social History [...] Has had hysterectomy. Hasseen Dr Mahoney in [employer] [place] for her CPE. Pt did not want [...] 06/10/2014 01:00 PM Sariah Benson Family Medicine [facility] [address] The patient [...] [facility] [address] [place] [address] Jenny Lomeli PA [address] [place], [place] [phone] documented as of this encounter Visit Diagnoses Not on filedocumented in this encounter Care Teams Cargo Checker Relationship Specialty Start Date End Date Sariah Benson MD PCP - General 12/10/14 09/03/18 documented as of this encounter
--- OUTSIDE RECORDS SUMMARY | 2024-03-05 18:04 | XMS_ITS | Encounter Summary ---
[facility] Address [address] [place] [address] Care Team Providers Care Data Services Developer Name Role Phone Sariah Benson MD Primary Care Provider Ninfa vailable Reason for Referral * Diagnostic Imaging (Routine) - Closed Specialty Diagnoses / Procedures Referred By Contac t Referred To Contact Radiology Diagnoses Screening for breast cancer Procedures Mammo Screening Digital Tomosynthesis Bilateral With CAD Sariah Benson MD [address] [address] Phone: tel: Referral ID Status Reason Start Date Expiration Date Visits Re quested Visits Authorized [id number] Closed 02/06/2018 02/06/2019 1 1 * Diagnostic Imaging (Routine) - Closed Specialty Diagnoses / Procedures Referred By Contac t Referred To Contact Radiology Diagnoses Menopause Procedures DEXA Bone Density Axial Sariah Benson MD [address] [address] Phone: tel: Referral ID Status Reason Start Date Expiration Date Visits Re quested Visits Authorized [id number] Closed 02/06/2018 02/06/2019 1 1 Reason for Visit * Reason Comments Annual Exam Encounter Details Date Type Department Care Team (Late st Contact Info) Description 02/06/2018 1:15 PM EST Office [facility] [address] [facility] [place] [address] Sariah Benson MD Annual physical exam (Primary [...] and EGD in past as screening by Account Auditor. 3. PSYCH- insomnia. Pt has taken ambien long goods drier, 0-2x/wk. Will take it if stressed, especially ifshe has to leave the house the next day. Rx for #30 x3 lasts 1yr. At her last visit pt was behavingoddly and reported being ???persecuted?? at [facility]. 4. W- initial SCREENING: Bone Density: 2016 Colonoscopy: past ordered by Account Auditor (Dr Mahoney) in 2016. No fam hx [...] [facility] [address] [place], [place] [address] Jenny Lomeli PA [address] [place], [place] [address] documented as of this encounter Procedures Procedure [...] fall-prevention measurements. The National Osteoporosis Foundation recommends (http://www.nof.org/hcp/practice/wjbalzfg-dza-yzuyxxmz-guidelines/clinic ans-guide) that FDA-approved medical therapies be considered [...] the left hip with 95% confidence is 0.324794 gm/cm2 at the hip and 0.988380 g/cm2 at the lumbar spine. This report [...] fall-prevention measurements. The National Osteoporosis Foundation recommends (http://www.nof.org/hcp/practice/ribvstpr-wgj-fdqjldwv-guidelines/clinic ans-guide) that FDA-approved medical therapies be considered [...] the left hip with 95% confidence is 0.929454 gm/cm2 at the hip and 0.178755 g/cm2 at the lumbar spine. This report [...] with a HCV Nucleic Acid Amplification test ([id number]). Blood 02/06/2018 02/07/2018 Comment:BLOOD Narrative [facility] (AMBULATORY) - 02/07/2018 10:16 AM EST Performed at: ??01 - [facility] [address] ??[id number] Sanitation Manager: Hawk Mireles PhD, Phone: ??[phone] Sariah Benson MD LAB BLOOD ORDERABLES Final Result [facility] (AMBULATORY) [address] [place] [address], [facility] [address] [place] [address], [place] [phone] documented in this encounter Visit Diagnoses Diagnosis Annual physical exam- Primary Routine general medical examination at a health care facility Menopause Symptomatic menopausal or female climacteric states Immunization due documented in this encounter Care Teams Data Services Developer Relationship Specialty Start Date End Date Sariah Benson MD PCP - General 12/10/14 09/03/18 documented as of this encounter
--- OUTSIDE RECORDS SUMMARY | 2024-03-05 18:04 | XMS_ITS | Encounter Summary ---
Author Organization [facility] yste Address [address] [place] [address] Care Team Providers Care Manager Internet Retails Sales Name Role Phone Sariah Benson MD Primary Care Provider Ninfa vailable Encounter Details Date Type Department Care Team (Late st Contact Info) Description 05/04/2014 Office Visit Converted [facility] PRIMARY CARE 107 [facility] 200 [place] [address] Shelley Waldrop MD [address] [place] [address] 9 [place] [address] Social History Tobacco Use Types [...] 05/07/2014 10:45 AM Sariah Benson Family Medicine [facility] [address] Signatures Electronically signed by : Shelley Waldrop M.D.; May 07 2014 9:33AM EST (Author) documented in this encounter Plan of Treatment Upcoming Encounters Date Type Department Care Team (Late st Contact Info) Description 01/19/2025 3:00 PM EDT Office Visit [facility] FAMILY MEDICINE [address] [place] [address] Jenny Lomeli PA [address] [place], [place] [id number] documented as of this encounter Visit Diagnoses Not on filedocumented in this encounter Care Teams Manager Internet Retails Sales Relationship Specialty Start Date End Date Sariah Benson MD PCP - General 12/10/14 09/03/18 documented as of this encounter
--- OUTSIDE RECORDS SUMMARY | 2024-03-05 18:04 | XMS_ITS | Encounter Summary ---
[facility] Address [address] [place] [address] Care Team Providers Care Auto Air Conditioning Mechanic Name Role Phone Sariah Benson MD Primary Care Provider Ninfa vailable Encounter Details Date Type Department Care Team (Late st Contact Info) Description 04/26/2015 Office Visit Converted [facility] PRIMARY CARE [address] [facility] 200 [place] [address] Sariah Benson MD Social History [...] a month ago she went to the head golf coach due to eye allergies. Had her eyes [...] ORTHO- rotator cuff sprain. edu re [facility] on injury discussed. to do home [...] 06/13/2015 01:00 PM Sariah Benson Family Medicine [facility] [address] Signatures Electronically signed by : Sariah Benson, ; Apr 26 2015 12:26PM EST (Author) documented in this encounter Plan of Treatment Upcoming Encounters Date Type Department Care Team (Late st Contact Info) Description 01/19/2025 3:00 PM EDT Office Visit [facility] FAMILY MEDICINE [address] [place] [address] Jenny Lomeli PA [address] [place] [address] documented as of this encounter Visit Diagnoses Not on filedocumented in this encounter Care Teams Auto Air Conditioning Mechanic Relationship Specialty Start Date End Date Sariah Benson MD PCP - General 12/10/14 09/03/18 documented as of this encounter
--- OUTSIDE RECORDS SUMMARY | 2024-03-05 18:04 | XMS_ITS | Encounter Summary ---
[facility] [address] [place] [address] Care Team Providers Care Hard Hat Diver Name Role Phone Sariah Benson MD Primary Care Provider Ninfa vailable Encounter Details Date Type Department Care Team (Late st Contact Info) Description 06/10/2014 Office Visit Converted [facility] PRIMARY CARE [address] [facility] 200 [place] [address] Sariah Benson MD Social History [...] EGD in past as screening, ordered by Hassock Maker. No issues. Has had GERD in the [...] 12/13/2014 01:00 PM Sariah Benson Family Medicine [facility] PRIMARY CARE [address] Signatures Electronically signed by : Sariah Benson, ; Jun 10 2014 2:23PM EST (Author) documented in this encounter Plan of Treatment Upcoming Encounters Date Type Department Care Team (Late st Contact Info) Description 01/19/2025 3:00 PM EDT Office Visit [facility] FAMILY MEDICINE [address] [place] [phone] Jenny Lomeli PA [address] [place] [place] [address] documented as of this encounter Visit Diagnoses Not on filedocumented in this encounter Care Teams Hard Hat Diver Relationship Specialty Start Date End Date Sariah Benson MD PCP - General 12/10/14 09/03/18 documented as of this encounter
--- OUTSIDE RECORDS SUMMARY | 2024-03-05 18:04 | XMS_ITS | Encounter Summary ---
Author Organization [facility] Address [address] [place] [address] Care Team Providers Care Chief Of Planning Name Role Phone Sariah Benson MD Primary Care Provider Ninfa vailable Reason for Visit * (Routine) - Closed Specialty Diagnoses / Procedures Referred By Contac t Referred To Contact Radiology Diagnoses Arthritis Procedures XR Shoulder 2+ View Bilateral Sariah Benson MD Referral ID Status Reason Start Date Expiration Date Visits Re quested Visits Authorized [id number] Closed 11/21/2017 11/21/2018 1 1 Encounter Details Date Type Department Care Team (Latest Contact Info) Description 12/18/2017 9:42 AM EDT - 12/18/2017 11:59 PM EDT Hospital Encounter [facility] XRAY AT [address] [address] Sariah Benson MD Discharge Disposition: [...] Lomeli PA [address] [place] [address] documented as of this encounter [...] on filedocumented in this encounter Care Teams Chief Of Planning Relationship Specialty Start Date End Date Sariah Benson MD PCP - General 12/10/14 09/03/18 documented as of this encounter
--- OUTSIDE RECORDS SUMMARY | 2024-03-05 18:04 | XMS_ITS | Encounter Summary ---
Author Organization [facility] Address [address] [place] [address] Care Team Providers Care Railroad Conductor Name Role Phone Sariah Benson MD Primary Care Provider Ninfa vailable Reason for Referral * (Routine) - Closed Specialty Diagnoses / Procedures Referred By Contac isael Referred To Contact Radiology Diagnoses Arthritis Procedures XR Shoulder 2+ View Bilateral Sariah Benson MD Referral ID Status Reason Start Date Expiration Date Visits Re quested Visits Authorized [id number] Closed 11/21/2017 11/21/2018 1 1 Reason for Visit * Reason Comments Shoulder Pain Encounter Details Date Type Department Care Team (Late Contact Info) Description 11/21/2017 1:45 PM EDT Office Visit [facility] PRIMARY CARE [address] [place] [address] [place] [address] Sariah Benson MD Arthritis (Primary Dx) Social [...] and EGD in past as screening by Eight Arm Operator. 3. PSYCH- insomnia. Pt has taken ambien group home, 0-2x/wk. Will take it if stressed, especially ifshe has to leave the house the next day. Rx for #30 x3 lasts 1yr. At her last visit pt was behavingoddly and reported being ???persecuted[facility] at [facility]. The following portions of the [...] EDT Office Visit [facility] MEDICINE [address] [place], [place] [address] Jenny Lomeli PA [address] [place] [address] documented as of this encounter [...] unspecified documented in this encounter Care Teams Railroad Conductor Relationship Specialty Start Date End Date Sariah Benson MD PCP - General 12/10/14 09/03/18 documented as of this encounter
--- OUTSIDE RECORDS SUMMARY | 2024-03-05 18:04 | XMS_ITS | Encounter Summary ---
[facility] Address [address] [place] [address] Care Team Providers Care Technical Account Executive Name Role Phone Sariah Benson MD Primary Care Provider Ninfa vailable Encounter Details Date Type Department Care Team (Late st Contact Info) Description 06/13/2015 Office Visit Converted [facility] PRIMARY CARE [address] [facility] 200 [place] [address] Sariah Benson MD Social History [...] and EGD in past as screening by Retail Advertising Executive with no issues.Was startedon omeprazole prn, sim [...] 3. PSYCH- insomnia. Pt has taken ambien intermediate, 0-2x/wk. Usually needs [...] [facility] FAMILY MEDICINE [address] [place] [address] Jenny Lomeli PA [address] [place] [address] documented as of this encounter Visit Diagnoses Not on filedocumented in this encounter Care Teams Technical Account Executive Relationship Specialty Start Date End Date Sariah Benson MD PCP - General 12/10/14 09/03/18 documented as of this encounter
--- OUTSIDE RECORDS SUMMARY | 2024-03-05 18:04 | XMS_ITS | Encounter Summary ---
[facility] Address [address] [place] [address] Care Team Providers Care Construction Rigger Name Role Phone Sariah Benson MD Primary Care Provider Ninfa vailable Reason for Visit * Reason Onset Date Comments Mammo Order 10/07/2017 Encounter Details Date Type Department Care Team (Late st Contact Info) Description 10/07/2017 Telephone [facility] PRIMARY CARE [address] [place] [address] [facility] 200 [place] [address] Sariah Benson MD Mammo Order [...] PM EDT Per pt chart she sees MUSEUM ARCHIVIST and will need to get order from them. Thanks! * Telephone Encounter - Madina Storey - 10/07/2017 12:36 PM EDT PATIENT WANTED TO KNOW IF SHE COULD A REFERRAL TO GET A MAMMOGRAM AT [address] [place] [address]. documented in this encounter Plan of Treatment Upcoming Encounters Date Type Department Care Team (Late st Contact Info) Description 01/19/2025 3:00 PM EDT Office Visit [facility] FAMILY MEDICINE [address] [phone] Jenny Lomeli PA [address] [place] [id number] documented as of this encounter Visit Diagnoses Not on filedocumented in this encounter Care Teams Construction Rigger Relationship Specialty Start Date End Date Sariah Benson MD PCP - General 12/10/14 09/03/18 documented as of this encounter
--- OUTSIDE RECORDS SUMMARY | 2024-03-05 18:04 | XMS_ITS | Encounter Summary ---
[facility] [address] [place] [address] Care Team Providers Care Embroidery Assistant Name Role Phone Sariah Benson MD Primary Care Provider Ninfa vailable Encounter Details Date Type Department Care Team (Late st Contact Info) Description 08/05/2014 Telephone Converted [facility]ISTOR[facility] CONV [address] [place] [address] ProviderPamela MD [address] [place] [address] Social History Tobacco Use Types Packs/Day Years Used Date Smoking Tobacco: Never Assessed Comments Unknown Sex and Gender Information Value Date Recorded Sex Assigned at Not on file Legal Sex Female 12:26 PM EDT Gender Identity Not on file Sexual Orientation Not on file documented as of this encounter Miscellaneous Notes * Telephone Encounter - Sariah eBnson MD - 08/05/2014 1:09 PM EDT Message [...] she could have a Mammogram done at [address] [place] [address] ([facility]- [phone]) Please advise Thank you! Patient can be reached at if needed [phone] Payton Alcantar - 03 Aug 2014 3:48 [...] two times and has CPE done with SOLAR SALES ASSESSOR. Is this okay to order through us or does she need to ask SOLAR SALES ASSESSOR for this? Sariah Benson - 04 Aug 2014 12:15 PM TASK EDITED has to come from Criminal Justice Social Worker.Payton Ruiz - 04 Aug 2014 12:21 PM TASK REASSIGNED: Previously Assigned To Payton Alcantar Jamie - 04 Aug 2014 3:12 PM TASK EDITED s/w patient she stated she called SOLAR SALES ASSESSOR they stated for her to call us. Please advise patient at [phone] (Patient stated she will try and call SOLAR SALES ASSESSOR again) documented in this encounter Plan of Treatment Upcoming Encounters Date Type Department Care Team (Late st Contact Info) Description 01/19/2025 3:00 PM EDT Office Visit [facility] FAMILY MEDICINE [address] [place] [address] Jenny Lomeli PA [address] [place] [address] documented as of this encounter Visit Diagnoses Not on filedocumented in this encounter Care Teams Embroidery Assistant Relationship Specialty Start Date End Date Sariah Benson MD PCP - General 12/10/14 09/03/18 documented as of this encounter
--- OUTSIDE RECORDS SUMMARY | 2024-03-05 18:04 | XMS_ITS | Encounter Summary ---
[facility] Address [address] [place] [address] Care Team Providers Care Business Management Consultant Name Role Phone Sariah Benson MD Primary Care Provider Ninfa vailable Encounter Details Date Type Department Care Team (Late st Contact Info) Description 12/13/2014 Office Visit Converted [facility] PRIMARY CARE [address] [facility] 200 [place] [address] Sariah Benson MD Social History [...] EGD in past as screening, ordered by Wastewater Manager. No issues. Has had GERD in the past and done well with zantac. Current started after she took some aleve. Was started onomeprazole and this did well. Was advised to continue this as long as she was on NSAID, sim as she is now on diclofenac for back pain. Was encouarged to keep her screening colonoscopy as ordered by Wastewater Manager as part of her CPE. Today pt [...] Today pt reports she has taken ambien correction, 0-2x/wk. Usually needs it when she will [...] flare, the less problem she should have correction. 2. ORTHO- arthritis- improved. discussed hand stretches. [...] Description 01/19/2025 3:00 PM EDT Office Visit [facility] FAMILY MEDICINE 210 [facility] [place] [address] Jenny Lomeli PA [address] [place] [address] documented as of this encounter Visit Diagnoses Not on filedocumented in this encounter Care Teams Business Management Consultant Relationship Specialty Start Date End Date Sariah Benson MD PCP - General 12/10/14 09/03/18 documented as of this encounter
--- OUTSIDE RECORDS SUMMARY | 2024-03-05 18:04 | XMS_ITS | Encounter Summary ---
[facility] Address [address] [place] [address] Care Team Providers Care Film Editor Name Role Phone Sariah Benson MD Primary Care Provider Ninfa vailable Reason for Visit * Reason Comments Leg Pain Encounter Details Date Type Department Care Team (Late st Contact Info) Description 05/01/2017 10:00 AM EST Office Visit [facility] 200 [place] [address] Sariah Benson MD Primary insomnia [...] and EGD in past as screening by Lead Loader. 3. PSYCH- insomnia. Pt has taken ambien long term care administrator, 0-2x/wk. 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
[2024-03-05] MEDS: RABIES VACCINE (PCEC)/PF 2.5 UNIT VIAL IM (18:30)
[2024-03-05 18:40] VITALS: BP 146/92; PULSE 81; RESP 18; O2SAT 99
== END 2024-03-05 18:40 | disposition home or self-care (01) ==
LOC: INF 18:00
PROVIDERS: PCP Physician Assistant; Visit Provider Physician Assistant
DX: Z20.3 Contact with and (suspected) exposure to rabies (principal)
CPT/HCPCS: 90471; 90675; 96372

== ENCOUNTER 2024-03-06 17:00 | Outpatient (CLI) | payer MEDICARE, SELFPAY ==
--- OUTSIDE RECORDS SUMMARY | 2024-03-06 17:02 | XMS_ITS | Encounter Summary ---
[facility] Address [address] [id number] Care Team Providers Care Speed Runner Name Role Phone Velma Phillips APRN Primary Care Provider [phone] Reason for Visit * Reason Onset Date Comments RETURNING A CALL TO OFFICE 10/25/2022 Encounter Details Date Type Department Care Team (Late st Contact Info) Description 10/25/2022 Telephone [facility] FAMILY MEDICINE 210 [place] [address] Velma Phillips APRN [facility]5 [place], [place] [id number] RETURNING A CALL TO OFFICE Social History [...] to patient: Self Best call back number: [phone] Patient is needing: RETURNING A CALL TO THE OFFICE documented in this encounter Plan of Treatment Upcoming Encounters Date Type Department Care Team (Late st Contact Info) Description 01/19/2025 3:00 PM EDT Office Visit [facility] FAMILY MEDICINE [address] [place] [phone] Jenny Lomeli PA [address] [place] [address] documented as of this encounter Visit Diagnoses Not on filedocumented in this encounter Additional Health Concerns Infection Onset Date Last Indicated Resolved Time Norovirus 10/23/2022 10/23/2022 Assessment Noted Time PHQ-2 Depression Total Score: 3 10/17/19 23 1:57 PM EDT documented as of this encounter Care Teams Speed Runner Relationship Specialty Start Date End Date Velma Phillips APRN PCP - General Family Medicine 10/16/22 10/10/23 documented as of this encounter
--- OUTSIDE RECORDS SUMMARY | 2024-03-06 17:02 | XMS_ITS | Encounter Summary ---
[facility] Address [address] [place] [address] Care Team Providers Care Sleep Tech Name Role Phone Jenny Lomeli Primary Care Provider [phone] Encounter Details Date Type Department Care Team [...] FAMILY MEDICINE [address] [place] [phone] Jenny Lomeli PA [address] [place] [address] documented as of this encounter Visit Diagnoses Not on filedocumented in this encounter Additional Health Concerns Infection Onset Date Last Indicated Resolved Time Norovirus 10/23/2022 10/23/2022 Assessment Noted Time PHQ-2 Depression Total Score: 1 10/14/19 24 3:41 PM EDT documented as of this encounter Care Teams Sleep Tech Relationship Specialty Start Date End Date Jenny Lomeli PA [address] [place] [address] PCP - General Physician Budget Specialist 10/11/23 documented as of this encounter
--- OUTSIDE RECORDS SUMMARY | 2024-03-06 17:02 | XMS_ITS | Encounter Summary ---
[facility] [address] [place] [address] Care Team Providers Care Handbag Frames Inspector Name Role Phone Jenny Lomeli Primary Care Provider [phone] Reason for Referral * Diagnostic Imaging (Routine) - Closed Specialty Diagnoses / Procedures Referred By Contac t Referred To Contact Radiology Diagnoses Mass of skin of left shoulder Procedures US Nonvascular Extremity Limited Jenny Lomeli PA [address] [place] [address] Phone: tel: fax: [facility] [place] [address] [place] [address] Phone: tel: Referral ID Status Reason Start Date Expiration Date Visits Re quested Visits Authorized [id number] Closed 10/14/2023 10/13/2024 1 1 Reason for [...] Description 10/14/2023 3:45 PM EDT Office Visit [facility] FAMILY MEDICINE [address] [place] [address] Jenny Lomeli PA [address] [place] [address] Cat bite, initial encounter (Primary [...] Patient asks about rabies vaccination. Contact [facility] offers Diclofenac for arthritic [...] [facility] [address] [place] [address] Jenny Lomeli PA [address] [place] [address] documented as of this encounter Results * [...] MD 10/28/2023 11:09 AM EDT Workstation ID: [id number] [facility] 10/28/2023 11:09 AM EDT US NONVASCULAR [...] MD 10/28/2023 11:09 AM EDT Workstation ID: [id number] us Jenny [facility] [place] ORDERABLES Final Result documented in this [...] documented as of this encounter Care Teams Handbag Frames Inspector Relationship Specialty Start Date End Date Jenny Lomeli PA [address] [place] [address] [place] [address] PCP - General Physician Dial Marker 10/11/23 documented as of this encounter
--- OUTSIDE RECORDS SUMMARY | 2024-03-06 17:02 | XMS_ITS | Encounter Summary ---
[facility] [address] [place] [phone] Care Team Providers Care Cable Coverer Name Role Phone Velma Phillips APRN Primary Care Provider [phone] Reason for Visit * Reason Onset Date Comments REFERRAL 02/25/2023 Encounter Details Date Type Department Care Team (Late st Contact Info) Description 02/25/2023 Telephone [facility] FAMILY MEDICINE 210 [place] [address] Velma Phillips APRN [address] [phone] REFERRAL Social History Tobacco Use Types Packs/Day [...] ARE JUST WANTING PATIENTS MRI CHANGED TO [facility]. I TOLD HIM SINCE WE DIDN'T ORDER THE MRI (ORTHO OFFICE DID) THEY WOULD NEED TO CONTACT ORTHO PROVIDER. * Telephone Encounter - Aleshia Abrams - 02/25/2023 3:21 PM EST Caller: WAYLON HARDIN Relationship: Child Best call back number: [phone] What is the best time to reach you: ANY Who are you requesting to speak with (clinical staff, provider, specific staff member): NURSE Do you know the name of the person who called: SON What was the call regarding: SON WOULD LIKE ORTHOPEDIC REFERRAL TO [facility]. DR RICHY CRAWFORD, DR SUSSY TERRELL OR DR AURELIA COYNE. POSSIBLE PHONE # [phone] Is it okay if the provider responds through MyChart: PHONE CALL PLEASE documented in this encounter Plan of Treatment Upcoming Encounters Date Type Department Care Team (Late st Contact Info) Description 01/19/2025 3:00 PM EDT Office Visit [facility] FAMILY MEDICINE [address] [place], [place] [address] Jenny Lomeli PA [address] [place], [place] [address] documented as of this encounter Visit Diagnoses Not on filedocumented in this encounter Additional Health Concerns Infection Onset Date Last Indicated Resolved Time Norovirus 10/23/2022 10/23/2022 Assessment Noted Time PHQ-2 Depression Total Score: 3 10/17/19 23 1:57 PM EDT documented as of this encounter Care Teams Cable Coverer Relationship Specialty Start Date End Date Velma Phillips APRN PCP - General Family Medicine 10/16/22 10/10/23 documented as of this encounter
--- OUTSIDE RECORDS SUMMARY | 2024-03-06 17:02 | XMS_ITS | Encounter Summary ---
[facility] Address [address] [place] [address] Care Team Providers Care Electrical Controls Assembler Name Role Phone Velma Phillips APRN Primary Care Provider [phone] Reason for Visit * Reason Comments Med Refill Encounter Details Date Type Department Care Team (Late st Contact Info) Description 04/17/2023 Refill [facility] FAMILY MEDICINE [address] [place] [address] Velma Phillips APRN [address] [place], [place] [phone] Hyperlipidemia, unspecified hyperlipidemia type Social History Tobacco [...] Visit [facility]ILY MEDICINE 210 [facility] [place] [phone] Jenny Lomeli PA [address] [place] [address] documented as of this encounter Visit Diagnoses Diagnosis Hyperlipidemia, unspecified hyperlipidemia type documented in this encounter Additional Health Concerns Infection Onset Date Last Indicated Resolved Time Norovirus 10/23/2022 10/23/2022 Assessment Noted Time PHQ-2 Depression Total Score: 3 10/17/19 23 1:57 PM EDT documented as of this encounter Care Teams Electrical Controls Assembler Relationship Specialty Start Date End Date Velma Phillips APRN PCP - General Family Medicine 10/16/22 10/10/23 documented as of this encounter
--- OUTSIDE RECORDS SUMMARY | 2024-03-06 17:02 | XMS_ITS | Encounter Summary ---
[facility] Address [address] [place] [address] Care Team Providers Care Roller Cleaner Name Role Phone Jenny Lomeli Primary Care Provider Reason for Referral * Consultation (Routine) - Authorized Specialty Diagnoses / Procedures Referred By Contac t Referred To Contact Orthopedic Surgery Diagnoses Chronic left shoulder pain Jenny Lomeli PA [address] [place] [address] Phone: tel: fax: [place] [address] [place] [address] Phone: tel: fax: Referral ID Status Reason Start Date Expiration Date Visits Requested Visits Authorized [id number] Authorized Specialty Services Required 01/14/2025 1 1 Scheduling Instructions Wants to see a different ortho office. Not [place]. Wants to stay in [place] Reason for Visit * Reason Comments Medicare Wellness-subsequent Med refills .Wants another ortho/? Does not care for Dr. Duke. Encounter Details Date Type Department Care Team (Latest Contact Info) Description 01/15/2024 3:00 PM EDT Office Visit [facility] [address] [facility] [place] [phone] Jenny Lomeli PA [address] [place] [address] Medicare annual wellness visit, subsequent (Primary Dx); [...] Lomeli PA as PCP - General (Physician Boiler Cleaner) Outpatient Medications Prior to Visit Medication Sig Dispense Refill atorvastatin (LIPITOR) 20 MG tablet Take 1 tablet by mouth Every Night. 90 tablet 3 bxoytbom-qgtikoqhc-ocbdedcomfmlb (MAXITROL) 3.5-28914-4.1 ophthalmic suspension INSTILL 1 DROP INTOBOTH EYES [...] C SCREENING Completed Pneumococcal Vaccine 65+ Completed [facility] Preventative Services Quick Reference Risk Factors [...] MEDICINE [address] [facility] [place] [address] Jenny Lomeli PA [address] [place] [address] Scheduled Referrals Name Type Priority [...] 01/15/2024 4:17 PM EDT 01/15/2024 Narrative [facility] (AMBULATORY) - 01/16/2024 8:21 AM EDT Performed at: ??01 - [facility] [address] ??[id number] Patient Monitor: Hawk Mireles PhD, Phone: ??[phone] Patient Fasting: ??Y Jenny NUR LAB BLOOD ORDERABLES Final Res ult [facility] (AMBULATORY) [address] [place] [address], [facility] [address] [place] [address], [place] [phone] * Vitamin B12 (01/15/2024 4:17 PM EDT) Vitamin B-12 407 232 - 1,245 pg/mL [facility] Blood 01/15/2024 4:17 PM EDT 01/15/2024 Narrative [facility] (AMBULATORY) - 01/16/2024 8:21 AM EDT Performed at: ??01 - [facility] ??[id number] Patient Monitor: Hawk Mireles PhD, Phone: ??[phone] Patient Fasting: ??Y Jenny NUR LAB BLOOD ORDERABLES Final Res ult Performing Organization Address City/[facility]/ZIP Co de Phone Number [facility] ([facility]) [address] [place] [address], [place] [phone] [facility] [address] [place] [address], [place] [phone] * (ABNORMAL) Hemoglobin A1c (01/15/2024 4:17 PM EDT) Pathologist [facility] Hemoglobin A1C 5.8(H) 4.8 - 5.6 % [facility] Comment: ? Prediabetes: 5.7 - 6.4 ? Diabetes: >6.4 ? Glycemic control for adults with diabetes: <7.0 Blood 01/15/2024 4:17 PM EDT 01/15/2024 [facility] (AMBULATORY) - 01/16/2024 8:21 AM EDT Performed at: ??01 - [facility] ??[id number] Patient Monitor: Hawk Mireles PhD, Phone: ??[phone] Patient Fasting: ??Y Jenny NUR LAB BLOOD ORDERABLES Final Res ult Performing Organization Address [facility] Co de Phone Number [facility] [address] [place] [address], [place] [phone] [facility] [address] [place] [address], [place] [phone] * (ABNORMAL) Vitamin D 25 hydroxy (01/15/2024 4:17 PM EDT) 25 Hydroxy, Vitamin D 28.5(L) 30.0 - 100.0 ng/mL [facility] Comment: Vitamin D deficiency has been defined by the Nancy of Medicine and an Endocrine Society practice guideline as a level of serum 25-OH vitamin D less than 20 ng/mL (1,2). The Endocrine Society went on to further define vitamin D insufficiency as a level between 21 and 29 ng/mL (2). 1. IOM ([place]ancy of Medicine). 2010. Dietary reference ?? intakes for calcium and D. [place]: The ?? National [employer]. 2. Raghu MF, Jamin [place], Drew COLEMAN, et al. ?? Evaluation, treatment, and prevention of vitamin D ?? deficiency: an Endocrine Society clinical practice ?? guideline. JCEM. 2010; 96(7):1911-30. Blood 01/15/2024 4:17 PM EDT 01/15/2024 Narrative [facility] (AMBULATORY) - 01/16/2024 8:21 AM EDT Performed at: ??01 - [address] ??[id number] Patient Monitor: Hawk Mireles PhD, Phone: ??[phone] Patient Fasting: ??Y Jenny NUR LAB BLOOD ORDERABLES Final Res ult [facility] [address] [place] [address], [facility] [address] [place] [address], * (ABNORMAL) Lipid Panel (01/15/2024 4:17 PM EDT) Total Cholesterol 172 100 - 199 mg/dL [facility] Triglycerides 89 0 - 149 mg/dL [facility] HDL Cholesterol 53 >39 mg/dL [facility] VLDL Cholesterol Naga 16 5 - 40 mg/dL [facility] LDL Chol Calc ([facility]) 103(H) 0 - 99 mg/dL [facility] Blood 01/15/2024 4:17 PM EDT 01/15/2024 Narrative [facility] (AMBULATORY) - 01/16/2024 8:21 AM EDT Performed at: ??01 - [facility] [address] [place], [place] ??[id number] Patient Monitor: Hawk Mireles PhD, Phone: ??[phone] Patient Fasting: ??Y us Jenny NUR LAB BLOOD ORDERABLES Final Res ult [facility] [employer] [facility] (AMBULATORY) [address] [place] [address], [facility] [address] [place] [address], * (ABNORMAL) Comprehensive metabolic panel (01/15/2024 4:17 [...] 01/15/2024 4:17 PM EDT 01/15/2024 Narrative [facility] (AMBULATORY) - 01/16/2024 8:21 AM EDT Performed at: ??01 - [facility] [address] [place], [place] ??[id number] Patient Monitor: Hawk Mireles PhD, Phone: ??[phone] Patient Fasting: ??Y Jenny NUR LAB BLOOD ORDERABLES Final Res ult [facility] (AMBULATORY) [address] [place] [address], [facility] [address] [place] [address], * CBC w AUTO Differential (01/15/2024 4:17 [...] 01/15/2024 4:17 PM EDT 01/15/2024 Narrative [facility] (AMBULATORY) - 01/16/2024 8:21 AM EDT Performed at: ??01 - [facility] [address] [place], [place] ??[id number] Patient Monitor: Hawk Mireles PhD, Phone: ??[phone] Patient Fasting: ??Y Jenny NUR LAB BLOOD ORDERABLES Final Res ult [facility] (AMBULATORY) [address] [place] [address], [facility] [address] [place] [address], documented in this encounter Visit Diagnoses Diagnosis [...] documented as of this encounter Care Teams Roller Cleaner Relationship Specialty Start Date End Date Jenny Lomeli [place] [address] PCP - General Physician Boiler Cleaner 10/11/23 documented as of this encounter
--- OUTSIDE RECORDS SUMMARY | 2024-03-06 17:02 | XMS_ITS | Encounter Summary ---
[facility] Address [address] [place] [address] Care Team Providers Care Practice Lead Name Role Phone Velma Phillips APRN Primary Care Provider [phone] Reason for Referral * Diagnostic Imaging (Routine) - Closed Specialty Diagnoses / Procedures Referred By Camila kirkland Referred To Contact Radiology Diagnoses Screening mammogram for breast cancer Procedures Mammo Screening Digital Tomosynthesis Bilateral With CAD Velma Phillips APRN Phone: tel: fax: [facility] [address] [place] [address] Phone: tel: Referral ID Status Reason Start Date Expiration Date Visits Re quested Visits Authorized [id number] Closed 01/31/2023 01/31/2024 1 1 Reason for Visit * Diagnostic Imaging (Routine) - Closed Specialty Diagnoses / Procedures Referred By Contac t Referred To Contact Radiology Diagnoses Screening mammogram for breast cancer Procedures Mammo Screening Digital Tomosynthesis Bilateral With Velma Murdock APRN Phone: tel: fax: [facility] [address] [place] [address] Phone: tel: Referral ID Status Reason Start Date Expiration Date Visits Re quested Visits Authorized [id number] Closed 01/31/2023 01/31/2024 1 1 Encounter Details Date Type Department Care Team (Latest Contact Info) Description 03/21/2023 1:44 PM EST - 03/21/2023 11:59 PM [facility] Hospital Encounter [facility] [address] [place] [address] Screening mammogram for breast cancer Discharge [...] [facility] [address] [place], [place] [address] Jenny Lomeli PA [address] [place], [place] [address] documented as of this encounter Procedures Procedure [...] documented as of this encounter Care Teams Practice Lead Relationship Specialty Start Date End Date Velma Phillips APRN PCP - General Family Medicine 10/16/22 10/10/23 documented as of this encounter
--- OUTSIDE RECORDS SUMMARY | 2024-03-06 17:02 | XMS_ITS | Encounter Summary ---
[facility] Address [address] [place] [address] Care Team Providers Care Asw/Asuw Tactical Air Controller Name Role Phone Velma Phillips APRN Primary Care Provider [phone] Reason for Referral * Diagnostic Imaging (Routine) - Closed Specialty Diagnoses / Procedures Referred By Camila kirkland Referred To Contact Radiology Diagnoses Screening mammogram for breast cancer Procedures Mammo Screening Digital Tomosynthesis Bilateral With CAD Velma Phillips APRN Phone: tel: fax: [facility] [address] [place] [address] Phone: tel: Referral ID Status Reason Start Date Expiration Date Visits Re quested Visits Authorized [id number] Closed 01/31/2023 01/31/2024 1 1 * Consultation (Routine) - Closed Specialty Diagnoses / Procedures Referred By Contkarlee t Referred To Contact Orthopedic Surgery Diagnoses Chronic left shoulder pain Velma Phillips APRN Phone: tel: fax: Chuck Thakur MD [facility] [address] [place] [address] Phone: tel: fax: Referral ID Status Reason Start Date Expiration Date V isits Requested Visits Authorized [id number] Closed Specialty Services Required 01/31/2023 01/31/2024 1 1 Reason for Visit * Reason Comments Follow-up 4 month f/u, Labs fo r cholesterol, pt is not fasting. May need Mri of lt shoulder pain x 1 year. Encounter Details Date Type Department Care Team (Late st Contact Info) Description 01/31/2023 10:45 AM EDT Office Visit [facility] [address] [place] [address] Velma Phillips APRN [address] [place] [address] Hyperlipidemia, unspecified hyperlipidemia type (Primary [...] psychotherapy, but she wants to go to [facility] in [place] like we previously discussed. She does not want to go to [facility]. She cannot travel to [place]. The following portions of the patient's history [...] for influenza vaccination - Fluzone High-Dose 65+yrs ([id number]) Patient opts to wait for psychotherapy to be available at [facility] here in [place], we will revisit referral at follow up. She declines [facility] or [facility] Referral. Hyperlipidemia - check labs as [...] [facility] [address] [place] [phone] Jenny Lomeli PA [address] [place] [address] documented as of this encounter Procedures Procedure [...] 8:08 PM EDT Performed at: ??01 - [address] ??[id number] Hot Mill Supervisor: David Farnsworth MD, Phone: ??[phone] Patient Fasting: ??Y Velma Phillips APRN LAB BLOOD ORDERABLES Final R esult [facility] [employer] [facility] (AMBULATORY) [address] [place] [address], [facility] [address] [place] [address], * (ABNORMAL) Comprehensive Metabolic Panel (01/31/2023 11:27 [...] 8:08 PM EDT Performed at: ??01 - [address] ??[id number] Hot Mill Supervisor: David Farnsworth MD, Phone: ??[phone] Patient Fasting: ??Y Velma Phillips APRN LAB BLOOD ORDERABLES Final R esult [facility] (AMBULATORY) [address] [place] [id number], [place] [phone] [facility] [address] [place] [address], [place] [phone] documented in this encounter Visit Diagnoses Diagnosis [...] documented as of this encounter Care Teams Asw/Asuw Tactical Air Controller Relationship Specialty Start Date End Date Velma Phillips APRN PCP - General Family Medicine 10/16/22 10/10/23 documented as of this encounter
--- OUTSIDE RECORDS SUMMARY | 2024-03-06 17:02 | XMS_ITS | Encounter Summary ---
[facility] Address [address] [place] [address] Care Team Providers Care Damaged Freight Inspector Name Role Phone Jenny Lomeli Primary Care Provider Encounter Details Date Type Department Care Team (Late st Contact Info) Description 10/18/2023 Telephone [facility] [address] [place] [address] Jenny Lomeli PA [address] [place] [address] Social History Tobacco Use Types [...] PM EDT INFORMED PATIENT TO GO TO [facility] IN THE ER TO COMPLETE THE RABIES SHOT * Telephone Encounter - Keily Jimenez MA - 10/23/2023 1:07 PM EDT Pt states she needs a referral to [facility] in order for her to get rabies shots * Telephone Encounter - Keily Jimenez MA - 10/21/2023 2:14 PM EDT LVM * Telephone Encounter - Jenny Lomeli PA - 10/21/2023 7:58 AM EDT Patient was not referred to [facility] or hospital as we knew they would not be able to help, she was provided contact information for [facility] who we called ahead and they noted they could help facilitate rabies vaccinations. Did she reach out to them? * Telephone Encounter - Pat Brice RegSched Rep - 10/18/2023 4:38 PM EDT PATIENT WAS SEEN FOR AN ANIMAL BITE, SHE STATED THAT SHE WAS TOLD TO GO TO [facility] AND THEY COULD HELP WITH HER GETTING A RABIES SHOT. SHE SAID THEY SENT HER TO [facility] BUT THERE OFFICE TOLD HER SHE WOULD NEED A REFERRAL FROM HER PCP BEFORE HER INSURANCE WOULD COVER THE SHOT PLEASE ADVISE documented in this encounter Plan of Treatment Upcoming Encounters Date Type Department Care Team (Late st Contact Info) Description 01/19/2025 3:00 PM EDT Office Visit [facility] [address] [place] [address] Jenny Lomeli PA [address] [place] [address] documented as of this encounter Visit Diagnoses Not on filedocumented in this encounter Additional Health Concerns Infection Onset Date Last Indicated Resolved Time Norovirus 10/23/2022 10/23/2022 Assessment Noted Time PHQ-2 Depression Total Score: 1 10/14/19 24 3:41 PM EDT documented as of this encounter Care Teams Damaged Freight Inspector Relationship Specialty Start Date End Date Jenny Lomeli PA [address] [place] [id number] PCP - General Physician Linux Systems Administrator 10/11/23 documented as of this encounter
--- OUTSIDE RECORDS SUMMARY | 2024-03-06 17:02 | XMS_ITS | Encounter Summary ---
[facility] Address [address] [place] [address] Care Team Providers Care Transit Worker Name Role Phone Velma Phillips APRN Primary Care Provider [phone] Reason for Visit * Reason Onset Date Comments LAB RESULTS 02/04/2023 Encounter Details Date Type Department Care Team (Late st Contact Info) Description 02/04/2023 Telephone [facility] [address] [place] [address] Velma Phillips APRN [address] [id number] LAB RESULTS Social History Tobacco Use Types [...] time of call. Good call back number [phone] documented in this encounter Plan of Treatment Upcoming Encounters Date Type Department Care Team (Late st Contact Info) Description 01/19/2025 3:00 PM EDT Office Visit [facility] [address] [place] [address] Jenny Lomeli PA [address] [place] [address] documented as of this encounter Visit Diagnoses Not on filedocumented in this encounter Additional Health Concerns Infection Onset Date Last Indicated Resolved Time Norovirus 10/23/2022 10/23/2022 Assessment Noted Time PHQ-2 Depression Total Score: 3 10/17/19 23 1:57 PM EDT documented as of this encounter Care Teams Transit Worker Relationship Specialty Start Date End Date Velma Phillips APRN PCP - General Family Medicine 10/16/22 10/10/23 documented as of this encounter
--- OUTSIDE RECORDS SUMMARY | 2024-03-06 17:02 | XMS_ITS | Clinical Summary ---
[facility] Address [address] [place] [address] Care Team Providers Care Steel Handler Name Role Phone Jenny Lomeli Primary Care Provider [phone] Allergies Active Allergy Reactions Criticality Noted Date Comments Ranitidine 05/04/2014 Medications neomycin-polymyxin- dexamethasone (MAXITROL) 3.5-63889-4.1 ophthalmic suspension INSTILL 1 DROP INTO BOTH [...] Description 01/15/2024 3:00 PM EDT Office Visit [facility] [address] [facility] [place] [address] Jenny Lomeli PA Medicare annual wellness [...] 01/19/2025 3:00 PM EDT Office Visit [facility] [address] [place] [address] Jenny Lomeli PA [address] [place] [address] Health Maintenance Due Date Last Done [...] D deficiency has been defined by the [place] of Medicine and an Endocrine Society practice guideline as a level of serum 25-OH vitamin D less than 20 ng/mL (1,2). The Endocrine Society went on to further define vitamin D insufficiency as a level between 21 and 29 ng/mL (2). 1. IOM ([place] of Medicine). 2010. Dietary reference ?? intakes for calcium and D. [place]: The ?? National AcademEcTownUSA Press. 2. Raghu MF, Jamin NC, Drew COLEMAN, et al. ?? Evaluation, treatment, and prevention of vitamin D ?? deficiency: an Endocrine Society clinical practice ?? guideline. JCEM. 2011 Sep; 96(7):1911-30. Blood 01/15/2024 4:17 PM EDT 01/15/2024 Narrative [facility] (AMBULATORY) - 01/16/2024 8:21 AM EDT Performed at: ??01 - [facility] [address] ??[id number] Mold Clamper: Hawk Mireles PhD, Phone: ??[phone] Patient Fasting: ??Y us Jenny NUR LAB BLOOD ORDERABLES Final Res ult [facility] (AMBULATORY) [address] [place] [address], [place] [phone] [facility] [address] [place] [address], * CBC w AUTO Differential (01/15/2024 4:17 [...] AM EDT Performed at: ??01 - [facility] [address] ??[id number] Mold Clamper: Hawk Mireles PhD, Phone: ??[phone] Patient Fasting: ??Y Jenny NUR LAB BLOOD ORDERABLES Final Res ult Performing Organization Address City/[facility]/ZIP Co de Phone Number [facility] (AMBULATORY) [address] [place] [address], [facility] [address] [place] [address], * (ABNORMAL) Hemoglobin A1c (01/15/2024 4:17 PM EDT) Hemoglobin A1C 5.8(H) 4.8 - 5.6 % [facility] Comment: ? Prediabetes: 5.7 - 6.4 ? Diabetes: >6.4 ? Glycemic control for adults with diabetes: <7.0 Blood 01/15/2024 4:17 PM EDT 01/15/2024 Narrative [facility] (AMBULATORY) - 01/16/2024 8:21 AM EDT Performed at: ??01 - [facility] [address] ??[id number] Mold Clamper: Hawk Mireles PhD, Phone: ??[phone] Patient Fasting: ??Y Jenny NUR LAB BLOOD ORDERABLES Final Res ult Performing Organization Address [facility] Co de Phone Number [facility] [address] [place] [address], [facility] [address] [place] [address], * Folate (01/15/2024 4:17 PM EDT) Folate 9.4 >3.0 ng/mL [facility] Comment: A serum folate concentration of less than 3.1 ng/mL is considered to represent clinical deficiency. Blood 01/15/2024 4:17 PM EDT 01/15/2024 Narrative [facility] (AMBULATORY) - 01/16/2024 8:21 AM EDT Performed at: ??01 - [facility] [place] [address] [place], [place] ??[id number] Mold Clamper: Hawk Mireles PhD, Phone: ??[phone] Patient Fasting: ??Y Jenny NRU LAB BLOOD ORDERABLES Final Res ult Performing Organization Address [facility]/ZIP Co de Phone Number [facility] [address] [place] [address], [facility] [address] [place] [address], * Vitamin B12 (01/15/2024 4:17 PM EDT) Pathologist [facility] Vitamin B-12 407 232 - 1,245 pg/mL [facility] Blood 01/15/2024 4:17 PM EDT 01/15/2024 Narrative [facility] - 01/16/2024 8:21 AM EDT Performed at: ??01 - [facility] [place] [address] [place] [address] ??[id number] Mold Clamper: Hawk Mrieles PhD, Phone: ??[phone] Patient Fasting: ??Y Jenny NUR LAB BLOOD ORDERABLES Final Res ult Performing Organization Address [facility] Co de Phone Number [facility] (AMBULATORY) [address] [place] [address], [place] [phone] [facility] [address] [place] [address], [place] [phone] * (ABNORMAL) Lipid Panel (01/15/2024 4:17 PM EDT) Total Cholesterol 172 100 - 199 mg/dL [facility] Triglycerides 89 0 - 149 mg/dL [facility] HDL Cholesterol 53 >39 mg/dL [facility] VLDL Cholesterol Naga 16 5 - 40 mg/dL [facility] LDL Chol Calc (NIH) 103(H) 0 - 99 mg/dL [facility] Blood 01/15/2024 4:17 PM EDT 01/15/2024 Narrative [facility] (AMBULATORY) - 01/16/2024 8:21 AM EDT Performed at: ??01 - [facility] [address] [place], [place] ??[id number] Mold Clamper: Hawk Mireles PhD, Phone: ??[phone] Patient Fasting: ??Y us Jenny NUR LAB BLOOD ORDERABLES Final Res ult [facility] ([facility]) [address] [place] [address], [facility] [address] [place] [address], * (ABNORMAL) Comprehensive metabolic panel (01/15/2024 4:17 [...] Blood 01/15/2024 4:17 PM EDT 01/15/2024 Narrative [facility] - 01/16/2024 8:21 AM EDT Performed at: ??01 - [facility] [address] [place], [place] ??[id number] Mold Clamper: Hawk Mireles PhD, Phone: ??[phone] Patient Fasting: ??Y Jenny NUR LAB BLOOD ORDERABLES Final Res ult [facility] (AMBULATORY) [address] [place] [address], [facility] [address] [place] [address], * Mammo Screening Digital Tomosynthesis Bilateral With [...] areas of distortion are seen. Velma Phillips KILN FIREMAN IMG MAMMOGRAPHY ORDERABLES F inal Result * [...] fall-prevention measurements. The National Osteoporosis Foundation recommends (http://www.nof.org/hcp/practice/daidylsx-huk-ulxpebve-guidelines/clinic ans-guide) that FDA-approved medical therapies be considered [...] the left hip with 95% confidence is 0.349446 gm/cm2 at the hip and 0.329313 g/cm2 at the lumbar spine. This report [...] fall-prevention measurements. The National Osteoporosis Foundation recommends (http://www.nof.org/hcp/practice/ibizcmue-rjx-azybygqw-guidelines/clinic ans-guide) that FDA-approved medical therapies be considered [...] the left hip with 95% confidence is 0.051129 gm/cm2 at the hip and 0.192194 g/cm2 at the lumbar spine. This report [...] with a HCV Nucleic Acid Amplification test ([id number]). Blood 02/06/2018 02/07/2018 Comment:BLOOD Narrative [facility] (AMBULATORY) - 02/07/2018 10:16 AM EST Performed at: ??01 - [facility] ??[id number] Mold Clamper: Hawk Mireles PhD, Phone: ??[phone] us Sariah Benson MD LAB BLOOD ORDERABLES Final Result [facility] (AMBULATORY) [address] [place] [address], [facility] [address] [place] [address], from Last 3 Months or Most Recently Relevant to Health Maintenance Additional Health Concerns Infection Onset Date Last Indicated Norovirus 10/23/2022 10/23/2022 [place] [address] [employer] MED[employer]AGE Advance Directives Documents on File Type Date Recorded Patient Biofuels Product Development Manager Expl anation LIVING WILL - SCAN 03/18/2018 1:35 PM MAUREEN ING WILL 03/13/2018 Care Teams Steel Handler Relationship Specialty Start Date End Date Jenny Lomeli PA [address] [place] [address] PCP - General Physician Virtual Recruiter 10/11/23
--- OUTSIDE RECORDS SUMMARY | 2024-03-06 17:02 | XMS_ITS | Encounter Summary ---
[facility] Address [address] [place] [id number] Care Team Providers Care Agricultural Researcher Name Role Phone Jenny Lomeli Primary Care Provider [phone] Reason for Referral * Diagnostic Imaging (Routine) - Closed Specialty Diagnoses / Procedures Referred By Contac t Referred To Contact Radiology Diagnoses Mass of skin of left shoulder Procedures US Nonvascular Extremity Limited Jenny Lomeli PA [address] [place] [address] Phone: tel: fax: [facility] [place] [address] [place] [address] Phone: tel: Referral ID Status Reason Start Date Expiration Date Visits Re quested Visits Authorized [id number] Closed 10/14/2023 10/13/2024 1 1 Reason for Visit * Diagnostic Imaging (Routine) - Closed Specialty Diagnoses / Procedures Referred By Contac t Referred To Contact Radiology Diagnoses Mass of skin of left shoulder Procedures US Nonvascular Extremity Limited Jenny Lomeli PA [address] [place] [address] Phone: tel: fax: [facility] [place] [address] [place] [address] Phone: tel: Referral ID Status Reason Start Date Expiration Date Visits Re quested Visits Authorized [id number] Closed 10/14/2023 10/13/2024 1 1 Encounter Details Date Type Department Care Team (Latest Contact Info) Description 10/24/2023 3:50 PM EDT - 10/24/2023 11:59 PM EDT Hospital Encounter [facility] [address] [place] [address] Jenny Lomeli PA [address] [place] [address] Mass of skin of left [...] mouth Every Night. 90 tablet 3 10/14/2023 ebqhggff-inmnlhugc-g examethasone (MAXITROL) 3.5-84759-4.1 ophthalmic suspension INSTILL 1 DROP INTO BOTH [...] Visit [facility] [address] [place] [address] Jenny Lomeli PA [address] [place] [address] documented as of this encounter Procedures [...] MD 10/28/2023 11:09 AM EDT Workstation ID: [id number] Narrative 10/28/2023 11:09 AM EDT US NONVASCULAR [...] MD 10/28/2023 11:09 AM EDT Workstation ID: [id number] us Jenny NUR [facility] US ORDERABLES Final Result documented in this encounter Visit Diagnoses Diagnosis Mass of skin of left shoulder documented in this encounter Additional Health Concerns Infection Onset Date Last Indicated Resolved Time Norovirus 10/23/2022 10/23/2022 Assessment Noted Time PHQ-2 Depression Total Score: 1 10/14/19 24 3:41 PM EDT documented as of this encounter Care Teams Agricultural Researcher Relationship Specialty Start Date End Date [facility] [place] [address] PCP - General Physician It Trainer 10/11/23 documented as of this encounter
--- OUTSIDE RECORDS SUMMARY | 2024-03-06 17:02 | XMS_ITS | Encounter Summary ---
[facility] Address [address] [place] [address] Care Team Providers Care Cold Header Name Role Phone Jenny Lomeli Primary Care Provider [phone] Encounter Details Date Type Department Care Team (Late st Contact Info) Description 10/16/2023 Telephone [facility] [address] [place] [address] Jenny Lomeli PA [address] [place] [address] Social History Tobacco Use Types [...] Hardin Relationship: Self Best call back number: [phone] What was the call regarding: RABIES SHOT. INSURANCE IS REQUESTING PATIENT GET A RABIES SHOT AT [facility]. PATIENT WAS TOLD THAT IN ORDER [...] [facility] [address] [place] [address] Jenny Lomeli PA [address] [place] [address] documented as of this encounter Visit Diagnoses Not on filedocumented in this encounter Additional Health Concerns Infection Onset Date Last Indicated Resolved Time Norovirus 10/23/2022 10/23/2022 Assessment Noted Time PHQ-2 Depression Total Score: 1 10/14/19 24 3:41 PM EDT documented as of this encounter Care Teams Cold Header Relationship Specialty Start Date End Date Jenny Lomeli PA [address] [place] [address] PCP - General Physician Lithograph Press Operator 10/11/23 documented as of this encounter
--- OUTSIDE RECORDS SUMMARY | 2024-03-06 17:02 | XMS_ITS | Encounter Summary ---
Author Organization [facility] Address [address] [place] [id number] Care Team Providers Care Home Health Occupational Therapist Name Role Phone Velma Phillips APRN Primary Care Provider [phone] Reason for Visit * Reason Comments Follow-up [employer] gave her 2 mo nth extension. Has not went to get her MRI yet. Concerns with getting results back soon enough to go over before line. And Mammogram. May need refills Encounter Details Date Type Department Care Team (Late st Contact Info) Description 03/15/2023 2:45 PM EST Office Visit [facility] [address] [place] [address] Velma Phillips APRN [address] [place] [id number] Hyperlipidemia, unspecified hyperlipidemia type (Primary Dx); Need [...] CENTER [facility] [address] [place] [address] Jenny Lomeli PA [address] [place] [address] documented as of this encounter Procedures Procedure [...] 03/15/2023 3:06 PM EST 03/15/2023 Narrative [facility] (AMBULATORY) - 03/16/2023 9:10 AM EST Performed at: ??01 - [address] ??[id number] Mold Breaker: Hawk Mireles PhD, Phone: ??[phone] Patient Fasting: ??Y Velma Phillips APRN LAB BLOOD ORDERABLES Final R esult [facility] [address] [place] [address], [facility] [address] [place] [address], * Lipid Panel (03/15/2023 3:06 PM EST) Total Cholesterol 161 100 - 199 mg/dL [facility] Triglycerides 83 0 - 149 mg/dL [facility] HDL Cholesterol 52 >39 mg/dL [facility] VLDL Cholesterol Naga 16 5 - 40 mg/dL [facility] LDL Chol Calc ([facility]) 93 0 - 99 mg/dL [facility] Blood 03/15/2023 3:06 PM EST 03/15/2023 Narrative [facility] (AMBULATORY) - 03/16/2023 9:10 AM EST Performed at: ??01 - [facility] [place] [address] [facility], [place], [place] ??[id number] Mold Breaker: Hawk Mireles PhD, Phone: ??[phone] Patient Fasting: ??Y Velma Phillips APRN LAB BLOOD ORDERABLES Final R esult [facility] (AMBULATORY) [address] [place] [address], [place] [phone] [facility] [address] [place] [address], [place] [phone] documented in this encounter Visit Diagnoses Diagnosis Hyperlipidemia, unspecified hyperlipidemia type- Primary Need for pneumococcal vaccination Need for prophylactic vaccination against streptococcus pneumoniae (pneumococcus) Need for Tdap vaccination Need for prophylactic vaccination with combined isbcwstkfs-jwjyzet-hrxgoxemk (DTP) vaccine Chronic left shoulder pain Pain in joint, shoulder region documented in this encounter Additional Health Concerns Infection Onset Date Last Indicated Resolved Time Norovirus 10/23/2022 10/23/2022 Assessment Noted Time PHQ-2 Depression Total Score: 3 10/17/19 23 1:57 PM EDT documented as of this encounter Care Teams Home Health Occupational Therapist Relationship Specialty Start Date End Date Velma Phillips APRN PCP - General Family Medicine 10/16/22 10/10/23 documented as of this encounter
--- OUTSIDE RECORDS SUMMARY | 2024-03-06 17:03 | XMS_ITS | Encounter Summary ---
Author Organization [facility] Address [address] [place] [address] Care Team Providers Care Cytopathologist Name Role Phone Sariah Benson MD Primary Care Provider Ninfa vailable Reason for Referral * Consultation (Routine) - Closed Specialty Diagnoses / Procedures Referred By Contkarlee kirkland Referred To Contact Dermatology Diagnoses Skin mass Kortney Woods MD [address] [place] [address] Phone: tel: fax: [facility] [address] [place] [address] [address] [place] [address] Phone: tel: fax: Referral ID Status Reason Start Date Expiration Date V isits Requested Visits Authorized [id number] Closed Specialty Services Required 08/20/2018 08/20/2019 1 1 Reason for Visit * Reason Comments Shoulder Pain Encounter Details Date Type Department Care Team (Late st Contact Info) Description 08/20/2018 2:45 PM EDT Office Visit [facility] [address] [place] [address] Kortney Woods MD [address] [place] [address] Skin mass (Primary Dx); Screening [...] over her body. Her ex lives in [place] but he has a lot of money [...] [facility] [address] [place] [address] [...] 08/20/2018 Comment:BLOOD MANUAL DIFFERE N Narrative [facility] (AMBULATORY) - 08/21/2018 3:07 AM EDT Performed at: ??01 - [address] ??[id number] Hydraulic Assembler: David Farnsworth MD, Phone: ??[phone] Kortney Woods MD LAB BLOOD ORDERABLE S Final Result [facility] (AMBULATORY) [address] [place] [address], [facility] [address] [place] [address], * (ABNORMAL) Comprehensive Metabolic Panel (08/20/2018 3:09 [...] 3:07 AM EDT Performed at: ??01 - [address] ??[id number] Hydraulic Assembler: David Farnsworth MD, Phone: ??[phone] Kortney Woods MD LAB BLOOD ORDERABLE S Final Result [facility] ([facility]BUL[facility]) [address] [place] [id number], [facility] [address] [place] [address], * (ABNORMAL) CBC & Differential (08/20/2018 3:09 [...] 3:07 AM EDT Performed at: ??01 - [address] ??[id number] Hydraulic Assembler: David Farnsworth MD, Phone: ??[phone] Performed at: ??02 - [address] ??[id number] Hydraulic Assembler: Brady Zendejas MD, Phone: ??[phone] Kortney Woods MD LAB BLOOD ORDERABLE S Edited Result - Final [facility] (AMBULATORY) [address] [place] [address], [place] [phone] [facility] [address] [place] [address], [place] [phone] documented in this encounter Visit Diagnoses Diagnosis Skin mass- Primary Localized superficial swelling, mass, or lump Screening for cardiovascular condition Screening for other and unspecified cardiovascular conditions Diarrhea, unspecified type Weakness Other malaise and fatigue documented in this encounter Care Teams Cytopathologist Relationship Specialty Start Date End Date Sariah Benson MD PCP - General 12/10/14 09/03/18 documented as of this encounter
--- OUTSIDE RECORDS SUMMARY | 2024-03-06 17:03 | XMS_ITS | Encounter Summary ---
Author Organization [facility] Address [address] [place] [address] Care Team Providers Care Tow Operator Name Role Phone Sariah Benson MD Primary Care Provider Ninfa vailable Reason for Visit * (Routine) - Closed Specialty Diagnoses / Procedures Referred By Contac t Referred To Contact Radiology Diagnoses Arthritis Procedures XR Shoulder 2+ View Bilateral Sariah Benson MD Referral ID Status Reason Start Date Expiration Date Visits Re quested Visits Authorized [id number] Closed 11/21/2017 11/21/2018 1 1 Encounter Details Date Type Department Care Team (Latest Contact Info) Description 12/18/2017 9:42 AM EDT - 12/18/2017 11:59 PM EDT Hospital Encounter [facility] AT [address] [address] Sariah Benson MD Discharge Disposition: [...] [facility] [address] [place] [address] Jenny Lomeli PA [address] [place] [address] documented as of this encounter Procedures [...] on filedocumented in this encounter Care Teams Tow Operator Relationship Specialty Start Date End Date Sariah Benson MD PCP - General 12/10/14 09/03/18 documented as of this encounter
--- OUTSIDE RECORDS SUMMARY | 2024-03-06 17:03 | XMS_ITS | Encounter Summary ---
[facility] Address [address] [place] [id number] Care Team Providers Care Computer Publisher Name Role Phone Kortney Woods MD Primary Care Provi kenny Encounter Details Date Type Department Care Team (Late st Contact Info) Description 10/13/2018 Telephone [facility] [address] [place] [address] Kortney Woods MD [address] [place] [address] Social History Tobacco Use Types Packs/Day Years [...] 3:27 PM EDT Medication approved. Sent into [employer] mail * Telephone Encounter - Ann Schafer - 10/13/2018 2:40 PM EDT OMEPRAZOLE 20MG 90 #[id number] documented in this encounter Plan of Treatment Upcoming Encounters Date Type Department Care Team (Late st Contact Info) Description 01/19/2025 3:00 PM EDT Office Visit [facility] [address] [address] Jenny Lomeli PA [address] [place] [address] documented as of this encounter Visit Diagnoses Diagnosis Gastroesophageal reflux disease, esophagitis presence not specified- Primary documented in this encounter Care Teams Computer Publisher Relationship Specialty Start Date End Date Kortney Woods MD [address] [place] [address] PCP - General Internal Medicine 09/04/18 10/15/22 documented as of this encounter
--- OUTSIDE RECORDS SUMMARY | 2024-03-06 17:03 | XMS_ITS | Encounter Summary ---
[facility] [address] [place] [address] Care Team Providers Care Shoemaker Custom Name Role Phone Sariah Benson MD Primary Care Provider Ninfa vailable Reason for Visit * Reason Onset Date Comments Med Refill 07/09/2018 Encounter Details Date Type Department Care Team (Late st Contact Info) Description 07/09/2018 Refill [facility] [address] [place] [address] [address] [place] [address] Sariah Benson MD Primary insomnia [...] [facility] [address] [place], [place] [address] Jenny Lomeli PA [address] [place], [place] [address] documented as of this encounter Visit Diagnoses Diagnosis Primary insomnia Persistent disorder of initiating or maintaining sleep documented in this encounter Care Teams Shoemaker Custom Relationship Specialty Start Date End Date Sariah Benson MD PCP - General 12/10/14 09/03/18 documented as of this encounter
--- OUTSIDE RECORDS SUMMARY | 2024-03-06 17:03 | XMS_ITS | Encounter Summary ---
Author Organization [facility] Address [address] [place] [address] Care Team Providers Care Centrifugal Supervisor Name Role Phone Kortney Woods MD Primary Care Provi kenny Reason for Visit * Reason Comments Diarrhea Encounter Details Date Type Department Care Team (Late st Contact Info) Description 07/24/2019 2:00 PM EDT Office Visit [facility] [address] [place] [address] Kortney Woods MD [address] [place] [address] Diarrhea, unspecified type (Primary Dx) [...] recent antibiotic use. She went to [facility] yesterday and was given Imodium 2 [...] [facility] [address] [place] [address] Jenny Lomeli PA [address] [place] [address] documented as of this encounter Visit Diagnoses Diagnosis Diarrhea, unspecified type- Primary documented in this encounter Care Teams Centrifugal Supervisor Relationship Specialty Start Date End Date Kortney Woods MD [address] [place] [address] PCP - General Internal Medicine 09/04/18 10/15/22 documented as of this encounter
--- OUTSIDE RECORDS SUMMARY | 2024-03-06 17:03 | XMS_ITS | Encounter Summary ---
Author Organization [facility] Address [address] [place] [address] Care Team Providers Care Admitting Representative Name Role Phone Sariah Bensno MD Primary Care Provider Ninfa vailable Reason for Referral * (Routine) - Closed Specialty Diagnoses / Procedures Referred By Contac isael Referred To Contact Radiology Diagnoses Arthritis Procedures XR Shoulder 2+ View Bilateral Sariah Benson MD Referral ID Status Reason Start Date Expiration Date Visits Re quested Visits Authorized [id number] Closed 11/21/2017 11/21/2018 1 1 Reason for Visit * Reason Comments Shoulder Pain Encounter Details Date Type Department Care Team (Late Contact Info) Description 11/21/2017 1:45 PM EDT Office Visit [facility] [address] [place] [address] Sariah Benson MD Arthritis (Primary Dx) Social [...] this encounter Patient Instructions * Patient Instructions* Sairah Benson MD - 11/21/2017 1:45 PM EDT [...] and EGD in past as screening by Reproductive Healthcare Assistant. 3. PSYCH- insomnia. Pt has taken ambien snf, 0-2x/wk. Will take it if stressed, especially ifshe has to leave the house the next day. Rx for #30 x3 lasts 1yr. At her last visit pt was behavingoddly and reported being ???persecuted?? at [facility]. The following portions of the patient's history [...] Office Visit [facility] MEDICINE [address] [place], [place] [address] Jenny Lomeli PA [address] [place] [address] documented as of this encounter [...] unspecified documented in this encounter Care Teams Admitting Representative Relationship Specialty Start Date End Date Sariah Benson MD PCP - General 12/10/14 09/03/18 documented as of this encounter
--- OUTSIDE RECORDS SUMMARY | 2024-03-06 17:03 | XMS_ITS | Encounter Summary ---
[facility] Address [address] [place] [address] Care Team Providers Care Customer Service Technician Name Role Phone Kortney Woods MD Primary Care Provi kenny Reason for Visit * Reason Comments Follow-up not feeling well, fa arley zaman Encounter Details Date Type Department Care Team (Late st Contact Info) Description 12/29/2019 1:00 PM EDT Office Visit [facility] PRIMARY CARE [address] [place] [address] Kortney Woods MD [address] [place] [phone] Tremor (Primary Dx); Paranoia; Lipid screening; History [...] bothering her. She has never seen a laborer filter plant nor been treated for rheumatoid arthritis. Also [...] autoimmune disease - FAVIOLA With / DsDNA, SERVICE STATION MANAGER, Sjogrens A / B, Farah -patient says [...] Description 01/19/2025 3:00 PM EDT Office Visit [facility]INE [address] [place], [place] [address] Jenny Lomeli PA [address] [place], [place] [address] documented as of this encounter Procedures Procedure [...] Color Yellow Yellow, Straw, Dark Yellow, Velma [facility] Clarity, UA Clear Clear [facility] Specific Fence 1.000(A) 1.005 - 1.030 [facility] pH, Urine 7.0 5.0 - 8.0 [facility] Leukocytes Negative Negative [facility] Nitrite, UA Negative Negative [facility] Protein, POC Negative Negative mg/dL [facility] Glucose, UA Negative Negative, 1000 mg/dL (3+) mg/dL [facility] Ketones, UA Negative Negative [facility] Urobilinogen, UA Normal Normal [facility] Bilirubin Negative Negative [facility] Blood, UA Negative Negative [facility] Urine 12/29/2019 1:53 PM EDT Kortney Woods MD POINT OF CARE TEST ORDERABLES Final Result [facility]
[address] [place] [address], * FAVIOLA With / DsDNA, SERVICE STATION MANAGER, Sjogrens A / B, Farah (12/29/2019 1:45 PM EDT) FAVIOLA Direct Negative Negative [facility] Blood 12/29/2019 1:45 PM EDT 12/30/2019 Comment:BLOOD Narrative [facility] ([facility]) - 12/31/2019 2:09 PM EDT Performed at: ??02 - [facility] [address] ??[id number] Safety Companion: Hawk Mireles PhD, Phone: ??[phone] Kortney Woods MD LAB BLOOD ORDERABLE S Final Result [facility] ([facility]ORY) [address] [place] [address], [place] [phone] [facility] [address] [place] [address], [place] [phone] * (ABNORMAL) Lipid Panel (12/29/2019 1:45 PM EDT) Total Cholesterol 242(H) 0 - 200 mg/dL [facility] Triglycerides 229(H) 0 - 150 mg/dL [facility] HDL Cholesterol 45 40 - 60 mg/dL [facility] VLDL Cholesterol Naga 45.8 mg/dL [facility] LDL Chol Calc ([facility]) 151(H) 0 - 100 mg/dL [facility] Blood 12/29/2019 1:45 PM EDT 12/30/2019 Comment:BLOOD Narrative [facility] ([facility] - 12/31/2019 2:09 PM EDT Performed at: ??01 - [address] ??[id number] Safety Companion: David Farnsworth MD, Phone: ??[phone] Kortney Woods MD LAB BLOOD ORDERABLE S Final Result Performing Organization Address [facility]/ZIP Co de Phone Number [facility] [address] [place] [address], [facility] [address] [place] [address], * RPR (12/29/2019 1:45 PM EDT) Pathologist [facility] RPR Non Reactive Non Reactive [facility] Blood 12/29/2019 1:45 PM EDT 12/30/2019 Comment:BLOOD Narrative [facility] ([facility]) - 12/31/2019 2:09 PM EDT Performed at: ??02 - [facility] [address] [place] [address] ??[id number] Safety Companion: Hawk Mireles PhD, Phone: ??[phone] Kortney Woods MD LAB BLOOD ORDERABLE S Final Result Performing Organization Address City/[facility]/ZIP Co de Phone Number [facility] ([facility]UL[facility]ORY) [address] [place] [address], [facility] [address] [place] [address], * HIV-1/O/2 Ag/Ab w Reflex (12/29/2019 1:45 PM EDT) Pathologist [facility] HIV Screen 4th Gen w/RFX (Reference) Non Reactive Non Reactive [facility] Blood 12/29/2019 1:45 PM EDT 12/30/2019 Comment:BLOOD Narrative [facility] ([facility]UL[facility]ORY) - 12/31/2019 2:09 PM EDT Performed at: ??02 - [facility] [address] [place], [place] ??[id number] Safety Companion: Hawk Mireles PhD, Phone: ??[phone] Kortnye Woods MD LAB BLOOD ORDERABLE S Final Result [facility] ([facility]) [address] [place] [address], [facility] [address] [place] [address], [place] [phone] * Vitamin B12 (12/29/2019 1:45 PM EDT) Vitamin B-12 362 211 - 946 pg/mL [facility] Comment:Results may be false ly increased if patient taking Biotin. Blood 12/29/2019 1:45 PM EDT 12/30/2019 Comment:BLOOD Narrative [facility] ([facility]) - 12/31/2019 2:09 PM EDT Performed at: ??01 - [address] ??[id number] Safety Companion: David Farnsworth MD, Phone: ??[phone] Kortney Woods MD LAB BLOOD ORDERABLE S Final Result [facility] ([facility]BUL[facility]) [address] [place] [address], [place] [phone] [facility] [address] [place] [address], [place] [phone] * TSH (12/29/2019 1:45 PM EDT) TSH 2.740 0.270 - 4.200 uIU/mL [facility] Blood 12/29/2019 1:45 PM EDT 12/30/2019 Comment:BLOOD Narrative [facility] ([facility]) - 12/31/2019 2:09 PM EDT Performed at: ??01 - [place] [address] [place], [place] ??[id number] Safety Companion: David Farnsworth MD, Phone: ??[phone] Kortney Woods MD LAB BLOOD ORDERABLE S Final Result [facility] ([facility]ATORY) [address] [place] [address], [facility] [address] [place] [address], * (ABNORMAL) Comprehensive Metabolic Panel (12/29/2019 1:45 [...] 2:09 PM EDT Performed at: ??01 - [facility] [address] [place], [place] ??[id number] Safety Companion: David Farnsworth MD, Phone: ??[phone] Kortney Woods MD LAB BLOOD ORDERABLE S Final Result [facility] ([facility]) [address] [place] [id number], [facility] [address] [place] [address], * CBC (No Diff) (12/29/2019 1:45 PM EDT) [facility] WBC 4.83 3.40 - 10.80 10*3/mm3 [...] 2:09 PM EDT Performed at: ??01 - [facility] [address] [place], [place] ??[id number] Safety Companion: David Farnsworth MD, Phone: ??[phone] Kortney Woods MD LAB BLOOD ORDERABLE S Final Result [facility] ([facility]) [address] [place] [address], [place] [phone] [facility] [address] [place] [address], [place] [phone] documented in this encounter Visit Diagnoses Diagnosis Tremor- Primary Abnormal involuntary movements Paranoia Delusional disorder Lipid screening Screening for lipoid disorders History of autoimmune disease Urinary frequency Need for influenza vaccination Need for prophylactic vaccination and inoculation against influenza documented in this encounter Care Teams Customer Service Technician Relationship Specialty Start Date End Date Kortney Woods MD [address] [place] [address] PCP - General Internal Medicine 09/04/18 10/15/22 documented as of this encounter
--- OUTSIDE RECORDS SUMMARY | 2024-03-06 17:03 | XMS_ITS | Encounter Summary ---
[facility] Address [address] [place] [address] Care Team Providers Care Barrel Coater Name Role Phone Kortney Woods MD Primary Care Provi kenny Reason for Visit * Reason Onset Date Comments kaylyn 02/16/2019 order Encounter Details Date Type Department Care Team (Late st Contact Info) Description 02/16/2019 Telephone [facility] PRIMARY CARE [address] [place] [phone] Kortney Woods MD [address] [place] [address] kaylyn (order ) Social History Tobacco Use [...] date up for her mammogram. Please call norvell back documented in this encounter Plan of Treatment Upcoming Encounters Date Type Department Care Team (Late st Contact Info) Description 01/19/2025 3:00 PM EDT Office Visit [facility] FAM[facility] MEDICINE [address] [place] [place] [phone] Jenny Lomeli PA [address] [place] [phone] documented as of this encounter Visit Diagnoses Not on filedocumented in this encounter Care Teams Barrel Coater Relationship Specialty Start Date End Date Kortney Woods MD [address] [address] PCP - General Internal Medicine 09/04/18 10/15/22 documented as of this encounter
--- OUTSIDE RECORDS SUMMARY | 2024-03-06 17:03 | XMS_ITS | Encounter Summary ---
[facility] [address] [place] [id number] Care Team Providers Care Toolroom Clerk Name Role Phone Velma Phillips APRN Primary Care Provider [phone] Reason for Visit * Reason Onset Date Comments Stool order 10/16/2022 Encounter Details Date Type Department Care Team (Late st Contact Info) Description 10/16/[address] [facility] FAMILY MEDICINE [address] [place] [address] Velma Phillips APRN [address] [place] [phone] Stool order Social History Tobacco Use Types [...] [facility] MED[facility]INE [address] [place] [address] Jenny Lomeli PA [address] [place] [address] documented as of this encounter Visit Diagnoses Not on filedocumented in this encounter Additional Health Concerns Assessment Noted Time PHQ-2 Depression Total Score: 3 10/17/19 23 1:57 PM EDT documented as of this encounter Care Teams Toolroom Clerk Relationship Specialty Start Date End Date Velma Phillips APRN PCP - General Family Medicine 10/16/22 10/10/23 documented as of this encounter
--- OUTSIDE RECORDS SUMMARY | 2024-03-06 17:03 | XMS_ITS | Encounter Summary ---
[facility] [address] [place] [address] Care Team Providers Care Flower Arranger Name Role Phone Kortney Woods MD Primary Care Provi kenny Reason for Visit * Reason Onset Date Comments MED REFILLS 01/11/2020 Encounter Details Date Type Department Care Team (Late st Contact Info) Description 01/11/2020 Telephone [facility] PRIMARY CARE [address] [place] [address] Kortney Woods MD [address] [place] [address] MED REFILLS Social History Tobacco Use Types [...] VOLTAREN NEEDED' [facility] DORITA: [phone] documented in this encounter Plan of Treatment Upcoming Encounters Date Type Department Care Team (Late st Contact Info) Description 01/19/2025 3:00 PM EDT Office Visit [facility] MEDIC[facility] [address] [place] [phone] Jenny Lomeli PA [address] [place] [address] documented as of this encounter Visit Diagnoses Diagnosis Primary insomnia Persistent disorder of initiating or maintaining sleep Gastroesophageal reflux disease Esophageal reflux documented in this encounter Care Teams Flower Arranger Relationship Specialty Start Date End Date Kortney Woods MD [address] [place] [address] PCP - General Internal Medicine 09/04/18 10/15/22 documented as of this encounter
--- OUTSIDE RECORDS SUMMARY | 2024-03-06 17:03 | XMS_ITS | Encounter Summary ---
Author Organization [facility] Address [address] [place] [address] Care Team Providers Care Track Service Person Name Role Phone Kortney Woods MD Primary Care Provi kenny Reason for Visit * Reason Comments Follow-up GERD, Insomnia Encounter Details Date Type Department Care Team (Late st Contact Info) Description 08/07/2019 9:00 AM EDT Office Visit [facility] PRIMARY CARE [address] [place] [address] Kortney Woods MD [address] [place] [address] Drug-induced constipation (Primary Dx); Abdominal [...] her abdomen so [facility] and was evaluatedthere. They did [...] FAMILY MEDICINE [address] [place] [phone] Jenny Lomeli PA [address] [place] [address] documented as of this encounter Visit Diagnoses Diagnosis Drug-induced constipation- Primary Other constipation Abdominal cramping Abdominal pain, unspecified site documented in this encounter Care Teams Track Service Person Relationship Specialty Start Date End Date Kortney Woods MD [address] [address] PCP - General Internal Medicine 09/04/18 10/15/22 documented as of this encounter
--- OUTSIDE RECORDS SUMMARY | 2024-03-06 17:03 | XMS_ITS | Encounter Summary ---
[facility] [address] [place] [address] Care Team Providers Care Lab Pack Chemist Name Role Phone Kortney Woods MD Primary Care Provi kenny Reason for Referral * Diagnostic Imaging (Routine) - Closed Specialty Diagnoses / Procedures Referred By Contac t Referred To Contact Radiology Diagnoses Breast pain Procedures Mammo diagnostic digital tomosynthesis bilateral w Kortney Hardy MD [address] [place] [address] Phone: tel: fax: [place] [address] [place] [address] Phone: tel: Referral ID Status Reason Start Date Expiration Date Visits Re quested Visits Authorized [id number] Closed 02/17/2019 02/17/2020 1 1 Reason for Visit * Diagnostic Imaging (Routine) - Closed Specialty Diagnoses / Procedures Referred By Contac t Referred To Contact Radiology Diagnoses Breast pain Procedures Mammo diagnostic digital tomosynthesis bilateral w Kortney Hardy MD [address] [place] [address] Phone: tel: fax: [place] [address] [place] [address] Phone: tel: Referral ID Status Reason Start Date Expiration Date Visits Re quested Visits Authorized [id number] Closed 02/17/2019 02/17/2020 1 1 Encounter Details Date Type Department Care Team (Latest Contact Info) Description 04/20/2019 12:45 PM EST - 04/20/2019 11:59 PM EST Hospital Encounter [facility] [address] [place], [place] [phone] Kortney Woods MD [address] [place], [place] [phone] Breast pain Discharge Disposition: Home or Self [...] [facility] [address] [place] [phone] Jenny Lomeli PA [address] [place] [address] documented as of this encounter Procedures Procedure [...] Mastodynia documented in this encounter Care Teams Lab Pack Chemist Relationship Specialty Start Date End Date Kortney Woods MD [address] [place] [address] PCP - General Internal Medicine 09/04/18 10/15/22 documented as of this encounter
--- OUTSIDE RECORDS SUMMARY | 2024-03-06 17:03 | XMS_ITS | Encounter Summary ---
[facility] Address [address] [place] [address] Care Team Providers Care Fresh Work Wrapper Layer Name Role Phone Sariah Benson MD Primary Care Provider Ninfa vailable Reason for Visit * Diagnostic Imaging (Routine) - Closed Specialty Diagnoses / Procedures Referred By Contac t Referred To Contact Radiology Diagnoses Screening for breast cancer Procedures Mammo Screening Digital Tomosynthesis Bilateral With CAD Sariah Benson MD [address] [address] Phone: tel: Referral ID Status Reason Start Date Expiration Date Visits Re quested Visits Authorized [id number] Closed 02/06/2018 02/06/2019 1 1 Encounter Details Date Type Department Care Team (Latest Contact Info) Description 03/28/2018 1:07 PM EST - 03/28/2018 11:59 PM EST Hospital Encounter [facility] [address] [phone] Sariah Benson MD Discharge Disposition: Home or [...] Description 01/19/2025 3:00 PM EDT Office Visit [facility] FAM[facility] MEDICINE [address] [place], [place] [address] Jenny Lomeli PA [address] [place] [address] documented as of this encounter Procedures Procedure [...] on filedocumented in this encounter Care Teams Fresh Work Wrapper Layer Relationship Specialty Start Date End Date Sariah Benson MD PCP - General 12/10/14 09/03/18 documented as of this encounter
--- OUTSIDE RECORDS SUMMARY | 2024-03-06 17:03 | XMS_ITS | Encounter Summary ---
[facility] Address [address] [place] [address] Care Team Providers Care Driver Sales Name Role Phone Kortney Woods MD Primary Care Provi kenny Reason for Visit * Reason Comments Depression Encounter Details Date Type Department Care Team (Late st Contact Info) Description 01/12/2019 10:30 AM EDT Office Visit [facility] PRIMARY CARE [address] [place] [address] Kortney Woods MD [address] [place] [address] Current moderate episode of major [...] not able to afford to go to [facility] due to copay of $180. She wants [...] Not able to afford to go to [facility] right now so will table that [...] for influenza vaccination - Fluad Tri 65yr ([id number]) Sophia Noriega MA documented in this encounter [...] pain documented in this encounter Care Teams Driver Sales Relationship Specialty Start Date End Date Kortney Woods MD [address] [place] [address] PCP - General Internal Medicine 09/04/18 10/15/22 documented as of this encounter
--- OUTSIDE RECORDS SUMMARY | 2024-03-06 17:03 | XMS_ITS | Encounter Summary ---
[facility] [address] [place] [address] Care Team Providers Care Binman Name Role Phone Kortney Woods MD Primary Care Provi kenny Encounter Details Date Type Department Care Team (Late st Contact Info) Description 11/13/2019 Telephone [facility] PRIMARY CARE [address] [place] [address] [place] Helms LPN Social History [...] [facility] [address] [place] [address] Jenny Lomeli PA [address] [place] [address] documented as of this encounter Visit Diagnoses Not on filedocumented in this encounter Care Teams Binman Relationship Specialty Start Date End Date Kortney Woods MD [address] [place] [address] PCP - General Internal Medicine 09/04/18 10/15/22 documented as of this encounter
--- OUTSIDE RECORDS SUMMARY | 2024-03-06 17:03 | XMS_ITS | Encounter Summary ---
[facility] [address] [place] [address] Care Team Providers Care Welding Machine Operator/Tender Name Role Phone Kortney Woods MD Primary Care Provi kenny Reason for Visit * Reason Onset Date Comments Med Refill 07/31/2019 Encounter Details Date Type Department Care Team (Late st Contact Info) Description 07/31/2019 Refill [facility] PR[facility] CARE [address] [place] [phone] Kortney Woods MD [address] [place] [address] Diarrhea, unspecified type Social History Tobacco [...] 2 MG capsule Pharmacy confirmed- [facility] [facility] documented in this encounter Plan of Treatment Upcoming Encounters Date Type Department Care Team (Late st Contact Info) Description 01/19/2025 3:00 PM EDT Office Visit [facility] MEDIC[facility] [address] [place] [address] Jenny Lomeli PA [address] [place], [place] [phone] documented as of this encounter Visit Diagnoses Diagnosis Diarrhea, unspecified type documented in this encounter Care Teams Welding Machine Operator/Tender Relationship Specialty Start Date End Date Kortney Woods MD [address] [address] PCP - General Internal Medicine 09/04/18 10/15/22 documented as of this encounter
--- OUTSIDE RECORDS SUMMARY | 2024-03-06 17:03 | XMS_ITS | Encounter Summary ---
[facility] Address [address] [place] [address] Care Team Providers Care Professor Of Forestry Name Role Phone Kortney Woods MD Primary Care Provi kenny Reason for Visit * Reason Onset Date Comments Medicare Wellness-subsequent 11/20/2019 Encounter Details Date Type Department Care Team (Late st Contact Info) Description 11/20/2019 Telephone [facility] PRIMARY CARE [address] [phone] [place] Helms LPN Medicare Wellness-subsequent Social History [...] Office Visit [facility] MED[facility] [address] [facility] [place] [phone] Jenny Lomeli PA [address] [facility] [address] [place], [place] [phone] documented as of this encounter Visit Diagnoses Not on filedocumented in this encounter Care Teams Professor Of Forestry Relationship Specialty Start Date End Date Kortney Woods MD [address] [facility] [address] [place] [address] PCP - General Internal Medicine 09/04/18 10/15/22 documented as of this encounter
--- OUTSIDE RECORDS SUMMARY | 2024-03-06 17:03 | XMS_ITS | Encounter Summary ---
Author Organization [facility] Address [address] [place] [address] Care Team Providers Care Imcu Specialist Name Role Phone Kortney Woods MD Primary Care Provi kenny Reason for Referral * Behavorial Health/Psych (Routine) - Canceled Specialty Diagnoses / Procedures Referred By Camila kirkland Referred To Contact Psychiatry Diagnoses Paranoia Anxiety Kortney Woods MD [address] [place] [address] Phone: tel: fax: [facility] [address] [place] [address] [address] [place] [address] Phone: tel: fax: Referral ID Status Reason Start Date Expiration Date Visits Requested Visits Authorized [id number] Canceled Specialty Services Required 11/26/2018 11/26/2019 1 1 * Consultation (Routine) - Closed Specialty Diagnoses / Procedures Referred By Camila t Referred To Contact Neurology Diagnoses Memory loss Kortney Woods MD [address] [place] [address] Phone: tel: fax: Christine Huertas, INSURANCE WRITER [facility] [address] [place] [address] Phone: tel: fax: Referral ID Status Reason Start Date Expiration Date V isits Requested Visits Authorized [id number] Closed Specialty Services Required 11/26/2018 11/26/2019 1 1 Reason for Visit * Reason Comments Follow-up shaky Encounter Details Date Type Department Care Team (Late st Contact Info) Description 11/26/2018 2:30 PM EDT Office Visit [facility] [address] [place] [address] Kortney Woods MD [address] [place] [address] Memory loss (Primary Dx); Breast [...] thinks it was her ex.He lives in [place] and she has not seen him in a long time, but thinks it could be only him. Shehas not seen him in the apt. She had a camera and said that someone covered it up so she couldn't see when someone came in. She has called the police, told friends, neighbors, and her apt certified energy manager. Many (or most) of them have told her she is a psycho, psychotic, demented. The dog food shredder operator recently rec she ge t checked out [...] itself, but it's in the ddx Paranoia (CMS/[facility]) - Ambulatory Referral to Psychiatry Anxiety - Ambulatory Referral to Psychiatry Breast cancer screening - Mammo Screening Digital Tomosynthesis Bilateral With CAD documented in this encounter Plan of Treatment Upcoming Encounters Date Type Department Care Team (Late st Contact Info) Description 01/19/2025 3:00 PM EDT Office Visit [facility] [address] [place] [phone] Jenny Lomeli PA [address] [place] [address] Scheduled Referrals Name Type Priority Associated Diagnoses Order Schedule Ambulatory Referral to Neurology Outpatient Referral Routine Memory loss Ordered: 11/26/2018 Ambulatory Referral to Psychiatry Outpatient Referral Routine Paranoia Anxiety Ordered: 11/26/2018 documented as of this encounter Visit Diagnoses Diagnosis Memory loss- Primary Breast cancer screening Breast screening, unspecified Paranoia Delusional disorder Anxiety Anxiety state, unspecified documented in this encounter Care Teams Imcu Specialist Relationship Specialty Start Date End Date Kortney Woods MD [address] [facility] [address] [place] [address] PCP - General Internal Medicine 09/04/18 10/15/22 documented as of this encounter
--- OUTSIDE RECORDS SUMMARY | 2024-03-06 17:03 | XMS_ITS | Encounter Summary ---
[facility] Address [address] [place] [address] Care Team Providers Care Intelligence Analyst Name Role Phone Kortney Woods MD Primary Care Provi kenny Reason for Visit * Reason Onset Date Comments Med Refill 12/04/2018 Encounter Details Date Type Department Care Team (Late st Contact Info) Description 12/04/2018 Refill [facility] [address] [place] [address] Kortney Woods MD [address] [place] [address] Social History Tobacco Use Types [...] [facility] [address] [place] [phone] Jenny Lomeli PA [address] [place] [address] documented as of this encounter Visit Diagnoses Not on filedocumented in this encounter Care Teams Intelligence Analyst Relationship Specialty Start Date End Date Kortney Woods MD [address] [address] PCP - General Internal Medicine 09/04/18 10/15/22 documented as of this encounter
--- OUTSIDE RECORDS SUMMARY | 2024-03-06 17:03 | XMS_ITS | Encounter Summary ---
[facility] Address [address] [place] [address] Care Team Providers Care Board Catcher Name Role Phone Kortney Woods MD Primary Care Provi kenny Reason for Visit * Reason Onset Date Comments CS-Meds Re-Fill 04/10/2019 Encounter Details Date Type Department Care Team (Late st Contact Info) Description 04/10/2019 Telephone [facility] [address] [place] [address] Kortney Woods MD [address] [place] [address] CS-Meds Re-Fill Social History Tobacco [...] [employer] Mail Delivery, confirmed Patient Call Back [phone] documented in this encounter Plan of Treatment Upcoming Encounters Date Type Department Care Team (Late st Contact Info) Description 01/19/2025 3:00 PM EDT Office Visit [facility] [address] [place] [phone] Jenny Lomeli PA [address] [facility] [place] [address] documented as of this encounter Visit Diagnoses Diagnosis Primary insomnia Persistent disorder of initiating or maintaining sleep documented in this encounter Care Teams Board Catcher Relationship Specialty Start Date End Date Kortney Woods MD [address] [place] [address] PCP - General Internal Medicine 09/04/18 10/15/22 documented as of this encounter
--- OUTSIDE RECORDS SUMMARY | 2024-03-06 17:03 | XMS_ITS | Encounter Summary ---
[facility] [address] [address] Care Team Providers Care Warehouser Name Role Phone Kortney Wodos MD Primary Care Provi kenny Encounter Details Date Type Department Care Team (Late st Contact Info) Description 02/17/2019 Telephone [facility] [address] [place] [address] Kortney Woods MD [address] [place] [address] Social History Tobacco Use Types Packs/Day Years [...] EST CALLING BACK ABOUT HER MAMMOGRAM RESULTS [phone] documented in this encounter Plan of Treatment Upcoming Encounters Date Type Department Care Team (Late st Contact Info) Description 01/19/2025 3:00 PM EDT Office Visit [facility] [address] [place] [address] Jenny Lomeli PA [address] [place] [address] documented as of this encounter Visit Diagnoses Not on filedocumented in this encounter Care Teams Warehouser Relationship Specialty Start Date End Date Kortney Woods MD [address] [facility] [address] [place] [address] PCP - General Internal Medicine 09/04/18 10/15/22 documented as of this encounter
--- OUTSIDE RECORDS SUMMARY | 2024-03-06 17:03 | XMS_ITS | Encounter Summary ---
Author Organization [facility] Address [address] [place] [address] Care Team Providers Care Principal Associate Name Role Phone Kortney Woods MD Primary Care Provi kenny Reason for Visit * Reason Onset Date Comments ORDER FOR BLOOD WORK 12/23/2019 Encounter Details Date Type Department Care Team (Late st Contact Info) Description 12/23/2019 Telephone [facility] [address] [place] [phone] Kortney Woods MD [address] [place] [address] ORDER FOR BLOOD WORK Social [...] WilfredDorita Relationship: Self Best call back number: [phone] What orders are you requesting (i.e. lab or imaging): BLOOD WORK In what timeframe would the patient need to come in: BEFORE HER APPOINTMENT ON 12/29/2019 Where will you receive your lab/imaging services: [facility] Additional notes: NA documented in this encounter Plan of Treatment Upcoming Encounters Date Type Department Care Team (Late st Contact Info) Description 01/19/2025 3:00 PM EDT Office Visit [facility] [address] [place] [address] Jenny Lomeli PA [address] [place] [address] documented as of this encounter Visit Diagnoses Not on filedocumented in this encounter Care Teams Principal Associate Relationship Specialty Start Date End Date Kortney Woods MD [address] [place] [address] PCP - General Internal Medicine 09/04/18 10/15/22 documented as of this encounter
--- OUTSIDE RECORDS SUMMARY | 2024-03-06 17:03 | XMS_ITS | Encounter Summary ---
[facility] Organization [facility] Address [address] [place] [address] Care Team Providers Care Inspector Optical Instrument Name Role Phone Kortney Woods MD Primary Care Provi kenny Encounter Details Date Type Department Care Team (Late st Contact Info) Description 12/19/2018 Telephone [facility] [facility] [address] [place] [address] Christine Huertas, BALL POINT SPLITTER [address] [facility] [address] [place] [address] Social History Tobacco Use Types [...] [facility] [address] [place] [phone] Jenny Lomeli PA [address] [place], [place] [phone] documented as of this encounter Visit Diagnoses Not on filedocumented in this encounter Care Teams Inspector Optical Instrument Relationship Specialty Start Date End Date Kortney Woods MD [address] [facility] [address] [place] [address] PCP - General Internal Medicine 09/04/18 10/15/22 documented as of this encounter
--- OUTSIDE RECORDS SUMMARY | 2024-03-06 17:03 | XMS_ITS | Encounter Summary ---
Author Organization [facility] Address [address] [phone] Care Team Providers Care Financial Accountant Name Role Phone Kortney Woods MD Primary Care Provi kenny Reason for Visit * Reason Comments Memory Loss * Consultation (Routine) - Closed Specialty Diagnoses / Procedures Referred By Contac t Referred To Contact Neurology Diagnoses Memory loss Kortney Woods MD [address] [facility] 200 [place] [address] Phone: tel: fax: Christine Huertas, SOFTWARE QA MANAGER [address] [facility] 160 [place] [address] Phone: tel: fax: Referral ID Status Reason Start Date Expiration Date V isits Requested Visits Authorized [id number] Closed Specialty Services Required 11/26/2018 11/26/2019 1 1 Encounter Details Date Type Department Care Team (Late st Contact Info) Description 12/15/2018 3:00 PM EDT Office Visit [facility] [address] [facility] [address] [place] [address] Christine Huertas, SOFTWARE QA MANAGER [address] [facility] [address] [place] [address] Intermittent confusion (Primary Dx); Paranoid behavior; Poor [...] She basically tells me she lives in [facility] housing and is concerned that [...] will tell her friends or even the office manager executive assistant of the housing facility and they tell [...] 2012 but when she moved to the [facility] in December 2017 she felt like [...] Ambien as needed. She is from the [facility] and came to [place] 1982. She tells me in the [facility] she was a college graduate and majored [...] Right achilles: 2+ Left achilles: 2+ Right stick inserter: 2+ Left stick inserter: 2+ Right plantar: normal Left plantar: normal [...] She has normal strength. She has a krsigmMopiiq-Xkco-Xwspjl Test, a normal Heel to Voss Test [...] term memory Comments: MMSE 27/30 today, 06/01 [facility] Orders: - EEG Awake or Drowsy [...] Other Reviewed [] Records Requested [] EMR Dragon/Motor And Generator Brush Cutter Disclaimer: Much of this encounter note is an electronic blood bank coordinator of spoken language to printed text. Electronic blood bank coordinator of spoken language may permit erroneous words [...] [facility] [address] [place] [address] Jenny Lomeli PA [address] [place] [address] documented as of this encounter Procedures [...] 12/16/2018 Comment:BLOOD MANUAL DIFFERE N Narrative [facility] ([facility]BULATORY) - 12/18/2018 4:09 PM EDT Performed at: ??01 - [facility] ??[id number] Material Processor: Hawk Mireles PhD, Phone: ??[phone] [facility] LAB BLOOD ORDERABLES Fi nal Result [facility] ([facility]) [address] [place] [address], [place] [phone] [facility] [address] [place] [address], [place] [phone] * Microscopic Examination - (12/16/2018 12:00 AM EDT) WBC, UA 0-5 0 - 5 /hpf [facility] RBC, UA None seen 0 - 2 /hpf [facility] Epithelial Cells (non renal) 0-10 0 - 10 /hpf [facility] Bacteria, UA Few None seen/Few [facility] 12/16/2018 12/16/2018 Comment:BLOOD MANUAL DIFFERE N Narrative [facility] ([facility]UL[facility]) - 12/18/2018 4:09 PM EDT Performed at: ??01 - [facility] [address] ??[id number] Material Processor: Hawk Mireles PhD, Phone: ??[phone] Christine Banger SOFTWARE QA MANAGER URINE ORDERABLES Final Result Performing Organization Address City/[facility]/ZIP Co de Phone Number [facility] (AMBULATORY) [address] [place] [address], [facility] [address] [place] [address], * Urinalysis With Culture If Indicated - Urine, Clean Catch (12/16/2018 12:00 AM EDT) Specific [place], UA 1.019 1.005 - 1.030 [facility] [...] 4:09 PM EDT Performed at: ??01 - [facility] ??[id number] Material Processor: Hawk Mireles PhD, Phone: ??[phone] Christineamadeo Banger SOFTWARE QA MANAGER URINE ORDERABLES Final Result Performing Organization Address City/[facility]/ZIP Co de Phone Number [facility] [address] [place] [address], [facility] [address] [place] [address], * Homocysteine (12/16/2018 12:00 AM EDT) Pathologist [facility] Homocystine, Plasma (Quant) 9.0 0.0 - 15.0 umol/L [facility] Blood 12/16/2018 12/16/2018 Comment:BLOOD MANUAL DIFFERE N Narrative [facility] (AMBULATORY) - 12/18/2018 4:09 PM EDT Performed at: ??01 - [address] ??[id number] Material Processor: Hawk Mireles PhD, Phone: ??[phone] [facility] BLOOD ORDERABLES Fi nal Result Performing Organization Address [facility] de Phone Number [facility] [address] [place] [address], [facility] [address] [place] [address], * Methylmalonic Acid, Serum (12/16/2018 12:00 AM EDT) Pathologist [facility] Methylmalonic Acid 168 0 - 378 nmol/L [facility] Disclaimer: Comment [facility] Comment: This test was developed and its performance characteristics determined by [facility]. It has not been cleared or approved by the Food and Drug Administration. Blood 12/16/2018 12/16/2018 Comment:BLOOD MANUAL DIFFERE N Narrative [facility] (AMBULATORY) - 12/18/2018 4:09 PM EDT Performed at: ??02 - [address] ??[id number] Material Processor: Brenna Patel MD, Phone: ??[phone] [facility] LAB BLOOD ORDERABLES Fi nal Result Performing Organization Address [facility] Co de Phone Number [facility] [address] [place] [address], [facility] [address] [place] [address], [place] [phone] * Thyroid Panel With TSH (12/16/2018 12:00 AM EDT) Pathologist [facility] TSH 2.360 0.450 - 4.500 uIU/mL [facility] T4, Total 7.6 4.5 - 12.0 ug/dL [facility] T3 Uptake 26 24 - 39 % [facility] Free Thyroxine Index 2.0 1.2 - 4.9 [facility] Blood 12/16/2018 12/16/2018 Comment:BLOOD MANUAL DIFFERE N Abel [facility] ([facility]) - 12/18/2018 4:09 PM EDT Performed at: ??01 - [facility] ??[id number] Material Processor: Hawk Mireles PhD, Phone: ??[phone] Christine Givens [facility] LAB BLOOD ORDERABLES nal Result [facility] [address] [place] [address], [facility] [address] [place] [address], [place] [phone] * Vitamin B12 & Folate (12/16/2018 12:00 AM EDT) [facility] Vitamin B-12 542 232 - 1,245 pg/mL [facility] Folate 17.4 >3.0 ng/mL [facility] Comment: A serum folate concentration of less than 3.1 ng/mL is considered to represent clinical deficiency. Blood 12/16/2018 12/16/2018 Comment:BLOOD MANUAL DIFFERE N Narrative [facility] (AMBULATORY) - 12/18/2018 4:09 PM EDT Performed at: ??01 - [facility] ??[id number] Material Processor: Hawk Mireles PhD, Phone: ??[phone] Christine Huertas SOFTWARE QA MANAGER LAB BLOOD ORDERABLES Fi nal Result [facility]) [address] [place] [address], [place] [phone] [facility] [address] [place] [address], [place] [phone] * (ABNORMAL) CBC & Differential (12/16/2018 12:00 [...] 12/16/2018 Comment:BLOOD MANUAL DIFFERE N Narrative [facility] (AMBULATORY) - 12/18/2018 4:09 PM EDT Performed at: ??01 - [facility] [place] [address] [place], [place] ??[id number] Material Processor: Hawk Mireles PhD, Phone: ??[phone] Christine Givens Huertas SOFTWARE QA MANAGER LAB BLOOD ORDERABLES Fi nal Result [facility] (AMBULATORY) [address] [place] [address], [facility] [address] [place] [address], * Comprehensive Metabolic Panel (12/16/2018 12:00 AM [...] 12/16/2018 Comment:BLOOD MANUAL DIFFERE N Narrative [facility] (AMBULATORY) - 12/18/2018 4:09 PM EDT Performed at: ??01 - [facility] [address] ??[id number] Material Processor: Hawk Mireles PhD, Phone: ??[phone] Christine Huertas APRN LAB BLOOD ORDERABLES Fi nal Result [facility] (AMBULATORY) [address] [place] [address], [facility] [address] [place] [address], documented in this encounter Visit Diagnoses Diagnosis Intermittent confusion- Primary Paranoid behavior Poor short term memory Memory loss Personal history of other diseases of the circulatory system documented in this encounter Care Teams Financial Accountant Relationship Specialty Start Date End Date Kortney Woods MD [address] [place] [address] PCP - General Internal Medicine 09/04/18 10/15/22 documented as of this encounter
--- OUTSIDE RECORDS SUMMARY | 2024-03-06 17:03 | XMS_ITS | Encounter Summary ---
[facility] Address [address] [place] [address] Care Team Providers Care Detention Worker Name Role Phone Sariah Benson MD Primary Care Provider Ninfa vailable Reason for Visit * Reason Onset Date Comments Med Refill 07/28/2018 Encounter Details Date Type Department Care Team (Late st Contact Info) Description 07/28/2018 Refill [facility] MEDICAL [facility]IMARY [facility] [address] [place] [address] [address] [place] [address] Sariah Benson MD Primary insomnia [...] DAYS OF HER AMBIEN [address] [facility]. SHE REC. THE DICLOFENAC BUT NOTTHE AMBIEN. PLEASE CALL HER AT [phone] documented in this encounter Plan of Treatment Upcoming Encounters Date Type Department Care Team (Late st Contact Info) Description 01/19/2025 3:00 PM EDT Office Visit [facility] [address] [place] [address] Jenny Lomeli PA [address] [place] [address] documented as of this encounter Visit Diagnoses Diagnosis Primary insomnia Persistent disorder of initiating or maintaining sleep documented in this encounter Care Teams Detention Worker Relationship Specialty Start Date End Date Sariah Benson MD PCP - General 12/10/14 09/03/18 documented as of this encounter
--- OUTSIDE RECORDS SUMMARY | 2024-03-06 17:03 | XMS_ITS | Encounter Summary ---
[facility] Address [address] [place] [address] Care Team Providers Care Promotions Coordinator Name Role Phone Kortney Woods MD Primary Care Provi kenny Reason for Referral * Consultation (Routine) - Canceled Specialty Diagnoses / Procedures Referred By Contac t Referred To Contact Diagnoses Skin mass Kortney Woods MD [address] [place] [address] Phone: tel: fax: Chidi Coyle MD [address] [facility] ATTN: [place] [address] Phone: tel: fax: Referral ID Status Reason Start Date Expiration Date Visits Requested Visits Authorized [id number] Canceled Specialty Services Required 09/08/2018 09/08/2019 1 1 Reason for Visit * Reason Comments Depression Encounter Details Date Type Department Care Team (Late st Contact Info) Description 09/08/2018 1:30 PM EDT Office Visit [facility] [address] [place] [phone] Kortney Woods MD [address] [place] [address] Decreased GFR (Primary Dx); Skin [...] letter stating such. Wants [facility] for left shoulder mass (likely lipoma). The [...] 01/19/2025 3:00 PM EDT Office Visit [facility] [address] [place] [address] Jenny Lomeli PA [address] [place] [address] Scheduled Referrals Name Type Priority [...] 4:06 AM EDT Performed at: ??01 - [address] ??[id number] Braille Duplicating Machine Operator: David Farnsworth MD, Phone: ??[phone] Kortney Woods MD LAB BLOOD ORDERABLE S Final Result [facility] ([facility]BULATORY) [address] [place] [address], [facility] [address] [place] [address], documented in this encounter Visit Diagnoses Diagnosis Decreased GFR- Primary Skin mass Localized superficial swelling, mass, or lump documented in this encounter Care Teams Promotions Coordinator Relationship Specialty Start Date End Date Kortney Woods MD [address] [address] PCP - General Internal Medicine 09/04/18 10/15/22 documented as of this encounter
--- OUTSIDE RECORDS SUMMARY | 2024-03-06 17:03 | XMS_ITS | Encounter Summary ---
[facility] Address [address] [place] [address] Care Team Providers Care Yard Associate Name Role Phone Sariah Benson MD Primary Care Provider Ninfa vailable Reason for Visit * Diagnostic Imaging (Routine) - Closed Specialty Diagnoses / Procedures Referred By Contac t Referred To Contact Radiology Diagnoses Menopause Procedures DEXA Bone Density Axial Sariah Benson MD [address] [address] Phone: tel: Referral ID Status Reason Start Date Expiration Date Visits Re quested Visits Authorized [id number] Closed 02/06/2018 02/06/2019 1 1 Encounter Details Date Type Department Care Team (Latest Contact Info) Description 03/13/2018 1:11 PM EST - 03/13/2018 11:59 PM [facility] Hospital Encounter [facility] DEXA CAREY [address] [place] [phone] Sariah Benson MD Discharge Disposition: Home or [...] Lomeli PA [address] [place] [address] documented as of this encounter Procedures Procedure [...] fall-prevention measurements. The National Osteoporosis Foundation recommends (http://www.nof.org/hcp/practice/oxkxleoc-cbs-rsxwuzgc-guidelines/clinic ans-guide) that FDA-approved medical therapies be considered [...] the left hip with 95% confidence is 0.223987 gm/cm2 at the hip and 0.235440 g/cm2 at the lumbar spine. This report [...] fall-prevention measurements. The National Osteoporosis Foundation recommends (http://www.nof.org/hcp/practice/dsthwzxx-rqh-hnkjtimo-guidelines/clinic ans-guide) that FDA-approved medical therapies be considered [...] the left hip with 95% confidence is 0.331564 gm/cm2 at the hip and 0.353697 g/cm2 at the lumbar spine. This report was finalized on 03/13/2018 4:[address] Leida Wilkinson MD. Sariah Benson MD IMG DXA ORDERABLES Final R esult documented in this encounter Visit Diagnoses Not on filedocumented in this encounter Care Teams Yard Associate Relationship Specialty Start Date End Date Sariah Benson MD PCP - General 12/10/14 09/03/18 documented as of this encounter
--- OUTSIDE RECORDS SUMMARY | 2024-03-06 17:03 | XMS_ITS | Encounter Summary ---
Author Organization [facility] Address [address] [place] [address] Care Team Providers Care Yard Manager Name Role Phone Velma Phillips APRN Primary Care Provider [phone] Reason for Referral * Consultation (Routine) - Closed Specialty Diagnoses / Procedures Referred By Contkarlee t Referred To Contact Vascular Surgery Diagnoses Superficial varicosities Procedures CT OFFICE/OUTPATIENT NEW MODERATE MDM 45-59 MINUTES Velma Phillips APRN Phone: tel: fax: Mikel Varma MD [address] [place] [address] [place] [address] Phone: tel: fax: Referral ID Status Reason Start Date Expiration Date V isits Requested Visits Authorized [id number] Closed Specialty Services Required 10/16/2022 10/16/2023 1 1 Reason for Visit * Reason Comments Establish Care Needs for pcpCyst on left arm (shoulder) since 2019 Encounter Details Date Type Department Care Team (Late st Contact Info) Description 10/16/2022 2:00 PM EDT Office Visit [facility] [address] [place] [address] Velma Phillips APRN [address] [place] [address] Superficial varicosities (Primary Dx); PTSD [...] documented in this encounter Progress Notes * Vemla Phillips, ABRAHAM - 10/16/2022 2:00 PM EDT [...] [facility] [address] [place] [address] Jenny [...] 12:0 2 PM EDT 10/19/2022 Narrative [facility] (AMBULATORY) - 10/20/2022 5:14 AM EDT Performed at: ??01 - [facility] ??[id number] Outer Diameter Grinder: Hawk Mireles PhD, Phone: ??[phone] Patient Fasting: ??Y Velma Phillips APRN LAB BLOOD ORDERABLES Final R esult [facility] (AMBULATORY) [address] [place] [address], [facility] [address] [place] [address], * (ABNORMAL) Lipid Panel (10/19/2022 12:02 PM EDT) Total Cholesterol 230(H) 100 - 199 mg/dL [facility] Triglycerides 134 0 - 149 mg/dL [facility] HDL Cholesterol 60 >39 mg/dL [facility] VLDL Cholesterol Naga 24 5 - 40 mg/dL [facility] LDL Chol Calc (NIH) 146(H) 0 - 99 mg/dL [facility] Blood 10/19/2022 12:0 2 PM EDT 10/19/2022 Narrative [facility] (AMBULATORY) - 10/20/2022 5:14 AM EDT Performed at: ??01 - [facility] [address] [facility] [place], [place] ??[id number] Outer Diameter Grinder: Hawk Mireles PhD, Phone: ??[phone] Patient Fasting: ??Y Velma Meyermaribel Phillips APRN LAB BLOOD ORDERABLES Final R esult [facility] (AMBULATORY) [address] [place] [address], [facility] [address] [place] [address], * (ABNORMAL) CBC & Differential (10/19/2022 12:02 [...] AM EDT Performed at: ??01 - [facility] [address] [place] [address] ??[id number] Outer Diameter Grinder: Hawk Mireles PhD, Phone: ??[phone] Patient Fasting: ??Y Velma Phillips APRN LAB BLOOD ORDERABLES Final R esult [facility] (AMBULATORY) [address] [place] [address], [place] [phone] [facility] [address] [place] [address], [place] [phone] documented in this encounter Visit Diagnoses Diagnosis [...] documented as of this encounter Care Teams Yard Manager Relationship Specialty Start Date End Date Velma Phillips APRN PCP - General Family Medicine 10/16/22 10/10/23 documented as of this encounter
--- OUTSIDE RECORDS SUMMARY | 2024-03-06 17:03 | XMS_ITS | Encounter Summary ---
[facility] Address [address] [place] [address] Care Team Providers Care Sack Repairer Name Role Phone Sariah Benson MD Primary Care Provider Ninfa vailable Reason for Referral * Diagnostic Imaging (Routine) - Closed Specialty Diagnoses / Procedures Referred By Contac t Referred To Contact Radiology Diagnoses Screening for breast cancer Procedures Mammo Screening Digital Tomosynthesis Bilateral With CAD Sariah Benson MD [address] [address] Phone: tel: Referral ID Status Reason Start Date Expiration Date Visits Re quested Visits Authorized [id number] Closed 02/06/2018 02/06/2019 1 1 * Diagnostic Imaging (Routine) - Closed Specialty Diagnoses / Procedures Referred By Contac t Referred To Contact Radiology Diagnoses Menopause Procedures DEXA Bone Density Axial Sariah Benson MD [address] [address] Phone: tel: Referral ID Status Reason Start Date Expiration Date Visits Re quested Visits Authorized [id number] Closed 02/06/2018 02/06/2019 1 1 Reason for Visit * Reason Comments Annual Exam Encounter Details Date Type Department Care Team (Late st Contact Info) Description 02/06/2018 1:15 PM EST Office Visit [facility] PRIMARY CARE [address] [facility] [address] [place] [address] Sariah Benson MD Annual physical exam (Primary [...] and EGD in past as screening by Diesel Engine Ii Pipe Fitter. 3. PSYCH- insomnia. Pt has taken ambien senior care, 0-2x/wk. Will take it if stressed, especially ifshe has to leave the house the next day. Rx for #30 x3 lasts 1yr. At her last visit pt was behavingoddly and reported being ???persecuted?? at [facility]. 4. W- initial SCREENING: Bone Density: 2016 Colonoscopy: past ordered by Diesel Engine Ii Pipe Fitter (Dr Mahoney) in 2016. No fam hx [...] PA [address] [place], [place] [address] documented as of this encounter Procedures Procedure [...] fall-prevention measurements. The National Osteoporosis Foundation recommends (http://www.nof.org/hcp/practice/tekxecgk-bcb-henhxirl-guidelines/clinic ans-guide) that FDA-approved medical therapies be considered [...] the left hip with 95% confidence is 0.893352 gm/cm2 at the hip and 0.952720 g/cm2 at the lumbar spine. This report [...] fall-prevention measurements. The National Osteoporosis Foundation recommends (http://www.nof.org/hcp/practice/rfevlivh-wja-tuuqhvkr-guidelines/clinic ans-guide) that FDA-approved medical therapies be considered [...] the left hip with 95% confidence is 0.185108 gm/cm2 at the hip and 0.745217 g/cm2 at the lumbar spine. This report [...] with a HCV Nucleic Acid Amplification test ([id number]). Blood 02/06/2018 02/07/2018 Comment:BLOOD Narrative [facility] (AMBULATORY) - 02/07/2018 10:16 AM EST Performed at: ??01 - [facility] [address] ??[id number] Bottoming Room Supervisor: Hawk Mireles PhD, Phone: ??[phone] Sariah Benson MD LAB BLOOD ORDERABLES Final Result [facility] (AMBULATORY) [address] [place] [address], [facility] [address] [place] [address], [place] [phone] documented in this encounter Visit Diagnoses Diagnosis Annual physical exam- Primary Routine general medical examination at a health care facility Menopause Symptomatic menopausal or female climacteric states Immunization due documented in this encounter Care Teams Sack Repairer Relationship Specialty Start Date End Date Sariah Benson MD PCP - General 12/10/14 09/03/18 documented as of this encounter
--- OUTSIDE RECORDS SUMMARY | 2024-03-06 17:03 | XMS_ITS | Encounter Summary ---
Author Organization [facility] Address [address] [place] [address] Care Team Providers Care Lubrication Equipment Servicer Name Role Phone Kortney Woods MD Primary Care Provi kenny Reason for Visit * Reason Onset Date Comments Med Refill 04/13/2019 Encounter Details Date Type Department Care Team (Late st Contact Info) Description 04/13/2019 Refill [facility]IMARY [facility]ARE [address] [place] [address] Kortney Woods MD [address] [place] [address] Primary insomnia Social History Tobacco [...] [facility] [address] [place] [address] Jenny Lomeli PA [address] [place] [address] documented as of this encounter Visit Diagnoses Diagnosis Primary insomnia Persistent disorder of initiating or maintaining sleep documented in this encounter Care Teams Lubrication Equipment Servicer Relationship Specialty Start Date End Date Kortney Woods MD [address] [address] PCP - General Internal Medicine 09/04/18 10/15/22 documented as of this encounter
--- OUTSIDE RECORDS SUMMARY | 2024-03-06 17:03 | XMS_ITS | Encounter Summary ---
[facility] Address [address] [place] [id number] Care Team Providers Care Superintendent Measurement Name Role Phone Kortney Woods MD Primary Care Provi kenny Encounter Details Date Type Department Care Team (Late st Contact Info) Description 09/10/2018 Telephone [facility] PRIMARY CARE [address] [place] [address] Kortney Woods MD [address] [place] [address] Social History Tobacco Use Types Packs/Day Years [...] 3:00 PM EDT Office Visit [facility]ICINE [address] [place] [address] Jenny Lomeli PA [address] [place], [place] [phone] documented as of this encounter Visit Diagnoses Not on filedocumented in this encounter Care Teams Superintendent Measurement Relationship Specialty Start Date End Date Kortney Woods MD [address] [place] [address] PCP - General Internal Medicine 09/04/18 10/15/22 documented as of this encounter
--- OUTSIDE RECORDS SUMMARY | 2024-03-06 17:04 | XMS_ITS | Encounter Summary ---
[facility] Address [address] [place] [address] Care Team Providers Care Gas Utility Worker Name Role Phone Sariah Benson MD Primary Care Provider Ninfa vailable Encounter Details Date Type Department Care Team (Late st Contact Info) Description 05/07/2014 Office Visit Converted [facility] PRIMARY CARE [address] [facility] [address] [place] [address] Sariah Benson MD Social History [...] Has had hysterectomy. Hasseen Dr Mahoney in [facility] for her CPE. Pt did not want [...] 06/10/2014 01:00 PM Sariah Benson Family Medicine [facility] [address] The patient was [...] FAMILY MEDICINE [address] [place] [phone] Jenny Lomeli PA [address] [place], [place] [phone] documented as of this encounter Visit Diagnoses Not on filedocumented in this encounter Care Teams Gas Utility Worker Relationship Specialty Start Date End Date Sariah Benson MD PCP - General 12/10/14 09/03/18 documented as of this encounter
--- OUTSIDE RECORDS SUMMARY | 2024-03-06 17:04 | XMS_ITS | Encounter Summary ---
[facility] Address [address] [place] [address] Care Team Providers Care Community Marketing Coordinator Name Role Phone Sariah Benson MD Primary Care Provider Ninfa vailable Encounter Details Date Type Department Care Team (Late st Contact Info) Description 04/26/2015 Office Visit Converted [facility] [address] [facility] [address] [place] [address] Sariah Benson MD Social History [...] a month ago she went to the multimedia artist due to eye allergies. Had her eyes [...] ORTHO- rotator cuff sprain. edu re the [facility] on injury discussed. to do home rehab [...] 06/13/2015 01:00 PM Sariah Benson Family Medicine [facility] [address] Signatures Electronically signed by : Sariah Benson, ; Apr 26 2015 12:26PM EST (Author) documented in this encounter Plan of Treatment Upcoming Encounters Date Type Department Care Team (Late st Contact Info) Description 01/19/2025 3:00 PM EDT Office Visit [facility]ILY MEDICINE [address] [place] [address] Jenny Lomeli PA [address] [place] [address] documented as of this encounter Visit Diagnoses Not on filedocumented in this encounter Care Teams Community Marketing Coordinator Relationship Specialty Start Date End Date Sariah Benson MD PCP - General 12/10/14 09/03/18 documented as of this encounter
--- OUTSIDE RECORDS SUMMARY | 2024-03-06 17:04 | XMS_ITS | Encounter Summary ---
[facility] Address [address] [place] [address] Care Team Providers Care Pharmacy Coordinator Name Role Phone Sariah Benson MD Primary Care Provider Ninfa vailable Encounter Details Date Type Department Care Team (Late st Contact Info) Description 06/10/2014 Office Visit Converted [facility] [address] [place] [address] Sariah Benson MD Social History [...] EGD in past as screening, ordered by Analytical Data Miner. No issues. Has had GERD in the [...] 12/13/2014 01:00 PM Sariah Benson Family Medicine [facility] [address] Signatures Electronically signed by : Sariah Benson, ; Jun 10 2014 2:23PM EST (Author) documented in this encounter Plan of Treatment Upcoming Encounters Date Type Department Care Team (Late st Contact Info) Description 01/19/2025 3:00 PM EDT Office Visit [facility] [address] [place] [phone] Jenny Lomeli PA [address] [place] [address] documented as of this encounter Visit Diagnoses Not on filedocumented in this encounter Care Teams Pharmacy Coordinator Relationship Specialty Start Date End Date Sariah Benson MD PCP - General 12/10/14 09/03/18 documented as of this encounter
--- OUTSIDE RECORDS SUMMARY | 2024-03-06 17:04 | XMS_ITS | Encounter Summary ---
Author Organization [facility] Address [address] [place] [address] Care Team Providers Care Hydraulic Rock Drill Operator Name Role Phone Sariah Benson MD Primary Care Provider Ninfa vailable Reason for Visit * Reason Onset Date Comments Med Refill 10/18/2017 Encounter Details Date Type Department Care Team (Late st Contact Info) Description 10/18/2017 Telephone [facility] PRIMARY CARE [address] [place] [address] [facility] [address] [place] [address] Sariah Benson MD Med Refill [...] 10/18/2017 10:45 AM EDT Rx faxed to [email or web address] mail in * Telephone Encounter - Yecenia [...] FAMILY MEDICINE [address] [place] [phone] Jenny Lomeli PA [address] [place], [place] [phone] documented as of this encounter Visit Diagnoses Not on filedocumented in this encounter Care Teams Hydraulic Rock Drill Operator Relationship Specialty Start Date End Date Sariah Benson MD PCP - General 12/10/14 09/03/18 documented as of this encounter
--- OUTSIDE RECORDS SUMMARY | 2024-03-06 17:04 | XMS_ITS | Encounter Summary ---
[facility] Address [address] [place] [address] Care Team Providers Care Industrial Organization Manager Name Role Phone Sariah Benson MD Primary Care Provider Ninfa vailable Encounter Details Date Type Department Care Team (Late st Contact Info) Description 12/13/2014 Office Visit Converted [facility] PR[facility] [address] [facility] [address] [place] [address] Sariah Benson MD Social History [...] EGD in past as screening, ordered by Community Resource Consultant. No issues. Has had GERD in the past and done well with zantac. Current started after she took some aleve. Was started onomeprazole and this did well. Was advised to continue this as long as she was on NSAID, sim as she is now on diclofenac for back pain. Was encouarged to keep her screening colonoscopy as ordered by Community Resource Consultant as part of her CPE. Today pt [...] Today pt reports she has taken ambien chcf, 0-2x/wk. Usually needs it when she will [...] flare, the less problem she should have chcf. 2. ORTHO- arthritis- improved. discussed hand stretches. [...] [facility] [address] [facility] [place] [phone] Jenny Lomeli PA [address] [place] [id number] documented as of this encounter Visit Diagnoses Not on filedocumented in this encounter Care Teams Industrial Organization Manager Relationship Specialty Start Date End Date Sariah Benson MD PCP - General 12/10/14 09/03/18 documented as of this encounter
--- OUTSIDE RECORDS SUMMARY | 2024-03-06 17:04 | XMS_ITS | Encounter Summary ---
Author [facility] [address] [place] [address] Care Team Providers Care Engineer Systems Name Role Phone Sariah Benson MD Primary Care Provider Ninfa vailable Encounter Details Date Type Department Care Team (Late st Contact Info) Description 06/13/2015 Office Visit Converted [facility] PRIMARY [facility]ARE [address] [facility] [address] [place] [address] Sariah Benson MD Social History [...] and EGD in past as screening by Tongue And Quarter Stitcher with no issues.Was startedon omeprazole prn, sim [...] [phone] Jenny Lomeli PA [address] [place] [address] documented as of this encounter Visit Diagnoses Not on filedocumented in this encounter Care Teams Engineer Systems Relationship Specialty Start Date End Date Sariah Benson MD PCP - General 12/10/14 09/03/18 documented as of this encounter
--- OUTSIDE RECORDS SUMMARY | 2024-03-06 17:04 | XMS_ITS | Encounter Summary ---
Author [facility] Address [address] [place] [address] Care Team Providers Care Transmission Repairer Name Role Phone Sariah Benson MD Primary Care Provider Ninfa vailable Reason for Visit * Reason Onset Date Comments Mammo Order 10/07/2017 Encounter Details Date Type Department Care Team (Late st Contact Info) Description 10/07/2017 Telephone [facility] C[facility] [address] [place] [address] [facility] [address] [place] [address] Sariah Benson MD Mammo Order [...] PM EDT Per pt chart she sees IT ADMIN and will need to get order from them. Thanks! * Telephone Encounter - Madina Storey - 10/07/2017 12:36 PM EDT PATIENT WANTED TO KNOW IF SHE COULD A REFERRAL TO GET A MAMMOGRAM AT [address] [place] [address]. documented in this encounter Plan of Treatment Upcoming Encounters Date Type Department Care Team (Late st Contact Info) Description 01/19/2025 3:00 PM EDT Office Visit [facility] MEDIC[facility] [address] [phone] Jenny Lomeli PA [address] [place] [phone] documented as of this encounter Visit Diagnoses Not on filedocumented in this encounter Care Teams Transmission Repairer Relationship Specialty Start Date End Date Sariah Benson MD PCP - General 12/10/14 09/03/18 documented as of this encounter
--- OUTSIDE RECORDS SUMMARY | 2024-03-06 17:04 | XMS_ITS | Encounter Summary ---
[facility] Organization [facility] [address] [place] [address] Care Team Providers Care Associate Professor Of Radiology Name Role Phone Sariah Benson MD Primary Care Provider Ninfa vailable Encounter Details Date Type Department Care Team (Late st Contact Info) Description 05/20/2017 Telephone [facility] PRIMARY [facility]ARE [address] [place] [address] Sariah Benson MD Social History [...] [facility] FAM[facility] MED[facility] [address] [place] [address] Jenny Lomeli PA [address] [place] [address] documented as of this encounter Visit Diagnoses Not on filedocumented in this encounter Care Teams Associate Professor Of Radiology Relationship Specialty Start Date End Date Sariah Benson MD PCP - General 12/10/14 09/03/18 documented as of this encounter
--- OUTSIDE RECORDS SUMMARY | 2024-03-06 17:04 | XMS_ITS | Encounter Summary ---
[facility] Address [address] [place] [address] Care Team Providers Care Puddler Pile Driving Name Role Phone Sariah Benson MD Primary Care Provider Ninfa vailable Encounter Details Date Type Department Care Team (Late st Contact Info) Description 08/05/2014 Telephone Converted [facility] [address] [place] [address] ProviderPamela MD [address] [place] [address] Social History Tobacco Use Types Packs/Day [...] she could have a Mammogram done at [address] [place] [address] ([facility] [place] [place]- [phone]) Please advise Thank you! Patient can be reached at if needed [phone] Payton Alcantar - 03 Aug 2014 3:48 [...] two times and has CPE done with CONTRACTS ADMINISTRATOR. Is this okay to order through us or does she need to ask CONTRACTS ADMINISTRATOR for this? Sariah Benson - 04 Aug 2014 12:15 PM TASK EDITED has to come from Manufacturing Shift Supervisor.Payton Ruiz - 04 Aug 2014 12:21 PM TASK REASSIGNED: Previously Assigned To Payton Alcantar Jamie - 04 Aug 2014 3:12 PM TASK EDITED s/w patient she stated she called CONTRACTS ADMINISTRATOR they stated for her to call us. Please advise patient at [phone] (Patient stated she will try and call CONTRACTS ADMINISTRATOR again) documented in this encounter Plan of Treatment Upcoming Encounters Date Type Department Care Team (Late st Contact Info) Description 01/19/2025 3:00 PM EDT Office Visit [facility] MEDICINE [address] [place] [address] Jenny Lomeli PA [address] [place] [address] documented as of this encounter Visit Diagnoses Not on filedocumented in this encounter Care Teams Puddler Pile Driving Relationship Specialty Start Date End Date Sariah Benson MD PCP - General 12/10/14 09/03/18 documented as of this encounter
--- OUTSIDE RECORDS SUMMARY | 2024-03-06 17:04 | XMS_ITS | Encounter Summary ---
[facility] [address] [place] [address] Care Team Providers Care Glove Presser Name Role Phone Sariah Benson MD Primary Care Provider Ninfa vailable Reason for Visit * Reason Comments Leg Pain Encounter Details Date Type Department Care Team (Late st Contact Info) Description 05/01/2017 10:00 AM EST Office Visit [facility] [address] [place] [address] Sariah Benson MD Primary insomnia [...] and EGD in past as screening by Dairy Department Manager. 3. PSYCH- insomnia. Pt has taken ambien keno terminal operator, 0-2x/wk. 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
--- OUTSIDE RECORDS SUMMARY | 2024-03-06 17:04 | XMS_ITS | Encounter Summary ---
[facility] Organization [facility] Address [address] [place] [address] Care Team Providers Care Dirt Bike Mechanic Name Role Phone Sariah Benson MD Primary Care Provider Ninfa vailable Encounter Details Date Type Department Care Team (Late st Contact Info) Description 05/04/2014 Office Visit Converted [facility] [address] [facility] [address] [place] [address] Shelley Waldrop MD [address] [place] [address] [address] [place] [address] Social History Tobacco Use Types [...] 05/07/2014 10:45 AM Sariah Benson Family [facility] [address] Signatures Electronically signed by : Shelley Waldrop M.D.; May 07 2014 9:33AM EST (Author) documented in this encounter Plan of Treatment Upcoming Encounters Date Type Department Care Team (Late st Contact Info) Description 01/19/2025 3:00 PM EDT Office Visit [facility] [address] [place] [address] Jenny Lomeli PA [address] [place], [place] [id number] documented as of this encounter Visit Diagnoses Not on filedocumented in this encounter Care Teams Dirt Bike Mechanic Relationship Specialty Start Date End Date Sariah Benson MD PCP - General 12/10/14 09/03/18 documented as of this encounter
[2024-03-06 17:14] LABS: Adenovirus F 40/41, stool Not Detected (NotDetected); Astrovirus Not Detected (NotDetected); Campylobacter Not Detected (NotDetected); Clostridium Difficile A/B, PCR Not Detected (NotDetected); Cryptosporidium Not Detected (NotDetected); Cyclospora Cayetanesis Not Detected (NotDetected); Entamoeba histolytica Not Detected (NotDetected); Enteroaggregative E coli Not Detected (NotDetected); Enteropathogenic E coli Not Detected (NotDetected); Enterotoxigenic E coli Not Detected (NotDetected); Giardia lamblia Not Detected (NotDetected); Norovirus Not Detected (NotDetected); Plesimonas Shigalloides, PCR Not Detected (NotDetected); Rotavirus A Not Detected (NotDetected); Salmonella, PCR Not Detected (NotDetected); Sapovirus Not Detected (NotDetected); Shiga-like toxin E coli Not Detected (NotDetected); Shigella Enterovasive E coli Not Detected (NotDetected); Vibrio Cholerae Not Detected (NotDetected); Vibrio, PCR Not Detected (NotDetected); Yersinia Entercolitica, PCR Not Detected (NotDetected)
== END 2024-03-06 23:59 | disposition home or self-care (01) ==
LOC: LAB.DROPOF 17:01
PROVIDERS: Visit Provider Nurse Practitioner
DX: R19.7 Diarrhea, unspecified (principal)
CPT/HCPCS: 87507